=== PATIENT | female | born 1955 | race Caucasian/White ===

== ENCOUNTER 2020-04-01 08:47 | Outpatient (REF) | payer OTHER, SELFPAY ==
[2020-04-01 10:18] LABS: MANUAL DIFF FLAG NO
[2020-04-01 10:31] LABS: Basophils Percent Auto 0.5 % (0-2); Eosinophils Absolute Auto 0.2 X10*3/uL (0.0-0.4); Eosinophils Percent Auto 3.3 % (0-4); Hematocrit 36.4 % (37-47); Hemoglobin 11.8 g/dl (12.0-16.0); Imm Gran Abs Auto 0.01 X10*3/uL (0.00-0.03); Imm Gran Pct Auto 0.2 % (0.0-0.4); Lymphocytes Absolute Auto 1.7 X10*3/uL (1.2-4.9); Lymphocytes Percent Auto 26.3 % (20-40); Mean Corpuscular HGB Conc 32.4 g/dl (31.0-35.0); Mean Corpuscular Hemoglobin 27.4 pg (27.0-33.0); Mean Corpuscular Volume 84.5 fL (80-98); Monocytes Absolute Auto 0.3 X10*3/uL (0.1-1.2); Monocytes Percent Auto 3.9 % (2-11); Neutrophils Absolute Auto 4.2 X10*3/uL (2.0-8.3); Neutrophils Percent Auto 65.8 % (45-73); Platelet Count 323 X10*3/uL (160-400); Red Blood Count 4.31 X10*6/uL (4.20-5.50); Red Cell Distribution Width 14.9 % (11.0-16.0); White Blood Count 6.4 X10*3/uL (4.8-10.8)
[2020-04-01 11:10] LABS: Alanine Aminotransferase 17 U/L (0-31); Albumin Level 3.8 g/dL (3.5-5.0); Alkaline Phosphatase 116 U/L (39-117); Anion Gap 14 (12-20); Aspartate Amino Transferase 17 U/L (5-31); Bilirubin Total 0.5 mg/dL (0.0-1.0); Blood Urea Nitrogen 14 mg/dL (9-16); Calcium 8.5 mg/dL (8.4-10.2); Carbon Dioxide 26 mmol/L (22-29); Chloride 105 mmol/L (96-108); Cholesterol 134 mg/dL; Estimated Glomerular Filt Rate 47; Glucose Fasting 106 mg/dL (60-99); HDL Cholesterol 39 mg/dL; LDL Cholesterol Calculated 80 mg/dl; Potassium 3.7 mmol/l (3.3-5.1); Sodium 141 mmol/L (135-145); Total Protein 6.4 g/dL (6.5-8.0); Triglycerides 76 mg/dL
[2020-04-01 11:11] LABS: T4 Thyroxine 7.2 ug/dL (4.5-12.0); Thyroid Stimulating Hormone 1.43 uIU/mL (0.32-4.0); Vitamin D 25-OH Total 24.9 ng/mL (>30)
[2020-04-01 11:21] LABS: Folate 12.7 ng/mL (> or = 4.0); Vitamin B12 385 pg/mL (200-900)
== END 2020-04-01 08:48 | disposition home or self-care (01) ==
LOC: HO.10HDL 08:47
PROVIDERS: Visit Provider Internal Medicine
DX: K21.9 Gastro-esophageal reflux disease without esophagitis (principal); E66.9 Obesity, unspecified; E78.00 Pure hypercholesterolemia, unspecified; I25.10 Atherosclerotic heart disease of native coronary artery without angina pectoris; F41.8 Other specified anxiety disorders; I10 Essential (primary) hypertension; R73.02 Impaired glucose tolerance (oral); G43.909 Migraine, unspecified, not intractable, without status migrainosus; K59.00 Constipation, unspecified; M54.5 Low back pain
CPT/HCPCS: 36415; 80053; 80061; 82306; 82607; 82746; 84436; 84443; 85025

== ENCOUNTER 2020-04-11 10:40 | Outpatient (REF) | payer OTHER, SELFPAY | END 2020-04-11 10:41 | disposition home or self-care (01) | LOC: HO.LAB 10:40 | PROVIDERS: PCP Internal Medicine; Visit Provider Internal Medicine | DX: Z20.828 Contact with and (suspected) exposure to other viral communicable diseases (principal) | CPT/HCPCS: C9803; U0003 ==

== ENCOUNTER 2020-07-11 09:56 | Outpatient (REF) | payer OTHER, SELFPAY ==
[2020-07-11 10:57] LABS: Alanine Aminotransferase 17 U/L (0-31); Albumin Level 3.9 g/dL (3.5-5.0); Alkaline Phosphatase 109 U/L (39-117); Anion Gap 12 (12-20); Aspartate Amino Transferase 18 U/L (5-31); Bilirubin Total 0.4 mg/dL (0.0-1.0); Blood Urea Nitrogen 13 mg/dL (9-16); Calcium 9.2 mg/dL (8.4-10.2); Carbon Dioxide 26 mmol/L (22-29); Chloride 108 mmol/L (96-108); Cholesterol 143 mg/dL; Estimated Glomerular Filt Rate 44; Glucose Random 109 mg/dL (60-115); HDL Cholesterol 44 mg/dL; LDL Cholesterol Calculated 85 mg/dl; Potassium 4.2 mmol/L (3.3-5.1); Sodium 142 mmol/L (135-145); Total Protein 6.5 g/dL (6.5-8.0); Triglycerides 70 mg/dL
[2020-07-11 10:59] LABS: Appearance Urine CLEAR; Color Urine YELLOW; Estimated Average Glucose 120 mg/dL; Glucose Urine UA NEG (NEG); Hemoglobin A1c % 5.8 %; Leukocyte Esterase Urine TRACE (NEG); Nitrite Urine NEG (NEG); Specific Gravity - Urine >= 1.030 (1.005-1.025); Urine Blood NEG (NEG); Urine Ketones NEG (NEG); Urine Protein NEG (NEG-TRACE)
[2020-07-11 11:12] LABS: Bacteria Urine TRACE /LPF; Mucus Urine 1+ /LPF; RBC Urine 0-2 /HPF (0); Squamous Epithelial Cell Urine 1+ /LPF
== END 2020-07-11 09:57 | disposition home or self-care (01) ==
LOC: HO.10HDL 09:56
PROVIDERS: Visit Provider Internal Medicine
DX: R73.02 Impaired glucose tolerance (oral) (principal); E78.00 Pure hypercholesterolemia, unspecified; R30.0 Dysuria
CPT/HCPCS: 36415; 80053; 80061; 81001; 83036

== ENCOUNTER 2020-08-29 16:50 | Emergency (ER) | payer OTHER, SELFPAY ==
--- NOTE | ~2020-08-29 | XR_ITS ---
EXAMINATION: XR HIP, RIGHT CLINICAL INFORMATION: Right leg and right groin pain COMPARISON: None TECHNIQUE: Single view pelvis with 2 additional views of the right hip. FINDINGS: Some minimal degenerative change present with some supra-acetabular sclerosis and some minimal osteophyte formation. No significant joint space narrowing. No fracture. Alignment is anatomic. Hip joint space is maintained. XR/XR hip RT min 2V IMPRESSION: No acute abnormality is seen.
--- NOTE | ~2020-08-29 | US_ITS ---
EXAMINATION: US VENOUS ULTRASOUND WITH DOPPLER LOWER EXTREMITY, RIGHT CLINICAL INFORMATION: Right lower extremity pain and swelling COMPARISON: right lower extremity DVT study 11/08/2013 TECHNIQUE: Ultrasound of the deep veins is performed from the hip to the calf with compression sonography and color and pulse Doppler assessment. Spectral analysis with color-flow imaging is performed. FINDINGS: There is normal venous compression and respiratory variation and augmented flow. The visualized common femoral vein, superficial femoral vein, profunda femoral vein, popliteal vein, and the trifurcation region shows no evidence of deep venous thrombosis. There is no significant popliteal fossa cyst. The contralateral left femoral vein appeared normal. If the patient's symptoms persist, followup ultrasound in 5 days 7 days might be of value to exclude proximal propagation from a non-visualized calf vein. US/US venous duplex LE RT IMPRESSION: No DVT demonstrated in the right lower extremity.
[2020-08-29 17:50] VITALS: BP 140/75; PULSE 68; RESP 16; TEMP 36.6; O2SAT 98; BMI 34.4
--- NOTE | 2020-08-29 18:45 | ED.LOWEXIN ---
HPI - Extremity Injury (Lower) General Chief Complaint: Extremity Injury, Lower Stated Complaint: LEG PAIN Time Seen by Provider: 08/29/20 18:31 Source: patient Mode of arrival: ambulatory Limitations: no limitations History of Present Illness HPI Narrative: 64-year-old female with past medical history of anxiety, depression, coronary artery disease, diverticulitis, GERD, hypertension, hyperlipidemia, leukopenia, and migraines presents with several days of right hip pain and intermittent right knee swelling. Patient states that she was walking and felt the deep groin pain that has not been alleviated with rest or xjpo-oho-ghgpbqk medications. She does not describe any falls or injury, denies chest pain and pressure, palpitations, shortness breath, diaphoresis, shortness breath on exertion, abdominal pain, abdominal distention, dysuria, hematuria, nausea, vomiting, diarrhea, constipation, melena, or hematochezia. MD complaint: hip injury Onset (ago): day(s) Type of Injury: unknown Place: home Severity: moderate Severity scale (1-10): 7 Relieving factors: nothing Exacerbating factors: weight bearing, movement and palpation Associated symptoms: swelling and able to partially bear weight Other symptoms: none Treatments prior to arrival: NSAIDS Related Data Home Medications Medication Instructions Recorded Confirmed aspirin 81 mg tablet,delayed 81 mg PO DAILY 04/09/20 07/10/20 release txkbvcjlgu-fekzpctptstcl-hngzrhlm 1 cap PO Q4-6H PRN 04/09/20 07/10/20 50 mg-325 mg-40 mg capsule isosorbide mononitrate 30 mg 30 mg PO DAILY 04/09/20 07/10/20 tablet,extended release 24 hr lisinopril 5 mg tablet 5 mg PO DAILY 04/09/20 07/10/20 Previous Rx's Medication Instructions Recorded dicyclomine 10 mg capsule 10 mg PO TID 30 Days #90 cap 03/06/20 sumatriptan succinate 50 mg tablet 50 mg PO .QD PRN #14 tab 04/09/20 amlodipine 10 mg tablet 10 mg PO DAILY #90 tab 05/13/20 atorvastatin 80 mg tablet 80 mg PO DAILY #90 tab 05/27/20 sertraline 25 mg tablet 25 mg PO DAILY #90 tab 05/27/20 rosuvastatin 20 mg tablet 20 mg PO DAILY #90 tab 07/03/20 clonazepam 0.5 mg tablet 0.5 mg PO BID 30 Days #60 tab 07/09/20 omeprazole 20 mg capsule,delayed 20 mg PO DAILY #90 cap 07/10/20 release phenazopyridine 200 mg tablet 200 mg PO TID #30 tab 07/10/20 psyllium husk 0.52 gram capsule 0.52 g PO BEDTIME PRN #90 cap 07/10/20 sulfamethoxazole 800 1 tab PO BID #14 tab 07/11/20 mg-trimethoprim 160 mg tablet folic acid 1 mg tablet 1 mg PO DAILY #90 tab 07/23/20 Allergies Allergy/AdvReac Type Severity Reaction Status Date / Time Iodinated Contrast Media Allergy Unknown SHAKING Verified 06/26/20 12:15 [IV DYE, IODINE CONTAINING CONTRAST ] Review of Systems Review of Systems: Constitutional: No Fever, No Chills ENT/Mouth: No Ear Pain, No Hoarseness, No sore throat Eyes: No Eye Pain, No Swelling, No Redness, No Foreign Body Cardiovascular: No Chest Pain, No SOB Respiratory: No Cough, No Dyspnea Gastrointestinal: No Nausea, No Vomiting, No Diarrhea, No abdominal Pain Genitourinary: No Dysuria, No Hematuria Musculoskeletal: positive right hip pain, positive right knee swelling, No Myalgias Skin: No Skin lacerations, No rash Neuro: No Weakness, No Numbness, No Paresthesias, No Loss of Consciousness, No Dizziness, No Headache Psych: No Anxiety/Panic, No Depression Heme/Lymph: no easy bruising, no Lymphadenopathy Endocrine: No Polyuria, No Polydipsia Yes all other systems are reviewed and are negative PMFSH Past Medical History Attestation statement: The following information was validated with the patient. Source: old records reviewed Medical History Anxiety and depression Coronary artery disease Diverticulitis GERD (gastroesophageal reflux disease) Hypercholesterolemia Hypertension Impaired glucose tolerance Leukopenia Migraine Obesity (BMI 30-39.9) Psoriasis Surgical History History of bladder surgery History of section History of urologic surgery S/P ROSALIA-BSO (total abdominal hysterectomy and bilateral salpingo-oophorectomy) Family History Family History Father Medical history unknown Mother Myocardial infarction Hypertension CVD (cardiovascular disease) Social History Social History Alcohol intake: current Alcohol intake frequency: holidays/special occasions only Smoking Status: Never smoker Advance Directives: No Advance Directives Information Provided: No Physical Exam Vital Signs: Vital Signs: Last Vital Signs Temp 98 F 08/29/20 17:50 Pulse 65 08/29/20 20:02 Resp 17 08/29/20 20:02 BP 128/70 08/29/20 20:02 Pulse Ox 96 08/29/20 20:02 Body Mass Index 34.4 Appearance: Alert. Oriented X3. No acute distress. Eyes: Pupils equal, round and reactive to light. ENT: Pharynx normal. Neck: Normal inspection. Neck supple. CVS: Normal heart rate and rhythm. Pulses normal. Respiratory: No respiratory distress. Breath sounds normal. Abdomen: Soft and nontender. Skin: Skin warm and dry. Normal skin color. Normal skin turgor. Extremities: Right hip pain on flexion, extension, abduction and adduction, right knee swelling without tenderness and with normal range of motion, full range of motion to bilateral ankles and feet, equal pedal pulses and brisk capillary refill. Neuro: No motor deficit. No sensory deficit. Course Course Course Narrative: 64-year-old female with past medical history of anxiety, depression, coronary artery disease, diverticulitis, GERD, hypertension, hyperlipidemia, leukopenia, and migraines presents with several days of right hip pain and intermittent right knee swelling. Will order hip x-ray and rule out DVT. Venous duplex negative, hip x-ray shows osteophytes and degeneration. Patient is requesting something further for pain, will give 1 tablet of oxycodone and a referral to primary care for possible physical therapy. Detailed discussion regarding appropriate use of narcotics patient, while patient is disappointed that I cannot send her home with prescription, she does understand. Patient verbalized understanding of and agrees plan of care discharge home. MDM - Extremity Injury (Lower) Medical Records Attestation: I reviewed the patient's medical records. Lab Data Attestation: I reviewed the patient's lab results. Imaging Data Right hip x-ray: Attestation: I personally reviewed and interpreted this imaging study as follows: Radiologist's impression: EXAMINATION: XR HIP, RIGHT CLINICAL INFORMATION: Right leg and right groin pain COMPARISON: None TECHNIQUE: Single view pelvis with 2 additional views of the right hip. FINDINGS: Some minimal degenerative change present with some supra-acetabular sclerosis and some minimal osteophyte formation. No significant joint space narrowing. No fracture. Alignment is anatomic. Hip joint space is maintained. XR/XR hip RT min 2V IMPRESSION: No acute abnormality is seen. Right lower extremity venous duplex: Attestation: I personally reviewed and interpreted this imaging study as follows: Radiologist's impression: EXAMINATION: US VENOUS ULTRASOUND WITH DOPPLER LOWER EXTREMITY, RIGHT CLINICAL INFORMATION: Right lower extremity pain and swelling COMPARISON: right lower extremity DVT study 11/08/2013 TECHNIQUE: Ultrasound of the deep veins is performed from the hip to the calf with compression sonography and color and pulse Doppler assessment. Spectral analysis with color-flow imaging is performed. FINDINGS: There is normal venous compression and respiratory variation and augmented flow. The visualized common femoral vein, superficial femoral vein, profunda femoral vein, popliteal vein, and the trifurcation region shows no evidence of deep venous thrombosis. There is no significant popliteal fossa cyst. The contralateral left femoral vein appeared normal. If the patient's symptoms persist, followup ultrasound in 5 days 7 days might be of value to exclude proximal propagation from a non-visualized calf vein. US/US venous duplex LE RT IMPRESSION: No DVT demonstrated in the right lower extremity. Discharge Plan Discharge Clinical Impression: Osteophyte of hip Patient Disposition: Home, Self-Care Instructions: Arthritis (ED) Additional Instructions: You were evaluated for right hip pain. X-rays show bone sclerosing and osteophytes, consistent with arthritis. Please follow-up with primary care physician as you may need physical therapy. Venous duplex of the right lower extremity is negative for blood clots. Thank you for choosing this emergency department for evaluation. Please follow-up with primary care physician as needed. Return to the emergency department for any new, concerning, or worsening symptoms. Prescriptions: No Action dicyclomine 10 mg capsule 10 mg PO TID 30 Days Qty: 90 RF: 6 amlodipine 10 mg tablet 10 mg PO DAILY Qty: 90 RF: 1 sertraline 25 mg tablet 25 mg PO DAILY Qty: 90 RF: 1 atorvastatin 80 mg tablet 80 mg PO DAILY Qty: 90 RF: 3 rosuvastatin 20 mg tablet 20 mg PO DAILY Qty: 90 RF: 2 clonazepam 0.5 mg tablet 0.5 mg PO BID 30 Days Qty: 60 RF: 1 sulfamethoxazole-trimethoprim [Bactrim DS] 800-160 mg tablet 1 tab PO BID Qty: 14 RF: 0 folic acid 1 mg tablet 1 mg PO DAILY Qty: 90 RF: 1 isosorbide mononitrate 30 mg tablet extended release 24 hr 30 mg PO DAILY RF: 0 doglzshmyy-zhwzsdegclyvp-qijp 50-325-40 mg capsule 1 cap PO Q4-6H PRNRF: 0 lisinopril 5 mg tablet 5 mg PO DAILY RF: 0 aspirin [Adult Aspirin Regimen] 81 mg tablet,delayed release (DR/EC) 81 mg PO DAILY RF: 0 sumatriptan succinate [Imitrex] 50 mg tablet 50 mg PO .QD PRN (Reason: migraine headache) Qty: 14 RF: 6 psyllium husk [Natural Fiber Laxative] 0.52 gram capsule 0.52 g PO BEDTIME PRN (Reason: constipation) Qty: 90 RF: 3 omeprazole 20 mg capsule,delayed release(DR/EC) 20 mg PO DAILY Qty: 90 RF: 1 phenazopyridine [Pyridium] 200 mg tablet 200 mg PO TID Qty: 30 RF: 0 Interventions: ED Discharge Assessment Last Done: 08/29/20 20:32 Discharge Date/Time: 08/29/20 20:33
[2020-08-29 20:02] VITALS: BP 128/70; PULSE 65; RESP 17; O2SAT 96
[2020-08-29] MEDS: oxyCODONE HCl Immed Release 5 MG TABLET PO (20:02)
== END 2020-08-29 20:33 | disposition home or self-care (01) ==
PROVIDERS: Emergency Provider Internal Medicine; PCP Internal Medicine
DX: M25.751 Osteophyte, right hip (principal); M79.604 Pain in right leg; R60.0 Localized edema; Z79.899 Other long term (current) drug therapy
CPT/HCPCS: 73502; 93971; 99284

== ENCOUNTER 2020-09-16 | Outpatient (REF) | payer OTHER, SELFPAY ==
[2020-09-18 15:07] LABS: H Pylori Breath Test NOT DETECTED (NOT DETECTED)
== END 2020-09-16 00:01 | disposition home or self-care (01) ==
LOC: HO.LNP
PROVIDERS: Visit Provider Physician Assistant
DX: K21.9 Gastro-esophageal reflux disease without esophagitis (principal); Z11.0 Encounter for screening for intestinal infectious diseases
CPT/HCPCS: 83013

== ENCOUNTER → 2020-09-16 10:13 | Outpatient (BNVA) | payer OTHER, SELFPAY | PROVIDERS: Visit Provider Physician Assistant | DX: K21.9 Gastro-esophageal reflux disease without esophagitis (principal) | CPT/HCPCS: 99212 ==

== ENCOUNTER 2020-09-17 15:04 | Outpatient (REF) | payer OTHER, SELFPAY | END 2020-09-17 15:05 | disposition home or self-care (01) | LOC: HO.LNP 15:04 | PROVIDERS: Visit Provider Physician Assistant | DX: Z13.89 Encounter for screening for other disorder (principal) ==

== ENCOUNTER → 2020-12-18 10:57 | Outpatient (BNVA) | payer OTHER, SELFPAY | PROVIDERS: PCP Internal Medicine | DX: N39.0 Urinary tract infection, site not specified (principal) | CPT/HCPCS: 99202 ==

== ENCOUNTER 2021-01-09 08:26 | Outpatient (REF) | payer OTHER, SELFPAY ==
[2021-01-09 09:02] LABS: MANUAL DIFF FLAG NO
[2021-01-09 09:12] LABS: Basophils Percent Auto 0.5 % (0-2); Eosinophils Absolute Auto 0.2 X10*3/uL (0.0-0.4); Eosinophils Percent Auto 2.8 % (0-4); Hematocrit 36.9 % (37-47); Hemoglobin 11.7 g/dl (12.0-16.0); Imm Gran Abs Auto 0.01 X10*3/uL (0.00-0.03); Imm Gran Pct Auto 0.2 % (0.0-0.4); Immature Retic Fraction 10.4 % (3.0-15.9); Lymphocytes Absolute Auto 1.9 X10*3/uL (1.2-4.9); Lymphocytes Percent Auto 30.3 % (20-40); Mean Corpuscular HGB Conc 31.7 g/dl (31.0-35.0); Mean Platelet Volume 10.2 fL (9.4-12.3); Monocytes Absolute Auto 0.3 X10*3/uL (0.1-1.2); Monocytes Percent Auto 4.9 % (2-11); Neutrophils Absolute Auto 3.9 X10*3/uL (2.0-8.3); Neutrophils Percent Auto 61.3 % (45-73); Platelet Count 275 X10*3/uL (160-400); Red Blood Count 4.34 X10*6/uL (4.20-5.50); Red Cell Distribution Width 15.6 % (11.0-16.0); Retic HGB Equivalent 30.2 pg (30.0-35.0); Reticulocyte Percent 1.3 % (0.5-1.8); Reticulocytes Absolute 0.058 X10*6/uL (0.026-0.095); White Blood Count 6.4 X10*3/uL (4.8-10.8)
[2021-01-09 09:32] LABS: Estimated Average Glucose 111 mg/dL; Hemoglobin A1c % 5.5 %
[2021-01-09 09:44] LABS: Unsaturated Iron Binding 307 ug/dL
[2021-01-09 09:49] LABS: Iron 47 mcg/dL (30-160); Percent Iron Saturation 13 % (15-50); Total Iron Binding Capacity 354 mcg/dL (228-428)
[2021-01-09 10:01] LABS: Folate 13.5 ng/mL (> or = 4.0); Vitamin B12 302 pg/mL (200-900)
[2021-01-09 10:05] LABS: Ferritin 8 ng/mL (10-250)
== END 2021-01-09 08:27 | disposition home or self-care (01) ==
LOC: HO.LAB 08:26
PROVIDERS: PCP Internal Medicine; Visit Provider Internal Medicine
DX: D64.9 Anemia, unspecified (principal); R73.02 Impaired glucose tolerance (oral)
CPT/HCPCS: 36415; 82607; 82728; 82746; 83036; 83540; 85025; 85045

== ENCOUNTER 2021-01-31 10:15 | Outpatient (REF) | payer OTHER, SELFPAY ==
--- NOTE | ~2021-01-31 | MM_ITS ---
EXAMINATION: MM SCREENING DIGITAL BREAST TOMOSYNTHESIS, BILATERAL CLINICAL INFORMATION: Screening. Asymptomatic. Family history postmenopausal breast cancer: mother, sister. The lifetime risk of breast cancer based on the Tyrer-Cuzick Model is 10%. COMPARISON: Mammography: 01/26/2020, 09/30/2018, 09/24/2017 TECHNIQUE: Digital breast tomosynthesis is performed in both the craniocaudal and mediolateral oblique views along with computer-aided detection (CAD). Synthesized 2D images are generated from the tomosynthesis. FINDINGS: There are scattered areas of fibroglandular density (ACR BI-RADS breast composition Category b). There are no significant masses, abnormal calcifications, or other abnormalities. The axilla and skin contours are similar to prior study. There are no significant changes. MM/MM tomosynthesis screening BI IMPRESSION: No mammographic evidence of malignancy. ASSESSMENT: BI-RADS 1: Negative RECOMMENDATION: Routine annual mammography screening. This patient's information was entered into a reminder system with a target due date for their next mammogram.
== END 2021-01-31 10:16 | disposition home or self-care (01) ==
LOC: HO.MAMMO 10:15
PROVIDERS: Visit Provider Internal Medicine
DX: Z12.31 Encounter for screening mammogram for malignant neoplasm of breast (principal)
CPT/HCPCS: 77063; 77067

== ENCOUNTER 2021-05-08 08:36 | Outpatient (REF) | payer OTHER, SELFPAY ==
[2021-05-08 08:56] LABS: MANUAL DIFF FLAG NO
[2021-05-08 09:14] LABS: Basophils Percent Auto 0.4 % (0-2); Eosinophils Absolute Auto 0.1 X10*3/uL (0.0-0.4); Eosinophils Percent Auto 2.6 % (0-4); Hematocrit 37.2 % (37.0-47.0); Hemoglobin 11.8 g/dl (12.0-16.0); Imm Gran Abs Auto 0.01 X10*3/uL (0.00-0.03); Imm Gran Pct Auto 0.2 % (0.0-0.4); Immature Retic Fraction 11.7 % (3.0-15.9); Lymphocytes Absolute Auto 1.5 X10*3/uL (1.2-4.9); Lymphocytes Percent Auto 27.5 % (20-40); Mean Corpuscular HGB Conc 31.7 g/dl (31.0-35.0); Mean Corpuscular Hemoglobin 27.6 pg (27.0-33.0); Mean Corpuscular Volume 86.9 fL (80.0-98.0); Monocytes Absolute Auto 0.3 X10*3/uL (0.1-1.2); Monocytes Percent Auto 5.3 % (2-11); Neutrophils Absolute Auto 3.5 x10*3/uL (2.0-8.3); Platelet Count 277 X10*3/uL (160-400); Red Blood Count 4.28 X10*6/uL (4.20-5.50); Red Cell Distribution Width 14.6 % (11.0-16.0); Reticulocyte Percent 1.5 % (0.5-1.8); Reticulocytes Absolute 0.063 X10*6/uL (0.026-0.095); White Blood Count 5.5 X10*3/uL (4.8-10.8)
[2021-05-08 09:52] LABS: Appearance Urine CLEAR; Color Urine YELLOW; Glucose Urine UA NEG (NEG); Leukocyte Esterase Urine 1+ (NEG); Nitrite Urine NEG (NEG); Specific Gravity - Urine 1.015 (1.005-1.025); UACC Culture Trigger YES; Urine Blood TRACE (NEG); Urine Ketones NEG (NEG); Urine Protein NEG (NEG-TRACE)
[2021-05-08 09:53] LABS: Estimated Average Glucose 114 mg/dL; Hemoglobin A1c % 5.6 %
[2021-05-08 09:55] LABS: Alanine Aminotransferase 13 U/L (0-31); Albumin Level 3.8 g/dL (3.5-5.0); Alkaline Phosphatase 122 U/L (39-117); Anion Gap 14 (12-20); Aspartate Amino Transferase 16 U/L (5-31); Bilirubin Total 0.4 mg/dL (0.0-1.0); Blood Urea Nitrogen 17 mg/dL (9-16); Calcium 9.1 mg/dL (8.4-10.2); Carbon Dioxide 24 mmol/L (22-29); Chloride 108 mmol/L (96-108); Cholesterol 119 mg/dL; Estimated Glomerular Filt Rate 45; Glucose Random 114 mg/dL (60-115); HDL Cholesterol 33 mg/dL; Iron 42 mcg/dL (30-160); LDL Cholesterol Calculated 74 mg/dl; Percent Iron Saturation 13 % (15-50); Potassium 3.8 mmol/L (3.3-5.1); Sodium 142 mmol/L (135-145); Total Iron Binding Capacity 332 mcg/dL (228-428); Total Protein 6.4 g/dL (6.5-8.0); Triglycerides 63 mg/dL; Unsaturated Iron Binding 290 ug/dL
[2021-05-08 10:10] LABS: Bacteria Urine 1+ /LPF; Mucus Urine 1+ /LPF; RBC Urine 0 /HPF (0); Squamous Epithelial Cell Urine 2+ /LPF; WBC Clumps Urine NOTED
[2021-05-08 10:18] LABS: Ferritin 20 ng/mL (10-250); Free T4 (Free Thyroxine) 0.85 ng/dL (0.71-1.85); Thyroid Stimulating Hormone 1.03 uIU/mL (0.32-4.0)
[2021-05-08 10:26] LABS: Folate 10.7 ng/mL (> or = 4.0); Vitamin B12 292 pg/mL (200-900)
== END 2021-05-08 08:37 | disposition home or self-care (01) ==
LOC: HO.LAB 08:36
PROVIDERS: PCP Internal Medicine; Visit Provider Internal Medicine
DX: R13.10 Dysphagia, unspecified (principal); R10.13 Epigastric pain; K21.9 Gastro-esophageal reflux disease without esophagitis; R11.2 Nausea with vomiting, unspecified; R30.0 Dysuria; E78.00 Pure hypercholesterolemia, unspecified
CPT/HCPCS: 36415; 80053; 80061; 81001; 82607; 82728; 82746; 83036; 83540; 84439; 84443; 85025; 85045; 87086; 87088; 87186; 99212

== ENCOUNTER 2021-06-29 08:25 | Outpatient (REF) | payer OTHER, SELFPAY ==
--- NOTE | ~2021-06-29 | US_ITS ---
EXAMINATION: US ABDOMEN COMPLETE CLINICAL INFORMATION: Nausea and vomiting. COMPARISON: CT abdomen and pelvis without contrast dated 06/21/2019. Renals only ultrasound dated 01/03/2018 and 07/15/2014. Abdomen x-ray dated 03/12/2014 and 08/24/2013. TECHNIQUE: Real-time imaging of the abdominal viscera. FINDINGS: PANCREAS: Visualized portions of pancreas are normal in appearance. ABDOMINAL AORTA: The proximal, mid, and distal segments are normal in caliber. INFERIOR VENA CAVA: Visualized portions are normal. LIVER: Normal. The liver is normal in size. The liver contour is normal. Parenchymal echogenicity is normal. No focal hepatic lesion. There is no intrahepatic biliary duct dilatation seen. GALLBLADDER: Normal. The gallbladder is physiologically distended without evidence of stones, sludge, polyps, wall thickening or pericholecystic fluid. Negative sonographic Leal's sign. COMMON BILE DUCT: Normal in caliber measuring 0.4 cm in diameter. RIGHT KIDNEY: The kidney measures 9.5 cm in maximum dimension. There is minimal fullness of the renal pelvis without overt hydronephrosis. No renal calculi identified. LEFT KIDNEY: Normal. No hydronephrosis. No renal calculi or focal parenchymal lesions. The kidney measures 10.7 cm in maximum dimension. SPLEEN: Normal. The spleen measures 8.2 cm in maximum dimension. FREE FLUID: None. US/US abdomen complete IMPRESSION: Minimal fullness of the right renal pelvis without overt hydronephrosis. No renal calculi are identified. This is a nonspecific finding and may be within normal limits. If there is concern for acute pathology of the right kidney, further evaluation can be obtained with CT urogram.
== END 2021-06-29 08:26 | disposition home or self-care (01) ==
LOC: HO.US 08:25
PROVIDERS: PCP Internal Medicine; Visit Provider Nurse Practitioner
DX: R10.13 Epigastric pain (principal); R13.10 Dysphagia, unspecified; R11.2 Nausea with vomiting, unspecified
CPT/HCPCS: 76700

== ENCOUNTER → 2021-08-07 11:49 | Outpatient (BNVA) | payer OTHER, SELFPAY | PROVIDERS: PCP Internal Medicine; Referring Provider Internal Medicine; Visit Provider Nurse Practitioner | DX: K21.9 Gastro-esophageal reflux disease without esophagitis (principal); R10.13 Epigastric pain; R13.10 Dysphagia, unspecified; R11.2 Nausea with vomiting, unspecified | CPT/HCPCS: 99212 ==

== ENCOUNTER 2021-08-31 12:36 | Day surgery (SDC) | payer OTHER, SELFPAY ==
[2021-08-26 08:47] VITALS: BMI 31.1
--- NOTE | 2021-08-27 14:57 | HO.ANESPROP2 ---
Documented by User: Lavonne Rushing NP 08/27/21 14:59 HPI - Anesthesia Eval Consult details Narrative: 65yo F for Upper Endoscopy PMFSH Active Problems Active Problems: All Active Problems (Updated 08/26/21 @ 08:47 by Jennyfer Bauman RN) Constipation (Acute) Dysuria (Acute) UTI (urinary tract infection) (Acute) Hip osteoarthritis (Acute) Anemia (Acute) Peripheral vascular disease (Acute) Lower abdominal pain (Acute) Epigastric pain (Acute) Diarrhea (Acute) Nausea and vomiting (Acute) Dysphagia (Acute) Generalized anxiety disorder (Acute) Right shoulder tendinitis (Acute) Sciatic leg pain (Acute) Obesity (BMI 30-39.9) (Acute) Hypercholesterolemia (Acute) Coronary artery disease (Acute) GERD (gastroesophageal reflux disease) (Acute) Hypertension (Acute) Impaired glucose tolerance (Acute) Past Medical History Medical History (Updated 08/26/21 @ 08:47 by Jennyfer Bauman RN) Coronary artery disease COVID-19 vaccine series completed Diverticulitis Generalized anxiety disorder GERD (gastroesophageal reflux disease) Hypercholesterolemia Hypertension Impaired glucose tolerance Leukopenia Migraine Obesity (BMI 30-39.9) Psoriasis Family History Family History Father Medical history unknown Mother Myocardial infarction Hypertension CVD (cardiovascular disease) Surgical History Surgical History (Updated 08/25/21 @ 15:34 by Jennyfer Bauman RN) H/O colonoscopy History of section History of esophagogastroduodenoscopy (EGD) History of pubovaginal sling Hx of bladder repair surgery Hx of umbilical hernia repair S/P ROSALIA-BSO (total abdominal hysterectomy and bilateral salpingo-oophorectomy) Social History Social History Household Members: Spouse Housing: Apartment Alcohol intake: current Alcohol intake frequency: holidays/special occasions only Patient Tobacco Use Status: Never used Tobacco e-Cigarette/Vaping Use: Never Used Second Hand Smoke Exposure: No Use of substances other than those prescribed or required for medical reasons: No Have you been hit, kicked, punched, or otherwise hurt by someone within the past year? If so, by whom?: No Are you DNR?: No Advance Directives: No Advance Directives Information Provided: Yes Advance Directives on File: No Recently lost weight without trying: No Eating poorly because of decreased appetite: No Nutrition Risks: No Nutritional Risk service: No Current occupational status: unemployed Meds Allergies Allergy/AdvReac Type Severity Reaction Status Date / Time Iodinated Contrast Media Allergy Unknown SHAKING Verified 08/07/21 12:11 [IV DYE, IODINE CONTAINING CONTRAST ] Home Medications Medication Instructions Recorded Confirmed Last Taken Type mxgrfpuvtt-nikeecnvscgmh-tvzgyqee 1 cap PO Q4-6H PRN 04/09/20 08/31/21 08/30/21 History 50 mg-325 mg-40 mg capsule Exam Exam Date and Time: August 27, 2021 1457 Height,Weight and Vital Signs: Height 5 ft 2 in Weight 77.111 kg Pertinent Lab Results Pertinent Lab Results: Laboratory Tests 05/08/21 05/08/21 08:55 08:55 WBC 5.5 RBC 4.28 Hgb 11.8 L Hct 37.2 Plt Count 277 Sodium 142 Potassium 3.8 Chloride 108 Carbon Dioxide 24 BUN 17 H Creatinine 1.20 Assessment and Plan Assessment Anesthesia Assessment: Chart Reviewed Documented by User: Brooklynn Lawrence MD 08/31/21 13:35 [facility] Past Medical History Medical History (Updated 08/26/21 @ 08:47 by Jennyfer Bauman RN) Coronary artery disease COVID-19 vaccine series completed Diverticulitis Generalized anxiety disorder GERD (gastroesophageal reflux disease) Hypercholesterolemia Hypertension Impaired glucose tolerance Leukopenia Migraine Obesity (BMI 30-39.9) Psoriasis Family History Family History Father Medical history unknown Mother Myocardial infarction Hypertension CVD (cardiovascular disease) Family history of problems with anesthesia: No Surgical History Surgical History (Updated 08/25/21 @ 15:34 by Jennyfer Bauman RN) H/O colonoscopy History of section History of esophagogastroduodenoscopy (EGD) History of pubovaginal sling Hx of bladder repair surgery Hx of umbilical hernia repair S/P ROSALIA-BSO (total abdominal hysterectomy and bilateral salpingo-oophorectomy) History of Problems with Anesthesia: No Social History Social History Household Members: Spouse Housing: Apartment Alcohol intake: current Alcohol intake frequency: holidays/special occasions only Patient Tobacco Use Status: Never used Tobacco e-Cigarette/Vaping Use: Never Used Second Hand Smoke Exposure: No Use of substances other than those prescribed or required for medical reasons: No Have you been hit, kicked, punched, or otherwise hurt by someone within the past year? If so, by whom?: No Are you DNR?: No Advance Directives: No Advance Directives Information Provided: Yes Advance Directives on File: No Recently lost weight without trying: No Eating poorly because of decreased appetite: No Nutrition Risks: No Nutritional Risk service: No Current occupational status: unemployed Meds Allergies Allergy/AdvReac Type Severity Reaction Status Date / Time Iodinated Contrast Media Allergy Unknown SHAKING Verified 08/07/21 12:11 [IV DYE, IODINE CONTAINING CONTRAST ] Home Medications Medication Instructions Recorded Confirmed Last Taken Type fhffxqoqbs-ycdeanfzcnqjw-ztpphmdt 1 cap PO Q4-6H PRN 04/09/20 08/31/21 08/30/21 History 50 mg-325 mg-40 mg capsule Exam Airway Mallampati Class: II TM Dist: >3cm Neck ROM: Full Heart: rrr Lungs: cta Assessment and Plan Assessment Anesthesia Assessment: Anesthesia Plan Discussed and Chart Reviewed Final Anesthetic Review Family History of Problems with Anesthesia: No History of Problems with Anesthesia: No NPO: Yes ASA Class: II Final Preanesthetic Review: No Changes in Pt Med Stat, Meds/Allgs Chart Reviewed and Consent Obtained/Reviewed Patient Risk: Intermediate Procedure Risk: Intermediate Anesthetic Plan Anesthetic Plan: MAC: Disposition: Standard PACU
[2021-08-31 13:02] VITALS: BP 141/83; PULSE 76; RESP 18; TEMP 36.2; O2SAT 97; BMI 31.4
--- NOTE | 2021-08-31 13:37 | P.BOP_ITS ---
Brief Operative Note Date of Service: 08/31/21 Pre-op diagnosis: GERD, dysphagia, nausea and vomiting, Post-op diagnosis: other (Esophagitis, hiatal hernia, Schatzki's ring, gastritis, gastric antral nodule) Procedure: FLEXIBLE TRANSORAL UPPER GASTROINTESTINAL ENDOSCOPY WITH BIOPSIES AND ESOPHAGEAL BALLOON DILATION Consent: Indications for the procedure and potential complications of bleeding, perforation, reaction to medications and missed diagnosis were discussed with the patient and informed consent was obtained. Instrument: Olympus GIF H 190 mid size upper endoscope Monitoring: Vital signs and clinical assessment, continuous EKG monitoring, Pulse oximetry, Carbon Dioxide monitoring and blood pressure monitoring were done throughout the procedure. Procedure: The patient was placed in the left lateral decubitis position and pre-procedure medications were administered and a bite block was placed. The endoscope was inserted into the mouth and advanced under direct vision to the third part of duodenum. A careful inspection was made as the upper endoscope was withdrawn including a retroflexed examination of the proximal stomach; Findings and interventions are described below. Findings: Larynx: Normal Esophagus: Tortuous esophagus with increased tertiary contractions. GE junction at 30 cms, hiatal hernia 30 to 34 cms. Two small chronic appearing erosions at the GE junction. A partially obstructing Schatzki's ring. Balloon dilation was performed with a 20 mm (60 F) CRE balloon for 60 seconds Stomach: A 1.5 cms benign appearing nodule in the pre-pyloric area with central erosions - biopsies were obtained. Mild gastric erythema. Biopsies were obtained. Grade 2 flap valve on retroflexed examination of the cardia. Duodenum: Normal bulb and descending duodenum. Biopsies were obtained from 3rd part of the duodenum to check for celiac sprue. Intervention: Biopsies and balloon dilation as noted above Impression and Post Procedure Diagnosis: Endoscopy Findings: ESOPHAGUS: Tortuous esophagus with increased tertiary contractions. GE junction at 30 cms, hiatal hernia 30 to 34 cms. Two small chronic appearing erosions at the GE junction. A partially obstructing Schatzki's ring - dilated to 20 mm (60 F) with a CRE balloon. STOMACH: A 1.5 cms benign appearing nodule in the pre-pyloric area with central erosions - biopsies were obtained. Mild gastric erythema. Biopsies were obtained DUODENUM: Normal - biopsied to check for celiac sprue Plan: Await pathology results Patient has an appointment on 09/18/21 in the GI Clinic with Jayne Pritchard NP . If pt continues to have dysphagia, can consider repeat barium swallow. Of note Barium swallow in 2015 showed a small hiatal hernia and gastroesophageal reflux. No stricture or ulceration was noted. GERD and hiatal hernia handouts were given in the discharge area Surgeon: Paresh Pearson MD Anesthesia: MAC (Dr Patel) Was an Computer Help Desk Specialist used for this Procedure?: Yes Computer Help Desk Specialist: Radha Rodriguez Estimated blood loss (mL): 0 Pathology: other (A. small bowel bxs, R/O celiac B. gastric antrum bxs, R/O H. pylori C. gastric antrum nodule bxs) Condition: stable Disposition: PACU
--- NOTE | 2021-08-31 13:37 | MHC.SHP ---
Pre-Procedural Eval Section A Date of Service: 08/31/21 The patient is an INPATIENT: No Changes since office visit: Yes Patient answered all questions; No Cold of Flu in the past 2 weeks, No New Medical Problems and No Changes in Medication The History & Physical has been completed within 30 days and I have reviewed it.: Yes Section B Chief Complaint: dysphagia,reflux disease,epigastric pain Allergies: Allergies Allergy/AdvReac Type Severity Reaction Status Date / Time Iodinated Contrast Media Allergy Unknown SHAKING Verified 08/07/21 12:11 [IV DYE, IODINE CONTAINING CONTRAST ] Plan I have reviewed the history and physical and performed a pertinent physical examination on my patient. No changes have occurred unless specified.
[2021-08-31] MEDS: Lactated Ringers 1,000 ML 100 ML IVCONT (13:44)
--- NOTE | 2021-08-31 13:45 | W.PM.OPN ---
Operative Note Operative Note Date of Service: 08/31/21 Narrative: Pre-op diagnosis: GERD, dysphagia, nausea and vomiting, Post-op diagnosis:?other (Esophagitis, hiatal hernia, Schatzki's ring, gastritis, gastric antral nodule) Procedure: FLEXIBLE TRANSORAL UPPER GASTROINTESTINAL ENDOSCOPY WITH BIOPSIES AND ESOPHAGEAL BALLOON DILATION Consent:?Indications for the procedure and potential complications of bleeding, perforation, reaction to medications and missed diagnosis were discussed with the patient and informed consent was obtained. Instrument:?Olympus GIF H 190 mid size upper endoscope Monitoring: Vital signs and clinical assessment, continuous EKG monitoring, Pulse oximetry, Carbon Dioxide monitoring and blood pressure monitoring were done throughout the procedure. Procedure:?The patient was placed in the left lateral decubitis position and pre-procedure medications were administered and a bite block was placed. The endoscope was inserted into the mouth and advanced under direct vision to the third part of duodenum. A careful inspection was made as the upper endoscope was withdrawn including a retroflexed examination of the proximal stomach; Findings and interventions are described below. Findings: Larynx:? Normal Esophagus:? Tortuous esophagus with increased tertiary contractions. GE junction at 30 cms, hiatal hernia 30 to 34 cms. Two small chronic appearing erosions at the GE junction. A partially obstructing Schatzki's ring. Balloon dilation was performed with a 20 mm (60 F) CRE balloon for 60 seconds Stomach: A 1.5 cms benign appearing nodule in the pre-pyloric area with central erosions - biopsies were obtained. Mild gastric erythema. Biopsies were obtained. Grade 2 flap valve on retroflexed examination of the cardia. Duodenum: Normal bulb and descending duodenum.? Biopsies were obtained from 3rd part of the duodenum to check for celiac sprue. Intervention: Biopsies and balloon dilation as noted above Impression and Post Procedure Diagnosis: Endoscopy Findings: ESOPHAGUS: Tortuous esophagus with increased tertiary contractions. GE junction at 30 cms, hiatal hernia 30 to 34 cms. Two small focal chronic appearing erosions at the GE junction. A partially obstructing Schatzki's ring - dilated to 20 mm (60 F) with a CRE balloon. STOMACH: A 1.5 cms benign appearing nodule in the pre-pyloric area with central erosions - biopsies were obtained. Mild gastric erythema. Biopsies were obtained DUODENUM: Normal - biopsied to check for celiac sprue Plan: Await pathology results Patient has an appointment on 09/18/21 in the GI Clinic with? Jayne Pritchard NP . If pt continues to have dysphagia, can consider repeat barium swallow. Of note Barium swallow in 2014 showed a small hiatal hernia and gastroesophageal reflux. No stricture or ulceration was noted. GERD and hiatal hernia handouts were given in the discharge area Surgeon: Paresh Pearson MD Anesthesia:?MAC (Dr Patel) Was an Blood Bank Laboratory Technologist used for this Procedure?:?Yes Blood Bank Laboratory Technologist:?aRdha Rodriguez Estimated blood loss (mL):?0 Pathology:?other (A. small bowel bxs, R/O celiac? B. gastric antrum bxs, R/O H. pylori? C. gastric antrum nodule bxs) Condition:?stable Disposition:?PACU
[2021-08-31 14:50] VITALS: BP 106/66; PULSE 78; RESP 16; TEMP 36.8; O2SAT 99
[2021-08-31 15:05] VITALS: BP 119/83; PULSE 61; RESP 16; TEMP 36.8; O2SAT 97
== END 2021-08-31 15:47 | disposition home or self-care (01) ==
PROVIDERS: PCP Internal Medicine; Visit Provider Internal Medicine Gastroenterology
PROC: 0DJ08ZZ Inspection of Upper Intestinal Tract, Via Natural or Artificial Opening Endoscopic (ICD-10-PCS; CPT 43235; principal; 2021-08-31 14:10)
DX: K22.2 Esophageal obstruction (principal); K29.70 Gastritis, unspecified, without bleeding; K21.00 Gastro-esophageal reflux disease with esophagitis, without bleeding; K44.9 Diaphragmatic hernia without obstruction or gangrene; I10 Essential (primary) hypertension; I25.10 Atherosclerotic heart disease of native coronary artery without angina pectoris; Z79.899 Other long term (current) drug therapy
CPT/HCPCS: 43249; 43239; 88305; 88342; C1726

== ENCOUNTER → 2021-09-18 11:25 | Outpatient (BNVA) | payer OTHER, SELFPAY | PROVIDERS: PCP Internal Medicine; Referring Provider Internal Medicine; Visit Provider Nurse Practitioner | DX: K21.9 Gastro-esophageal reflux disease without esophagitis (principal); K59.00 Constipation, unspecified; K27.9 Peptic ulcer, site unspecified, unspecified as acute or chronic, without hemorrhage or perforation; R11.2 Nausea with vomiting, unspecified | CPT/HCPCS: 99212 ==

== ENCOUNTER 2022-02-03 08:08 | Outpatient (REF) | payer OTHER, SELFPAY ==
[2022-02-03 08:31] LABS: MANUAL DIFF FLAG NO
[2022-02-03 09:08] LABS: Basophils Percent Auto 0.4 % (0-2); Eosinophils Absolute Auto 0.2 X10*3/uL (0.0-0.4); Eosinophils Percent Auto 3.2 % (0-4); Hematocrit 40.4 % (37.0-47.0); Imm Gran Abs Auto 0.01 X10*3/uL (0.00-0.03); Imm Gran Pct Auto 0.2 % (0.0-0.4); Lymphocytes Absolute Auto 1.5 X10*3/uL (1.2-4.9); Lymphocytes Percent Auto 27.1 % (20-40); Mean Corpuscular HGB Conc 32.2 g/dl (31.0-35.0); Mean Corpuscular Hemoglobin 28.4 pg (27.0-33.0); Mean Corpuscular Volume 88.2 fL (80.0-98.0); Mean Platelet Volume 10.5 fL (9.4-12.3); Monocytes Absolute Auto 0.3 X10*3/uL (0.1-1.2); Monocytes Percent Auto 4.9 % (2-11); Neutrophils Absolute Auto 3.6 x10*3/uL (2.0-8.3); Neutrophils Percent Auto 64.2 % (45-73); Platelet Count 289 X10*3/uL (160-400); Red Blood Count 4.58 X10*6/uL (4.20-5.50); Red Cell Distribution Width 14.4 % (11.0-16.0); Reticulocyte Percent 1.5 % (0.5-1.8); Reticulocytes Absolute 0.067 X10*6/uL (0.026-0.095); White Blood Count 5.5 X10*3/uL (4.8-10.8)
[2022-02-03 09:14] LABS: Estimated Average Glucose 108 mg/dL; Hemoglobin A1c % 5.4 %
[2022-02-03 09:45] LABS: Alanine Aminotransferase 17 U/L (0-31); Alkaline Phosphatase 102 U/L (39-117); Anion Gap 13 (12-20); Aspartate Amino Transferase 17 U/L (5-31); Bilirubin Total 0.5 mg/dL (0.0-1.0); Blood Urea Nitrogen 13 mg/dL (9-16); Calcium 8.9 mg/dL (8.4-10.2); Carbon Dioxide 26 mmol/L (22-29); Chloride 110 mmol/L (96-108); Cholesterol 132 mg/dL; Estimated Glomerular Filt Rate 52; Glucose Random 112 mg/dL (60-115); HDL Cholesterol 39 mg/dL; Iron 59 mcg/dL (30-160); LDL Cholesterol Calculated 78 mg/dl; Percent Iron Saturation 17 % (15-50); Potassium 3.9 mmol/L (3.3-5.1); Sodium 145 mmol/L (135-145); Total Iron Binding Capacity 339 mcg/dL (228-428); Total Protein 6.5 g/dL (6.5-8.0); Triglycerides 75 mg/dL; Unsaturated Iron Binding 280 ug/dL
[2022-02-03 09:53] LABS: Ferritin 24 ng/mL (10-250); Free T4 (Free Thyroxine) 0.97 ng/dL (0.71-1.85); Thyroid Stimulating Hormone 1.14 uIU/mL (0.32-4.0)
[2022-02-03 10:04] LABS: Folate 14.5 ng/mL (> or = 4.0); Vitamin B12 281 pg/mL (200-900)
== END 2022-02-03 08:09 | disposition home or self-care (01) ==
LOC: HO.LAB 08:08
PROVIDERS: PCP Internal Medicine; Visit Provider Internal Medicine
DX: D64.9 Anemia, unspecified (principal); I25.10 Atherosclerotic heart disease of native coronary artery without angina pectoris; E78.00 Pure hypercholesterolemia, unspecified; R73.02 Impaired glucose tolerance (oral)
CPT/HCPCS: 36415; 80053; 80061; 82306; 82607; 82728; 82746; 83036; 83540; 84439; 84443; 85025; 85045

== ENCOUNTER 2022-02-17 11:15 | Emergency (ER) | payer OTHER, SELFPAY ==
[2022-02-17 12:58] VITALS: BP 146/77; PULSE 58; RESP 16; TEMP 36.1; O2SAT 100; BMI 30.4
[2022-02-17 13:15] LABS: MANUAL DIFF FLAG NO
[2022-02-17 13:17] LABS: Appearance Urine Cloudy; Color Urine Yellow; Glucose Urine UA Negative (Negative); Leukocyte Esterase Urine Large (3+) (Negative); Nitrite Urine Negative (Negative); PH 6.5 (5.0-9.0); UMIC TRIGGER UACC YES; Urine Blood Trace (Negative); Urine Ketones Negative (Negative); Urine Protein Trace mg/dL (Neg-Trace)
[2022-02-17 13:17] LABS: Basophils Percent Auto 0.4 % (0-2); Eosinophils Absolute Auto 0.1 X10*3/uL (0.0-0.4); Eosinophils Percent Auto 1.5 % (0-4); Hematocrit 39.5 % (37.0-47.0); Hemoglobin 12.7 g/dl (12.0-16.0); Imm Gran Abs Auto 0.01 X10*3/uL (0.00-0.03); Imm Gran Pct Auto 0.1 % (0.0-0.4); Lymphocytes Absolute Auto 1.9 X10*3/uL (1.2-4.9); Lymphocytes Percent Auto 27.9 % (20-40); Mean Corpuscular HGB Conc 32.2 g/dl (31.0-35.0); Mean Corpuscular Hemoglobin 28.1 pg (27.0-33.0); Mean Corpuscular Volume 87.4 fL (80.0-98.0); Mean Platelet Volume 10.1 fL (9.4-12.3); Monocytes Absolute Auto 0.3 X10*3/uL (0.1-1.2); Monocytes Percent Auto 4.8 % (2-11); Neutrophils Absolute Auto 4.5 x10*3/uL (2.0-8.3); Neutrophils Percent Auto 65.3 % (45-73); Platelet Count 282 X10*3/uL (160-400); Red Blood Count 4.52 X10*6/uL (4.20-5.50); Red Cell Distribution Width 14.1 % (11.0-16.0); White Blood Count 6.9 X10*3/uL (4.8-10.8)
[2022-02-17 13:21] LABS: Bacteria Urine None Seen (None Seen); Hyaline Casts Urine 0-2 /LPF (0-2); Squamous Epithelial Cell Urine 0-2 /HPF (0-2); UACC Culture Trigger YES; WBC Urine >50 /HPF (0-5)
[2022-02-17 13:32] LABS: Alanine Aminotransferase 16 U/L (0-31); Albumin Level 4.3 g/dL (3.5-5.0); Alkaline Phosphatase 112 U/L (39-117); Anion Gap 13 (12-20); Aspartate Amino Transferase 16 U/L (5-31); Bilirubin Total 0.4 mg/dL (0.0-1.0); Blood Urea Nitrogen 15 mg/dL (9-16); Calcium 9.3 mg/dL (8.4-10.2); Carbon Dioxide 26 mmol/L (22-29); Chloride 108 mmol/L (96-108); Creatinine Clr Calc Pharmacy 47.6; Estimated Glomerular Filt Rate 49; Glucose Random 92 mg/dL (60-115); Potassium 4.3 mmol/L (3.3-5.1); Sodium 143 mmol/L (135-145); Total Protein 6.8 g/dL (6.5-8.0)
--- NOTE | 2022-02-17 14:51 | ED.FEMALEGU ---
HPI - Female Genitourinary General Chief complaint: Urogenital-Female Stated complaint: sent from doctor. bladder infection Time Seen by Provider: 02/17/22 14:11 Source: patient Mode of arrival: ambulatory History of Present Illness HPI Narrative: 66 year old female with a PMHx CAD, diverticulitis, anxiety, HLD, HTN, migraines, obesity, psoriasis, presenting to the ED complaining of dysuria and hematuria x months. Reports history of UTIs. Denies fever, chills, nausea, vomiting, abdominal pain, flank pain MD elicited complaint: dysuria and UTI Related Data Home Medications Medication Instructions Recorded Confirmed [id number] 1 cap PO Q4-6H PRN Migraine 04/09/20 11/04/21 50 mg-325 mg-40 mg capsule Headache Previous Rx's Medication Instructions Recorded sumatriptan succinate 50 mg tablet 50 mg PO .QD PRN migraine headache 04/09/20 (Imitrex) #14 tabs folic acid 1 mg tablet 1 mg PO DAILY #90 tabs 12/16/20 estradiol 0.01% (0.1 mg/gram) See Rx Instructions vaginal DAILY 12/24/20 vaginal cream (Estrace) 30 days #42.5 grams isosorbide mononitrate 30 mg 30 mg PO DAILY #90 tabs 04/08/21 tablet,extended release 24 hr psyllium husk 0.52 gram capsule 0.52 g PO BEDTIME PRN constipation 04/08/21 (Natural Fiber Laxative) #90 caps cyclobenzaprine 10 mg tablet 10 mg PO TID #90 tabs 04/21/21 rosuvastatin 20 mg tablet 20 mg PO DAILY #90 tabs 04/21/21 ascorbate calcium (vitamin C) 500 500 mg PO DAILY #90 tabs 07/14/21 mg tablet pantoprazole 40 mg tablet,delayed 40 mg PO DAILY 90 days #90 tabs 09/18/21 release amlodipine 10 mg tablet 10 mg PO DAILY #90 tabs 09/22/21 ferrous sulfate 324 mg (65 mg 324 mg PO DAILY #90 tabs 10/21/21 iron) tablet,delayed release cholecalciferol (vitamin D3) 50 50 mcg PO DAILY 90 days #90 caps 11/04/21 mcg (2,000 unit) capsule famotidine 40 mg tablet 40 mg PO BEDTIME #90 tabs 11/04/21 clonazepam 0.5 mg tablet 0.5 mg PO BID 30 days #60 tabs 01/19/22 lisinopril 5 mg tablet 5 mg PO DAILY 90 days #90 tabs 02/15/22 sertraline 25 mg tablet 25 mg PO DAILY #90 tabs 02/15/22 cefuroxime axetil 250 mg tablet 250 mg PO BID 7 days #14 tabs 02/17/22 phenazopyridine 200 mg tablet 200 mg PO TID PRN pain 6 doses #6 02/17/22 (Pyridium) tabs Allergies Allergy/AdvReac Type Severity Reaction Status Date / Time Iodinated Contrast Media Allergy Unknown SHAKING Verified 11/04/21 10:53 [IV DYE, IODINE CONTAINING CONTRAST ] Review of Systems Review of Systems: Constitutional: No Weight loss, No Fever, No Chills ENT/Mouth: No Ear Pain, No sore throat, No Rhinorrhea, No Swallowing Difficulty Cardiovascular: No Chest Pain, No SOB Respiratory: No Cough, No Sputum, No Wheezing Gastrointestinal: No Nausea, No Vomiting, No Diarrhea, No Constipation, No Abdominal pain Genitourinary: + Dysuria, No Urinary Frequency, + Hematuria, No Urinary Incontinence/retention, No Urgency, No Flank Pain Musculoskeletal: No joint pain, No Myalgias, No Joint Swelling Skin: No Skin Lesions, No rash Neuro: No Weakness, No Numbness, No Paresthesias Yes all other systems are reviewed and are negative Constitutional: Constitutional: Reports as per [facility] Past Medical History Attestation statement: The following information was validated with the patient. Medical History Coronary artery disease COVID-19 vaccine series completed Diverticulitis Generalized anxiety disorder GERD (gastroesophageal reflux disease) Hypercholesterolemia Hypertension Impaired glucose tolerance Leukopenia Migraine Obesity (BMI 30-39.9) Psoriasis Surgical History H/O colonoscopy History of section History of esophagogastroduodenoscopy (EGD) History of pubovaginal sling Hx of bladder repair surgery Hx of umbilical hernia repair S/P ROSALIA-BSO (total abdominal hysterectomy and bilateral salpingo-oophorectomy) Family History Family History Father Medical history unknown Mother Myocardial infarction Hypertension CVD (cardiovascular disease) Social History Social History Household Members: Spouse Housing: Apartment Alcohol intake: current Alcohol intake frequency: holidays/special occasions only Patient Tobacco Use Status: Never used Tobacco e-Cigarette/Vaping Use: Never Used Second Hand Smoke Exposure: No Advance Directives: No Advance Directives Information Provided: No service: No Current occupational status: unemployed Cognitive needs: No Hearing needs: No Vision needs: Yes Physical Exam Vital Signs: Vital Signs: Last Vital Signs Temp 96.9 F 02/17/22 12:58 Pulse 58 02/17/22 12:58 Resp 16 02/17/22 12:58 BP 146/77 H 02/17/22 12:58 Pulse Ox 100 02/17/22 12:58 O2 Del Method 02/17/22 12:58 BMI result Body Mass Index 30.4 Const: General: cooperative, healthy appearing and no acute distress Orientation/consciousness: patient oriented x3 Limitations: no limitations HEENT: Head: Yes normal to inspection and Yes atraumatic Ears: hearing grossly normal bilaterally General nose exam: Normal external nose present Face and sinus: Yes normal facial exam Eyes: General: appearance normal, both eyes and all related structures EOM: EOMs intact bilaterally Neck: Neck: Yes normal visual inspection and Yes no meningeal signs Resp: Effort & Inspection: normal respiratory effort and no respiratory distress Cardio: Rate: regular rate Heart sounds: S1 normal heart sound present and S2 normal heart sound present GI: Inspection: Yes normal to inspection Palpation (GI): Soft to palpation, nontender, no guarding and not rigid : General: Yes no CVA tenderness Back/Spine/Pelvis: Back: no CVA tenderness Skin: Rashes: no rashes Wounds: no wounds Neuro: General: patient oriented x3, tone normal and no meningeal signs Gait exam (Neuro): Normal gait present Extrem: General: Yes normal to inspection Course Course Course Narrative: -labs unremarkable appearance -UA infected Results discussed with patient including worrisome signs and symptoms and strict return precautions, and when to return to the emergency department. They verbalized understanding and feel safe for discharge at this time. MDM - Female Genitourinary MDM Narrative Medical decision making narrative: 66 year old female with a PMHx CAD, diverticulitis, anxiety, HLD, HTN, migraines, obesity, psoriasis, presenting to the ED complaining of dysuria and hematuria x months. On exam vital signs stable, NAD, nontoxic pain, abdomen soft/nontender, no CVA tenderness. Concern for UTI. Lower suspicion for pyelo, renal stone, appendicitis or diverticulitis Plan: UA, labs Differential Diagnosis Differential diagnosis: Likely urinary tract infection, vaginitis and cystitis Medical Records Attestation: I reviewed the patient's medical records. Lab Data Attestation: I reviewed the patient's lab results. Result diagrams: 02/17/22 13:11 02/17/22 13:11 Labs: Lab Results 02/17/22 02/17/22 02/17/22 Range/Units 13:08 13:11 13:11 WBC 6.9 (4.8-10.8) X10*3/uL RBC 4.52 (4.20-5.50) X10*6/uL Hgb 12.7 (12.0-16.0) g/dl Hct 39.5 (37.0-47.0) % MCV 87.4 (80.0-98.0) fL MCH 28.1 (27.0-33.0) pg MCHC 32.2 (31.0-35.0) g/dl RDW 14.1 (11.0-16.0) % Plt Count 282 (160-400) X10*3/uL MPV 10.1 (9.4-12.3) fL Immature Gran % (Auto) 0.1 (0.0-0.4) % Neut % (Auto) 65.3 (45-73) % Lymph % (Auto) 27.9 (20-40) % [place] % (Auto) 4.8 (2-11) % Eos % (Auto) 1.5 (0-4) % Baso % (Auto) 0.4 (0-2) % Lymph # (Auto) 1.9 (1.2-4.9) X10*3/uL [place] # (Auto) 0.3 (0.1-1.2) X10*3/uL Eos # (Auto) 0.1 (0.0-0.4) X10*3/uL Baso # (Auto) 0.0 (0.0-0.2) X10*3/uL Abs Immat Gran (auto) 0.01 (0.00-0.03) X10*3/uL Absolute Neuts (auto) 4.5 (2.0-8.3) x10*3/uL Absolute Nucleated RBC 0.000 (0.0-0.012) X10*3/uL Nucleated RBC % (auto) 0.0 (0.0-0.2) /100WBC Sodium 143 (135-145) mmol/L Potassium 4.3 (3.3-5.1) mmol/L Chloride 108 (96-108) mmol/L Carbon Dioxide 26 (22-29) mmol/L Anion Gap 13 (12-20) BUN 15 (9-16) mg/dL Creatinine 1.12 (0.5-1.4) mg/dL Estim Creat Clear Calc 47.6 Estimated GFR 49 Random Glucose 92 (60-115) mg/dL Calcium 9.3 (8.4-10.2) mg/dL Total Bilirubin 0.4 (0.0-1.0) mg/dL AST 16 (5-31) U/L ALT 16 (0-31) U/L Alkaline Phosphatase 112 (39-117) U/L Total Protein 6.8 (6.5-8.0) g/dL Albumin 4.3 (3.5-5.0) g/dL Urine Color Yellow Urine Appearance Cloudy Urine pH 6.5 (5.0-9.0) Ur Specific [place] 1.020 (1.005-1.025) Urine Protein Trace (Neg-Trace) mg/dL Urine Glucose (UA) Negative (Negative) mg/dL Urine Ketones Negative (Negative) mg/dL Urine Blood Trace H (Negative) Urine Nitrite Negative (Negative) Ur Leukocyte Esterase Large (3+) H (Negative) Urine RBC 3-5 H (0-2) /HPF Urine WBC >50 H (0-5) /HPF Ur Squamous Epith Cells 0-2 (0-2) /HPF Urine Bacteria None Seen (None Seen) Hyaline Casts 0-2 (0-2) /LPF Discharge Plan Discharge Clinical Impression: Acute UTI Patient Disposition: Home, Self-Care Instructions: Urinary Tract Infection in Women (ED) Additional Instructions: You have a urine infection. Ceftin is an antibiotic please take as prescribed. For radium will help with her symptoms, this will turn your urine orange, do not be alarmed If her symptoms persist or worsen, develop abdominal pain, back pain, fever, chills please return to the emergency department Please have close follow-up with her doctor Prescriptions: New cefuroxime axetil 250 mg tablet 250 mg PO BID 7 Days Qty: 14 0RF phenazopyridine [Pyridium] 200 mg tablet 200 mg PO TID PRN (Reason: pain) Qty: 6 0RF No Action folic acid 1 mg tablet 1 mg PO DAILY Qty: 90 1RF estradiol [Estrace] 0.01 % (0.1 mg/gram) cream See Rx Instructions vaginal DAILY 30 Days Qty: 42.5 3RF Rx Instructions: pea sized amount to urethra vaginal daily; isosorbide mononitrate 30 mg tablet extended release 24 hr 30 mg PO DAILY Qty: 90 0RF Rx Instructions: Must call and schedule an appt for refills psyllium husk [Natural Fiber Laxative] 0.52 gram capsule 0.52 g PO BEDTIME PRN (Reason: constipation) Qty: 90 3RF ascorbate calcium (vitamin C) 500 mg tablet 500 mg PO DAILY Qty: 90 3RF amlodipine 10 mg tablet 10 mg PO DAILY Qty: 90 1RF ferrous sulfate 324 mg (65 mg iron) tablet,delayed release (DR/EC) 324 mg PO DAILY Qty: 90 2RF clonazepam 0.5 mg tablet 0.5 mg PO BID 30 Days Qty: 60 1RF lisinopril 5 mg tablet 5 mg PO DAILY 90 Days Qty: 90 3RF sertraline 25 mg tablet 25 mg PO DAILY Qty: 90 2RF whxlfmpkki-sautqflyurgmd-ecim 50-325-40 mg capsule 1 cap PO Q4-6H PRN (Reason: Migraine Headache) sumatriptan succinate [Imitrex] 50 mg tablet 50 mg PO .QD PRN (Reason: migraine headache) Qty: 14 6RF Rx Instructions: do not exceed 4 doses per 24 hrs cyclobenzaprine 10 mg tablet 10 mg PO TID Qty: 90 1RF rosuvastatin 20 mg tablet 20 mg PO DAILY Qty: 90 2RF famotidine 40 mg tablet 40 mg PO BEDTIME Qty: 90 1RF cholecalciferol (vitamin D3) 50 mcg (2,000 unit) capsule 50 mcg PO DAILY 90 Days Qty: 90 3RF pantoprazole 40 mg tablet,delayed release (DR/EC) 40 mg PO DAILY 90 Days Qty: 90 2RF Referrals: Po,Leila Jha MD [Primary Care Provider] - 5 days
== END 2022-02-17 16:28 | disposition home or self-care (01) ==
PROVIDERS: Emergency Provider Emergency Medicine; PCP Internal Medicine
DX: N39.0 Urinary tract infection, site not specified (principal); B96.20 Unspecified Escherichia coli [E. coli] as the cause of diseases classified elsewhere; B95.1 Streptococcus, group B, as the cause of diseases classified elsewhere; I10 Essential (primary) hypertension; E78.00 Pure hypercholesterolemia, unspecified; Z87.440 Personal history of urinary (tract) infections; Z79.899 Other long term (current) drug therapy; Z79.02 Long term (current) use of antithrombotics/antiplatelets
CPT/HCPCS: 36415; 80053; 81001; 85025; 87086; 87088; 87147; 87186; 99283

== ENCOUNTER → 2022-03-19 12:00 | Outpatient (BNVA) | payer OTHER, SELFPAY | PROVIDERS: PCP Internal Medicine; Visit Provider Nurse Practitioner | DX: K27.9 Peptic ulcer, site unspecified, unspecified as acute or chronic, without hemorrhage or perforation (principal); K21.9 Gastro-esophageal reflux disease without esophagitis; R13.10 Dysphagia, unspecified; R11.2 Nausea with vomiting, unspecified | CPT/HCPCS: 99212 ==

== ENCOUNTER 2022-03-22 09:46 | Emergency (ER) | payer OTHER, SELFPAY ==
[2022-03-22 09:48] VITALS: BP 144/81; PULSE 70; RESP 18; TEMP 36.6; O2SAT 98; BMI 29.6
== END 2022-03-22 14:48 | disposition left against medical advice (07) ==
PROVIDERS: Emergency Provider Emergency Medicine; PCP Internal Medicine
DX: M54.50 Low back pain, unspecified (principal)
CPT/HCPCS: 99281

== ENCOUNTER 2022-03-30 07:21 | Emergency (ER) | payer OTHER, SELFPAY ==
--- NOTE | ~2022-03-30 | XR_ITS ---
EXAMINATION: XR CHEST CLINICAL INFORMATION: Cough, chest pain. COMPARISON: 05/27/2017 chest radiographs. TECHNIQUE: 2 views of the chest were obtained. FINDINGS: No significant abnormality is noted involving the heart, lungs, mediastinum, bony thorax or soft tissues. XR/XR chest 2V IMPRESSION: No acute cardiopulmonary process.
[2022-03-30 07:30] VITALS: BP 141/77; PULSE 81; RESP 20; TEMP 37.7; O2SAT 95; BMI 30.3
[2022-03-30] MEDS: Acetaminophen 325 MG TABLET 650 MG PO (07:38)
[2022-03-30 07:44] LABS: MANUAL DIFF FLAG NO
[2022-03-30 07:48] LABS: Basophils Percent Auto 0.4 % (0-2); Eosinophils Absolute Auto 0.2 X10*3/uL (0.0-0.4); Eosinophils Percent Auto 3.6 % (0-4); Hemoglobin 13.6 g/dl (12.0-16.0); Imm Gran Abs Auto 0.01 X10*3/uL (0.00-0.03); Imm Gran Pct Auto 0.2 % (0.0-0.4); Lymphocytes Absolute Auto 0.9 X10*3/uL (1.2-4.9); Lymphocytes Percent Auto 17.2 % (20-40); Mean Corpuscular HGB Conc 32.4 g/dl (31.0-35.0); Mean Corpuscular Hemoglobin 28.5 pg (27.0-33.0); Mean Corpuscular Volume 88.1 fL (80.0-98.0); Monocytes Absolute Auto 0.5 X10*3/uL (0.1-1.2); Monocytes Percent Auto 8.4 % (2-11); Neutrophils Absolute Auto 3.8 x10*3/uL (2.0-8.3); Neutrophils Percent Auto 70.2 % (45-73); Platelet Count 241 X10*3/uL (160-400); Red Blood Count 4.77 X10*6/uL (4.20-5.50); Red Cell Distribution Width 13.9 % (11.0-16.0); White Blood Count 5.4 X10*3/uL (4.8-10.8)
--- NOTE | 2022-03-30 08:01 | ECG_ITS ---
Test Reason : chest pain Blood Pressure : / mmHG Vent. Rate : 067 BPM Atrial Rate : 067 BPM P-R Int : 130 ms QRS Dur : 080 ms QT Int : 410 ms P-R-T Axes : 027 054 012 degrees QTc Int : 433 ms Sinus rhythm with occasional Premature ventricular complexes Otherwise normal ECG When compared with ECG of 09-JAN-2012 11:47, Premature ventricular complexes are now Present Referred By: Hansa Lombardo Electronically Signed By:MARKOS ROA MD
[2022-03-30 08:10] LABS: COVID-19 Test Negative (Negative); IDNOW Serial# 16C4AD1C
[2022-03-30 08:18] LABS: Influenza A Negative (Negative); Influenza B2 Negative (Negative)
[2022-03-30 08:28] LABS: Creatinine Clr Calc Pharmacy 48.9; Estimated Glomerular Filt Rate 50
[2022-03-30 08:29] LABS: Anion Gap 17 (12-20); Blood Urea Nitrogen 9 mg/dL (9-16); Calcium 9.2 mg/dL (8.4-10.2); Carbon Dioxide 21 mmol/L (22-29); Chloride 108 mmol/L (96-108); Glucose Random 125 mg/dL (60-115); Potassium 3.8 mmol/L (3.3-5.1); Sodium 142 mmol/L (135-145)
--- NOTE | 2022-03-30 08:31 | ED_ITS ---
HPI - Chest Pain General Chief Complaint: Upper Respiratory Symptoms Stated Complaint: Chest pain/Back pain/Vomiting [id number] Time Seen by Provider: 03/30/22 08:00 Source: patient Mode of arrival: ambulatory Limitations: no limitations History of Present Illness HPI narrative: Patient is a 66-year-old female who presents to emergency department for evaluation of diffuse chest pain, back pain, and cough. She states that she has been sick with this cough for 1 month, it is productive with white/clear phlegm. She states that the cough resolve throughout the day but she does get coughing fits, that caused her to vomit if she has just recently eaten or taken her medications. She denies any known sick contacts. She denies any fevers, chills, nasal congestion, sore throat, dizziness, lightheadedness, neck pain, abdominal pain, diarrhea, constipation, dysuria, urinary frequency, numbness or tingling of the extremities, generalized weakness. Related Data Home Medications Medication Instructions Recorded Confirmed [id number] 1 cap PO Q4-6H PRN Migraine 04/09/20 11/04/21 50 mg-325 mg-40 mg capsule Headache Previous Rx's Medication Instructions Recorded sumatriptan succinate 50 mg tablet 50 mg PO .QD PRN migraine headache 04/09/20 (Imitrex) #14 tabs folic acid 1 mg tablet 1 mg PO DAILY #90 tabs 12/16/20 estradiol 0.01% (0.1 mg/gram) See Rx Instructions vaginal DAILY 12/24/20 vaginal cream (Estrace) 30 days #42.5 grams isosorbide mononitrate 30 mg 30 mg PO DAILY #90 tabs 04/08/21 tablet,extended release 24 hr psyllium husk 0.52 gram capsule 0.52 g PO BEDTIME PRN constipation 04/08/21 (Natural Fiber Laxative) #90 caps cyclobenzaprine 10 mg tablet 10 mg PO TID #90 tabs 04/21/21 rosuvastatin 20 mg tablet 20 mg PO DAILY #90 tabs 04/21/21 ascorbate calcium (vitamin C) 500 500 mg PO DAILY #90 tabs 07/14/21 mg tablet amlodipine 10 mg tablet 10 mg PO DAILY #90 tabs 09/22/21 ferrous sulfate 324 mg (65 mg 324 mg PO DAILY #90 tabs 10/21/21 iron) tablet,delayed release cholecalciferol (vitamin D3) 50 50 mcg PO DAILY 90 days #90 caps 11/04/21 mcg (2,000 unit) capsule clonazepam 0.5 mg tablet 0.5 mg PO BID 30 days #60 tabs 01/19/22 lisinopril 5 mg tablet 5 mg PO DAILY 90 days #90 tabs 02/15/22 sertraline 25 mg tablet 25 mg PO DAILY #90 tabs 02/15/22 cefuroxime axetil 250 mg tablet 250 mg PO BID 7 days #14 tabs 02/17/22 phenazopyridine 200 mg tablet 200 mg PO TID PRN pain 6 doses #6 02/17/22 (Pyridium) tabs famotidine 40 mg tablet 40 mg PO BEDTIME #90 tabs 03/19/22 pantoprazole 40 mg tablet,delayed 40 mg PO DAILY 90 days #90 tabs 03/19/22 release albuterol sulfate 90 mcg/actuation 2 puff inhalation Q4-6H PRN 03/30/22 aerosol inhaler shortness of breath or wheezing #6.7 grams azithromycin 250 mg tablet See Rx Instructions PO .COMPLEX #6 03/30/22 tabs prednisone 20 mg tablet 40 mg PO DAILY 5 days #10 tabs 03/30/22 Allergies Allergy/AdvReac Type Severity Reaction Status Date / Time Iodinated Contrast Media Allergy Unknown SHAKING Verified 03/19/22 12:02 [IV DYE, IODINE CONTAINING CONTRAST ] Review of Systems Review of Systems: Constitutional : No Weight loss, No Fever, No Chills ENT/Mouth :? No sore throat, No Rhinorrhea Eyes: No Eye Pain, No Swelling Cardiovascular : pos Chest Pain, pos SOB, no Dyspnea on Exertion, No Orthopnea, No Edema, No Palpitations Respiratory : Positive Cough, positive Sputum Gastrointestinal : No Nausea, positive Vomiting, No Diarrhea, No abdominal Pain, NoHematochezia, No Melena Genitourinary : No Dysuria, No Urinary Frequency Musculoskeletal : No joint pain, No Myalgias, No Joint Swelling Skin : No Skin Lesions, No rash Neuro : No Weakness, No Numbness, No Dizziness, No Headache Psych : No Anxiety/Panic, No Depression Heme/Lymph: No Bruising, No Lymphadenopathy Endocrine : No Polyuria, No Polydipsia Yes all other systems are reviewed and are negative FOR[facility]LY [facility] Past Medical History Attestation statement: The following information was validated with the patient. Source: old records reviewed Medical History Coronary artery disease COVID-19 vaccine series completed Diverticulitis Generalized anxiety disorder GERD (gastroesophageal reflux disease) Hypercholesterolemia Hypertension Impaired glucose tolerance Leukopenia Migraine Obesity (BMI 30-39.9) Psoriasis Surgical History H/O colonoscopy History of section History of esophagogastroduodenoscopy (EGD) History of pubovaginal sling Hx of bladder repair surgery Hx of umbilical hernia repair S/P ROSALIA-BSO (total abdominal hysterectomy and bilateral salpingo-oophorectomy) Family History Family History Father Medical history unknown Mother Myocardial infarction Hypertension CVD (cardiovascular disease) Social History Social History Household Members: Spouse Housing: Apartment Alcohol intake: current Alcohol intake frequency: holidays/special occasions only Patient Tobacco Use Status: Never used Tobacco e-Cigarette/Vaping Use: Never Used Second Hand Smoke Exposure: No Advance Directives: No Advance Directives Information Provided: Yes service: No Current occupational status: unemployed Cognitive needs: No Hearing needs: No Vision needs: Yes Physical Exam Vital Signs: Vital Signs: Last Vital Signs Temp 98.7 F 03/30/22 10:00 Pulse 64 03/30/22 10:00 Resp 14 03/30/22 10:00 BP 140/71 H 03/30/22 10:00 Pulse Ox 95 03/30/22 10:00 O2 Del Method 03/30/22 10:00 BMI result Body Mass Index 30.3 Appearance: Alert.?Oriented to person, place and time. No acute distress.?Normal affect. Eyes: Pupils equal, round and reactive to light.? ENT: Pharynx normal.?? Neck: Normal inspection.? Neck supple.?? CVS: Heart sounds normal. Normal heart rate and rhythm.? Pulses normal.?? Respiratory: No respiratory distress.? Lung sounds clear to auscultation bilaterally. Palpable chest wall tenderness bilaterally? Abdomen: Soft and non-tender. Normoactive bowel sounds. Skin: Skin warm and dry.? Normal skin color.? Extremities: No lower extremity edema.? No calf ttp? Neuro: Moves all extremities spontaneously. Sensation intact bilaterally. No focal neuro deficits. Ambulates with normal steady gait. Course Course Course Narrative: Patient is a 66-year-old female with a past medical history of asthma, CAD, GERD, hypertension, hyperlipidemia, anxiety who presents emergency department for evaluation of chest pain and cough. At the time of examination she is overall well-appearing. Vital signs are stable. She is afebrile without tachycardia, hypoxia, or tachypnea. She is noted to have a dry cough. Lung sounds are clear bilaterally. Abdominal examination is benign. Will obtain CBC to evaluate for leukocytosis/ anemia, CM to evaluate for abnormal electrolytes /abnormal renal function/ abnormal hepatic function, EKG and troponin to evaluate for ischemia/ACS. Chest x-ray to evaluate for consolidation/ infiltrate/ mass/ pulmonary congestion, COVID-19 and influenza testing. Reevaluation(s) Reevaluation #1: EKG reveals a sinus rhythm with PVCs, no acute ischemic findings, troponin 4.1, unlikely ACS. Chest x-ray reveals no acute cardiopulmonary process. COVID-19 and influenza testing are negative. CBC and CMP are overall unremarkable. At this time suspect that symptoms are secondary to bronchitis and costochondritis. I discussed these findings with patient. Discussed plan of care for discharge home, outpatient follow-up with primary care provider within the next 2-3 days, will send for albuterol inhaler, prednisone, and azithromycin. All questions were answered. Patient was discharged home in stable condition, ambulatory with a steady gait, no hypoxia. Time: 10:59 Medications Administered Discontinued Medications Generic Name Dose Route Start Last Admin Trade Name Will PRN Reason Stop Dose Admin Acetaminophen 650 mg 03/30/22 07:34 03/30/22 07:38 Acetaminophen 325 Mg Tablet PO 03/30/22 07:35 650 mg ONCE ONE Administration MDM - Chest Pain Medical Records Data Attestation: I reviewed the patient's medical records. Lab Data Attestation: I reviewed the patient's lab results. Result diagrams: 03/30/22 07:38 03/30/22 07:38 Labs: Lab Results 11/08/22 11/08/22 11/08/22 Range/Units 07:38 07:38 07:38 WBC 5.4 (4.8-10.8) X10*3/uL RBC 4.77 (4.20-5.50) X10*6/uL Hgb 13.6 (12.0-16.0) g/dl Hct 42.0 (37.0-47.0) % MCV 88.1 (80.0-98.0) fL MCH 28.5 (27.0-33.0) pg MCHC 32.4 (31.0-35.0) g/dl RDW 13.9 (11.0-16.0) % Plt Count 241 (160-400) X10*3/uL MPV 10.0 (9.4-12.3) fL Immature Gran % (Auto) 0.2 (0.0-0.4) % Neut % (Auto) 70.2 (45-73) % Lymph % (Auto) 17.2 L (20-40) % Mcpherson % (Auto) 8.4 (2-11) % Eos % (Auto) 3.6 (0-4) % Baso % (Auto) 0.4 (0-2) % Lymph # (Auto) 0.9 L (1.2-4.9) X10*3/uL [place]son # (Auto) 0.5 (0.1-1.2) X10*3/uL Eos # (Auto) 0.2 (0.0-0.4) X10*3/uL Baso # (Auto) 0.0 (0.0-0.2) X10*3/uL Abs Immat Gran (auto) 0.01 (0.00-0.03) X10*3/uL Absolute Neuts (auto) 3.8 (2.0-8.3) x10*3/uL Absolute Nucleated RBC 0.000 (0.0-0.012) X10*3/uL Nucleated RBC % (auto) 0.0 (0.0-0.2) /100WBC Sodium 142 (135-145) mmol/L Potassium 3.8 (3.3-5.1) mmol/L Chloride 108 (96-108) mmol/L Carbon Dioxide 21 L (22-29) mmol/L Anion Gap 17 (12-20) BUN 9 (9-16) mg/dL Creatinine 1.09 (0.5-1.4) mg/dL Estim Creat Clear Calc 48.9 Estimated GFR 50 Random Glucose 125 H (60-115) mg/dL Calcium 9.2 (8.4-10.2) mg/dL Total Bilirubin 0.6 (0.0-1.0) mg/dL Direct Bilirubin 0.3 (0.0-0.5) mg/dL AST 21 (5-31) U/L ALT 17 (0-31) U/L Alkaline Phosphatase 119 H (39-117) U/L Troponin I High Sens (<3.5-17.0) ng/L Total Protein 6.9 (6.5-8.0) g/dL Albumin 4.2 (3.5-5.0) g/dL COVID-19 (FITO) (Negative) COVID-19 Clin Com Influenza Type A (JEANETTE) Negative (Negative) Influenza Type B (JEANETTE) Negative (Negative) Influenza A & B Note See Note 03/30/22 03/30/22 Range/Units 07:38 07:38 WBC (4.8-10.8) X10*3/uL RBC (4.20-5.50) X10*6/uL Hgb (12.0-16.0) g/dl Hct (37.0-47.0) % MCV (80.0-98.0) fL MCH (27.0-33.0) pg MCHC (31.0-35.0) g/dl RDW (11.0-16.0) % Plt Count (160-400) X10*3/uL MPV (9.4-12.3) fL Immature Gran % (Auto) (0.0-0.4) % Neut % (Auto) (45-73) % Lymph % (Auto) (20-40) % Mcpherson % (Auto) (2-11) % Eos % (Auto) (0-4) % Baso % (Auto) (0-2) % Lymph # (Auto) (1.2-4.9) X10*3/uL [place] # (Auto) (0.1-1.2) X10*3/uL Eos # (Auto) (0.0-0.4) X10*3/uL Baso # (Auto) (0.0-0.2) X10*3/uL Abs Immat Gran (auto) (0.00-0.03) X10*3/uL Absolute Neuts (auto) (2.0-8.3) x10*3/uL Absolute Nucleated RBC (0.0-0.012) X10*3/uL Nucleated RBC % (auto) (0.0-0.2) /100WBC Sodium (135-145) mmol/L Potassium (3.3-5.1) mmol/L Chloride (96-108) mmol/L Carbon Dioxide (22-29) mmol/L Anion Gap (12-20) BUN (9-16) mg/dL Creatinine (0.5-1.4) mg/dL Estim Creat Clear Calc Estimated GFR Random Glucose (60-115) mg/dL Calcium (8.4-10.2) mg/dL Total Bilirubin (0.0-1.0) mg/dL Direct Bilirubin (0.0-0.5) mg/dL AST (5-31) U/L ALT (0-31) U/L Alkaline Phosphatase (39-117) U/L Troponin I High Sens 4.1 (<3.5-17.0) ng/L Total Protein (6.5-8.0) g/dL Albumin (3.5-5.0) g/dL COVID-19 (FITO) Negative (Negative) COVID-19 Clin Com See Note Influenza Type A (JEANETTE) (Negative) Influenza Type B (JEANETTE) (Negative) Influenza A & B Note Imaging Data Chest x-ray: Radiologist's impression: XR/XR chest 2V IMPRESSION: No acute cardiopulmonary process. ECG Data ECG #1: Attestation: I personally reviewed and interpreted this ECG as follows: ECG interpretation date: 03/30/22 Prior ECG tracings: available for review Interpretation: Rate: 67 Rhythm:? Sinus rhythm with PVCs [place]:? Normal Normal P waves.? Normal MUNIRA.?? Normal QRS complex.?? ST T wave :??No ST elevation, no ST depression qTC: 433 prior studies:? December 2011 The study has been interpreted contemporaneously by me. Discharge Plan Discharge Clinical Impression: Bronchitis, Acute costochondritis Patient Disposition: Home, Self-Care Instructions: Costochondritis (ED), Acute Bronchitis (ED) Additional Instructions: As discussed, your COVID-19 and influenza tests were negative. Your chest x-ray does not show evidence of pneumonia at this time. You have been given new prescription for albuterol inhaler, prednisone, and antibiotic, please complete the entire course of steroids and antibiotic as prescribed. Y ou should contact your primary care provider and arrange for a follow-up visit within 2-3 days. Please return back to emergency department with any new or worsening symptoms or concerns. Prescriptions: New albuterol sulfate 90 mcg/actuation HFA aerosol inhaler 2 puff inhalation Q4-6H PRN (Reason: shortness of breath or wheezing) Qty: 6. 7 0RF prednisone 20 mg tablet 40 mg PO DAILY 5 Days Qty: 10 0RF azithromycin 250 mg tablet See Rx Instructions .ROUTE .COMPLEX Qty: 6 0RF Rx Instructions: For 250 mg dose pack: take 500 mg today (day 1), then 250 mg for 4 days (days 2-5) No Action folic acid 1 mg tablet 1 mg PO DAILY Qty: 90 1RF estradiol [Estrace] 0.01 % (0.1 mg/gram) cream See Rx Instructions vaginal DAILY 30 Days Qty: 42.5 3RF Rx Instructions: pea sized amount to urethra vaginal daily; isosorbide mononitrate 30 mg tablet extended release 24 hr 30 mg PO DAILY Qty: 90 0RF Rx Instructions: Must call and schedule an appt for refills psyllium husk [Natural Fiber Laxative] 0.52 gram capsule 0.52 g PO BEDTIME PRN (Reason: constipation) Qty: 90 3RF ascorbate calcium (vitamin C) 500 mg tablet 500 mg PO DAILY Qty: 90 3RF amlodipine 10 mg tablet 10 mg PO DAILY Qty: 90 1RF ferrous sulfate 324 mg (65 mg iron) tablet,delayed release (DR/EC) 324 mg PO DAILY Qty: 90 2RF clonazepam 0.5 mg tablet 0.5 mg PO BID 30 Days Qty: 60 1RF lisinopril 5 mg tablet 5 mg PO DAILY 90 Days Qty: 90 3RF sertraline 25 mg tablet 25 mg PO DAILY Qty: 90 2RF cefuroxime axetil 250 mg tablet 250 mg PO BID 7 Days Qty: 14 0RF phenazopyridine [Pyridium] 200 mg tablet 200 mg PO TID PRN (Reason: pain) Qty: 6 0RF avgoejwryc-leaknevjurxwz-xitd 50-325-40 mg capsule 1 cap PO Q4-6H PRN (Reason: Migraine Headache) sumatriptan succinate [Imitrex] 50 mg tablet 50 mg PO .QD PRN (Reason: migraine headache) Qty: 14 6RF Rx Instructions: do not exceed 4 doses per 24 hrs cyclobenzaprine 10 mg tablet 10 mg PO TID Qty: 90 1RF rosuvastatin 20 mg tablet 20 mg PO DAILY Qty: 90 2RF cholecalciferol (vitamin D3) 50 mcg (2,000 unit) capsule 50 mcg PO DAILY 90 Days Qty: 90 3RF pantoprazole 40 mg tablet,delayed release (DR/EC) 40 mg PO DAILY 90 Days Qty: 90 2RF famotidine 40 mg tablet 40 mg PO BEDTIME Qty: 90 2RF Referrals: Po,Leila Jha MD [Primary Care Provider] - Interventions: ED Discharge Assessment Last Done: 03/30/22 11:11 Discharge Date/Time: 03/30/22 11:11
[2022-03-30 09:17] LABS: Troponin-I High Sensitivity 4.1 ng/L (<3.5-17.0)
[2022-03-30 09:37] LABS: Alanine Aminotransferase 17 U/L (0-31); Albumin Level 4.2 g/dL (3.5-5.0); Alkaline Phosphatase 119 U/L (39-117); Aspartate Amino Transferase 21 U/L (5-31); Bilirubin Direct 0.3 mg/dL (0.0-0.5); Bilirubin Total 0.6 mg/dL (0.0-1.0); Total Protein 6.9 g/dL (6.5-8.0)
[2022-03-30 10:00] VITALS: BP 140/71; PULSE 64; RESP 14; TEMP 37.1; O2SAT 95
== END 2022-03-30 11:11 | disposition home or self-care (01) ==
PROVIDERS: Nurse Practitioner Family; Emergency Provider Emergency Medicine Emergency Medical Services; PCP Internal Medicine
DX: J40 Bronchitis, not specified as acute or chronic (principal); M94.0 Chondrocostal junction syndrome [Tietze]; Z20.822 Contact with and (suspected) exposure to COVID-19; I10 Essential (primary) hypertension; E78.00 Pure hypercholesterolemia, unspecified; Z79.899 Other long term (current) drug therapy; Z79.02 Long term (current) use of antithrombotics/antiplatelets
CPT/HCPCS: 71046; 80048; 80076; 84484; 85025; 87502; 87635; 93005; 99283; 99284

== ENCOUNTER 2022-04-03 08:14 | Outpatient (REF) | payer OTHER, SELFPAY ==
--- NOTE | ~2022-04-03 | MM_ITS ---
EXAMINATION: MM SCREENING DIGITAL BREAST TOMOSYNTHESIS, BILATERAL CLINICAL INFORMATION: Screening. Asymptomatic. Family history breast cancer, mother and sister. COMPARISON: Mammography: 01/31/2021, 01/26/2020, 09/30/2018 TECHNIQUE: Digital breast tomosynthesis is performed in both the craniocaudal and mediolateral oblique views along with computer-aided detection (CAD). Synthesized 2D images are generated from the tomosynthesis. FINDINGS: There are scattered areas of fibroglandular density (ACR BI-RADS breast composition Category b). There are no significant masses, abnormal calcifications, or other abnormalities. Minimal pattern is similar to prior exam. There is a tiny circumscribed nodule under 5 mm central right breast again noted. There is no architectural abnormality. The axilla and skin contours are unremarkable. No significant changes. MM/MM tomosynthesis screening BI IMPRESSION: No mammographic evidence of malignancy. ASSESSMENT: BI-RADS 2: Benign RECOMMENDATION: Routine annual mammography screening. This patient's information was entered into a reminder system with a target due date for their next mammogram.
== END 2022-04-03 08:15 | disposition home or self-care (01) ==
LOC: HO.MAMMO 08:14
PROVIDERS: PCP Internal Medicine; Visit Provider Internal Medicine
DX: Z12.31 Encounter for screening mammogram for malignant neoplasm of breast (principal)
CPT/HCPCS: 77063; 77067

== ENCOUNTER 2022-10-05 08:40 | Outpatient (REF) | payer OTHER, SELFPAY | END 2022-10-05 08:41 | disposition home or self-care (01) | LOC: HO.LNP 08:40 | PROVIDERS: PCP Internal Medicine; Visit Provider Obstetrics & Gynecology | DX: R10.2 Pelvic and perineal pain (principal); R31.29 Other microscopic hematuria | CPT/HCPCS: 81003; 87086; 99202 ==

== ENCOUNTER 2022-10-15 11:19 | Outpatient (REF) | payer OTHER, SELFPAY ==
--- NOTE | ~2022-10-15 | US_ITS ---
EXAMINATION: US PELVIS CLINICAL INFORMATION: Pelvic pain; history of hysterectomy in 1999. COMPARISON: Pelvic ultrasound dated 11/30/2007. TECHNIQUE: Ultrasound of the pelvis is performed using both transabdominal and transvaginal transducers along with Doppler. Transvaginal imaging is performed due to inadequate visualization transabdominally. FINDINGS: Uterus: The uterus is surgically absent. Adnexa: Both ovaries are nonvisualized. No adnexal masses seen. There is no pelvic free fluid. US/US pelvic and transvaginal IMPRESSION: 1. The uterus is surgically absent. 2. The ovaries are nonvisualized. 3. Otherwise, unremarkable examination.
== END 2022-10-15 11:20 | disposition home or self-care (01) ==
LOC: HO.US 11:19
PROVIDERS: PCP Internal Medicine; Visit Provider Obstetrics & Gynecology
DX: R10.2 Pelvic and perineal pain (principal)
CPT/HCPCS: 76830; 76856

== ENCOUNTER → 2022-10-27 09:13 | Outpatient (BNVA) | payer OTHER, SELFPAY | PROVIDERS: PCP Internal Medicine; Visit Provider Obstetrics & Gynecology | DX: R31.29 Other microscopic hematuria (principal); R10.2 Pelvic and perineal pain | CPT/HCPCS: 99212 ==

== ENCOUNTER → 2022-10-29 09:01 | Outpatient (BNVA) | payer OTHER, SELFPAY | PROVIDERS: PCP Internal Medicine; Visit Provider Nurse Practitioner | DX: K27.9 Peptic ulcer, site unspecified, unspecified as acute or chronic, without hemorrhage or perforation (principal); K21.9 Gastro-esophageal reflux disease without esophagitis; R73.01 Impaired fasting glucose; R63.4 Abnormal weight loss | CPT/HCPCS: 99212 ==

== ENCOUNTER 2022-11-10 11:54 | Emergency (ER) | payer OTHER, SELFPAY ==
[2022-11-10 12:07] VITALS: BP 146/72; PULSE 60; RESP 18; TEMP 36.8; O2SAT 96; BMI 29.6
--- NOTE | 2022-11-10 13:04 | ED.GENADULT ---
HPI - General Adult General Chief complaint: Wound/Laceration Stated complaint: Abscess Buttock Area Time Seen by Provider: 11/10/22 12:16 Source: patient and RN notes reviewed Mode of arrival: ambulatory Limitations: no limitations History of Present Illness HPI narrative: This is a 66-year-old female, with a past medical history of hyperlipidemia and hypertension, presenting to the emergency department with complaints of redness right buttock x3 days. Patient reports that she was outdoors on Tuesday night and noticed a red [place] on her right buttocks. She states that since Tuesday she has had this area grow in size and has become itchy and painful. Patient denies any drainage from the area. Patient denies any fevers, she endorses chills. She otherwise feels well denies any cough, chest pain, shortness of breath, abdominal pain, nausea, vomiting, or diarrhea. She has applied topical anti-itch spray without any relief. No other complaints or concerns at this time. MD complaint: Cellulitis Onset (ago): day(s) Location: buttocks Pain Consistency: constant Exacerbating factors: none Associated symptoms: denies other symptoms Treatments prior to arrival: none Related Data Previous Rx's Medication Instructions Recorded sumatriptan succinate 50 mg tablet 50 mg PO .QD PRN migraine headache 04/09/20 (Imitrex) #14 tabs isosorbide mononitrate 30 mg 30 mg PO DAILY #90 tabs 04/08/21 tablet,extended release 24 hr ferrous sulfate 324 mg (65 mg 324 mg PO DAILY #90 tabs 10/21/21 iron) tablet,delayed release cholecalciferol (vitamin D3) 50 50 mcg PO DAILY 90 days #90 caps 11/04/21 mcg (2,000 unit) capsule clonazepam 0.5 mg tablet 0.5 mg PO BID 30 days #60 tabs 01/19/22 lisinopril 5 mg tablet 5 mg PO DAILY 90 days #90 tabs 02/15/22 sertraline 25 mg tablet 25 mg PO DAILY #90 tabs 02/15/22 albuterol sulfate 90 mcg/actuation 2 puff inhalation Q4-6H PRN 03/30/22 aerosol inhaler shortness of breath or wheezing #6.7 grams amlodipine 10 mg tablet 10 mg PO DAILY #90 tabs 04/11/22 psyllium husk 0.52 gram capsule 0.52 g PO BEDTIME PRN constipation 04/12/22 (Natural Fiber Laxative) #90 caps rosuvastatin 20 mg tablet 20 mg PO DAILY #90 tabs 05/05/22 ascorbate calcium (vitamin C) 500 500 mg PO DAILY #90 tabs 07/16/22 mg tablet cyclobenzaprine 10 mg tablet 10 mg PO TID #90 tabs 09/13/22 famotidine 40 mg tablet 40 mg PO BEDTIME #90 tabs 09/13/22 Prilosec OTC 20 mg tablet,delayed 20 mg PO DAILY #90 tabs 11/02/22 release (omeprazole magnesium) loratadine 10 mg tablet 10 mg PO DAILY #90 tabs 11/02/22 cephalexin 500 mg capsule 500 mg PO QID 5 days #20 caps 11/10/22 Allergies Allergy/AdvReac Type Severity Reaction Status Date / Time Iodinated Contrast Media Allergy Unknown SHAKING Verified 11/02/22 09:58 [IV DYE, IODINE CONTAINING CONTRAST ] Review of Systems Review of Systems: Constitutional: No Weight loss, No Fever, No Chills ENT/Mouth: No Ear Pain, No Nasal Congestion, No Sinus Pain, No Hoarseness, No sore throat, No Rhinorrhea, No Swallowing Difficulty Cardiovascular: No Chest Pain, No SOB Respiratory: No Cough, No Sputum, No Wheezing Gastrointestinal: No Nausea, No Vomiting, No Diarrhea, No Constipation, No Abdominal pain Genitourinary: No Dysuria, No Urinary Frequency, No Hematuria, No Urinary Incontinence/retention, No Urgency, No Flank Pain Musculoskeletal: No joint pain, No Myalgias, No Joint Swelling Skin: No Skin Lesions, No rash Neuro: No Weakness, No Numbness, No Paresthesias PMFSH Past Medical History Medical History Coronary artery disease COVID-19 vaccine series completed Diverticulitis Generalized anxiety disorder GERD (gastroesophageal reflux disease) Hypercholesterolemia Hypertension Impaired glucose tolerance Leukopenia Migraine Obesity (BMI 30-39.9) Psoriasis Surgical History H/O colonoscopy History of section History of esophagogastroduodenoscopy (EGD) History of hysterectomy History of pubovaginal sling Hx of bladder repair surgery Hx of umbilical hernia repair Family History Family History (Updated 11/02/22 @ 09:59 by Leighann Walters CMA) Father Medical history unknown Mother Myocardial infarction Hypertension CVD (cardiovascular disease) Breast cancer Social History Social History Household Members: Spouse Housing: Apartment Alcohol intake: current Alcohol intake frequency: holidays/special occasions only Patient Tobacco Use Status: Never used Tobacco Smoked in Last 30 Days: No e-Cigarette/Vaping Use: Never Used Second Hand Smoke Exposure: No Use of substances other than those prescribed or required for medical reasons: No Advance Directives: No Advance Directives Information Provided: No service: No Current occupational status: unemployed Cognitive needs: No Hearing needs: No Vision needs: Yes Physical Exam ED Vital Signs: Vital Signs - 24 hr 11/10/22 12:07 Temperature 98.2 F Pulse Rate 60 Respiratory Rate 18 Blood Pressure 146/72 H Pulse Oximetry 96 Oxygen Delivery Method Room Air BMI result Body Mass Index 29.6 General: Awake, alert, and oriented X3. No acute distress. HEENT: Normal inspection CVS: Normal heart rate and rhythm. Pulses normal. Respiratory: No respiratory distress Skin: Right buttock there is a warm, circular, [id number] erythematous macule noted to the right buttock, no drainage. No fluctuance, or induration Extremities: Normal to inspection Neuro: Oriented X 3. No motor deficit. No sensory deficit. Medications Administered Discontinued Medications Generic Name Dose Route Start Last Admin Trade Name Freq PRN Reason Stop Dose Admin Diphtheria/Tetanus/Acell Pertussis 0.5 ml 11/10/22 13:19 11/10/22 13:28 Diphth,Pertus(Acell),Tet Adult 0.5 Ml Syringe IM 11/10/22 13:20 0.5 ml .ONCE ONE Administration Medical Decision Making Medical Decision Making MDM Narrative: 66-year-old female presenting to the emergency department with complaints of area of redness on her right buttocks for the last 3 days. Patient is afebrile, patient mildly hypertensive at 146/72, all other vital signs within normal limits. On examination findings consistent with cellulitis. No abscess fluctuance or drainage, does not need incision and drainage at this time. Area outlined with skin marker. Educated the importance of taking antibiotic as directed and to return if the area of redness extends beyond this outlined region. Patient understands and agrees with plan. Tetanus updated in department today. Patient stable for discharge Differential Diagnosis Differential Diagnoses: The differential diagnosis associated with the presentation includes Cellulitis, abscess, hematoma, contact dermatitis, folliculitis Discharge Plan Discharge Clinical Impression: Cellulitis Patient Disposition: Home, Self-Care Instructions: Cellulitis (ED) Additional Instructions: You have a skin infection that needs to be covered by an oral antibiotic. Please take full course of antibiotic as prescribed. Finish the whole course even if your symptoms improved. We have updated your tetanus vaccine today. We have outlined this area of redness with a skin marker. If the redness extends extensively beyond this outlined area please return for re-evaluation. If you develop any worsening swelling or fevers, or any other worsening symptoms please return for re-evaluation. Prescriptions: New cephalexin 500 mg capsule 500 mg PO QID 5 Days Qty: 20 0RF No Action isosorbide mononitrate 30 mg tablet extended release 24 hr 30 mg PO DAILY Qty: 90 0RF Rx Instructions: Must call and schedule an appt for refills ferrous sulfate 324 mg (65 mg iron) tablet,delayed release (DR/EC) 324 mg PO DAILY Qty: 90 2RF clonazepam 0.5 mg tablet 0.5 mg PO BID 30 Days Qty: 60 1RF lisinopril 5 mg tablet 5 mg PO DAILY 90 Days Qty: 90 3RF sertraline 25 mg tablet 25 mg PO DAILY Qty: 90 2RF amlodipine 10 mg tablet 10 mg PO DAILY Qty: 90 1RF psyllium husk [Natural Fiber Laxative] 0.52 gram capsule 0.52 g PO BEDTIME PRN (Reason: constipation) Qty: 90 3RF rosuvastatin 20 mg tablet 20 mg PO DAILY Qty: 90 2RF ascorbate calcium (vitamin C) 500 mg tablet 500 mg PO DAILY Qty: 90 3RF famotidine 40 mg tablet 40 mg PO BEDTIME Qty: 90 3RF cyclobenzaprine 10 mg tablet 10 mg PO TID Qty: 90 2RF albuterol sulfate 90 mcg/actuation HFA aerosol inhaler 2 puff inhalation Q4-6H PRN (Reason: shortness of breath or wheezing) Qty: 6.7 0RF sumatriptan succinate [Imitrex] 50 mg tablet 50 mg PO .QD PRN (Reason: migraine headache) Qty: 14 6RF Rx Instructions: do not exceed 4 doses per 24 hrs cholecalciferol (vitamin D3) 50 mcg (2,000 unit) capsule 50 mcg PO DAILY 90 Days Qty: 90 3RF omeprazole magnesium [Prilosec OTC] 20 mg tablet,delayed release (DR/EC) 20 mg PO DAILY Qty: 90 3RF loratadine 10 mg tablet 10 mg PO DAILY Qty: 90 1RF Interventions: ED Discharge Assessment Last Done: 11/10/22 13:31 Discharge Date/Time: 11/10/22 13:32
[2022-11-10] MEDS: Diphth,Pertus(ACell),Tet Adult 0.5 ML SYRINGE IM (13:28)
== END 2022-11-10 13:32 | disposition home or self-care (01) ==
PROVIDERS: Emergency Provider Emergency Medicine; PCP Internal Medicine
DX: L03.317 Cellulitis of buttock (principal); I10 Essential (primary) hypertension; E78.00 Pure hypercholesterolemia, unspecified; Z79.899 Other long term (current) drug therapy; Z79.02 Long term (current) use of antithrombotics/antiplatelets
CPT/HCPCS: 90471; 90715; 99283; 99284

== ENCOUNTER 2022-12-07 08:09 | Outpatient (REF) | payer OTHER, SELFPAY ==
[2022-12-07 08:31] LABS: MANUAL DIFF FLAG NO
[2022-12-07 08:43] LABS: Basophils Percent Auto 0.5 % (0-2); Eosinophils Absolute Auto 0.2 X10*3/uL (0.0-0.4); Hematocrit 40.7 % (37.0-47.0); Hemoglobin 13.2 g/dl (12.0-16.0); Imm Gran Abs Auto 0.01 X10*3/uL (0.00-0.03); Imm Gran Pct Auto 0.2 % (0.0-0.4); Lymphocytes Absolute Auto 1.7 X10*3/uL (1.2-4.9); Lymphocytes Percent Auto 39.9 % (20-40); Mean Corpuscular HGB Conc 32.4 g/dl (31.0-35.0); Mean Corpuscular Hemoglobin 29.2 pg (27.0-33.0); Mean Platelet Volume 10.1 fL (9.4-12.3); Monocytes Absolute Auto 0.3 X10*3/uL (0.1-1.2); Monocytes Percent Auto 6.7 % (2-11); Neutrophils Percent Auto 47.7 % (45-73); Platelet Count 214 X10*3/uL (160-400); Red Blood Count 4.52 X10*6/uL (4.20-5.50); Red Cell Distribution Width 13.3 % (11.0-16.0); White Blood Count 4.2 X10*3/uL (4.8-10.8)
[2022-12-07 08:56] LABS: Estimated Average Glucose 105 mg/dL; Hemoglobin A1c % 5.3 %
[2022-12-07 09:21] LABS: Alanine Aminotransferase 15 U/L (0-31); Albumin Level 3.8 g/dL (3.5-5.0); Alkaline Phosphatase 85 U/L (39-117); Anion Gap 10 (12-20); Aspartate Amino Transferase 14 U/L (5-31); Bilirubin Total 0.2 mg/dL (0.0-1.0); Blood Urea Nitrogen 14 mg/dL (9-16); Calcium 8.8 mg/dL (8.4-10.2); Carbon Dioxide 26 mmol/L (22-29); Chloride 110 mmol/L (96-108); Estimated Glomerular Filt Rate 53; Glucose Random 97 mg/dL (60-115); Potassium 4.1 mmol/L (3.3-5.1); Sodium 142 mmol/L (135-145); Total Protein 6.4 g/dL (6.5-8.0)
[2022-12-07 09:32] LABS: Vitamin D 25-OH Total 29.6 ng/mL (>30)
[2022-12-07 09:40] LABS: TSH reflex Free T4 1.76 uIU/mL (0.32-4.0)
[2022-12-07 09:51] LABS: Folate 9.1 ng/mL (> or = 4.0); Vitamin B12 348 pg/mL (200-900)
== END 2022-12-07 08:10 | disposition home or self-care (01) ==
LOC: HO.LAB 08:09
PROVIDERS: PCP Internal Medicine; Visit Provider Nurse Practitioner
DX: R63.4 Abnormal weight loss (principal); R73.01 Impaired fasting glucose; M85.80 Other specified disorders of bone density and structure, unspecified site; E55.9 Vitamin D deficiency, unspecified
CPT/HCPCS: 36415; 80053; 82306; 82607; 82746; 83036; 84443; 85025

== ENCOUNTER 2022-12-10 08:03 | Outpatient (AMB) | payer OTHER, SELFPAY ==
--- NOTE | 2022-12-10 08:13 | MHC.OFFVIS ---
Intake Vital Signs 12/10/22 08:39 Height 5 ft 2 in Weight 161 lb 9.581 oz BMI 29.6 Intake Visit Reasons: 6 week fu Allergies Iodinated Contrast Media [IV DYE, IODINE CONTAINING CONTRAST ] Allergy (Unknown, Verified 11/02/22 09:58) SHAKING HPI 6 week fu HPI Details Assessment & Plan (1) Peptic ulcer disease: ?Code(s): K27.9 - Peptic ulcer, site unspecified, unspecified as acute or chronic, without hemorrhage or perforation ?Plan: She has lost 40 lbs w/o trying! She is eating well and no extra exercise, but she thinks anxiety may be part of it because she is caring for her mother who has cancer and is considering stopping her chemo.? Because abnormal weight loss is concerning I will get some additional labs including thyroid and diabetes tests to be thorough. GERD is good with OTC prilosec and famotidine. Will change from I her on pantoprazole but I will change her back to omeprazole since she is doing well with this.? ROV 6 weeks. (2) GERD (gastroesophageal reflux disease): ?Code(s): K21.9 - Gastro-esophageal reflux disease without esophagitis ?Qualifiers: ?Esophagitis presence:?without esophagitis? Qualified Code(s):?K21.9 - Gastro-esophageal reflux disease without esophagitis (3) Elevated fasting glucose: ?Code(s): R73.01 - Impaired fasting glucose (4) Weight loss, non-intentional: ?Code(s): R63.4 - Abnormal weight loss ? ? ? Orders: Orders Comprehensive Met. Panel 10/29/22 R63.4 - Abnormal w eight loss, R73.01 - Impaired fastin g glucose ? Complete Blood Cou nt Auto Diff 10/29/22 R63.4 - Abnormal w eight loss, R73.01 - Impaired fastin g glucose ? TSH reflex Free T4 10/29/22 R63.4 - Abnormal w eight loss, R73.01 - Impaired fastin g glucose ? Hemoglobin A1c 10/29/22 R63.4 - Abnormal w eight loss, R73.01 - Impaired fastin g glucose ? Medications: New omeprazole 20 mg PO DAILY 90 caps 1RF 90 days K27.9 - Peptic ulc er, site unspecifi ed, unspecified as acute or chronic, without hemorrhag e or perforation LABS: Laboratory Tests 12/07/22 12/07/22 12/07/22 08:29 08:29 08:29 WBC 4.2 L Hgb 13.2 Hct 40.7 Estimated GFR 53 Hemoglobin A1c % 5.3 Total Bilirubin 0.2 AST 14 ALT 15 Alkaline Phosphata se 85 TSH 1.76 TODAYS VISIT Her mother after her long illness. She is doing okay with this. Hopefully, she will now be able to focus on her own health. Her weight seems to be stable just over 160 lbs. She continues on her omeprazole and famotidine. We review the lbs which do not show any concerning reason for her wt loss. She is having dysuria and her GFR is reduced, so I encourage her to drink fluids and we will get a UA. ROV 3 mos. PFSH Medical History Coronary artery disease COVID-19 vaccine series completed Diverticulitis Generalized anxiety disorder GERD (gastroesophageal reflux disease) Hypercholesterolemia Hypertension Impaired glucose tolerance Leukopenia Migraine Obesity (BMI 30-39.9) Psoriasis Surgical History H/O colonoscopy History of section History of esophagogastroduodenoscopy (EGD) History of hysterectomy History of pubovaginal sling Hx of bladder repair surgery Hx of umbilical hernia repair Family History (Updated 11/02/22 @ 09:59 by Leighann Walters, [facility]) Father Medical history unknown Mother Myocardial infarction Hypertension CVD (cardiovascular disease) Breast cancer Social History Household Members: Spouse Housing: Apartment Alcohol intake: current Alcohol intake frequency: holidays/special occasions only Patient Tobacco Use Status: Never used Tobacco e-Cigarette/Vaping Use: Never Used Second Hand Smoke Exposure: No service: No Current occupational status: unemployed Cognitive needs: No Hearing needs: No Vision needs: Yes Female Reproductive History Menstrual Age of Menarche: 14 Review of Systems Const Denies fatigue, Denies fever(s), Denies night sweats, Denies poor appetite and Denies weight loss Eyes Details: glasses Reports requires corrective lenses ENT Reports Normal hearing present, Denies dental pain, Denies dysphagia, Denies hearing loss, Denies mouth pain, Denies odynophagia, Denies throat swelling, Denies tongue swelling and Reports other (Dentition adequate) Card Reports no additional complaints Resp Reports no additional complaints GI Denies abdominal pain, Denies melena, Denies bloating, Denies hematochezia, Denies constipation, Denies GI cramping, Denies dysphagia, Denies excessive flatus, Denies early satiety, Reports heartburn, Denies diarrhea, Denies nausea, Denies odynophagia, Denies vomiting and Denies hematemesis Skin/Breast Denies pruritus, Denies lesions, Denies rash and Denies jaundice Neuro Reports Normal hearing present and Denies Abnormal speech present Endo Denies fatigue Aller/Immun Denies throat swelling and Denies tongue swelling Physical Exam Const General: cooperative, no acute distress, well developed and well groomed Nutritional Appearance: well nourished and overweight Orientation/consciousness: oriented to person, oriented to place and oriented to time Limitations: No language barrier HEENT Head: Yes normocephalic and Yes atraumatic Eyes General: appearance normal, both eyes and all related structures Pupils: Equal, round and reactive pupils present Neck Neck: Yes normal visual inspection and Yes no lymphadenopathy Thyroid: Thyroid normal Resp Effort & Inspection: normal respiratory effort and able to speak in complete sentences Auscultation: clear to auscultation bilaterally Cardio Rate: regular rate Rhythm: regular rhythm Heart sounds: Normal, physiologic split S2 sound present Peripheral pulses: radial pulses present and posterior tibial pulses present GI Inspection: No distended, No Abdominal panniculus present and Yes obesity Palpation (GI): Soft to palpation, nontender, no guarding, not rigid and No hepatosplenomegaly present Percussion: Yes normal to percussion Auscultation: normal bowel sounds Rectal Exam - Female: deferred Skin General skin exam: no rashes or lesions noted, turgor normal, skin not dry, no jaundice, No spider nevi and no striae Rashes: no rashes Nails: normal Neuro General: oriented to person, oriented to place and oriented to time Cranial nerves: Yes Equal, round and reactive pupils present and Yes Normal hearing present Speech: No Abnormal speech present Extrem General: Yes normal to inspection, No clubbing, No cyanosis and No edema Psych Appearance: grossly normal and well kempt Mental Status: mental status grossly normal Speech and movement: Normal speech and movement present Affect: normal affect Attitude: cooperative Thought process: Normal thought process present and not confabulating Thought content: Normal thought content present Insight: Fair insight present (Psych) Judgement: Fair judgement present (Psych) Assessment & Plan Assessment & Plan (1) Dysuria: Code(s): R30.0 - Dysuria Plan: Her mother after her long illness. She is doing okay with this. Hopefully, she will now be able to focus on her own health. Her weight seems to be stable just over 160 lbs. She continues on her omeprazole and famotidine. We review the lbs which do not show any concerning reason for her wt loss. She is having dysuria and her GFR is reduced, so I encourage her to drink fluids and we will get a UA. ROV 3 mos. (2) Peptic ulcer disease: Code(s): K27.9 - Peptic ulcer, site unspecified, unspecified as acute or chronic, without hemorrhage or perforation (3) Weight loss, non-intentional: Code(s): R63.4 - Abnormal weight loss (4) GERD (gastroesophageal reflux disease): Code(s): K21.9 - Gastro-esophageal reflux disease without esophagitis Qualifiers: Esophagitis presence: without esophagitis Qualified Code(s): K21.9 - Gastro-esophageal reflux disease without esophagitis Orders: Orders UA CC w/rflx Micro + Cult Today R30.0 - Dysuria Medications: Refilled famotidine 40 mg PO BEDTIME 90 tabs 3RF R13.10 - Dysphagia, unspecified psyllium husk (Natural Fiber Laxative) 0.52 grams PO BEDTIME PRN 90 caps 3RF constipation K59.00 - Constipation, unspecified Prilosec OTC (omeprazole magnesium) 20 mg PO DAILY 90 tabs 3RF NS K21.9 - Gastro-esophageal reflux disease without esophagitis Coding Level of Care Code Est Pt Level 3 (50070) Diagnoses Dysuria R30.0 Peptic ulcer disease K27.9 Weight loss, non-intentional R63.4 GERD (gastroesophageal reflux disease) K21.9 Esophagitis presence: without esophagitis
[2022-12-10 08:39] VITALS: BMI 29.6
== END 2022-12-10 08:36 | disposition home or self-care (01) ==
PROVIDERS: PCP Internal Medicine; Visit Provider Nurse Practitioner
DX: R30.0 Dysuria (principal); K27.9 Peptic ulcer, site unspecified, unspecified as acute or chronic, without hemorrhage or perforation; R63.4 Abnormal weight loss; K21.9 Gastro-esophageal reflux disease without esophagitis
CPT/HCPCS: 99213

== ENCOUNTER → 2022-12-10 08:03 | Outpatient (BNVA) | payer OTHER, SELFPAY | PROVIDERS: PCP Internal Medicine; Visit Provider Nurse Practitioner | DX: K27.9 Peptic ulcer, site unspecified, unspecified as acute or chronic, without hemorrhage or perforation (principal); K21.9 Gastro-esophageal reflux disease without esophagitis; R30.0 Dysuria; R63.4 Abnormal weight loss; Z79.899 Other long term (current) drug therapy | CPT/HCPCS: 99212 ==

== ENCOUNTER 2022-12-23 19:56 | Emergency (ER) | payer OTHER, SELFPAY ==
--- NOTE | ~2022-12-23 | CT_ITS ---
EXAMINATION: CT ABDOMEN AND PELVIS WITHOUT CONTRAST CLINICAL INFORMATION: Right lower quadrant pain. Rule out appendicitis. COMPARISON: 06/21/2019 TECHNIQUE: Multidetector volumetric imaging was performed from the superior aspect of the liver through the pubic symphysis. Sagittal and coronal reformatted images were obtained on the technologist's workstation. This CT examination was performed using dose optimization techniques as appropriate, variously including the following: *Automated exposure control *Adjustment of mA and/or kV according to patient size (this includes techniques or standardized protocols for targeted exams where dose is matched to indication/reason for exam; i.e. extremities or head) *Use of iterative reconstruction technique DLP: 516 mGy-cm FINDINGS: LUNG BASES: The visualized lung bases are unremarkable. LIVER, GALLBLADDER, AND BILIARY TREE: The liver is normal in size, shape, and attenuation. No focal hepatic lesion or biliary ductal dilatation is present. The gallbladder is unremarkable with no evidence of radiopaque gallstones, gallbladder wall thickening, or obvious pericholecystic inflammatory changes. PANCREAS: Unremarkable. SPLEEN: Unremarkable. ADRENAL GLANDS: Unremarkable. KIDNEYS AND URETERS: The kidneys are normal in size, shape, and attenuation. No hydronephrosis, hydroureter, or calculi seen. No perinephric stranding. BLADDER: Unremarkable. GASTROINTESTINAL TRACT: Appendix is normal. Pancolonic diverticulosis. No evidence of diverticulitis. Small sliding-type hiatal hernia. Stomach otherwise unremarkable. Normal small bowel. Minimal haziness of the small bowel mesentery is stable from prior and entirely nonspecific but of doubtful clinical significance. ABDOMINAL WALL: Right lower quadrant direct inguinal hernia containing fat, without associated inflammation. LYMPH NODES: Normal. VASCULAR: Aorta is atherosclerotic but normal caliber. PELVIC VISCERA: Hysterectomy. No adnexal abnormalities. OSSEOUS STRUCTURES: No acute or suspicious osseous abnormalities. CT/CT abdomen pelvis wo IV con IMPRESSION: * Appendix is normal. * Pancolonic diverticulosis without evidence of diverticulitis. * New fat-containing direct inguinal hernia on the right without associated inflammation.
[2022-12-23 20:12] VITALS: BP 151/81; PULSE 62; RESP 18; TEMP 36.8; O2SAT 100; BMI 29.1
--- NOTE | 2022-12-23 20:12 | ED.GENADULT ---
HPI - General Adult General Chief complaint: Abdominal Pain Stated complaint: Vomiting/burning sensation/dehydrated Time Seen by Provider: 12/23/22 22:57 Source: patient and family Mode of arrival: ambulatory Limitations: no limitations History of Present Illness HPI narrative: 67-year-old female history of CAD, GERD presented for evaluation of upper abdominal pain started since early this morning, pain was described as epigastric pain with no radiation started at severe 10/10 now it is about 5/10,Patient also is complaining of some right lower quadrant abdominal pain, patient is reporting frequent urination with no dysuria or hematuria, no diarrhea, no blood in the urine or stool, no loss of weight or loss of appetite, no fever or chills, no vaginal bleed or discharge. Intra-abdominal surgery is significant for tubal ligation. Patient stated that she ate steak last night that the whole family ate from the same food no other family member is sick. Related Data Previous Rx's Medication Instructions Recorded sumatriptan succinate 50 mg tablet 50 mg PO .QD PRN migraine headache 04/09/20 (Imitrex) #14 tabs isosorbide mononitrate 30 mg 30 mg PO DAILY #90 tabs 04/08/21 tablet,extended release 24 hr ferrous sulfate 324 mg (65 mg 324 mg PO DAILY #90 tabs 10/21/21 iron) tablet,delayed release cholecalciferol (vitamin D3) 50 50 mcg PO DAILY 90 days #90 caps 11/04/21 mcg (2,000 unit) capsule clonazepam 0.5 mg tablet 0.5 mg PO BID 30 days #60 tabs 01/19/22 lisinopril 5 mg tablet 5 mg PO DAILY 90 days #90 tabs 02/15/22 albuterol sulfate 90 mcg/actuation 2 puff inhalation Q4-6H PRN 03/30/22 aerosol inhaler shortness of breath or wheezing #6.7 grams amlodipine 10 mg tablet 10 mg PO DAILY #90 tabs 04/11/22 rosuvastatin 20 mg tablet 20 mg PO DAILY #90 tabs 05/05/22 ascorbate calcium (vitamin C) 500 500 mg PO DAILY #90 tabs 07/16/22 mg tablet cyclobenzaprine 10 mg tablet 10 mg PO TID #90 tabs 09/13/22 loratadine 10 mg tablet 10 mg PO DAILY #90 tabs 11/02/22 cephalexin 500 mg capsule 500 mg PO QID 5 days #20 caps 11/10/22 Prilosec OTC 20 mg tablet,delayed 20 mg PO DAILY #90 tabs 12/10/22 release (omeprazole magnesium) famotidine 40 mg tablet 40 mg PO BEDTIME #90 tabs 12/10/22 psyllium husk 0.52 gram capsule 0.52 g PO BEDTIME PRN constipation 12/10/22 (Natural Fiber Laxative) #90 caps sertraline 25 mg tablet 25 mg PO DAILY #90 tabs 12/13/22 omeprazole magnesium 20 mg 20 mg PO BID #20 tabs 12/23/22 tablet,delayed release (Prilosec OTC) nitrofurantoin 100 mg PO BID #14 caps 12/24/22 monohydrate/macrocrystals 100 mg capsule (Macrobid) Allergies Allergy/AdvReac Type Severity Reaction Status Date / Time Iodinated Contrast Media Allergy Unknown SHAKING Verified 12/23/22 20:12 [IV DYE, IODINE CONTAINING CONTRAST ] Review of Systems Review of Systems: All other systems are reviewed and are negative Constitutional: Reports as per HPI and Reports no additional constitutional complaints Eyes: Reports as per HPI and Reports no additional eye complaints Reports system reviewed and no additional complaints, except as documented Cardiovascular: Reports as per HPI and Reports no additional cardiovascular complaints Respiratory: Reports as per HPI and Reports no additional respiratory complaints Gastrointestinal: Reports as per HPI and Reports no additional gastrointestinal complaints Genitourinary: Reports no additional female genitourinary complaints Musculoskeletal: Reports no additional musculoskeletal complaints Skin/Breast: Reports system reviewed and no additional complaints, except as docu Psychiatric: Reports no additional psychiatric complaints Endocrine: Reports no additional endocrine complaints Hematologic/Lymphatic: Reports no additional hematologic/lymphatic complaints Allergic/Immunologic: Reports no additional allergic/immunologic complaints Reports system reviewed and no additional complaints, except as documented and Reports Abnormal speech present [facility] Past Medical History Medical History Coronary artery disease COVID-19 vaccine series completed Diverticulitis Generalized anxiety disorder GERD (gastroesophageal reflux disease) Hypercholesterolemia Hypertension Impaired glucose tolerance Leukopenia Migraine Obesity (BMI 30-39.9) Psoriasis Surgical History H/O colonoscopy History of section History of esophagogastroduodenoscopy (EGD) History of hysterectomy History of pubovaginal sling Hx of bladder repair surgery Hx of umbilical hernia repair Family History Family History Father Medical history unknown Mother Myocardial infarction Hypertension CVD (cardiovascular disease) Breast cancer Social History Social History Household Members: Spouse Housing: Apartment Alcohol intake: current Alcohol intake frequency: holidays/special occasions only Patient Tobacco Use Status: Never used Tobacco e-Cigarette/Vaping Use: Never Used Second Hand Smoke Exposure: No Substance Use Type: Marijuana Advance Directives: No Advance Directives Information Provided: No service: No Current occupational status: unemployed Cognitive needs: No Hearing needs: No Vision needs: Yes Physical Exam ED Vital Signs: Vital Signs - 24 hr 12/23/22 20:12 12/23/22 22:50 Temperature 98.3 F 98.4 F Pulse Rate 62 55 Respiratory Rate 18 18 Blood Pressure 151/81 H 148/81 H Pulse Oximetry 100 96 Oxygen Delivery Method Room Air Room Air BMI result Body Mass Index 29.1 vital signs have been reviewed as appeared to be correct. Blood pressure normal. Heart rate normal. Respiration rate normal. Temperature normal. Oxygen saturation normal. Appearance: Alert. Oriented X3. No acute distress. Head: Normal external exam. Normocephalic. Atraumatic. No Haynes signs noted. No raccoon eyes noted Eyes: PERRLA. EOMI. Conjunctiva and sclera normal. Eyelids normal. ENT: TM's Normal. Pharynx normal. Uvula midline. Moist mucous membranes. No trismus noted. No drooling noted. No muffled voice noted. Neck: Normal inspection. Neck supple. FROM. No adenopathy. Thyroid Normal. No meningeal signs. No neck mass noted. CVS: Normal heart rate and rhythm. Heart sound normal. No murmurs noted. Pulses normal throughout. Respiratory: No respiratory distress. Painless inspiration. Breath sounds normal. No wheezes/rales/rhonchi noted. Chest nontender. No accessory muscle usage noted or decreased air movement noted. Abdomen: Soft , epigastric tenderness, no rebound tenderness, no guarding.. Bowel sounds normal in all 4 quadrants. No distention noted. No organomegaly noted. No visible injury noted. Back: No CVA tenderness. Full range of motion noted. Skin: Skin warm and dry. Normal skin color. Normal skin turgor. No rashes/lesions/lacerations noted. Extremities: No lower extremity edema. Extremities exhibit normal range of motion. Extremities nontender. Neuro: Oriented X 3. Cranial nerve exam: II-XII are grossly intact No motor deficit. No sensory deficit. Reflexes normal. Course Course Course Narrative: This is a rapid medical exam: Additional HPI, ROS, PE not included below will be deferred to primary provider. Patient is a 67-year-old female with CAD, GERD, dysphagia, HTN presenting to the emergency department with complaint of epigastric burning, nausea and vomiting since this morning. States symptoms improved somewhat during the day, was able to eat dinner, but then vomited again after dinner. Also complains of headache. Plan: EKG, labs, UA Reevaluation(s) Reevaluation #1: 67-year-old female came in with epigastric pain physical exam and CT/ labs are consistent with gastritis. New fat containing right inguinal hernia. UTI will start on macrobid Time: 23:39 Medications Administered Discontinued Medications Generic Name Dose Route Start Last Admin Trade Name Freq PRN Reason Stop Dose Admin Al Hydroxide/Mg Hydroxide 30 ml 12/23/22 23:10 12/23/22 23:51 Magnesium Hydrox/Alum Hydrox 30 Ml Oral.Susp PO 12/23/22 23:11 30 ml ONCE ONE Administration Famotidine 20 mg 12/23/22 23:13 12/23/22 23:51 Famotidine/Pf 20 Mg/2 Ml Vial IVPUSH 12/23/22 23:14 20 mg ONCE ONE Administration Sodium Chloride 1,000 mls @ 999 mls/hr 12/23/22 23:10 12/24/22 00:58 Ns IV 12/24/22 00:10 Infused .Q1H1M ONE Infusion Nitrofurantoin Macrocrystals 100 mg 12/24/22 00:52 12/24/22 00:58 Nitrofurantoin Monohyd/M-Cryst 100 Mg Capsule PO 12/24/22 00:53 100 mg ONCE ONE Administration Ondansetron HCl 4 mg 12/23/22 23:10 12/23/22 23:51 Ondansetron Hcl 4 Mg/2 Ml Vial IVPUSH 12/23/22 23:11 4 mg ONCE ONE Administration Medical Decision Making Differential Diagnosis Differential Diagnoses: The differential diagnosis associated with the presentation includes ( Gastritis, appendicitis, UTI, pancreatitis, electrolyte abnormality, severe anemia, ACS.) Admission/Observation Consideration of admission/observation: Escalation of care including admission/observation considered Lab Data MDM Lab Attestation statement: I reviewed the patient's lab results. 12/23/22 20:26 12/23/22 20:26 Labs: Lab Results 12/23/22 12/23/22 12/23/22 Range/Units 20:26 20:26 20:26 WBC 4.6 L (4.8-10.8) X10*3/uL RBC 4.41 (4.20-5.50) X10*6/uL Hgb 12.9 (12.0-16.0) g/dl Hct 39.1 (37.0-47.0) % MCV 88.7 (80.0-98.0) fL MCH 29.3 (27.0-33.0) pg MCHC 33.0 (31.0-35.0) g/dl RDW 13.2 (11.0-16.0) % Plt Count 219 (160-400) X10*3/uL MPV 10.4 (9.4-12.3) fL Immature Gran % (Auto) 0.2 (0.0-0.4) % Neut % (Auto) 74.8 H (45-73) % Lymph % (Auto) 18.0 L (20-40) % [place] % (Auto) 5.9 (2-11) % Eos % (Auto) 0.9 (0-4) % Baso % (Auto) 0.2 (0-2) % Lymph # (Auto) 0.8 L (1.2-4.9) X10*3/uL [place] # (Auto) 0.3 (0.1-1.2) X10*3/uL Eos # (Auto) 0.0 (0.0-0.4) X10*3/uL Baso # (Auto) 0.0 (0.0-0.2) X10*3/uL Abs Immat Gran (auto) 0.01 (0.00-0.03) X10*3/uL Absolute Neuts (auto) 3.4 (2.0-8.3) x10*3/uL Absolute Nucleated RBC 0.000 (0.0-0.012) X10*3/uL Nucleated RBC % (auto) 0.0 (0.0-0.2) /100WBC Sodium 144 (135-145) mmol/L Potassium 3.5 (3.3-5.1) mmol/L Chloride 109 H (96-108) mmol/L Carbon Dioxide 24 (22-29) mmol/L Anion Gap 15 (12-20) BUN 13 (9-16) mg/dL Creatinine 0.93 (0.5-1.4) mg/dL Estim Creat Clear Calc 55.3 Estimated GFR > 60 Random Glucose 98 (60-115) mg/dL Calcium 9.2 (8.4-10.2) mg/dL Total Bilirubin 0.4 (0.0-1.0) mg/dL AST 26 (5-31) U/L ALT 20 (0-31) U/L Alkaline Phosphatase 95 (39-117) U/L Troponin I High Sens < 2.7 (<3.5-17.0) ng/L Total Protein 6.8 (6.5-8.0) g/dL Albumin 4.1 (3.5-5.0) g/dL Lipase 12 (8-78) U/L Urine Color Urine Appearance Urine pH (5.0-9.0) Ur Specific [place] (1.005-1.025) Urine Protein (Neg-Trace) mg/dL Urine Glucose (UA) (Negative) mg/dL Urine Ketones (Negative) mg/dL Urine Blood (Negative) Urine Nitrite (Negative) Ur Leukocyte Esterase (Negative) Urine RBC (0-2) /HPF Urine WBC (0-5) /HPF Ur Squamous Epith Cells (0-2) /HPF Urine Bacteria (None Seen) Hyaline Casts (0-2) /LPF 12/23/22 Range/Units 20:29 WBC (4.8-10.8) X10*3/uL RBC (4.20-5.50) X10*6/uL Hgb (12.0-16.0) g/dl Hct (37.0-47.0) % MCV (80.0-98.0) fL MCH (27.0-33.0) pg MCHC (31.0-35.0) g/dl RDW (11.0-16.0) % Plt Count (160-400) X10*3/uL MPV (9.4-12.3) fL Immature Gran % (Auto) (0.0-0.4) % Neut % (Auto) (45-73) % Lymph % (Auto) (20-40) % [place] % (Auto) (2-11) % Eos % (Auto) (0-4) % Baso % (Auto) (0-2) % Lymph # (Auto) (1.2-4.9) X10*3/uL [place] # (Auto) (0.1-1.2) X10*3/uL Eos # (Auto) (0.0-0.4) X10*3/uL Baso # (Auto) (0.0-0.2) X10*3/uL Abs Immat Gran (auto) (0.00-0.03) X10*3/uL Absolute Neuts (auto) (2.0-8.3) x10*3/uL Absolute Nucleated RBC (0.0-0.012) X10*3/uL Nucleated RBC % (auto) (0.0-0.2) /100WBC Sodium (135-145) mmol/L Potassium (3.3-5.1) mmol/L Chloride (96-108) mmol/L Carbon Dioxide (22-29) mmol/L Anion Gap (12-20) BUN (9-16) mg/dL Creatinine (0.5-1.4) mg/dL Estim Creat Clear Calc Estimated GFR Random Glucose (60-115) mg/dL Calcium (8.4-10.2) mg/dL Total Bilirubin (0.0-1.0) mg/dL AST (5-31) U/L ALT (0-31) U/L Alkaline Phosphatase (39-117) U/L Troponin I High Sens (<3.5-17.0) ng/L Total Protein (6.5-8.0) g/dL Albumin (3.5-5.0) g/dL Lipase (8-78) U/L Urine Color Yellow Urine Appearance Cloudy Urine pH 7.0 (5.0-9.0) Ur Specific [place] 1.020 (1.005-1.025) Urine Protein 30 (1+) H (Neg-Trace) mg/dL Urine Glucose (UA) Negative (Negative) mg/dL Urine Ketones Trace (Negative) mg/dL Urine Blood Trace H (Negative) Urine Nitrite Negative (Negative) Ur Leukocyte Esterase Trace H (Negative) Urine RBC 11-20 H (0-2) /HPF Urine WBC 6-10 H (0-5) /HPF Ur Squamous Epith Cells 0-2 (0-2) /HPF Urine Bacteria None Seen (None Seen) Hyaline Casts 0-2 (0-2) /LPF Independent Interpretation I performed an independent interpretation of an: EKG ( sinus bradycardia at 56 beats per minutes, normal intervals, normal axis deviation, no change from previous EKG.) and CT Scan ( abdomen and pelvis: No acute intra-abdominal pathology.) Radiology Impression Discussion of test interpretation with radiology: I have reviewed the radiologist's reading. (* Appendix is normal. * Pancolonic diverticulosis without evidence of diverticulitis. * New fat-containing direct inguinal hernia on the right without associated inflammation. ) Discharge Plan Discharge Clinical Impression: Epigastric pain, Gastritis, UTI (urinary tract infection) Patient Disposition: Home, Self-Care Instructions: Gastritis (ED), Urinary Tract Infection in Women (DC) Prescriptions: New omeprazole magnesium [Prilosec OTC] 20 mg tablet,delayed release (DR/EC) 20 mg PO BID Qty: 20 0RF nitrofurantoin monohyd/m-cryst [Macrobid] 100 mg capsule 100 mg PO BID Qty: 14 0RF Rx Instructions: must administer with a meal/food No Action isosorbide mononitrate 30 mg tablet extended release 24 hr 30 mg PO DAILY Qty: 90 0RF Rx Instructions: Must call and schedule an appt for refills ferrous sulfate 324 mg (65 mg iron) tablet,delayed release (DR/EC) 324 mg PO DAILY Qty: 90 2RF clonazepam 0.5 mg tablet 0.5 mg PO BID 30 Days Qty: 60 1RF lisinopril 5 mg tablet 5 mg PO DAILY 90 Days Qty: 90 3RF amlodipine 10 mg tablet 10 mg PO DAILY Qty: 90 1RF rosuvastatin 20 mg tablet 20 mg PO DAILY Qty: 90 2RF ascorbate calcium (vitamin C) 500 mg tablet 500 mg PO DAILY Qty: 90 3RF cyclobenzaprine 10 mg tablet 10 mg PO TID Qty: 90 2RF sertraline 25 mg tablet 25 mg PO DAILY Qty: 90 2RF albuterol sulfate 90 mcg/actuation HFA aerosol inhaler 2 puff inhalation Q4-6H PRN (Reason: shortness of breath or wheezing) Qty: 6.7 0RF cephalexin 500 mg capsule 500 mg PO QID 5 Days Qty: 20 0RF sumatriptan succinate [Imitrex] 50 mg tablet 50 mg PO .QD PRN (Reason: migraine headache) Qty: 14 6RF Rx Instructions: do not exceed 4 doses per 24 hrs cholecalciferol (vitamin D3) 50 mcg (2,000 unit) capsule 50 mcg PO DAILY 90 Days Qty: 90 3RF loratadine 10 mg tablet 10 mg PO DAILY Qty: 90 1RF famotidine 40 mg tablet 40 mg PO BEDTIME Qty: 90 3RF psyllium husk [Natural Fiber Laxative] 0.52 gram capsule 0.52 g PO BEDTIME PRN (Reason: constipation) Qty: 90 3RF omeprazole magnesium [Prilosec OTC] 20 mg tablet,delayed release (DR/EC) 20 mg PO DAILY Qty: 90 3RF Referrals: Sanju,Leila Jha MD [Primary Care Provider] - Interventions: ED Discharge Assessment Last Done: 12/24/22 01:03 Discharge Date/Time: 12/24/22 01:05
--- NOTE | 2022-12-23 20:14 | ECG_ITS ---
Test Reason : epigastric pain Blood Pressure : / mmHG Vent. Rate : 056 BPM Atrial Rate : 056 BPM P-R Int : 134 ms QRS Dur : 082 ms QT Int : 426 ms P-R-T Axes : 017 050 014 degrees QTc Int : 411 ms Sinus bradycardia Otherwise normal ECG When compared with ECG of 30-MAR-2022 08:15, Premature ventricular complexes are no longer Present Referred By: Kristyn Sommer Electronically Signed By:JESSICA PRICE
[2022-12-23 20:33] LABS: MANUAL DIFF FLAG NO
[2022-12-23 20:37] LABS: Appearance Urine Cloudy; Color Urine Yellow; Glucose Urine UA Negative (Negative); Leukocyte Esterase Urine Trace (Negative); Nitrite Urine Negative (Negative); UMIC TRIGGER UACC YES; Urine Blood Trace (Negative); Urine Ketones Trace mg/dL (Negative); Urine Protein 30 (1+) mg/dL (Neg-Trace)
[2022-12-23 20:45] LABS: Basophils Percent Auto 0.2 % (0-2); Eosinophils Percent Auto 0.9 % (0-4); Hematocrit 39.1 % (37.0-47.0); Hemoglobin 12.9 g/dl (12.0-16.0); Imm Gran Abs Auto 0.01 X10*3/uL (0.00-0.03); Imm Gran Pct Auto 0.2 % (0.0-0.4); Lymphocytes Absolute Auto 0.8 X10*3/uL (1.2-4.9); Mean Corpuscular Hemoglobin 29.3 pg (27.0-33.0); Mean Corpuscular Volume 88.7 fL (80.0-98.0); Mean Platelet Volume 10.4 fL (9.4-12.3); Monocytes Absolute Auto 0.3 X10*3/uL (0.1-1.2); Monocytes Percent Auto 5.9 % (2-11); Neutrophils Absolute Auto 3.4 x10*3/uL (2.0-8.3); Neutrophils Percent Auto 74.8 % (45-73); Platelet Count 219 X10*3/uL (160-400); Red Blood Count 4.41 X10*6/uL (4.20-5.50); Red Cell Distribution Width 13.2 % (11.0-16.0); White Blood Count 4.6 X10*3/uL (4.8-10.8)
[2022-12-23 21:06] LABS: Alanine Aminotransferase 20 U/L (0-31); Albumin Level 4.1 g/dL (3.5-5.0); Alkaline Phosphatase 95 U/L (39-117); Anion Gap 15 (12-20); Aspartate Amino Transferase 26 U/L (5-31); Bilirubin Total 0.4 mg/dL (0.0-1.0); Blood Urea Nitrogen 13 mg/dL (9-16); Calcium 9.2 mg/dL (8.4-10.2); Carbon Dioxide 24 mmol/L (22-29); Chloride 109 mmol/L (96-108); Creatinine Clr Calc Pharmacy 55.3; Estimated Glomerular Filt Rate > 60; Glucose Random 98 mg/dL (60-115); Lipase 12 U/L (8-78); Potassium 3.5 mmol/L (3.3-5.1); Sodium 144 mmol/L (135-145); Total Protein 6.8 g/dL (6.5-8.0)
[2022-12-23 21:16] LABS: Troponin-I High Sensitivity < 2.7 ng/L (<3.5-17.0)
[2022-12-23 21:22] LABS: Bacteria Urine None Seen (None Seen); Hyaline Casts Urine 0-2 /LPF (0-2); Squamous Epithelial Cell Urine 0-2 /HPF (0-2); UACC Culture Trigger YES
[2022-12-23 22:50] VITALS: BP 148/81; PULSE 55; RESP 18; TEMP 36.9; O2SAT 96
[2022-12-23] MEDS: ondansetron HCL 4 MG/2 ML VIAL IVPUSH (23:51)
[2022-12-23] MEDS: 0.9 % Sodium Chloride 1,000 ML 999 ML IV (23:51)
[2022-12-23] MEDS: Famotidine/PF 20 MG/2 ML VIAL IVPUSH (23:51)
[2022-12-23] MEDS: Magnesium Hydrox/Alum Hydrox 30 ML ORAL.SUSP PO (23:51)
--- NOTE | 2022-12-24 00:49 | PC.NURSE ---
Patient given apple juice and crackers for PO challenge, patient tolerated well, no nausea/vomiting. Patient reports abdominal pain is 4/[address] Brewer notified.
[2022-12-24] MEDS: Nitrofurantoin Monohyd/M-Cryst 100 MG CAPSULE PO (00:58)
== END 2022-12-24 01:05 | disposition home or self-care (01) ==
PROVIDERS: Registered Nurse Emergency; Emergency Provider Emergency Medicine; PCP Internal Medicine
DX: N39.0 Urinary tract infection, site not specified (principal); R10.13 Epigastric pain; R00.1 Bradycardia, unspecified; I25.10 Atherosclerotic heart disease of native coronary artery without angina pectoris; Z79.899 Other long term (current) drug therapy
CPT/HCPCS: 36415; 74176; 80053; 81001; 83690; 84484; 85025; 87086; 93005; 96361; 96374; 96375; 99284; 99285; J2405

== ENCOUNTER → 2022-12-23 20:14 | Outpatient (BNV) | payer OTHER, SELFPAY | PROVIDERS: Emergency Provider Emergency Medicine; PCP Internal Medicine; Visit Provider Internal Medicine | DX: R00.1 Bradycardia, unspecified (principal); R10.13 Epigastric pain | CPT/HCPCS: 93010 ==

== ENCOUNTER 2023-01-19 08:33 | Outpatient (REF) | payer OTHER, SELFPAY ==
[2023-01-19 08:50] LABS: MANUAL DIFF FLAG NO
[2023-01-19 09:00] LABS: Basophils Percent Auto 0.4 % (0-2); Eosinophils Absolute Auto 0.2 X10*3/uL (0.0-0.4); Hematocrit 37.8 % (37.0-47.0); Hemoglobin 12.6 g/dl (12.0-16.0); Imm Gran Abs Auto 0.01 X10*3/uL (0.00-0.03); Imm Gran Pct Auto 0.2 % (0.0-0.4); Lymphocytes Absolute Auto 1.4 X10*3/uL (1.2-4.9); Lymphocytes Percent Auto 28.3 % (20-40); Mean Corpuscular HGB Conc 33.3 g/dl (31.0-35.0); Mean Corpuscular Hemoglobin 29.9 pg (27.0-33.0); Mean Corpuscular Volume 89.6 fL (80.0-98.0); Mean Platelet Volume 10.2 fL (9.4-12.3); Monocytes Absolute Auto 0.3 X10*3/uL (0.1-1.2); Monocytes Percent Auto 5.2 % (2-11); Neutrophils Percent Auto 61.9 % (45-73); Platelet Count 227 X10*3/uL (160-400); Red Blood Count 4.22 X10*6/uL (4.20-5.50); Red Cell Distribution Width 13.5 % (11.0-16.0); White Blood Count 4.8 X10*3/uL (4.8-10.8)
[2023-01-19 09:12] LABS: Estimated Average Glucose 103 mg/dL; Hemoglobin A1c % 5.2 % (<6.0)
[2023-01-19 09:35] LABS: Alanine Aminotransferase 10 U/L (0-31); Albumin Level 3.7 g/dL (3.5-5.0); Alkaline Phosphatase 81 U/L (39-117); Anion Gap 11 (12-20); Aspartate Amino Transferase 13 U/L (5-31); Bilirubin Total 0.3 mg/dL (0.0-1.0); Blood Urea Nitrogen 19 mg/dL (9-16); Carbon Dioxide 24 mmol/L (22-29); Chloride 111 mmol/L (96-108); Cholesterol 134 mg/dL (<200); Estimated Glomerular Filt Rate 48; Glucose Random 138 mg/dL (60-115); HDL Cholesterol 41 mg/dL (>40); LDL Cholesterol Calculated 80 mg/dL (<100); Potassium 3.7 mmol/L (3.3-5.1); Sodium 142 mmol/L (135-145); Total Protein 6.2 g/dL (6.5-8.0); Triglycerides 69 mg/dL (<150)
[2023-01-19 09:53] LABS: Free T4 (Free Thyroxine) 0.77 ng/dL (0.71-1.85); Thyroid Stimulating Hormone 1.61 uIU/mL (0.32-4.0)
[2023-01-19 09:59] LABS: Folate 5.7 ng/mL (> or = 4.0); Vitamin B12 273 pg/mL (200-900)
== END 2023-01-19 08:34 | disposition home or self-care (01) ==
LOC: HO.LAB 08:33
PROVIDERS: PCP Internal Medicine; Visit Provider Internal Medicine
DX: I25.10 Atherosclerotic heart disease of native coronary artery without angina pectoris (principal); R73.02 Impaired glucose tolerance (oral); E78.00 Pure hypercholesterolemia, unspecified
CPT/HCPCS: 36415; 80053; 80061; 82607; 82746; 83036; 84439; 84443; 85025

== ENCOUNTER 2023-03-11 08:12 | Outpatient (AMB) | payer OTHER, SELFPAY ==
--- NOTE | 2023-03-11 08:15 | MHC.OFFVIS ---
Intake Vital Signs 03/11/23 08:18 Height 5 ft 2 in Weight 154 lb 5.177 oz BMI 28.2 BP 130/75 Blood Pressure Location Lt brachial Position Sitting Pulse 60 Intake Visit Reasons: Gastroesophageal reflux disease (GERD) Intake Note: Christine presents in the office for GERD. CC: She states that she is having acidd reflux but not all the time since she started the prilosec. 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 She is doing okay with this. Hopefully, she will now be able to focus on her own health. Her weight seems to be stable just over 160 lbs. She continues on her omeprazole and famotidine. We review the lbs which do not show any concerning reason for her wt loss. She is having dysuria and her GFR is reduced, so I encourage her to drink fluids and we will get a UA. ROV 3 mos. (2) Peptic ulcer disease: Code(s): K27.9 - Peptic ulcer, site unspecified, unspecified as acute or chronic, without hemorrhage or perforation (3) Weight loss, non-intentional: Code(s): R63.4 - Abnormal weight loss (4) GERD (gastroesophageal reflux disease): Code(s): K21.9 - Gastro-esophageal reflux disease without esophagitis Qualifiers: Esophagitis presence: without esophagitis Qualified Code(s): K21.9 - Gastro-esophageal reflux disease without esophagitis Orders: Orders UA CC w/rflx Micro + Cult Today R30.0 - Dysuria Medications: Refilled famotidine 40 mg PO BEDTIME 90 tabs 3RF R13.10 - Dysphagia , unspecified psyllium husk (Fabiola ural Fiber Laxativ e) 0.52 grams PO BED TIME PRN 90 caps 3 RF constipation K59.00 - Constipat ion, unspecified Prilosec OTC (omep razole magnesium) 20 mg PO DAILY 90 tabs 3RF NS K21.9 - Gastro-eso phageal reflux dis ease without esoph agitis LABS: Collection Date: 12/23/22 Collection Time : 2025 Source: Urine , Clean Catch Test Result Flag Refere nce Si te Ur Color Yellow Ur Appear C loudy P H 7. 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 R/t this her PCP has wanted her to do a repeat colonoscopy but she is really not ready for that yet. With this in mind I show her the Cologuard video and she is agreeable to this test. I am going to order some basic lab work because she will be seeing her primary care doctor next month and this will help get them started in checking why she is having weight loss. From a GI standpoint she has had an unremarkable CT scan in December of 2022, an upper endoscopy showing some esophageal erosions which have now successfully been treated, so the only stone left unturned is colonoscopy. We will discuss this again in 6 months. With regards the weight loss possibilities include metabolic orbital ligament pathologies but psychogenic cannot be ruled out since she lost her mother fairly recently.. She is doing very well in turns of her GI issues and feels quite stable on her omeprazole and famotidine she also has fiber to help with constipation. Return office visit [facility] Medical History COVID-19 vaccine series completed Generalized anxiety disorder Psoriasis Obesity (BMI 30-39.9) Hypercholesterolemia Coronary artery disease Diverticulitis GERD (gastroesophageal reflux disease) Migraine Leukopenia Hypertension Impaired glucose tolerance Surgical History History of hysterectomy Hx of bladder repair surgery Hx of umbilical hernia repair History of esophagogastroduodenoscopy (EGD) H/O colonoscopy History of pubovaginal sling History of section Family History Father Medical history unknown Mother Myocardial infarction Hypertension CVD (cardiovascular disease) Breast cancer Social History Household Members: Spouse Housing: Apartment Alcohol intake: current Alcohol intake frequency: holidays/special occasions only Patient Tobacco Use Status: Never used Tobacco e-Cigarette/Vaping Use: Never Used Second Hand Smoke Exposure: No Substance Use Type: Marijuana service: No Current occupational status: unemployed Cognitive needs: No Hearing needs: No Vision needs: Yes Female Reproductive History Menstrual Age of Menarche: 14 Review of Systems Const Denies fatigue, Denies fever(s), Denies night sweats, Denies poor appetite and Reports weight loss Eyes Details: glasses Reports requires corrective lenses ENT Reports Normal hearing present, Denies dental pain, Denies dysphagia, Denies hearing loss, Denies mouth pain, Denies odynophagia, Denies throat swelling, Denies tongue swelling and Reports other (Dentition adequate) Card Reports no additional complaints Resp Reports no additional complaints GI Denies abdominal pain, Denies melena, Denies bloating, Denies hematochezia, Denies constipation, Denies GI cramping, Denies dysphagia, Denies excessive flatus, Denies early satiety, Reports heartburn, Denies diarrhea, Denies nausea, Denies odynophagia, Denies vomiting and Denies hematemesis Skin/Breast Denies pruritus, Denies lesions, Denies rash and Denies jaundice Neuro Reports Normal hearing present and Denies Abnormal speech present Endo Denies fatigue Aller/Immun Denies throat swelling and Denies tongue swelling Physical Exam Vital Signs: Last Vital Signs Pulse 60 03/11/23 08:18 BP 130/75 03/11/23 08:18 BMI result Body Mass Index 28.2 Const General: cooperative, no acute distress, well developed and well groomed Nutritional Appearance: average body habitus and well nourished Orientation/consciousness: oriented to person, oriented to place and oriented to time Limitations: No language barrier HEENT Head: Yes normocephalic and Yes atraumatic Eyes General: appearance normal, both eyes and all related structures Pupils: Equal, round and reactive pupils present Neck Neck: Yes normal visual inspection and Yes no lymphadenopathy Thyroid: Thyroid normal Resp Effort & Inspection: normal respiratory effort and able to speak in complete sentences Auscultation: clear to auscultation bilaterally Cardio Rate: regular rate Rhythm: regular rhythm Heart sounds: Normal, physiologic split S2 sound present Peripheral pulses: radial pulses present and posterior tibial pulses present GI Inspection: No distended and No Abdominal panniculus present Palpation (GI): Soft to palpation, nontender, no guarding, not rigid and No hepatosplenomegaly present Percussion: Yes normal to percussion Auscultation: normal bowel sounds Rectal Exam - Female: deferred Skin General skin exam: no rashes or lesions noted, turgor normal, skin not dry, no jaundice, No spider nevi and no striae Rashes: no rashes Nails: normal Neuro General: oriented to person, oriented to place and oriented to time Cranial nerves: Yes Equal, round and reactive pupils present and Yes Normal hearing present Speech: No Abnormal speech present Extrem General: Yes normal to inspection, No clubbing, No cyanosis and No edema Psych Appearance: grossly normal and well kempt Mental Status: mental status grossly normal Speech and movement: Normal speech and movement present Affect: normal affect Attitude: cooperative Thought process: Normal thought process present and not confabulating Thought content: Normal thought content present Insight: Limited insight present (Psych) Judgement: Limited judgement present (Psych) Assessment & Plan Assessment & Plan (1) Abnormal weight loss: Code(s): R63.4 - Abnormal weight loss Plan: She says she is losing weight w/o trying, she has gone from 190 to 155 and she eats well. R/t this her PCP has wanted her to do a repeat colonoscopy but she is really not ready for that yet. With this in mind I show her the Cologuard video and she is agreeable to this test. I am going to order some basic lab work because she will be seeing her primary care doctor next month and this will help get them started in checking why she is having weight loss. From a GI standpoint she has had an unremarkable CT scan in December of 2022, an upper endoscopy showing some esophageal erosions which have now successfully been treated, so the only stone left unturned is colonoscopy. We will discuss this again in 6 months. With regards the weight loss possibilities include metabolic orbital ligament pathologies but psychogenic cannot be ruled out since she lost her mother fairly recently.. She is doing very well in turns of her GI issues and feels quite stable on her omeprazole and famotidine she also has fiber to help with constipation. Return office visit (2) Polyuria: Code(s): R35.89 - Other polyuria (3) GERD (gastroesophageal reflux disease): Code(s): K21.9 - Gastro-esophageal reflux disease without esophagitis Qualifiers: Esophagitis presence: without esophagitis Qualified Code(s): K21.9 - Gastro-esophageal reflux disease without esophagitis Orders: Orders Comprehensive Met. Panel 03/11/23 R63.4 - Abnormal weight loss, R35.89 - Other polyuria TSH reflex Free T4 03/11/23 R63.4 - Abnormal weight loss, R35.89 - Other polyuria UA CC w/rflx Micro + Cult 03/11/23 R63.4 - Abnormal weight loss, R35.89 - Other polyuria HIV Ab/Ag 03/11/23 R63.4 - Abnormal weight loss, R35.89 - Other polyuria Complete Blood Count Auto Diff 03/11/23 R63.4 - Abnormal weight loss, R35.89 - Other polyuria Hepatitis A,B,C Profile 03/11/23 R63.4 - Abnormal weight loss, R35.89 - Other polyuria Medications: Changed From omeprazole magnesium 20 mg PO BID 20 tabs 0RF K21.9 - Gastro-esophageal reflux disease without esophagitis To omeprazole magnesium (Prilosec OTC) 20 mg PO BID 60 tabs 6RF 30 days K21.9 - Gastro-esophageal reflux disease without esophagitis From psyllium husk 0.52 grams PO BEDTIME PRN 90 caps 3RF constipation K59.00 - Constipation, unspecified To psyllium husk (Natural Fiber Laxative) 0.52 grams PO BEDTIME PRN 90 caps 3RF constipation K59.00 - Constipation, unspecified Coding Level of Care Code Est Pt Level 4 (36630) Diagnoses Abnormal weight loss R63.4 Polyuria R35.89 Gastroesophageal reflux disease without esophagitis K21.9 Esophagitis presence: without esophagitis
[2023-03-11 08:18] VITALS: BP 130/75; PULSE 60; BMI 28.2
== END 2023-03-11 08:51 | disposition home or self-care (01) ==
PROVIDERS: PCP Internal Medicine; Visit Provider Nurse Practitioner
DX: R63.4 Abnormal weight loss (principal); R35.89 Other polyuria; K21.9 Gastro-esophageal reflux disease without esophagitis
CPT/HCPCS: 99214

== ENCOUNTER 2023-03-11 08:12 | Outpatient (REF) | payer OTHER, SELFPAY ==
[2023-03-11 09:16] LABS: MANUAL DIFF FLAG NO
[2023-03-11 09:42] LABS: Basophils Percent Auto 0.5 % (0-2); Eosinophils Absolute Auto 0.1 X10*3/uL (0.0-0.4); Eosinophils Percent Auto 1.7 % (0-4); Hematocrit 42.2 % (37.0-47.0); Hemoglobin 13.5 g/dl (12.0-16.0); Imm Gran Abs Auto 0.02 X10*3/uL (0.00-0.03); Imm Gran Pct Auto 0.3 % (0.0-0.4); Lymphocytes Absolute Auto 1.5 X10*3/uL (1.2-4.9); Lymphocytes Percent Auto 23.6 % (20-40); Mean Corpuscular Hemoglobin 29.5 pg (27.0-33.0); Mean Corpuscular Volume 92.1 fL (80.0-98.0); Mean Platelet Volume 10.4 fL (9.4-12.3); Monocytes Absolute Auto 0.4 X10*3/uL (0.1-1.2); Monocytes Percent Auto 6.4 % (2-11); Neutrophils Absolute Auto 4.3 x10*3/uL (2.0-8.3); Neutrophils Percent Auto 67.5 % (45-73); Platelet Count 280 X10*3/uL (160-400); Red Blood Count 4.58 X10*6/uL (4.20-5.50); Red Cell Distribution Width 13.6 % (11.0-16.0); White Blood Count 6.4 X10*3/uL (4.8-10.8)
[2023-03-11 09:56] LABS: Estimated Average Glucose 100 mg/dL; Hemoglobin A1c % 5.1 % (<6.0)
[2023-03-11 10:12] LABS: Alanine Aminotransferase 19 U/L (0-31); Albumin Level 4.3 g/dL (3.5-5.0); Alkaline Phosphatase 96 U/L (39-117); Anion Gap 12 (12-20); Aspartate Amino Transferase 17 U/L (5-31); Bilirubin Total 0.4 mg/dL (0.0-1.0); Blood Urea Nitrogen 13 mg/dL (9-16); Calcium 9.8 mg/dL (8.4-10.2); Carbon Dioxide 28 mmol/L (22-29); Chloride 107 mmol/L (96-108); Estimated Glomerular Filt Rate > 60; Glucose Random 87 mg/dL (60-115); Potassium 4.1 mmol/L (3.3-5.1); Sodium 143 mmol/L (135-145); Total Protein 7.1 g/dL (6.5-8.0)
[2023-03-11 10:30] LABS: HBS Num1 0.48 mIU/mL (0-7.99); HBc Num1 0.05 S/CO (0.00-0.79); HIV AB/AG Nonreactive (Nonreactive); HIV Num 1 0.06 S/CO (0.00-0.99); Hepatitis A Antibody IgM 0.21 Index (0-0.79); Hepatitis B Core Antibody Nonreactive (Nonreactive); Hepatitis B Surface Antigen Negative (Negative); ~HepC Num1 0.04 S/CO (0.00-0.79); ~Hepatitis A Antibody IgM Nonreactive (Nonreactive); ~Hepatitis B Surface Antibody NONREACTIVE (Nonreactive); ~Hepatitis C Antibody Nonreactive (Nonreactive)
[2023-03-11 10:33] LABS: TSH reflex Free T4 1.21 uIU/mL (0.32-4.0)
[2023-03-11 10:37] LABS: Appearance Urine Clear; Color Urine Yellow; Glucose Urine UA Negative (Negative); Leukocyte Esterase Urine Small (1+) (Negative); Nitrite Urine Negative (Negative); UMIC TRIGGER UACC YES; Urine Blood Negative (Negative); Urine Ketones Negative (Negative); Urine Protein Negative (Neg-Trace)
[2023-03-11 10:43] LABS: Bacteria Urine None Seen (None Seen); Hyaline Casts Urine 0-2 /LPF (0-2); Squamous Epithelial Cell Urine 0-2 /HPF (0-2); UACC Culture Trigger YES
== END 2023-03-11 08:13 | disposition home or self-care (01) ==
LOC: HO.LAB 08:12
PROVIDERS: PCP Internal Medicine; Visit Provider Nurse Practitioner
DX: K21.9 Gastro-esophageal reflux disease without esophagitis (principal); R63.4 Abnormal weight loss; R35.89 Other polyuria; K59.00 Constipation, unspecified; Z79.899 Other long term (current) drug therapy
CPT/HCPCS: 36415; 80053; 81001; 83036; 84443; 85025; 86704; 86706; 86709; 86803; 87086; 87340; 87389; 99212

== ENCOUNTER 2023-04-09 07:57 | Outpatient (REF) | payer OTHER, SELFPAY | END 2023-04-09 07:58 | disposition home or self-care (01) | LOC: HO.MAMMO 07:57 | PROVIDERS: PCP Internal Medicine; Visit Provider Internal Medicine | DX: Z12.31 Encounter for screening mammogram for malignant neoplasm of breast (principal) | CPT/HCPCS: 77063; 77067 ==

== ENCOUNTER → 2023-04-09 08:15 | Outpatient (BNV) | payer OTHER, SELFPAY | PROVIDERS: PCP Internal Medicine; Visit Provider Radiology Diagnostic Radiology | DX: Z12.31 Encounter for screening mammogram for malignant neoplasm of breast (principal) | CPT/HCPCS: 77063; 77067 ==

== ENCOUNTER 2023-05-09 11:18 | Outpatient (AMB) | payer OTHER, SELFPAY ==
[2023-05-09 11:19] VITALS: BP 108/74; PULSE 60; O2SAT 97; BMI 28.0
--- NOTE | 2023-05-09 11:19 | A.OFFPC_ITS ---
Vital Signs 3 05/09/23 11:19 Height 5 ft 2 in Weight 153 lb 0.6 oz BMI 28.0 BP 108/74 Blood Pressure Location Lt brachial Position Sitting Pulse 60 Pulse Source Pulse Oximeter Pulse Oximetry (%) 97 Oxygen Delivery Method Room Air Intake Visit Reasons: Annual PE Intake Note: Patient is here today for a physical. 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 Allergies Iodinated Contrast Media [IV DYE, IODINE CONTAINING CONTRAST ] Allergy (Unknown, Verified 05/09/23 11:23) SHAKING Medication List - Last Reconciled 05/09/23 by Leila Bills MD albuterol sulfate 90 mcg/actuation 2 puffs inhalation Q4-6H PRN amlodipine 10 mg PO DAILY ascorbate calcium (vitamin C) 500 mg PO DAILY cholecalciferol (vitamin D3) 50 mcg PO DAILY 90 days clonazepam 0.5 mg PO BID 30 days cyclobenzaprine 10 mg PO TID famotidine 40 mg PO BEDTIME ferrous sulfate 324 mg PO DAILY isosorbide mononitrate ER 30 mg PO DAILY lisinopril 5 mg PO DAILY 90 days loratadine 10 mg PO DAILY omeprazole 20 mg PO BID 30 days psyllium husk (Natural Fiber Laxative) 0.52 grams PO BEDTIME PRN rosuvastatin 20 mg PO DAILY sertraline 25 mg PO DAILY sumatriptan succinate (Imitrex) 50 mg PO .QD PRN Tobacco use date assessed: 05/09/23 Fall risk assessment: No Falls in past year Last assessed Fall Risk: 05/09/23 Dental Screening Dental Screen Date: 05/09/23 Did you have a dental visit in the last 12 months?: Yes Did you have a dental problem in the last 6 months where you did not have access to dental care?: No Was dental information given to patient?: Patient has dentist HPI Annual PE 2 HPI0 Details 67-year-old overweight female coming in for physical exam. Last seen in October 2022 has a history of hypertension GERD coronary artery disease hypercholesterolemia generalized anxiety disorder and impaired glucose tolerance. Patient's mammogram is up-to-date colonoscopy is up-to-date. Received results from Cologuard test positive March 2023. Review of the notes patient was seen in the emergency room in December 2022 of or abdominal pain diagnosis of gastritis UTI. Omeprazole given as well as Macrodantin. Patient was also in the ER in October 2022 due to right buttocks infection and was prescribed an antibiotic. problem with hearing decline testing [facility] Medical History (Updated 05/09/23 @ 12:03 by Leila Bills MD) Osteopenia Epigastric pain Annual physical exam COVID-19 vaccine series completed Generalized anxiety disorder Psoriasis Obesity (BMI 30-39.9) Hypercholesterolemia Coronary artery disease Diverticulitis GERD (gastroesophageal reflux disease) Migraine Leukopenia Hypertension Impaired glucose tolerance Surgical History History of hysterectomy Hx of bladder repair surgery Hx of umbilical hernia repair History of esophagogastroduodenoscopy (EGD) H/O colonoscopy History of pubovaginal sling History of section Family History Father Medical history unknown Mother Myocardial infarction Hypertension CVD (cardiovascular disease) Breast cancer Social History (Updated 05/09/23 @ 11:50 by Leila Bills MD) Household Members: Spouse Housing: Apartment Alcohol intake: current Alcohol intake frequency: holidays/special occasions only Comment: holiday 1 drink Patient Tobacco Use Status: Never used Tobacco e-Cigarette/Vaping Use: Never Used Second Hand Smoke Exposure: No Substance Use Type: Marijuana service: No Current occupational status: unemployed Cognitive needs: No Hearing needs: No Vision needs: Yes Female Reproductive History Menstrual Age of Menarche: 14 Questionnaire PHQ-9 Over the last 2 weeks, how often have you been bothered by any of the following problems? 1. Little interest or pleasure in doing things: several days 2. Feeling down, depressed, or hopeless: several days 3. Trouble falling or staying asleep, or sleeping too much: not at all 4. Feeling tired or having little energy: not at all 5. Poor appetite or overeating: not at all 6. Feeling bad about yourself - or that you are a failure or have let yourself or your family down: not at all 7. Trouble concentrating on things, such as reading the newspaper or watching television: not at all 8. Moving or speaking so slowly that other people could have noticed. Or the opposite - being so fidgety or restless that you have been moving around a lot more than usual: not at all 9. Thoughts that you would be better off or of hurting yourself in some way: not at all Total score: 2 Depression Screening Interpretation: Positive Depression Screening Done: Yes Source: Developed by Drs. Michael Owens, Ijeoma Blake, Asif Stack and colleagues, with an educational robby from [employer]. Thrive Questionnaire Date Thrive assessed: 11/02/22 I am a: Patient What is your living situation today?: I have a steady place to live Within the past 12 months, did the food you bought not last and you didn't have the money to get more?: Never true Within the past 12 months, did you worry whether your food would run out before you got money to buy more?: Never true Do you have trouble paying for medicines?: No Do you have trouble getting transportation to medical appointments?: No Do you have trouble paying your heating and electricity bill?: No Do you have trouble taking care of your child, family member or friend?: No Do you have trouble with day-to-day activities such as bathing, preparing meals, shopping, managing finances, etc.?: No Are you currently unemployed and looking for a job?: No Are you interested in more education?: No AUDIT C Alcohol Use Questionnaire (AUDIT-C) 1. How often do you have a drink containing alcohol?: Monthly or less 2. How many drinks containing alcohol do you have on a typical day when you are drinking?: 1 or 2 3. How often do you have six or more drinks on one occasion?: Never Total Score: 1 LAUREN-7 AMB Questionnaire LAUREN-7 Date LAUREN - 7 assessed: 05/09/23 Feeling nervous, anxious, or on edge: 0 = Not at all Not being able to stop or control worryin = Several days Worrying too much about different things: 1 = Several days Trouble relaxin = Not at all Being so restless that it is hard to sit still: 0 = Not at all Becoming easily annoyed or irritable: 0 = Not at all Feeling afraid as if something awful might happen: 0 = Not at all Total LAUREN-7 score (0-4 normal; 5-9 mild; 10-14 moderate; 15-21 severe): 2 Source: Developed by Ijeoma Ware Kurt Kroenke and colleagues, with an educational robby from [employer]. Review of Systems Const Denies poor appetite and Denies weakness Eyes Denies no additional complaints ENT Reports Normal hearing present, Denies dizziness, Denies nasal congestion, Denies tinnitus and Denies sore throat Card Denies chest pain, Denies syncope, Denies rapid heart rate and Denies dyspnea Resp Denies cough and Denies dyspnea GI Denies change in stool character, Reports constipation, Denies diarrhea, Denies nausea and Denies vomiting Denies urinary frequency, Denies difficulty voiding and Denies dysuria Neuro Reports Normal hearing present, Denies confusion, Denies dizziness, Denies syncope and Denies weakness Psych Denies confusion Physical exam (Primary Care) Vital Signs: Last Vital Signs Pulse 60 05/09/23 11:19 BP 108/74 05/09/23 11:19 Pulse Ox 97 05/09/23 11:19 Oxygen Delivery Method Room Air 05/09/23 11:19 BMI result Body Mass Index 28.0 Tobacco/Smoking Status: Tobacco use Status Tobacco use date assessed 05/09/23 05/09/23 11:27 Patient Tobacco Use Status Never used Tobacco 05/09/23 11:20 e-Cigarette/Vaping Use Never Used 05/09/23 11:20 PHQ-9: PHQ-9 Score PHQ-9: Total score 2 05/09/23 11:28 Depression Screening Interpretation: Positive Thrive Assessment: Date of Thrive Assessment Date Thrive assessed 11/02/22 05/09/23 11:20 Const General: No confusion Orientation/consciousness: No confusion HENMT Head: Yes normocephalic Ears: external ears normal and TM's normal bilaterally Face and sinus: Yes normal facial exam Mouth: moist mucous membranes Throat: Yes tonsils normal Eyes Conjunctivae: conjunctivae normal Pupils: Equal, round and reactive pupils present and Pupil accommodation reflex normal Direct Ophthalmoscopy: normal light reflex Neck Neck: No lymphadenopathy Thyroid: Thyroid normal Chest Chest palpation & inspection: normal inspection of the chest Resp Effort & Inspection: normal respiratory effort and no audible wheezes Auscultation: clear to auscultation bilaterally, no crackles, no wheezes and lung sounds not diminished Cardio Rate: regular rate Rhythm: regular rhythm Peripheral pulses: radial pulses present and dorsalis pedis present GI Other: will be having GI workup -pending Palpation (GI): no masses Auscultation: normal bowel sounds and normoactive bowel sounds Rectal Exam - Female: deferred Abdomen image: 2 1. epigastric tenderness, soft, no guarding nor rebound Skin General skin exam: no rashes or lesions noted Rashes: no rashes Neuro General: No confusion Cranial nerves: Yes Equal, round and reactive pupils present and Yes Normal hearing present Cognition (Neuro): normal cognition Gait exam (Neuro): Normal gait present Motor exam (neuro): 5/5 motor strength present throughout Deep tendon reflexes (DTR's): Right brachioradialis reflex intensity grade: 2+, Left brachioradialis reflex intensity grade: 2+, Right patellar reflex intensity grade: 2+ and Left patellar reflex intensity grade: 2+ Extrem General: No edema Assessment and Plan Assessment & Plan (1) Annual physical exam: Code(s): Z00.00 - Encounter for general adult medical examination without abnormal findings (2) Positive colorectal cancer screening using Cologuard test: Code(s): R19.5 - Other fecal abnormalities Plan: Patient is being followed up by Gastroenterology (3) Coronary artery disease: Comment: had w/u w/Dr. Alonzo 2018-last appt 2020 ([facility] needs to make new appt)-denies cardiac symptoms Code(s): I25.10 - Atherosclerotic heart disease of [place] coronary artery without angina pectoris Qualifiers: Coronary Disease-Associated Artery/Lesion type: [place] artery [place] vs. transplanted heart: [place] heart Associated angina: without angina Qualified Code(s): I25.10 - Atherosclerotic heart disease of [place] coronary artery without angina pectoris Plan: Control the cholesterol, weight, blood pressure, diabetes discussed about aspirin (4) Hypercholesterolemia: Code(s): E78.00 - Pure hypercholesterolemia, unspecified Plan: Avoid fried foods, chicken skin, eggs, butter margarine, pastries and meat. Be it pork or beef they have a lot of cholesterol LDL goal of less than 70 and triglyceride of less than 150. Patient is taking rosuvastatin 20 mg once a day (5) GERD (gastroesophageal reflux disease): Code(s): K21.9 - Gastro-esophageal reflux disease without esophagitis Qualifiers: Esophagitis presence: without esophagitis Qualified Code(s): K21.9 - Gastro-esophageal reflux disease without esophagitis Plan: Avoid the foods that causes that usually spicy foods, tomato products, juices, coffee, soda and foods that your sensitive to. After eating do not lie down, allow 3-4 hours before in lie down. And keep the head of bed above 30 degrees to avoid the acid from going up. (6) Hypertension: Code(s): I10 - Essential (primary) hypertension Qualifiers: Hypertension type: essential hypertension Qualified Code(s): I10 - Essential (primary) hypertension Plan: Continue with blood pressure medication. Decrease salt intake and exercise patient takes lisinopril 5 mg once a day amlodipine 10 mg once a day (7) Impaired glucose tolerance: Code(s): R73.02 - Impaired glucose tolerance (oral) Plan: Decrease the amount of carbohydrate intake, pasta, bread, rice and potatoes are all sugar and that is aside from all the sweet stuff, remember that fruits are good but they are Sweet also. (8) Generalized anxiety disorder: Comment: Decline any counseling referral Code(s): F41.1 - Generalized anxiety disorder Plan: Continue with therapy right now presently on clonazepam as needed sertraline 25 mg once a day (9) Epigastric pain: Code(s): R10.13 - Epigastric pain (10) Osteopenia: Comment: 2019 Code(s): M85.80 - Other specified disorders of bone density and structure, unspecified site Orders: Orders 2 Lipid Panel 3 Months E78.00 - Pure hypercholesterolemia, unspecified Comprehensive Met. Panel 3 Months I25.10 - Atherosclerotic heart disease of [place] coronary artery without angina pectoris XR DEXA axial skeleton Today M81.0 - Age-related osteoporosis without current pathological fracture, M85.80 - Other specified disorders of bone density and structure, unspecified site US abdomen complete Today R10.13 - Epigastric pain, R79.89 - Other specified abnormal findings of blood chemistry Medications: Changed 2 From rosuvastatin 20 mg PO DAILY 90 tabs 2RF E78.00 - Pure hypercholesterolemia, unspecified To rosuvastatin 40 mg PO DAILY 90 days 90 tabs 2RF E78.00 - Pure hypercholesterolemia, unspecified Refilled 2 albuterol sulfate 90 mcg/actuation 2 puffs inhalation Q4-6H PRN 6.7 grams 0RF shortness of breath or wheezing Coding Level of Care Code Est Pt Prev Care >65y(28688) Diagnoses Annual physical exam Z00.00 Positive colorectal cancer screening using Cologuard test R19.5 Coronary artery disease involving [place] coronary artery of [place] heart without angina pectoris I25.10 Coronary Disease-Associated Artery/Lesion type: [place] artery [place] vs. transplanted heart: [place] heart Associated angina: without angina Hypercholesterolemia E78.00 Gastroesophageal reflux disease without esophagitis K21.9 Esophagitis presence: without esophagitis Essential hypertension I10 Hypertension type: essential hypertension Impaired glucose tolerance R73.02 Generalized anxiety disorder F41.1 Epigastric pain R10.13 Osteopenia M85.80
== END 2023-05-09 12:07 | disposition home or self-care (01) ==
PROVIDERS: Visit Provider Internal Medicine
DX: Z00.00 Encounter for general adult medical examination without abnormal findings (principal); R19.5 Other fecal abnormalities; I25.10 Atherosclerotic heart disease of native coronary artery without angina pectoris; E78.00 Pure hypercholesterolemia, unspecified; K21.9 Gastro-esophageal reflux disease without esophagitis; I10 Essential (primary) hypertension; R73.02 Impaired glucose tolerance (oral); F41.1 Generalized anxiety disorder; R10.13 Epigastric pain; M85.80 Other specified disorders of bone density and structure, unspecified site
CPT/HCPCS: 99397

== ENCOUNTER 2023-05-31 14:05 | Outpatient (AMB) | payer OTHER, SELFPAY ==
[2023-05-31 14:22] VITALS: BP 179/91; PULSE 53; BMI 29.2
--- NOTE | 2023-05-31 14:22 | A.OFFVIS_ITS ---
Intake Vital Signs 3 05/31/23 14:22 Height 5 ft 2 in Weight 159 lb 9.835 oz BMI 29.2 BP 179/91 H Blood Pressure Location Lt brachial Position Sitting Pulse 53 Intake Visit Reasons: positive cologuard Intake Note: Patient presents to in office visit today in follow up of labs and positive cologuard. CC: Patient reports doing well today denies having any GI symptoms. Hospice Superintendent Required: No Hospice Superintendent Name: self Accompanied by: Self / Same As Patient Allergies Iodinated Contrast Media [IV DYE, IODINE CONTAINING CONTRAST ] Allergy (Unknown, Verified 05/31/23 14:25) SHAKING HPI positive cologuard 2 HPI0 Details Assessment & Plan (1) Abnormal weight loss: Code(s): R63.4 - Abnormal weight loss Plan: She says she is losing weight w/o trying, she has gone from 190 to 155 and she eats well. R/t this her PCP has wanted her to do a repeat colonoscopy but she is really not ready for that yet. With this in mind I show her the Cologuard video and she is agreeable to this test. I am going to order some basic lab work because she will be seeing her primary care doctor next month and this will help get them started in checking why she is having weight loss. From a GI standpoint she has had an unremarkable CT scan in December of 2022, an upper endoscopy showing some esophageal erosions which have now successfully been treated, so the only stone left unturned is colonoscopy. We will discuss this again in 6 months. With regards the weight loss possibilities include metabolic or malignant pathologies but psychogenic cannot be ruled out since she lost her mother fairly recently.. She is doing very well in turns of her GI issues and feels quite stable on her omeprazole and famotidine she also has fiber to help with constipation. Return office visit (2) Polyuria: Code(s): R35.89 - Other polyuria (3) GERD (gastroesophageal reflux diseas e): Code(s): K21.9 - Gastro-esophageal reflux disease without esophagitis Qualifiers: Esophagitis presence: without esophagitis Qualified Code(s): K21.9 - Gastro-esophageal reflux disease without esophagitis Orders: Orders Comprehensive Met. Panel 03/11/23 R63.4 - Abnormal w eight loss, R35.89 - Other polyuria TSH reflex Free T4 03/11/23 R63.4 - Abnormal w eight loss, R35.89 - Other polyuria UA CC w/rflx Micro + Cult 03/11/23 R63.4 - Abnormal w eight loss, R35.89 - Other polyuria HIV Ab/Ag 03/11/23 R63.4 - Abnormal w eight loss, R35.89 - Other polyuria Complete Blood Cou nt Auto Diff 03/11/23 R63.4 - Abnormal w eight loss, R35.89 - Other polyuria Hepatitis A,B,C Pr ofile 03/11/23 R63.4 - Abnormal w eight loss, R35.89 - Other polyuria Medications: Changed From omeprazole magnesi um 20 mg PO BID 20 t abs 0RF K21.9 - Gastro-eso phageal reflux dis ease without esoph agitis To omeprazole magnesi um (Prilosec OTC) 20 mg PO BID 60 ta bs 6RF 30 days K21.9 - Gastro-eso phageal reflux dis ease without esoph agitis From psyllium husk 0.52 grams PO BED TIME PRN 90 caps 3 RF constipation K59.00 - Constipat ion, unspecified To psyllium husk (Fabiola ural Fiber Laxativ e) 0.52 grams PO BEDT ROLA PRN 90 caps 3R F constipation K59.00 - Constip LABS: Laboratory Tests 03/11/23 09:14 WBC 6.4 Hgb 13.5 Hct 42.2 Estimated GFR > 60 Total Bilirubin 0.4 AST 17 ALT 19 Alkaline Phosphata se 96 TSH 1.21 Hepatitis A IgM Ab Nonreactive Hep Bs Antigen Negative Hep Bs Antibody NONREACTIVE Hep B Core Total A b Nonreactive Hepatitis C Ab (EI A) Nonreactive HIV 1&2 Ab/P24 Ag 4thGn Nonreactive 03/11/23-[address]: Leila Bills MD ORDERED: [facility] w Micros QUERIES: Sourc e: Urine, Clean Ca tch Test Result Flag Refere nce Si te Ur Color Yellow Ur Appear C lear P H 6. 0 5.0-9.0 Ur Glu Negati ve Negative mg/d L Urine Blood Negative Negative Spec Gr avity Ur 1.020 1.005-1.025 Urine Pro tein Negative N eg-Trace mg/dL Urine K[place] es Negative Neg ative mg/dL Ur Nitrite Negative Negat sanjay Ur Trace Esterase S mall (1+) H Negativ e Ur RBC 3-5 H 0-2 /HPF U r WBC 6- 10 H 0-5 /HPF Ur Squam Epi 0-2 0-2 /HPF Ur Ba ct None Seen None Seen Ur Hyal ine Floorperson 0-2 0-2 /LPF END OF REPORT * * 2016 colonoscopy-[facility] PROCEDURE DONE: Colonoscopy with biopsy and endo marking tattoo of a polypoid area in the 35 cm range. PROCEDURE IN DETAIL: Digital rectal exam revealed no specific lesion. Video colonoscope was introduced without difficulty. It was navigated into the rectosigmoid. Prep was excellent. There was a great deal of spasm and multiple associated diverticula in the sigmoid colon. The scope was slowly advanced through this area and ultimately advanced through transverse, ascending colon, and down into the cecal cap. The appendiceal orifice was seen. The ileocecal valve was well seen. The scope was slowly removed. Again on reaching the sigmoid colon, there was a lot of spasm. The patient was given 1 mg of glucagon intravenous. The spasm decreased to some degree, but not completely. There was an area of a questionable polyp seen; however, it had a central dimple in the current setting with multiple diverticula. It was not clear as to whether or not this might not be an inverted diverticulum. A decision was made to do a perimeter biopsy and tattoo endo marking of the region (2 mL were injected). The scope was withdrawn. No additional lesions were seen. GENERAL IMPRESSION: Diverticulosis, question was raised of sigmoid polyp. PLAN: Current recommendations for repeat asymptomatic screening in a patient like this would generally be 10 years. The biopsy has returned at the time of this dictation and shows hyperplastic mucosa. Due to the questionable visualization of this area, I would recommend a repeat screening exam in this patient between 5 and 7 years. Laurie Rosas MD cc: Erin Desir MD 11/16/2016 11:36:07 DIAGNOSIS 0 HYPERPLASTIC C OLONIC MUCOSA. TODAYS VISIT Apparently she had a positive Cologuard at her last primary care providers visit. She tells me today that her weight loss seems to be turning around and she is gaining weight again. Despite Dr. Rosas saying 10 years for her repeat, she has a FHX of colon polyps. She requests education on Cologuard and what a positive result means. She is agreeable to having a colonoscopy. She continues on omeprazole 20 mg twice a day and increasing it from once a day has really helped control her GERD much better. She also utilizes fiber for her constipation with good success. There are no prior problems with anesthesia or sedation.. No card problems but she does have wheezing with cold weather and has an inhaler. She has a presumptive diagnosis of mild asthma. She is a smoker. No ID problems. She has a FHX of colon polyps. Return office visit in 6 months and after her colonoscopy. [facility] Medical History Osteopenia Epigastric pain Annual physical exam COVID-19 vaccine series completed Generalized anxiety disorder Psoriasis Obesity (BMI 30-39.9) Hypercholesterolemia Coronary artery disease Diverticulitis GERD (gastroesophageal reflux disease) Migraine Leukopenia Hypertension Impaired glucose tolerance Surgical History History of hysterectomy Hx of bladder repair surgery Hx of umbilical hernia repair History of esophagogastroduodenoscopy (EGD) H/O colonoscopy History of pubovaginal sling History of section Family History Father Medical history unknown Mother Myocardial infarction Hypertension CVD (cardiovascular disease) Breast cancer Social History Household Members: Spouse Housing: Apartment Alcohol intake: current Alcohol intake frequency: holidays/special occasions only Comment: holiday 1 drink Patient Tobacco Use Status: Never used Tobacco e-Cigarette/Vaping Use: Never Used Second Hand Smoke Exposure: No Substance Use Type: Marijuana service: No Current occupational status: unemployed Cognitive needs: No Hearing needs: No Vision needs: Yes Female Reproductive History Menstrual Age of Menarche: 14 Review of Systems Const Denies fatigue, Denies fever(s), Denies night sweats, Denies poor appetite, Reports weight gain and Denies weight loss Eyes Details: glasses Reports requires corrective lenses ENT Reports Normal hearing present, Denies dental pain, Denies dysphagia, Denies hearing loss, Denies mouth pain, Denies odynophagia, Denies throat swelling, Denies tongue swelling and Reports other (Dentition adequate) Card Reports no additional complaints and Reports dyspnea on exertion Resp Reports dyspnea on exertion GI Denies abdominal pain, Denies melena, Denies bloating, Denies hematochezia, Reports constipation, Denies GI cramping, Denies dysphagia, Denies excessive flatus, Denies early satiety, Reports heartburn, Denies diarrhea, Denies nausea, Denies odynophagia, Denies vomiting and Denies hematemesis Skin/Breast Denies pruritus, Denies lesions, Denies rash and Denies jaundice Neuro Reports Normal hearing present and Denies Abnormal speech present Endo Denies fatigue Aller/Immun Denies throat swelling and Denies tongue swelling Physical Exam Vital Signs: Last Vital Signs Pulse 53 05/31/23 14:22 BP 179/91 H 05/31/23 14:22 BMI result Body Mass Index 29.2 Const General: cooperative, no acute distress, well developed and well groomed Nutritional Appearance: well nourished and obese Orientation/consciousness: oriented to person, oriented to place and oriented to time Limitations: No language barrier HEENT Head: Yes normocephalic and Yes atraumatic Eyes General: appearance normal, both eyes and all related structures Pupils: Equal, round and reactive pupils present Neck Neck: Yes normal visual inspection and Yes no lymphadenopathy Thyroid: Thyroid normal Resp Effort & Inspection: normal respiratory effort and able to speak in complete sentences Auscultation: diminished lung sounds bilateral in the lower lung haro Cardio Rate: regular rate Rhythm: regular rhythm Heart sounds: Normal, physiologic split S2 sound present Peripheral pulses: radial pulses present and posterior tibial pulses present GI Inspection: No distended, Yes Abdominal panniculus present, Yes obesity and Yes striae Palpation (GI): Soft to palpation, nontender, no guarding, not rigid, No hepatosplenomegaly present and Hepatosplenomegaly present Percussion: Yes normal to percussion Auscultation: normal bowel sounds Rectal Exam - Female: deferred Abdomen image: 2 1. surgical scars Skin General skin exam: no rashes or lesions noted, turgor normal, skin not dry, no jaundice, No spider nevi and no striae Rashes: no rashes Nails: normal Neuro General: oriented to person, oriented to place and oriented to time Cranial nerves: Yes Equal, round and reactive pupils present and Yes Normal hearing present Speech: No Abnormal speech present Extrem General: Yes normal to inspection, No clubbing, No cyanosis and No edema Psych Appearance: grossly normal and well kempt Mental Status: mental status grossly normal Speech and movement: Normal speech and movement present Affect: normal affect Attitude: cooperative Thought process: Normal thought process present and not confabulating Thought content: Normal thought content present Insight: Fair insight present (Psych) Judgement: Fair judgement present (Psych) Assessment & Plan Assessment & Plan (1) Positive colorectal cancer screening using Cologuard test: Code(s): R19.5 - Other fecal abnormalities (2) Constipation: Code(s): K59.00 - Constipation, unspecified (3) Peptic ulcer disease: Code(s): K27.9 - Peptic ulcer, site unspecified, unspecified as acute or chronic, without hemorrhage or perforation (4) GERD (gastroesophageal reflux disease): Code(s): K21.9 - Gastro-esophageal reflux disease without esophagitis Qualifiers: Esophagitis presence: without esophagitis Qualified Code(s): K21.9 - Gastro-esophageal reflux disease without esophagitis (5) Family history of polyps in the colon: Code(s): Z83.719 - Family history of colon polyps, unspecified (6) Pre-op examination: Code(s): Z01.818 - Encounter for other preprocedural examination (7) Asthma: Code(s): J45.909 - Unspecified asthma, uncomplicated (8) Smoker: Code(s): F17.200 - Nicotine dependence, unspecified, uncomplicated Plan Apparently she had a positive Cologuard at her last primary care providers visit. She tells me today that her weight loss seems to be turning around and she is gaining weight again. Despite Dr. Rosas saying 10 years for her repeat, she has a FHX of colon polyps. She requests education on Cologuard and what a positive result means. She is agreeable to having a colonoscopy. She continues on omeprazole 20 mg twice a day and increasing it from once a day has really helped control her GERD much better. She also utilizes fiber for her constipation with good success. There are no prior problems with anesthesia or sedation.. No card problems but she does have wheezing with cold weather and has an inhaler. She has a presumptive diagnosis of mild asthma. She is a smoker. No ID problems. She has a FHX of colon polyps. Return office visit in 6 months and after her colonoscopy. Orders: Orders 2 Colonoscopy - GI Use Only Today R19.5 - Other fecal abnormalities Medications: New 2 bisacodyl (Dulcolax (bisacodyl)) 10 mg (2 x 5 mg) PO BEDTIME 2 days 4 tabs 0RF sodium,potassium,mag sulfates 17.5-3.13-1.6 gram (Suprep Bowel Prep Kit) 480 mL orally; 354 mL 0RF R19.5 - Other fecal abnormalities, Z83.719 - Family history of colon polyps, unspecified Refilled 2 famotidine 40 mg PO BEDTIME 90 tabs 3RF R13.10 - Dysphagia, unspecified psyllium husk (Natural Fiber Laxative) 0.52 grams PO BEDTIME PRN 90 caps 3RF constipation K59.00 - Constipation, unspecified omeprazole 20 mg PO BID 30 days 60 caps 6RF Coding Level of Care Code Est Pt Level 4 (35835) Diagnoses Positive colorectal cancer screening using Cologuard test R19.5 Constipation K59.00 Peptic ulcer disease K27.9 Gastroesophageal reflux disease without esophagitis K21.9 Esophagitis presence: without esophagitis Family history of polyps in the colon Z83.719 Pre-op examination Z01.818 Asthma J45.909 Smoker F17.200
== END 2023-05-31 15:08 | disposition home or self-care (01) ==
PROVIDERS: PCP Internal Medicine; Visit Provider Nurse Practitioner
DX: R19.5 Other fecal abnormalities (principal); K59.00 Constipation, unspecified; K27.9 Peptic ulcer, site unspecified, unspecified as acute or chronic, without hemorrhage or perforation; K21.9 Gastro-esophageal reflux disease without esophagitis; Z83.719 Family history of colon polyps, unspecified; Z01.818 Encounter for other preprocedural examination; J45.909 Unspecified asthma, uncomplicated; F17.200 Nicotine dependence, unspecified, uncomplicated
CPT/HCPCS: 99214

== ENCOUNTER → 2023-05-31 14:05 | Outpatient (BNVA) | payer OTHER, SELFPAY | PROVIDERS: PCP Internal Medicine; Visit Provider Nurse Practitioner | DX: Z12.11 Encounter for screening for malignant neoplasm of colon (principal); R19.5 Other fecal abnormalities; Z01.818 Encounter for other preprocedural examination; K59.00 Constipation, unspecified; K27.9 Peptic ulcer, site unspecified, unspecified as acute or chronic, without hemorrhage or perforation; K21.9 Gastro-esophageal reflux disease without esophagitis; J45.909 Unspecified asthma, uncomplicated; Z83.719 Family history of colon polyps, unspecified | CPT/HCPCS: 99212 ==

== ENCOUNTER 2023-06-01 13:12 | Outpatient (REF) | payer OTHER, SELFPAY ==
--- NOTE | ~2023-06-01 | MM_ITS ---
EXAMINATION: BONE DENSITOMETRY CLINICAL INDICATION: Age-related osteoporosis without current pathological fracture. COMPARISON: Previous BD dated 09/08/2018 and baseline BD dated 09/07/2007. TECHNIQUE: Using a 24[employer] DXA System (software version: 13.1) manufactured by [employer], dual-energy x-ray absorptiometry was performed of the lumbar spine and left hip. The images are of good technical quality. Summary results are attached. FINDINGS: LEFT FEMUR, NECK: Current: BMD 0.849 g/cm2, Z-score -0.2, T-score -1.4, osteopenia. Prior: BMD 0.865 g/cm2. Baseline: BMD 1.019 g/cm2. LEFT FEMUR, TOTAL: Current: BMD 0.903 g/cm2, Z-score 0.1, T-score -0.8, normal, 6.6% decrease from previous, 13.9% decrease from baseline (<5% change is not significant). Prior: BMD 0.967 g/cm2. Baseline: BMD 1.049 g/cm2. AP SPINE L1-L4: Current: BMD 1.139 g/cm2, Z-score 0.7, T-score -0.3, normal, 3.9% decrease from previous, 1.6% decrease from baseline (<5% change is not significant). Prior: BMD 1.185 g/cm2. Baseline: BMD 1.158 g/cm2. IDENTIFIED RISK FACTORS: Alcohol (3 or more units per day), bilateral oophorectomy, early menopause, height loss, hysterectomy, low calcium intake, secondary osteoporosis, tobacco user (current smoker). HISTORY OF FRACTURE: None listed. MEDICATIONS: None listed. MM/XR DEXA axial skeleton IMPRESSION: 1. DIAGNOSIS: Osteopenia based on the lowest T-score value of -1.4 in the femoral neck applying World Health Organization criteria. 2. 10-YEAR FRACTURE RISK PREDICTION, FRAX: Major osteoporotic fracture (clinical spine, forearm, hip or shoulder) 5.8%. Hip fracture 1.2%. 3. Treatment Recommendations: NOF guidelines recommend consideration for treatment in postmenopausal women and men age 50 and older presenting with the following: -A hip or vertebral (clinical or morphometric) fracture. -T-score less than or equal to -2.5 at the femoral neck or spine after appropriate evaluation to exclude secondary causes. -Low bone mass at the hip or spine and a 10-year fracture probability by FRAX of greater than or equal to 3% for hip fracture or greater than or equal to 20% for major osteoporotic fracture based on the [place] adapted WHO algorithm. 4. Other Recommendations: All treatment decisions require clinical judgment and consideration of individual patient factors, including patient preferences, comorbidities, previous drug use, risk factors not captured in the FRAX model (e.g. frailty, falls, vitamin D deficiency, increased bone turnover, interval significant decline in bone density) and possible under or overestimation of fracture risk by FRAX. Additional medical evaluation for secondary cause of low bone mineral density may be appropriate. FUTURE SCAN RECOMMENDATION: People with diagnosed cases of osteoporosis or at high risk for fracture should have regular bone mineral density tests. For patients eligible for Medicare, routine testing is allowed once every 2 years. The testing frequency can be increased to one year for patients who have rapidly progressing disease, those who are receiving or discontinuing medical therapy to restore bone mass, or have additional risk factors.
== END 2023-06-01 13:13 | disposition home or self-care (01) ==
LOC: HO.MAMMO 13:12
PROVIDERS: PCP Internal Medicine; Visit Provider Internal Medicine
DX: M81.0 Age-related osteoporosis without current pathological fracture (principal); E83.51 Hypocalcemia; Z78.0 Asymptomatic menopausal state; Z90.722 Acquired absence of ovaries, bilateral; Z90.710 Acquired absence of both cervix and uterus; Z72.0 Tobacco use
CPT/HCPCS: 77080

== ENCOUNTER 2023-06-07 07:42 | Outpatient (REF) | payer OTHER, SELFPAY ==
--- NOTE | ~2023-06-07 | US_ITS ---
EXAMINATION: US ABDOMEN COMPLETE CLINICAL INFORMATION: Other specified abnormal findings of blood chemistry. COMPARISON: CT abdomen and pelvis 12/23/2022. Ultrasound abdomen complete 06/29/2021. Renal ultrasound 01/03/2018. TECHNIQUE: Real-time imaging of the abdominal viscera. FINDINGS: PANCREAS: Normal. ABDOMINAL AORTA: The proximal, mid, and distal segments are normal in caliber. INFERIOR VENA CAVA: Visualized portions are normal. LIVER: Normal. The liver is normal in size. The liver contour is normal. Parenchymal echogenicity is normal. No focal hepatic lesion. There is no intrahepatic biliary duct dilatation seen. GALLBLADDER: Normal. The gallbladder is physiologically distended without evidence of stones, sludge, polyps, wall thickening or pericholecystic fluid. COMMON BILE DUCT: Normal in caliber measuring 0.4 cm in diameter. RIGHT KIDNEY: No hydronephrosis or renal calculi. The kidney measures 9.7 cm in maximum dimension. Benign appearing cyst measuring up to 9 mm. LEFT KIDNEY: No hydronephrosis. No renal calculi or focal parenchymal lesions. The kidney measures 9.8 cm in maximum dimension. SPLEEN: Normal. The spleen measures 9.5 cm in maximum dimension. FREE FLUID: None. ADDITIONAL FINDINGS: Sonographic evaluation of patient indicated site of pain at the midline/epigastric region demonstrates no soft tissue abnormality or fluid collection. US/US abdomen complete IMPRESSION: * Sonographic evaluation of patient indicated site of pain demonstrates no soft tissue abnormality or fluid collection. * Benign appearing right renal cyst. Followup imaging is not routinely recommended for benign appearing cysts.
== END 2023-06-07 07:43 | disposition home or self-care (01) ==
LOC: HO.US 07:42
PROVIDERS: PCP Internal Medicine; Visit Provider Internal Medicine
DX: R10.13 Epigastric pain (principal); R79.89 Other specified abnormal findings of blood chemistry
CPT/HCPCS: 76700

== ENCOUNTER 2023-06-27 08:46 | Emergency (ER) | payer OTHER, SELFPAY ==
--- NOTE | ~2023-06-27 | XR_ITS ---
EXAMINATION: XR CHEST CLINICAL INFORMATION: Cough COMPARISON: 03/30/2022 TECHNIQUE: 2 views of the chest were obtained. FINDINGS: No significant abnormality is noted involving the heart, lungs, mediastinum, bony thorax or soft tissues. XR/XR chest 2V IMPRESSION: Unremarkable examination, without interval change.
[2023-06-27 08:54] VITALS: BP 188/73; PULSE 77; RESP 20; TEMP 37.1; O2SAT 97; BMI 28.4
[2023-06-27 09:26] LABS: COVID-19 Test Negative (Negative); IDNOW Serial# 08D9AD1C
[2023-06-27 09:27] LABS: IDNOW Serial# 152EDE1D; Influenza A Positive (Negative); Influenza B2 Negative (Negative)
--- NOTE | 2023-06-27 09:34 | ED.URI ---
HPI - URI/Sore Throat General Chief Complaint: Upper Respiratory Symptoms Stated Complaint: Cold symptoms/Vomiting Time Seen by Provider: 06/27/23 09:30 Source: patient, RN notes reviewed and old records reviewed Mode of arrival: ambulatory History of Present Illness HPI Narrative: 67-year-old female with a past medical history CAD, GERD, migraines, HTN, presenting to the ED complaining of dry cough x3 weeks, chills, rhinorrhea, body aches/myalgias, & headache worsening since last night. Admits granddaughter also sick. Reports fever T-max 101 degrees last night. Denies taking antipyretics today. Denies SOB, CP, travel MD elicited complaint: cough, rhinorrhea and nasal congestion Related Data Previous Rx's Medication Instructions Recorded sumatriptan succinate 50 mg tablet 50 mg PO .QD PRN migraine headache 04/09/20 (Imitrex) #14 tabs isosorbide mononitrate 30 mg 30 mg PO DAILY #90 tabs 04/08/21 tablet,extended release 24 hr ferrous sulfate 324 mg (65 mg 324 mg PO DAILY #90 tabs 10/21/21 iron) tablet,delayed release clonazepam 0.5 mg tablet 0.5 mg PO BID 30 days #60 tabs 01/19/22 amlodipine 10 mg tablet 10 mg PO DAILY #90 tabs 04/11/22 ascorbate calcium (vitamin C) 500 500 mg PO DAILY #90 tabs 07/16/22 mg tablet loratadine 10 mg tablet 10 mg PO DAILY #90 tabs 11/02/22 sertraline 25 mg tablet 25 mg PO DAILY #90 tabs 12/13/22 cyclobenzaprine 10 mg tablet 10 mg PO TID #90 tabs 01/10/23 cholecalciferol (vitamin D3) 50 50 mcg PO DAILY 90 days #90 caps 01/19/23 mcg (2,000 unit) capsule lisinopril 5 mg tablet 5 mg PO DAILY 90 days #90 tabs 04/13/23 albuterol sulfate 90 mcg/actuation 2 puff inhalation Q4-6H PRN 05/09/23 aerosol inhaler shortness of breath or wheezing #6.7 grams rosuvastatin 40 mg tablet 40 mg PO DAILY 90 days #90 tabs 05/09/23 bisacodyl 5 mg tablet,delayed 10 mg (2 x 5 mg) PO BEDTIME 2 days 05/31/23 release (Dulcolax (bisacodyl)) #4 tabs famotidine 40 mg tablet 40 mg PO BEDTIME #90 tabs 05/31/23 omeprazole 20 mg capsule,delayed 20 mg PO BID 30 days #60 caps 05/31/23 release psyllium husk 0.52 gram capsule 0.52 g PO BEDTIME PRN constipation 05/31/23 (Natural Fiber Laxative) #90 caps sodium,potassium,mag sulfates 17.5 480 ml PO .COMPLEX #354 mL 05/31/23 gram-3.13 gram-1.6 gram oral soln (Suprep Bowel Prep Kit) sodium,potassium,mag sulfates 17.5 See Rx Instructions PO .COMPLEX 06/02/23 gram-3.13 gram-1.6 gram oral soln #354 mL (Suprep Bowel Prep Kit) Allergies Allergy/AdvReac Type Severity Reaction Status Date / Time Iodinated Contrast Media Allergy Unknown SHAKING Verified 06/27/23 08:56 [IV DYE, IODINE CONTAINING CONTRAST ] Review of Systems Review of Systems: Constitutional: + Fever, + Chills ENT/Mouth: No Ear Pain, +Nasal Congestion, No Sinus Pain, No Hoarseness, + sore throat, + Rhinorrhea, No Swallowing Difficulty Cardiovascular: No Chest Pain, No SOB Respiratory: + Cough, No Sputum, No Wheezing Gastrointestinal: No Nausea, No Vomiting, No Diarrhea, No Constipation, No Abdominal pain Genitourinary: No Dysuria, No Urinary Frequency, No Hematuria, No Flank Pain Musculoskeletal: No joint pain, + Myalgias, No Joint Swelling Skin: No Skin Lesions, No rash Neuro: No Weakness Yes all other systems are reviewed and are negative Constitutional: Constitutional: Reports as per [facility] Past Medical History Attestation statement: The following information was validated with the patient. Source: old records reviewed Medical History Osteopenia Annual physical exam COVID-19 vaccine series completed Generalized anxiety disorder Epigastric pain Psoriasis Obesity (BMI 30-39.9) Hypercholesterolemia Coronary artery disease Diverticulitis GERD (gastroesophageal reflux disease) Migraine Leukopenia Hypertension Impaired glucose tolerance Surgical History History of hysterectomy Hx of bladder repair surgery Hx of umbilical hernia repair History of esophagogastroduodenoscopy (EGD) H/O colonoscopy History of pubovaginal sling History of section Family History Family History Father Medical history unknown Mother Myocardial infarction Hypertension CVD (cardiovascular disease) Breast cancer Social History Social History Household Members: Spouse Housing: Apartment Alcohol intake: current Alcohol intake frequency: holidays/special occasions only Comment: holiday 1 drink Patient Tobacco Use Status: Never used Tobacco Smoked in Last 30 Days: No e-Cigarette/Vaping Use: Never Used Second Hand Smoke Exposure: No Use of substances other than those prescribed or required for medical reasons: No Substance Use Type: Marijuana Advance Directives: No Advance Directives Information Provided: Yes service: No Current occupational status: unemployed Cognitive needs: No Hearing needs: No Vision needs: Yes Physical Exam Vital Signs: Vital Signs: Last Vital Signs Temp 98.7 F 06/27/23 08:54 Pulse 77 06/27/23 08:54 Resp 16 06/27/23 09:36 BP 188/73 H 06/27/23 08:54 Pulse Ox 97 06/27/23 08:54 O2 Del Method Room Air 06/27/23 09:36 BMI result Body Mass Index 28.4 Const: General: cooperative, healthy appearing and no acute distress Orientation/consciousness: patient oriented x3 Limitations: no limitations HEENT: Head: Yes normal to inspection and Yes atraumatic Ears: hearing grossly normal bilaterally, external ears normal and mastoids normal General nose exam: Normal external nose present Face and sinus: Yes normal facial exam Mouth: Normal oral and palatal mucosa present and no drooling Throat: Yes posterior oropharynx normal, Yes tonsils normal, Yes uvula midline, No uvula laterally displaced and No uvular edema Eyes: General: appearance normal, both eyes and all related structures EOM: EOMs intact bilaterally Neck: Neck: Yes normal visual inspection and Yes no meningeal signs Resp: Effort & Inspection: normal respiratory effort, no respiratory distress and no stridor Auscultation: clear to auscultation bilaterally and no rhonchi Cardio: Rate: regular rate Heart sounds: S1 normal heart sound present and S2 normal heart sound present Skin: Rashes: no rashes Wounds: no wounds Neuro: General: patient oriented x3, tone normal and no meningeal signs Cranial nerves: Yes CN's II-XII intact bilaterally Gait exam (Neuro): Normal gait present Extrem: General: Yes normal to inspection Course Course Course Narrative: -938--CXR unremarkable. Influenza A positive > will treat with p.o. prednisone for bronchitis Results discussed with patient including worrisome signs and symptoms and strict return precautions, and when to return to the emergency department. They verbalized understanding and feel safe for discharge at this time. Medical Decision Making Medical Decision Making MDM Narrative: 67-year-old female with a past medical history CAD, GERD, migraines, HTN, presenting to the ED complaining of dry cough x3 weeks, chills, rhinorrhea, body aches/myalgias, & headache worsening since last night. On exam vital signs stable, NAD, nontoxic appearing, lungs CTA, oropharynx WNL. Concern for viral illness and bronchitis. Rule out pneumonia. Lower suspicion for strep pharyngitis. No evidence of FLAT LOCKER/retropharyngeal abscess or acute otitis Plan: Viral testing, CXR Please refer to course for remaining clinical decision making, interpretation of labs/imaging results, and discussions with consultants and/or family members. Differential Diagnosis Differential Diagnoses: The differential diagnosis associated with the presentation includes As above Lab Data [facility] Lab Attestation statement: I reviewed the patient's lab results. Labs: Lab Results 06/27/23 Range/Units 09:06 COVID-19 (FITO) Negative (Negative) COVID-19 Clin Com See Note Influenza Type A (JEANETTE) Positive A (Negative) Influenza Type B (JEANETTE) Negative (Negative) Influenza A & B Note See Note Independent Interpretation I performed an independent interpretation of an: Plain X-Ray Radiology Impression Discussion of test interpretation with radiology: I have reviewed the radiologist's reading. External Record Review External record reviewed: Inpatient record, Office record, Outpatient record, Prior outpatient labs, Prior outpatient radiology, Primary care record and Outside ED record Tests considered The following testing was considered but not selected: As above Prescription Management I considered prescription management with: Pain Medication, Antiviral and Antibiotic Chronic Conditions Patient?s care impacted by: Hypertension Discharge Plan Discharge Clinical Impression: Influenza A, Bronchitis Patient Disposition: Home, Self-Care Instructions: Influenza (DC), Acute Bronchitis (ED) Additional Instructions: You have the flu and bronchitis Prednisone is a steroid please take as prescribed No antibiotics are indicated at this time Make sure you are staying hydrated. Drink plenty of fluids. Rest Alternate Tylenol and Motrin at home as needed for body aches and fever Follow-up with your doctor. If symptoms persist or worsen return to the emergency department *If you are a child & not tolerating liquid or urinating for more than 6 hours, or fevers are uncontrolled with medications at home, return to the emergency department* Prescriptions: No Action isosorbide mononitrate 30 mg tablet extended release 24 hr 30 mg PO DAILY Qty: 90 0RF Rx Instructions: Must call and schedule an appt for refills ferrous sulfate 324 mg (65 mg iron) tablet,delayed release (DR/EC) 324 mg PO DAILY Qty: 90 2RF clonazepam 0.5 mg tablet 0.5 mg PO BID 30 Days Qty: 60 1RF amlodipine 10 mg tablet 10 mg PO DAILY Qty: 90 1RF ascorbate calcium (vitamin C) 500 mg tablet 500 mg PO DAILY Qty: 90 3RF sertraline 25 mg tablet 25 mg PO DAILY Qty: 90 2RF cyclobenzaprine 10 mg tablet 10 mg PO TID Qty: 90 1RF cholecalciferol (vitamin D3) 50 mcg (2,000 unit) capsule 50 mcg PO DAILY 90 Days Qty: 90 3RF lisinopril 5 mg tablet 5 mg PO DAILY 90 Days Qty: 90 3RF sodium,potassium,mag sulfates [Suprep Bowel Prep Kit] 17.5-3.13-1.6 gram recon soln See Rx Instructions PO .COMPLEX Qty: 354 0RF Rx Instructions: orally DILUTE each bottle with 16oz of water; drink first bottle 5pm evening before procedure AND second bottle at 11pm; follow each bottle with at least 32 oz.of water within 1 hour after each bottle; sumatriptan succinate [Imitrex] 50 mg tablet 50 mg PO .QD PRN (Reason: migraine headache) Qty: 14 6RF Rx Instructions: do not exceed 4 doses per 24 hrs loratadine 10 mg tablet 10 mg PO DAILY Qty: 90 1RF albuterol sulfate 90 mcg/actuation HFA aerosol inhaler 2 puff inhalation Q4-6H PRN (Reason: shortness of breath or wheezing) Qty: 6.7 0RF rosuvastatin 40 mg tablet 40 mg PO DAILY 90 Days Qty: 90 2RF omeprazole 20 mg capsule,delayed release(DR/EC) 20 mg PO BID 30 Days Qty: 60 6RF famotidine 40 mg tablet 40 mg PO BEDTIME Qty: 90 3RF psyllium husk [Natural Fiber Laxative] 0.52 gram capsule 0.52 g PO BEDTIME PRN (Reason: constipation) Qty: 90 3RF bisacodyl [Dulcolax (bisacodyl)] 5 mg tablet,delayed release (DR/EC) 10 mg PO BEDTIME 2 Days Qty: 4 0RF sodium,potassium,mag sulfates [Suprep Bowel Prep Kit] 17.5-3.13-1.6 gram recon soln 480 ml PO .COMPLEX Qty: 354 0RF Rx Instructions: 480 mL orally; Referrals: Po,Leila Jha MD [Primary Care Provider] - 5 days Interventions: ED Discharge Assessment Last Done: 06/27/23 10:05 Discharge Date/Time: 06/27/23 10:06
[2023-06-27 09:36] VITALS: RESP 16
--- NOTE | 2023-06-27 09:37 | PC.NURSE ---
Pt is a&ox4 reporting chills, cough, headache, fevers, and body aches for 3 weeks. PT ambulates with steady gait
== END 2023-06-27 10:06 | disposition home or self-care (01) ==
PROVIDERS: Emergency Provider Emergency Medicine; PCP Internal Medicine
DX: J10.1 Influenza due to other identified influenza virus with other respiratory manifestations (principal); J20.8 Acute bronchitis due to other specified organisms; I25.10 Atherosclerotic heart disease of native coronary artery without angina pectoris; I10 Essential (primary) hypertension; R05.9 Cough, unspecified; M79.10 Myalgia, unspecified site; R51.9 Headache, unspecified; Z11.52 Encounter for screening for COVID-19; Z79.899 Other long term (current) drug therapy
CPT/HCPCS: 71046; 87502; 87635; 99283; 99284

== ENCOUNTER 2023-07-11 09:41 | Emergency (ER) | payer OTHER, SELFPAY ==
--- NOTE | ~2023-07-11 | CT_ITS ---
EXAMINATION: CT ABDOMEN AND PELVIS WITHOUT CONTRAST CLINICAL INFORMATION: Left flank pain COMPARISON: CT abdomen from 12/23/2022 TECHNIQUE: Multidetector volumetric imaging was performed from the superior aspect of the liver through the pubic symphysis. Sagittal and coronal reformatted images were obtained on the technologist's workstation. This CT examination was performed using dose optimization techniques as appropriate, variously including the following: *Automated exposure control *Adjustment of mA and/or kV according to patient size (this includes techniques or standardized protocols for targeted exams where dose is matched to indication/reason for exam; i.e. extremities or head) *Use of iterative reconstruction technique DLP: 495 mGy-cm FINDINGS: LUNG BASES: Bibasilar atelectasis. No pneumothorax. No large pleural effusion. LIVER, GALLBLADDER, AND BILIARY TREE: The liver is normal in size, shape, and attenuation. No focal hepatic lesion or biliary ductal dilatation is present. The gallbladder is unremarkable with no evidence of radiopaque gallstones, gallbladder wall thickening, or obvious pericholecystic inflammatory changes. PANCREAS: Unremarkable. SPLEEN: Unremarkable. ADRENAL GLANDS: Unremarkable. KIDNEYS AND URETERS: The kidneys are normal in size, shape, and attenuation. No hydronephrosis, hydroureter, or calculi seen. No perinephric stranding. BLADDER: Unremarkable. GASTROINTESTINAL TRACT/MESENTERY: Colonic diverticulosis with slight wall thickening and pericolonic inflammatory changes greatest along the proximal segment of the descending colon extending into the left mid mesentery. Small hiatal hernia. The small and large bowel are unremarkable. The appendix is unremarkable. ABDOMINAL WALL: Right fat filled inguinal hernia. LYMPH NODES: No enlarged lymph nodes per size criteria. Multiple subcentimeter nonenlarged lymph nodes are noted in the mesentery potentially reactive. VASCULAR: Abdominal aorta is nonaneurysmal. PELVIC VISCERA: Uterus appears surgically absent. OSSEOUS STRUCTURES: Very slight grade 1 retrolisthesis of L2 on L3. Multilevel degenerative changes of the thoracolumbar and lumbosacral spine. Sclerotic focus left pubic symphysis statistically representing a bone island. CT/CT abdomen pelvis wo IV con IMPRESSION: 1. Colonic diverticulosis with slight wall thickening and pericolonic inflammatory changes greatest along the proximal segment of the descending colon extending into the left mid mesentery. 2. Multiple subcentimeter nonenlarged lymph nodes are noted in the mesentery potentially reactive. 3. Small hiatal hernia. 4. Very slight grade 1 retrolisthesis of L2 on L3.
[2023-07-11 09:48] VITALS: BP 173/76; RESP 16; TEMP 36.9; O2SAT 98; BMI 29.3
--- NOTE | 2023-07-11 10:33 | ED.ABDPAIN ---
HPI - Abdominal Pain General Chief Complaint: Abdominal Pain Stated Complaint: L flank pain/UTI? Time Seen by Provider: 07/11/23 10:27 Source: patient Mode of arrival: ambulatory Limitations: no limitations History of Present Illness HPI narrative: 67 year old female with pmhx significant for PUD, right inguinal hernia, GERD, asthma, anemia, PVD, CAD, HTN, LAUREN presents to the ED today for evaluation of left flank pain x3 days. Admits to feeling something come out while urinating last week. When she looked in the toilet bowl, she noticed a small stone with blood. Admits that right after this occurred she began having the left flank pain. Pain has been constant since onset. She endorses history of renal stones and states this feels similar. Admits to recent viral illness this past week for which she still has a dry cough. Denies fever, chills, nausea, vomiting, abd pain, dysuria, hematuria, diarrhea, constipation. Hx of hysterectomy. Related Data Previous Rx's Medication Instructions Recorded sumatriptan succinate 50 mg tablet 50 mg PO .QD PRN migraine headache 04/09/20 (Imitrex) #14 tabs isosorbide mononitrate 30 mg 30 mg PO DAILY #90 tabs 04/08/21 tablet,extended release 24 hr ferrous sulfate 324 mg (65 mg 324 mg PO DAILY #90 tabs 10/21/21 iron) tablet,delayed release clonazepam 0.5 mg tablet 0.5 mg PO BID 30 days #60 tabs 01/19/22 amlodipine 10 mg tablet 10 mg PO DAILY #90 tabs 04/11/22 ascorbate calcium (vitamin C) 500 500 mg PO DAILY #90 tabs 07/16/22 mg tablet loratadine 10 mg tablet 10 mg PO DAILY #90 tabs 11/02/22 sertraline 25 mg tablet 25 mg PO DAILY #90 tabs 12/13/22 cyclobenzaprine 10 mg tablet 10 mg PO TID #90 tabs 01/10/23 cholecalciferol (vitamin D3) 50 50 mcg PO DAILY 90 days #90 caps 01/19/23 mcg (2,000 unit) capsule lisinopril 5 mg tablet 5 mg PO DAILY 90 days #90 tabs 04/13/23 albuterol sulfate 90 mcg/actuation 2 puff inhalation Q4-6H PRN 05/09/23 aerosol inhaler shortness of breath or wheezing #6.7 grams rosuvastatin 40 mg tablet 40 mg PO DAILY 90 days #90 tabs 05/09/23 bisacodyl 5 mg tablet,delayed 10 mg (2 x 5 mg) PO BEDTIME 2 days 05/31/23 release (Dulcolax (bisacodyl)) #4 tabs famotidine 40 mg tablet 40 mg PO BEDTIME #90 tabs 05/31/23 omeprazole 20 mg capsule,delayed 20 mg PO BID 30 days #60 caps 05/31/23 release psyllium husk 0.52 gram capsule 0.52 g PO BEDTIME PRN constipation 05/31/23 (Natural Fiber Laxative) #90 caps sodium,potassium,mag sulfates 17.5 480 ml PO .COMPLEX #354 mL 05/31/23 gram-3.13 gram-1.6 gram oral soln (Suprep Bowel Prep Kit) sodium,potassium,mag sulfates 17.5 See Rx Instructions PO .COMPLEX 06/02/23 gram-3.13 gram-1.6 gram oral soln #354 mL (Suprep Bowel Prep Kit) prednisone 20 mg tablet 20 mg PO DAILY 5 days #5 tabs 06/28/23 naproxen 500 mg tablet 500 mg PO Q8-12H PRN pain (scale 07/11/23 score 4-6) #14 tabs naproxen 500 mg tablet 500 mg PO Q8-12H PRN pain (scale 07/11/23 score 4-6) #20 tabs prednisone 20 mg tablet 20 mg PO DAILY 5 days #5 tabs 07/11/23 Allergies Allergy/AdvReac Type Severity Reaction Status Date / Time Iodinated Contrast Media Allergy Unknown SHAKING Verified 06/27/23 08:56 [IV DYE, IODINE CONTAINING CONTRAST ] Review of Systems Review of Systems Constitutional: No fever, chills, fatigue, night sweats, weight changes ENT/Mouth: No ear pain, hearing loss, nasal congestion, sinus pain, rhinorrhea, sore throat Eyes: No eye pain, swelling, redness, vision changes, discharge Cardio: No chest pain, palpitations, GIRALDO, orthopnea, peripheral edema Pulm: No SOB, cough, sputum, wheezing, dyspnea, hemoptysis GI: No nausea, vomiting, hematemesis, abdominal pain, diarrhea, constipation, hematochezia, melena, +left flank pain : No irregular bleeding, dysuria, No frequency, No urgency, hesitancy, hematuria, flank pain, urinary flow changes, urinary incontinence or retention MSK: No back pain, neck pain, joint pain, myalgias Skin: No lesions, rashes Neuro: No weakness, numbness, paresthesias, LOC, dizziness, headache All other systems reviewed and are negative. [facility] Past Medical History Attestation statement: The following information was validated with the patient. Source: old records reviewed and nursing notes reviewed Medical History Osteopenia Annual physical exam COVID-19 vaccine series completed Generalized anxiety disorder Epigastric pain Psoriasis Obesity (BMI 30-39.9) Hypercholesterolemia Coronary artery disease Diverticulitis GERD (gastroesophageal reflux disease) Migraine Leukopenia Hypertension Impaired glucose tolerance Surgical History History of hysterectomy Hx of bladder repair surgery Hx of umbilical hernia repair History of esophagogastroduodenoscopy (EGD) H/O colonoscopy History of pubovaginal sling History of section Family History Family History Father Medical history unknown Mother Myocardial infarction Hypertension CVD (cardiovascular disease) Breast cancer Social History Social History Household Members: Spouse Housing: Apartment Alcohol intake: current Alcohol intake frequency: holidays/special occasions only Comment: holiday 1 drink Patient Tobacco Use Status: Never used Tobacco e-Cigarette/Vaping Use: Never Used Second Hand Smoke Exposure: No Substance Use Type: Marijuana Advance Directives: No Advance Directives Information Provided: Yes service: No Current occupational status: unemployed Cognitive needs: No Hearing needs: No Vision needs: Yes Physical Exam ED Vital Signs: Vital Signs - 24 hr 07/11/23 09:48 Temperature 98.4 F Respiratory Rate 16 Blood Pressure 173/76 H Pulse Oximetry 98 Oxygen Delivery Method Room Air BMI result Body Mass Index 29.3 Hypertensive, otherwise wnl. Const General: cooperative, healthy appearing, comfortable and no acute distress Orientation/consciousness: patient oriented x3 Limitations: no limitations HENMT Head: Yes normal to inspection, Yes No palpable skull fracture present, Yes normocephalic and Yes atraumatic Eyes General: appearance normal, both eyes and all related structures Conjunctivae: conjunctivae normal Sclerae: sclerae normal Pupils: Equal, round and reactive pupils present Neck Neck: Yes normal visual inspection and Yes no lymphadenopathy Resp Effort & Inspection: normal respiratory effort and Actively coughing Auscultation: clear to auscultation bilaterally Cardio Rate: regular rate Rhythm: regular rhythm Peripheral pulses: Peripheral pulses 2+ throughout GI Other: + abd soft, ND/NT, no rebound or guarding. normoactive bs General: Yes no CVA tenderness Back/Spine/Pelvis Back: no CVA tenderness Skin General skin exam: no rashes or lesions noted Neuro General: patient oriented x3 and gait normal Cranial nerves: Yes Equal, round and reactive pupils present Extrem General: Yes normal to inspection Course Course Course Narrative: CBC without leukocytosis or anemia. H&H stable. Chemistry without acute electrolyte abnormality requiring intervention. Normal renal function > lower suspicion for obstructive uropathy or hydronephrosis. Normal liver function. Urine without infection. CT pending. She is receiving IVF. Continues to endorse pain. Vitals stables > IV morphine 1514-- CT abd/pelvis showing evidence of diverticulosis without acute diverticulitis, along with sub-centimeter non-enlarged mesenteric lymph nodes. Based on history of present illness, this is likely reactive. I discussed these findings with Dr. Jorge who, after evaluating patient at bedside and looking over CT scan results, does not find surgical intervention warranted at this time. > I discussed all work up results with patient. Patient has remained stable throughout ED visit today. Discussed worrisome signs and symptoms and when to return to the ED. All questions answered at this time. Patient is agreeable with disposition and stable for discharge. Medical Decision Making Medical Decision Making MDM Narrative: 67 year old female with pmhx significant for PUD, right inguinal hernia, GERD, asthma, anemia, PVD, CAD, HTN, LAUREN presents to the ED today for evaluation of left flank pain x3 days. DDX: renal colic, renal stone, UTI, viral syndrome, msk sprain/strain Plan: labs, imaging, ua, pain control, re-evaluation Differential Diagnosis Differential Diagnoses: The differential diagnosis associated with the presentation includes as above. Admission/Observation Consideration of admission/observation: Escalation of care including admission/observation considered Consult Healthcare Provider Management of the patient was discussed with: Occupational Therapist'S Assistant (General surgeon, Dr. Jorge) Lab Data MDM Lab Attestation statement: I reviewed the patient's lab results. As above. 07/11/23 11:01 07/11/23 11:01 Labs: Lab Results 07/11/23 Range/Units 11:01 WBC 8.6 (4.8-10.8) X10*3/uL RBC 4.23 (4.20-5.50) X10*6/uL Hgb 12.4 (12.0-16.0) g/dl Hct 37.7 (37.0-47.0) % MCV 89.1 (80.0-98.0) fL MCH 29.3 (27.0-33.0) pg MCHC 32.9 (31.0-35.0) g/dl RDW 13.4 (11.0-16.0) % Plt Count 263 (160-400) X10*3/uL MPV 10.4 (9.4-12.3) fL Immature Gran % (Auto) 0.4 (0.0-0.4) % Neut % (Auto) 76.9 H (45-73) % Lymph % (Auto) 14.9 L (20-40) % [place] % (Auto) 6.7 (2-11) % Eos % (Auto) 0.9 (0-4) % Baso % (Auto) 0.2 (0-2) % Lymph # (Auto) 1.3 (1.2-4.9) X10*3/uL [place] # (Auto) 0.6 (0.1-1.2) X10*3/uL Eos # (Auto) 0.1 (0.0-0.4) X10*3/uL Baso # (Auto) 0.0 (0.0-0.2) X10*3/uL Abs Immat Gran (auto) 0.03 (0.00-0.03) X10*3/uL Absolute Neuts (auto) 6.6 (2.0-8.3) x10*3/uL Absolute Nucleated RBC 0.000 (0.0-0.012) X10*3/uL Nucleated RBC % (auto) 0.0 (0.0-0.2) /100WBC PT 12.5 (11.1-13.3) SEC INR 1.0 (0.9-1.1) Sodium 142 (135-145) mmol/L Potassium 3.9 (3.3-5.1) mmol/L Chloride 108 (96-108) mmol/L Carbon Dioxide 27 (22-29) mmol/L Anion Gap 11 L (12-20) BUN 15 (9-16) mg/dL Creatinine 1.03 (0.5-1.4) mg/dL Estim Creat Clear Calc 50.1 Estimated GFR 54 Random Glucose 97 (60-115) mg/dL Calcium 9.3 (8.4-10.2) mg/dL Total Bilirubin 0.5 (0.0-1.0) mg/dL Direct Bilirubin 0.2 (0.0-0.5) mg/dL AST 16 (5-31) U/L ALT 14 (0-31) U/L Alkaline Phosphatase 78 (39-117) U/L Total Protein 6.6 (6.5-8.0) g/dL Albumin 3.8 (3.5-5.0) g/dL Urine Color Yellow Urine Appearance Clear Urine pH 7.5 (5.0-9.0) Ur Specific [place] 1.010 (1.005-1.025) Urine Protein Negative (Neg-Trace) mg/dL Urine Glucose (UA) Negative (Negative) mg/dL Urine Ketones Negative (Negative) mg/dL Urine Blood Negative (Negative) Urine Nitrite Negative (Negative) Ur Leukocyte Esterase Negative (Negative) Urine RBC 0-2 (0-2) /HPF Urine WBC 0-5 (0-5) /HPF Ur Squamous Epith Cells 0-2 (0-2) /HPF Urine Bacteria None Seen (None Seen) Hyaline Casts 0-2 (0-2) /LPF Independent Interpretation I performed an independent interpretation of an: CT Scan Interpretation: I have personally reviewed ct scan and sgree with radiologist's interpretation. Radiology Impression Discussion of test interpretation with radiology: I have reviewed the radiologist's reading. Radiologist Impression: CT abdomen pelvis wo IV con IMPRESSION: 1. Colonic diverticulosis with slight wall thickening and pericolonic inflammatory changes greatest along the proximal segment of the descending colon extending into the left mid mesentery. 2. Multiple subcentimeter nonenlarged lymph nodes are noted in the mesentery potentially reactive. 3. Small hiatal hernia. 4. Very slight grade 1 retrolisthesis of L2 on L3. Independent Historian Clinical information obtained from an independent historian. History obtained from or confirmed by: Spouse () External Record Review External record reviewed: Inpatient record, Office record, Outpatient record, Prior outpatient labs, Prior outpatient radiology, Primary care record and Outside ED record Medications Administered Discontinued Medications Generic Name Dose Route Start Last Admin Trade Name Freq PRN Reason Stop Dose Admin Sodium Chloride 1,000 mls @ 999 mls/hr 07/11/23 13:30 07/11/23 16:26 Ns IV 07/11/23 14:30 Infused .Q1H1M BYRON Infusion Morphine Sulfate 2 mg 07/11/23 10:43 07/11/23 12:04 Morphine Sulfate 2 Mg/Ml Cartridge IVPUSH 07/11/23 10:44 2 mg ONCE ONE Administration Protocol Morphine Sulfate 4 mg 07/11/23 13:26 07/11/23 13:44 Morphine Sulfate 4 Mg/Ml Cartridge IVPUSH 07/11/23 13:27 4 mg ONCE ONE Administration Protocol Critical Care Time Critical Care Time Critical Care Time: Yes Total Critical Care Time: 31 Attestation: Critical care time in the amount of 31 minutes has been provided to the patient in terms of direct patient care, frequent reevaluation on IV morphine, review and interpretation of medical data and results, and management of potentially life-threatening conditions. This is all outside of any medical procedures. Discharge Plan Discharge Clinical Impression: Diverticulosis, Hiatal hernia Patient Disposition: Home, Self-Care Instructions: Hiatal Hernia (ED), Diverticulosis (ED) Additional Instructions: You were seen in the ED for evaluation of abdominal pain. Your labs were all reassuring. Your urine did not demonstrate infection or blood. It is likely that you may still be passing kidney stones even though we were unable to identify stones on imaging. The CT scan of your abdomen/pelvis shows diverticulosis without diverticulitis. It also show some inflammatory changes within your colon along with prominent lymph nodes. This is likely reactive secondary to your recent upper respiratory infection. There is also an incidental finding of a hiatal hernia on imaging. You will need to follow-up with general surgery for this. You have been provided a referral to General surgery. CALL THEM TO MAKE AN APPOINTMENT. THEY WILL NOT CALL YOU. Additionally, follow-up with your primary care provider. A referral has been provided to you. If symptoms persist or worsen, please return to the ED. In the case of an emergency call 911. GENERAL SURGERY: [phone] Prescriptions: New naproxen 500 mg tablet 500 mg PO Q8-12H PRN (Reason: pain (scale score 4-6)) Qty: 20 0RF naproxen 500 mg tablet 500 mg PO Q8-12H PRN (Reason: pain (scale score 4-6)) Qty: 14 0RF prednisone 20 mg tablet 20 mg PO DAILY 5 Days Qty: 5 0RF No Action isosorbide mononitrate 30 mg tablet extended release 24 hr 30 mg PO DAILY Qty: 90 0RF Rx Instructions: Must call and schedule an appt for refills ferrous sulfate 324 mg (65 mg iron) tablet,delayed release (DR/EC) 324 mg PO DAILY Qty: 90 2RF clonazepam 0.5 mg tablet 0.5 mg PO BID 30 Days Qty: 60 1RF amlodipine 10 mg tablet 10 mg PO DAILY Qty: 90 1RF ascorbate calcium (vitamin C) 500 mg tablet 500 mg PO DAILY Qty: 90 3RF sertraline 25 mg tablet 25 mg PO DAILY Qty: 90 2RF cyclobenzaprine 10 mg tablet 10 mg PO TID Qty: 90 1RF cholecalciferol (vitamin D3) 50 mcg (2,000 unit) capsule 50 mcg PO DAILY 90 Days Qty: 90 3RF lisinopril 5 mg tablet 5 mg PO DAILY 90 Days Qty: 90 3RF sodium,potassium,mag sulfates [Suprep Bowel Prep Kit] 17.5-3.13-1.6 gram recon soln See Rx Instructions PO .COMPLEX Qty: 354 0RF Rx Instructions: orally DILUTE each bottle with 16oz of water; drink first bottle 5pm evening before procedure AND second bottle at 11pm; follow each bottle with at least 32 oz.of water within 1 hour after each bottle; prednisone 20 mg tablet 20 mg PO DAILY 5 Days Qty: 5 0RF sumatriptan succinate [Imitrex] 50 mg tablet 50 mg PO .QD PRN (Reason: migraine headache) Qty: 14 6RF Rx Instructions: do not exceed 4 doses per 24 hrs loratadine 10 mg tablet 10 mg PO DAILY Qty: 90 1RF albuterol sulfate 90 mcg/actuation HFA aerosol inhaler 2 puff inhalation Q4-6H PRN (Reason: shortness of breath or wheezing) Qty: 6.7 0RF rosuvastatin 40 mg tablet 40 mg PO DAILY 90 Days Qty: 90 2RF omeprazole 20 mg capsule,delayed release(DR/EC) 20 mg PO BID 30 Days Qty: 60 6RF famotidine 40 mg tablet 40 mg PO BEDTIME Qty: 90 3RF psyllium husk [Natural Fiber Laxative] 0.52 gram capsule 0.52 g PO BEDTIME PRN (Reason: constipation) Qty: 90 3RF bisacodyl [Dulcolax (bisacodyl)] 5 mg tablet,delayed release (DR/EC) 10 mg PO BEDTIME 2 Days Qty: 4 0RF sodium,potassium,mag sulfates [Suprep Bowel Prep Kit] 17.5-3.13-1.6 gram recon soln 480 ml PO .COMPLEX Qty: 354 0RF Rx Instructions: 480 mL orally; Referrals: [facility] [place] General Surgeons [Provider Group] Interventions: ED Discharge Assessment Last Done: 07/11/23 16:38 Discharge Date/Time: 07/11/23 16:40
[2023-07-11 11:07] LABS: MANUAL DIFF FLAG NO
[2023-07-11 11:12] LABS: Appearance Urine Clear; Color Urine Yellow; Glucose Urine UA Negative (Negative); Leukocyte Esterase Urine Negative (Negative); Nitrite Urine Negative (Negative); PH 7.5 (5.0-9.0); Urine Blood Negative (Negative); Urine Ketones Negative (Negative); Urine Protein Negative (Neg-Trace)
[2023-07-11 11:14] LABS: Bacteria Urine None Seen (None Seen); Hyaline Casts Urine 0-2 /LPF (0-2); RBC Urine 0-2 /HPF (0-2); Squamous Epithelial Cell Urine 0-2 /HPF (0-2); WBC Urine 0-5 /HPF (0-5)
[2023-07-11 11:16] LABS: Prothrombin Time 12.5 SEC (11.1-13.3)
[2023-07-11 11:17] LABS: Basophils Percent Auto 0.2 % (0-2); Eosinophils Absolute Auto 0.1 X10*3/uL (0.0-0.4); Eosinophils Percent Auto 0.9 % (0-4); Hematocrit 37.7 % (37.0-47.0); Hemoglobin 12.4 g/dl (12.0-16.0); Imm Gran Abs Auto 0.03 X10*3/uL (0.00-0.03); Imm Gran Pct Auto 0.4 % (0.0-0.4); Lymphocytes Absolute Auto 1.3 X10*3/uL (1.2-4.9); Lymphocytes Percent Auto 14.9 % (20-40); Mean Corpuscular HGB Conc 32.9 g/dl (31.0-35.0); Mean Corpuscular Hemoglobin 29.3 pg (27.0-33.0); Mean Corpuscular Volume 89.1 fL (80.0-98.0); Mean Platelet Volume 10.4 fL (9.4-12.3); Monocytes Absolute Auto 0.6 X10*3/uL (0.1-1.2); Monocytes Percent Auto 6.7 % (2-11); Neutrophils Absolute Auto 6.6 x10*3/uL (2.0-8.3); Neutrophils Percent Auto 76.9 % (45-73); Platelet Count 263 X10*3/uL (160-400); Red Blood Count 4.23 X10*6/uL (4.20-5.50); Red Cell Distribution Width 13.4 % (11.0-16.0); White Blood Count 8.6 X10*3/uL (4.8-10.8)
[2023-07-11 11:28] LABS: Alanine Aminotransferase 14 U/L (0-31); Albumin Level 3.8 g/dL (3.5-5.0); Alkaline Phosphatase 78 U/L (39-117); Anion Gap 11 (12-20); Aspartate Amino Transferase 16 U/L (5-31); Bilirubin Direct 0.2 mg/dL (0.0-0.5); Bilirubin Total 0.5 mg/dL (0.0-1.0); Blood Urea Nitrogen 15 mg/dL (9-16); Calcium 9.3 mg/dL (8.4-10.2); Carbon Dioxide 27 mmol/L (22-29); Chloride 108 mmol/L (96-108); Creatinine Clr Calc Pharmacy 50.1; Estimated Glomerular Filt Rate 54; Glucose Random 97 mg/dL (60-115); Potassium 3.9 mmol/L (3.3-5.1); Sodium 142 mmol/L (135-145); Total Protein 6.6 g/dL (6.5-8.0)
[2023-07-11 12:04] VITALS: RESP 16
[2023-07-11] MEDS: Morphine Sulfate 2 MG/ML CARTRIDGE IVPUSH (12:04)
[2023-07-11 13:16] VITALS: BP 135/74; PULSE 53; O2SAT 98
[2023-07-11 13:44] VITALS: RESP 16
[2023-07-11] MEDS: Morphine Sulfate 4 MG/ML CARTRIDGE IVPUSH (13:44)
[2023-07-11] MEDS: 0.9 % Sodium Chloride 1,000 ML 999 ML IV (13:49)
[2023-07-11 15:10] VITALS: PULSE 52; RESP 18; TEMP 36.9; O2SAT 97
[2023-07-11 16:16] VITALS: BP 134/73; PULSE 75; RESP 18; TEMP 36.9; O2SAT 97
== END 2023-07-11 16:40 | disposition home or self-care (01) ==
PROVIDERS: Emergency Provider Emergency Medicine; PCP Internal Medicine
DX: R10.9 Unspecified abdominal pain (principal); K57.30 Diverticulosis of large intestine without perforation or abscess without bleeding; K44.9 Diaphragmatic hernia without obstruction or gangrene; I25.10 Atherosclerotic heart disease of native coronary artery without angina pectoris; Z79.899 Other long term (current) drug therapy
CPT/HCPCS: 36415; 74176; 80048; 80076; 81001; 85025; 85610; 96361; 96374; 96376; 99284; J2270

== ENCOUNTER 2023-07-27 09:15 | Outpatient (REF) | payer OTHER, SELFPAY ==
[2023-07-27 10:13] LABS: Appearance Urine Clear; Color Urine Yellow; Glucose Urine UA Negative (Negative); Leukocyte Esterase Urine Negative (Negative); Nitrite Urine Negative (Negative); PH 5.5 (5.0-9.0); UMIC TRIGGER UACC YES; Urine Blood Negative (Negative); Urine Ketones Negative (Negative); Urine Protein 30 (1+) mg/dL (Neg-Trace)
[2023-07-27 10:36] LABS: Bacteria Urine None Seen (None Seen); Hyaline Casts Urine 0-2 /LPF (0-2); RBC Urine 0-2 /HPF (0-2); Squamous Epithelial Cell Urine 0-2 /HPF (0-2); UACC Culture Trigger YES
[2023-07-27 11:02] LABS: Alanine Aminotransferase 10 U/L (0-31); Alkaline Phosphatase 86 U/L (39-117); Anion Gap 10 (12-20); Aspartate Amino Transferase 15 U/L (5-31); Bilirubin Total 0.4 mg/dL (0.0-1.0); Blood Urea Nitrogen 18 mg/dL (9-16); Calcium 9.3 mg/dL (8.4-10.2); Carbon Dioxide 25 mmol/L (22-29); Chloride 112 mmol/L (96-108); Cholesterol 141 mg/dL (<200); Estimated Glomerular Filt Rate 56; Glucose Random 106 mg/dL (60-115); HDL Cholesterol 48 mg/dL (>40); LDL Cholesterol Calculated 81 mg/dL (<100); Potassium 3.8 mmol/L (3.3-5.1); Sodium 143 mmol/L (135-145); Total Protein 6.9 g/dL (6.5-8.0); Triglycerides 63 mg/dL (<150)
== END 2023-07-27 09:16 | disposition home or self-care (01) ==
LOC: HO.LAB 09:15
PROVIDERS: PCP Internal Medicine; Visit Provider Nurse Practitioner
DX: I25.10 Atherosclerotic heart disease of native coronary artery without angina pectoris (principal); E78.00 Pure hypercholesterolemia, unspecified; R63.4 Abnormal weight loss; R35.89 Other polyuria
CPT/HCPCS: 36415; 80053; 80061; 81001; 87086

== ENCOUNTER 2023-08-11 10:17 | Outpatient (AMB) | payer OTHER, SELFPAY ==
[2023-08-11 10:19] VITALS: BP 138/70; PULSE 53; O2SAT 99; BMI 28.7
--- NOTE | 2023-08-11 10:19 | MHC.PC.OV ---
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 Bone density up-to-date showing osteopenia May 2023 mammogram is up-to-date. Noted ER visit for left flank pain in June CT abdomen pelvis showing diverticulosis with wall thickening and colonic inflammatory changes small hiatal hernia with lumbar grade 1 retrolisthesis. Diagnosis of diverticulosis and hiatal hernia. weight loss but states mom 9 months ago, get hungry [facility] Medical History Osteopenia Annual physical exam COVID-19 vaccine series completed Generalized anxiety disorder Epigastric pain Psoriasis Obesity (BMI 30-39.9) Hypercholesterolemia Coronary artery disease Diverticulitis GERD (gastroesophageal reflux disease) Migraine Leukopenia Hypertension Impaired glucose tolerance Surgical History History of hysterectomy Hx of bladder repair surgery Hx of umbilical hernia repair History of esophagogastroduodenoscopy (EGD) H/O colonoscopy History of pubovaginal sling History of section Family History Father Medical history unknown Mother Myocardial infarction Hypertension CVD (cardiovascular disease) Breast cancer Social History Household Members: Spouse Housing: Apartment Alcohol intake: current Alcohol intake frequency: holidays/special occasions only Comment: holiday 1 drink Patient Tobacco Use Status: Never used Tobacco e-Cigarette/Vaping Use: Never Used Second Hand Smoke Exposure: No Substance Use Type: Marijuana service: No Current occupational status: unemployed Cognitive needs: No Hearing needs: No Vision needs: Yes Female Reproductive History Menstrual Age of Menarche: 14 Questionnaire Thrive Questionnaire Date Thrive assessed: 11/02/22 LAUREN-7 AMB Questionnaire LAUREN-7 Date LAUREN - 7 assessed: 08/11/23 Source: Developed by Drs. Michael Owens, Ijeoma Blake, Asif Stack and colleagues, with an educational robby from [employer]. Physical exam (Primary Care) Vital Signs: Last Vital Signs Pulse 53 08/11/23 10:19 BP 138/70 08/11/23 10:19 Pulse Ox 99 08/11/23 10:19 Oxygen Delivery Method Room Air 08/11/23 10:19 BMI result Body Mass Index 28.7 Tobacco/Smoking Status: Tobacco use Status Tobacco use date assessed 08/11/23 08/11/23 10:20 Patient Tobacco Use Status Never used Tobacco 08/11/23 10:20 e-Cigarette/Vaping Use Never Used 08/11/23 10:20 Thrive Assessment: Date of Thrive Assessment Date Thrive assessed 11/02/22 08/11/23 10:20 Const General: alert; No acute distress Eyes Conjunctivae: conjunctivae normal Resp Auscultation: clear to auscultation bilaterally Cardio Rate: regular rate Rhythm: regular rhythm GI Inspection: Yes normal to inspection Extrem General: Yes normal to inspection and No edema Assessment and Plan Assessment & Plan (1) Coronary artery disease: Comment: had w/u w/Dr. Alonzo 2017-last appt 2019-denies cardiac symptoms-follows w/PCP Code(s): I25.10 - Atherosclerotic heart disease of [place] coronary artery without angina pectoris Qualifiers: Coronary Disease-Associated Artery/Lesion type: [place] artery [place] vs. transplanted heart: [place] heart Associated angina: without angina Qualified Code(s): I25.10 - Atherosclerotic heart disease of [place] coronary artery without angina pectoris Plan: Control the cholesterol, weight, blood pressure, diabetes (2) Hypertension: Code(s): I10 - Essential (primary) hypertension Qualifiers: Hypertension type: essential hypertension Qualified Code(s): I10 - Essential (primary) hypertension Plan: Continue with blood pressure medication. Decrease salt intake and exercise presently on lisinopril 5 mg once a day (3) Impaired glucose tolerance: Code(s): R73.02 - Impaired glucose tolerance (oral) Plan: Decrease the amount of carbohydrate intake, pasta, bread, rice and potatoes are all sugar and that is aside from all the sweet stuff, remember that fruits are good but they are Sweet also. (4) GERD (gastroesophageal reflux disease): Code(s): K21.9 - Gastro-esophageal reflux disease without esophagitis Qualifiers: Esophagitis presence: without esophagitis Qualified Code(s): K21.9 - Gastro-esophageal reflux disease without esophagitis Plan: Avoid the foods that causes that usually spicy foods, tomato products, juices, coffee, soda and foods that your sensitive to. After eating do not lie down, allow 3-4 hours before in lie down. And keep the head of bed above 30 degrees to avoid the acid from going up. (5) Hypercholesterolemia: Code(s): E78.00 - Pure hypercholesterolemia, unspecified Plan: Avoid fried foods, chicken skin, eggs, butter margarine, pastries and meat. Be it pork or beef they have a lot of cholesterol LDL goal of less than 70 and triglyceride of less than 150. On rosuvastatin 40 mg once a day (6) Positive colorectal cancer screening using Cologuard test: Code(s): R19.5 - Other fecal abnormalities Plan: Patient is being followed up by Gastroenterology and was seen late last year. (7) Generalized anxiety disorder: Comment: Decline any counseling referral Code(s): F41.1 - Generalized anxiety disorder Plan: Continue with present medication (8) Tobacco abuse: Code(s): Z72.0 - Tobacco use Plan: Patient is strongly advised to stop smoking! Medications: Changed From sertraline 25 mg PO DAILY 90 tabs 2RF F41.1 - Generalized anxiety disorder To sertraline 50 mg PO DAILY 30 tabs 2RF F41.1 - Generalized anxiety disorder Coding Level of Care Code Est Pt Level 4 (12654) Diagnoses Coronary artery disease involving [place] coronary artery of [place] heart without angina pectoris I25.10 Coronary Disease-Associated Artery/Lesion type: [place] artery [place] vs. transplanted heart: [place] heart Associated angina: without angina Essential hypertension I10 Hypertension type: essential hypertension Impaired glucose tolerance R73.02 Gastroesophageal reflux disease without esophagitis K21.9 Esophagitis presence: without esophagitis Hypercholesterolemia E78.00 Positive colorectal cancer screening using Cologuard test R19.5 Generalized anxiety disorder F41.1 Tobacco abuse Z72.0
== END 2023-08-11 11:06 | disposition home or self-care (01) ==
PROVIDERS: PCP Internal Medicine; Visit Provider Internal Medicine
DX: I25.10 Atherosclerotic heart disease of native coronary artery without angina pectoris (principal); I10 Essential (primary) hypertension; R73.02 Impaired glucose tolerance (oral); K21.9 Gastro-esophageal reflux disease without esophagitis; E78.00 Pure hypercholesterolemia, unspecified; R19.5 Other fecal abnormalities; F41.1 Generalized anxiety disorder; Z72.0 Tobacco use
CPT/HCPCS: 99214

== ENCOUNTER 2023-10-19 09:10 | Emergency (ER) | payer OTHER, SELFPAY ==
[2023-10-19] VITALS (8 sets, daily range): BP systolic 157–193; BP diastolic 69–91; PULSE 48–60; RESP 17–19; TEMP 36.3–36.6; O2SAT 98; BMI 28.3
--- NOTE | ~2023-10-19 | CT_ITS ---
EXAMINATION: CT HEAD WITHOUT CONTRAST CLINICAL INFORMATION: Dizziness COMPARISON: Previous head CT from 2016 TECHNIQUE: Contiguous axial imaging was performed from the skull base to vertex without intravenous administration of contrast. This CT examination was performed using dose optimization techniques as appropriate, variously including the following: *Automated exposure control *Adjustment of mA and/or kV according to patient size (this includes techniques or standardized protocols for targeted exams where dose is matched to indication/reason for exam; i.e. extremities or head) *Use of iterative reconstruction technique DLP: 564 mGy-cm FINDINGS: Findings: There is no evidence for an extra-axial collection. There is no evidence for intra-or extra-axial hemorrhage. The ventricles and extra-axial CSF spaces are appropriate. [place]-white matter differentiation is normal. No mass, mass effect or infarct is seen. Review of bone windows is normal. Visualized paranasal sinuses, mastoid air cells and middle ears are clear. CT/CT head/brain wo IV con IMPRESSION: Unremarkable exam.
[2023-10-19 09:38] LABS: MANUAL DIFF FLAG NO
[2023-10-19 09:43] LABS: Basophils Percent Auto 0.8 % (0-2); Eosinophils Absolute Auto 0.1 X10*3/uL (0.0-0.4); Eosinophils Percent Auto 3.3 % (0-4); Hematocrit 40.1 % (37.0-47.0); Hemoglobin 13.2 g/dl (12.0-16.0); Imm Gran Abs Auto 0.02 X10*3/uL (0.00-0.03); Imm Gran Pct Auto 0.5 % (0.0-0.4); Lymphocytes Absolute Auto 1.4 X10*3/uL (1.2-4.9); Lymphocytes Percent Auto 34.1 % (20-40); Mean Corpuscular HGB Conc 32.9 g/dl (31.0-35.0); Mean Corpuscular Hemoglobin 29.5 pg (27.0-33.0); Mean Corpuscular Volume 89.5 fL (80.0-98.0); Mean Platelet Volume 10.6 fL (9.4-12.3); Monocytes Absolute Auto 0.2 X10*3/uL (0.1-1.2); Monocytes Percent Auto 5.5 % (2-11); Neutrophils Absolute Auto 2.2 x10*3/uL (2.0-8.3); Neutrophils Percent Auto 55.8 % (45-73); Platelet Count 190 X10*3/uL (160-400); Red Blood Count 4.48 X10*6/uL (4.20-5.50); Red Cell Distribution Width 13.9 % (11.0-16.0)
[2023-10-19 09:53] LABS: Anion Gap 10 (12-20); Blood Urea Nitrogen 16 mg/dL (9-16); Calcium 9.4 mg/dL (8.4-10.2); Carbon Dioxide 26 mmol/L (22-29); Chloride 112 mmol/L (96-108); Estimated Glomerular Filt Rate 51; Glucose Random 76 mg/dL (60-115); Potassium 4.1 mmol/L (3.3-5.1); Sodium 144 mmol/L (135-145)
[2023-10-19 11:11] LABS: Alanine Aminotransferase 10 U/L (0-31); Albumin Level 3.8 g/dL (3.5-5.0); Alkaline Phosphatase 75 U/L (39-117); Aspartate Amino Transferase 15 U/L (5-31); Bilirubin Direct 0.1 mg/dL (0.0-0.5); Bilirubin Total 0.3 mg/dL (0.0-1.0); Lipase 21 U/L (8-78); Total Protein 6.4 g/dL (6.5-8.0)
--- NOTE | 2023-10-19 12:02 | ECG_ITS ---
Test Reason : DIZZINESS Blood Pressure : / mmHG Vent. Rate : 049 BPM Atrial Rate : 049 BPM P-R Int : 140 ms QRS Dur : 078 ms QT Int : 466 ms P-R-T Axes : 007 055 -06 degrees QTc Int : 420 ms Sinus bradycardia Otherwise normal EKG Abnormal ECG When compared with ECG of 23-DEC-2022 20:21, No significant change was found Referred By: Roula Nielsen Electronically Signed By:JESSICA PRICE
--- NOTE | 2023-10-19 12:19 | ED.DIZZY ---
HPI - Dizziness General Chief Complaint: Dizziness Stated Complaint: Dizziness 5 days Time Seen by Provider: 10/19/23 11:57 Source: patient and old records reviewed Mode of arrival: ambulatory Limitations: no limitations History of Present Illness ED Provider: MARIELA SANTILLAN Narrative: 67 yo female with PMH of asthma, PUD, anemia, UTI, HLD, CAD, HTN, GERD notes she went to [place] for a week back in August returned / had pressure in both ears while flying but no feers or drainage. 4 days ago developed intermittent acute onset room spinning worse with turning head and moving. No GIB symptoms reported, no CP/SOB. She denies URI symptoms now. no neck trauma or manipulation recently MD elicited complaint: dizziness Onset (ago): day(s) (4) Timing: sudden onset and intermittent Severity: moderate Description: room spinning Context: change in body position History of similar symptoms: No Exacerbating factors: movement/ambulation and change in body position Relieving factors: remaining still Associated symptoms: nausea and diaphoresis Related Data Previous Rx's ?Medication ?Instructions ?Recorded sumatriptan succinate 50 mg tablet 50 mg PO .QD PRN migraine headache 04/09/20 (Imitrex) #14 tabs isosorbide mononitrate 30 mg 30 mg PO DAILY #90 tabs 04/08/21 tablet,extended release 24 hr ferrous sulfate 324 mg (65 mg 324 mg PO DAILY #90 tabs 10/21/21 iron) tablet,delayed release clonazepam 0.5 mg tablet 0.5 mg PO BID 30 days #60 tabs 01/19/22 amlodipine 10 mg tablet 10 mg PO DAILY #90 tabs 04/11/22 ascorbate calcium (vitamin C) 500 500 mg PO DAILY #90 tabs 07/16/22 mg tablet loratadine 10 mg tablet 10 mg PO DAILY #90 tabs 11/02/22 cholecalciferol (vitamin D3) 50 50 mcg PO DAILY 90 days #90 caps 01/19/23 mcg (2,000 unit) capsule lisinopril 5 mg tablet 5 mg PO DAILY 90 days #90 tabs 04/13/23 rosuvastatin 40 mg tablet 40 mg PO DAILY 90 days #90 tabs 05/09/23 bisacodyl 5 mg tablet,delayed 10 mg (2 x 5 mg) PO BEDTIME 2 days 05/31/23 release (Dulcolax (bisacodyl)) #4 tabs famotidine 40 mg tablet 40 mg PO BEDTIME #90 tabs 05/31/23 psyllium husk 0.52 gram capsule 0.52 g PO BEDTIME PRN constipation 05/31/23 (Natural Fiber Laxative) #90 caps naproxen 500 mg tablet 500 mg PO Q8-12H PRN pain (scale 07/11/23 score 4-6) #14 tabs naproxen 500 mg tablet 500 mg PO Q8-12H PRN pain (scale 07/11/23 score 4-6) #20 tabs cyclobenzaprine 10 mg tablet 10 mg PO TID #90 tabs 09/16/23 sertraline 50 mg tablet 50 mg PO DAILY #90 tabs 09/16/23 omeprazole 20 mg capsule,delayed 20 mg PO BID #180 caps 09/27/23 release albuterol sulfate 90 mcg/actuation 2 puff inhalation Q4-6H PRN 10/19/23 aerosol inhaler shortness of breath or wheezing #6.7 grams lisinopril 10 mg tablet 10 mg PO DAILY #30 tabs 10/19/23 meclizine 25 mg tablet 25 mg PO TID PRN dizziness #30 tabs 10/19/23 Allergies Allergy/AdvReac Type Severity Reaction Status Date / Time Iodinated Contrast Media Allergy Unknown SHAKING Verified 10/19/23 09:13 [IV DYE, IODINE CONTAINING CONTRAST ] Review of Systems Review of Systems: Constitutional : No Fever, No Chills, No Fatigue ENT/Mouth : No sore throat, No Rhinorrhea Eyes: No Eye Pain, No Swelling, No Redness Cardiovascular : No Chest Pain, No SOB, No Dyspnea on Exertion Respiratory : No Cough, No Sputum Gastrointestinal : No Nausea, No Vomiting, No Diarrhea, No abdominal Pain Genitourinary : No Dysuria, No Urinary Frequency, No Hematuria, Musculoskeletal : No joint pain, No Myalgias, No Joint Swelling Skin : No Skin Lesions, No rash Neuro : No Weakness, No Numbness, pos Dizziness, no Headache Psych : No Anxiety/Panic, No Depression Heme/Lymph: No Bruising, No Bleeding,No Lymphadenopathy Endocrine : No Polyuria, No Polydipsia All other systems reviewed and are negative PMFSH Past Medical History Attestation statement: The following information was validated with the patient. Source: old records reviewed Medical History Osteopenia Annual physical exam COVID-19 vaccine series completed Generalized anxiety disorder Epigastric pain Psoriasis Obesity (BMI 30-39.9) Hypercholesterolemia Coronary artery disease Diverticulitis GERD (gastroesophageal reflux disease) Migraine Leukopenia Hypertension Impaired glucose tolerance Surgical History History of hysterectomy Hx of bladder repair surgery Hx of umbilical hernia repair History of esophagogastroduodenoscopy (EGD) H/O colonoscopy History of pubovaginal sling History of section Family History Family History Father Medical history unknown Mother Myocardial infarction Hypertension CVD (cardiovascular disease) Breast cancer Social History Social History Household Members: Spouse Housing: Apartment Alcohol intake: current Alcohol intake frequency: holidays/special occasions only Comment: holiday 1 drink Patient Tobacco Use Status: Never used Tobacco Smoked in Last 30 Days: No e-Cigarette/Vaping Use: Never Used Second Hand Smoke Exposure: No Substance Use Type: Marijuana Substance Use Frequency: Weekly Advance Directives: No Advance Directives Information Provided: Yes Do you have a plan to hurt others: No Plan service: No Current occupational status: unemployed Cognitive needs: No Hearing needs: No Vision needs: Yes Physical Exam Vital Signs: Vital Signs: Last Vital Signs Temp 97.4 F 10/19/23 14:26 Pulse 50 10/19/23 14:26 Resp 17 10/19/23 14:26 BP 157/74 H 10/19/23 15:27 Pulse Ox 98 10/19/23 14:26 O2 Del Method Room Air 10/19/23 14:26 BMI result Body Mass Index 28.3 Appearance: Alert. Oriented X3. No acute distress. Eyes: Pupils equal, round and reactive to light. slight nystagmus towards left ENT: Pharynx normal. TMs normal bilaterally no signs of infection. Neck: Normal inspection. Neck supple. no meningeal signs or pain CVS: Normal heart rate and rhythm. Pulses normal. Respiratory: No respiratory distress. Breath sounds normal. Abdomen: Soft and nontender. Skin: Skin warm and dry. Normal skin color. Normal skin turgor. Extremities: No lower extremity edema. No calf ttp Neuro: Oriented X 3. No motor deficit. No sensory deficit. no drift NIH Stroke Scale Internal: Initial- Upon Arrival Level of Consciousness: Alert Level of Consciousness Questions: Answers both questions correctly Level of Consciousness Commands: Performs both tasks correctly Best Gaze: Normal Visual: No visual loss Facial Palsy: Normal Motor Arm (Right): No drift Motor Arm (Left): No drift Motor Leg (Right): No drift Motor Leg (Left): No drift Limb Ataxia: Absent Sensory: Normal Best Language: No aphasia Dysarthia: Normal Extinction and Inattention: No abnormality Score: 0 Medications Administered Discontinued Medications Generic Name Dose Route Start Last Admin Trade Name Freq PRN Reason Stop Dose Admin Lisinopril 5 mg 10/19/23 14:31 10/19/23 14:38 Lisinopril 5 Mg Tablet PO 10/19/23 14:32 5 mg ONCE ONE Administration Protocol Lorazepam 1 mg 10/19/23 14:31 10/19/23 14:38 Lorazepam 1 Mg Tablet PO 10/19/23 14:32 1 mg ONCE ONE Administration Meclizine HCl 25 mg 10/19/23 12:10 10/19/23 12:29 Meclizine Hcl 25 Mg Tablet PO 10/19/23 12:11 25 mg ONCE ONE Administration Medical Decision Making Medical Decision Making [facility] Narrative: 67 yo female with PMH of asthma, PUD, anemia, UTI, HLD, CAD, HTN, GERD here with dizziness on and off x 4 days without any other neurological complaints did note she had recent ear pressure and still feels it on and off since traveling. She has no fevers, no neck trauma or manipulation. She has no CP/SOB or GIB symptoms to suggest anemia/VTE or ACS. At this time labs, orthos VS, EKG, CT head for mass. PO meclizine. Differential Diagnosis Differential Diagnoses: The differential diagnosis associated with the presentation includes vertigo, dizziness, orthostatic hypotension, anemia Admission/Observation Consideration of admission/observation: Escalation of care including admission/observation considered repeat dizziness after meclizine still slightly HTNiv added on lisinopril 5mg and PO ativan BP better feels better 163/86 stable for DC Lab Data [facility] Lab Attestation statement: I reviewed the patient's lab results. 10/19/23 09:33 10/19/23 09:33 Labs: Lab Results 10/19/23 10/19/23 Range/Units 09:33 12:31 WBC 4.0 L (4.8-10.8) X10*3/uL RBC 4.48 (4.20-5.50) X10*6/uL Hgb 13.2 (12.0-16.0) g/dl Hct 40.1 (37.0-47.0) % MCV 89.5 (80.0-98.0) fL MCH 29.5 (27.0-33.0) pg MCHC 32.9 (31.0-35.0) g/dl RDW 13.9 (11.0-16.0) % Plt Count 190 D (160-400) X10*3/uL MPV 10.6 (9.4-12.3) fL Immature Gran % (Auto) 0.5 H (0.0-0.4) % Neut % (Auto) 55.8 (45-73) % Lymph % (Auto) 34.1 (20-40) % Dixon % (Auto) 5.5 (2-11) % Eos % (Auto) 3.3 (0-4) % Baso % (Auto) 0.8 (0-2) % Lymph # (Auto) 1.4 (1.2-4.9) X10*3/uL [place] # (Auto) 0.2 (0.1-1.2) X10*3/uL Eos # (Auto) 0.1 (0.0-0.4) X10*3/uL Baso # (Auto) 0.0 (0.0-0.2) X10*3/uL Abs Immat Gran (auto) 0.02 (0.00-0.03) X10*3/uL Absolute Neuts (auto) 2.2 (2.0-8.3) x10*3/uL Absolute Nucleated RBC 0.000 (0.0-0.012) X10*3/uL Nucleated RBC % (auto) 0.0 (0.0-0.2) /100WBC Sodium 144 (135-145) mmol/L Potassium 4.1 (3.3-5.1) mmol/L Chloride 112 H (96-108) mmol/L Carbon Dioxide 26 (22-29) mmol/L Anion Gap 10 L (12-20) BUN 16 (9-16) mg/dL Creatinine 1.08 (0.5-1.4) mg/dL Estim Creat Clear Calc 47.0 Estimated GFR 51 Random Glucose 76 (60-115) mg/dL Calcium 9.4 (8.4-10.2) mg/dL Total Bilirubin 0.3 (0.0-1.0) mg/dL Direct Bilirubin 0.1 (0.0-0.5) mg/dL AST 15 (5-31) U/L ALT 10 (0-31) U/L Alkaline Phosphatase 75 (39-117) U/L Troponin I High Sens 3.0 (<3.5-17.0) ng/L Total Protein 6.4 L (6.5-8.0) g/dL Albumin 3.8 (3.5-5.0) g/dL Lipase 21 (8-78) U/L Urine Color Yellow Urine Appearance Clear Urine pH 6.5 (5.0-9.0) Ur Specific [place] <= 1.005 (1.005-1.025) Urine Protein Negative (Neg-Trace) mg/dL Urine Glucose (UA) Negative (Negative) mg/dL Urine Ketones Negative (Negative) mg/dL Urine Blood Negative (Negative) Urine Nitrite Negative (Negative) Ur Leukocyte Esterase Negative (Negative) Independent Interpretation I performed an independent interpretation of an: EKG and CT Scan (no ICH) Interpretation: Rate: 49 Rhythm: sinus bradycardia [place]: normal Normal P waves. Normal MUNIRA. Normal QRS complex. ST T wave : no JODY, nonspecific ST T wave changes laterally qTC: 420 prior studies: The study has been interpreted contemporaneously by me. . Radiology Impression Discussion of test interpretation with radiology: I have reviewed the radiologist's reading. Independent Historian Clinical information obtained from an independent historian. History obtained from or confirmed by: Spouse External Record Review External record reviewed: Office record Prescription Management I considered prescription management with: Other Discharge Plan Discharge Clinical Impression: Dizziness, Chronic hypertension Patient Disposition: Home, Self-Care Instructions: Chronic Hypertension (ED), Hypertension (ED) Additional Instructions: labs, urine and CT head reassuring. your blood pressure was fine stop lisinopril 5mg and start 10mg lisinopril. return for worsening symptoms, numbness, weakness, severe headache, confusion or any other concerns follow up with doctor Prescriptions: New meclizine 25 mg tablet 25 mg PO TID PRN (Reason: dizziness) Qty: 30 0RF lisinopril 10 mg tablet 10 mg PO DAILY Qty: 30 1RF No Action isosorbide mononitrate 30 mg tablet extended release 24 hr 30 mg PO DAILY Qty: 90 0RF Rx Instructions: Must call and schedule an appt for refills ferrous sulfate 324 mg (65 mg iron) tablet,delayed release (DR/EC) 324 mg PO DAILY Qty: 90 2RF clonazepam 0.5 mg tablet 0.5 mg PO BID 30 Days Qty: 60 1RF amlodipine 10 mg tablet 10 mg PO DAILY Qty: 90 1RF ascorbate calcium (vitamin C) 500 mg tablet 500 mg PO DAILY Qty: 90 3RF cholecalciferol (vitamin D3) 50 mcg (2,000 unit) capsule 50 mcg PO DAILY 90 Days Qty: 90 3RF lisinopril 5 mg tablet 5 mg PO DAILY 90 Days Qty: 90 3RF sertraline 50 mg tablet 50 mg PO DAILY Qty: 90 1RF cyclobenzaprine 10 mg tablet 10 mg PO TID Qty: 90 1RF omeprazole 20 mg capsule,delayed release(DR/EC) 20 mg PO BID Qty: 180 2RF albuterol sulfate 90 mcg/actuation HFA aerosol inhaler 2 puff inhalation Q4-6H PRN (Reason: shortness of breath or wheezing) Qty: 6.7 0RF naproxen 500 mg tablet 500 mg PO Q8-12H PRN (Reason: pain (scale score 4-6)) Qty: 20 0RF naproxen 500 mg tablet 500 mg PO Q8-12H PRN (Reason: pain (scale score 4-6)) Qty: 14 0RF sumatriptan succinate [Imitrex] 50 mg tablet 50 mg PO .QD PRN (Reason: migraine headache) Qty: 14 6RF Rx Instructions: do not exceed 4 doses per 24 hrs loratadine 10 mg tablet 10 mg PO DAILY Qty: 90 1RF rosuvastatin 40 mg tablet 40 mg PO DAILY 90 Days Qty: 90 2RF famotidine 40 mg tablet 40 mg PO BEDTIME Qty: 90 3RF psyllium husk [Natural Fiber Laxative] 0.52 gram capsule 0.52 g PO BEDTIME PRN (Reason: constipation) Qty: 90 3RF bisacodyl [Dulcolax (bisacodyl)] 5 mg tablet,delayed release (DR/EC) 10 mg PO BEDTIME 2 Days Qty: 4 0RF Print Language: [place]
[2023-10-19] MEDS: Meclizine HCl 25 MG TABLET PO (12:29)
[2023-10-19 12:40] LABS: Appearance Urine Clear; Color Urine Yellow; Glucose Urine UA Negative (Negative); Leukocyte Esterase Urine Negative (Negative); Nitrite Urine Negative (Negative); PH 6.5 (5.0-9.0); Specific Gravity - Urine <= 1.005 (1.005-1.025); Urine Blood Negative (Negative); Urine Ketones Negative (Negative); Urine Protein Negative (Neg-Trace)
[2023-10-19] MEDS: lisinopriL 5 MG TABLET PO (14:38)
[2023-10-19] MEDS: LORazepam 1 MG TABLET PO (14:38)
== END 2023-10-19 16:06 | disposition home or self-care (01) ==
PROVIDERS: Physician Assistant; Physician Assistant Medical; Emergency Provider Emergency Medicine; PCP Internal Medicine
DX: R42 Dizziness and giddiness (principal); I10 Essential (primary) hypertension; R29.700 NIHSS score 0; E78.00 Pure hypercholesterolemia, unspecified; F12.90 Cannabis use, unspecified, uncomplicated; Z79.899 Other long term (current) drug therapy; Z79.02 Long term (current) use of antithrombotics/antiplatelets
CPT/HCPCS: 36415; 70450; 80048; 80076; 81003; 83690; 84484; 85025; 93005; 99284; 99285

== ENCOUNTER → 2023-10-19 12:02 | Outpatient (BNV) | payer OTHER, SELFPAY | PROVIDERS: Emergency Provider Emergency Medicine; PCP Internal Medicine; Visit Provider Internal Medicine | DX: R00.1 Bradycardia, unspecified (principal); R94.31 Abnormal electrocardiogram [ECG] [EKG] | CPT/HCPCS: 93010 ==

== ENCOUNTER 2023-11-17 10:21 | Outpatient (REF) | payer OTHER, SELFPAY ==
[2023-11-17 13:03] LABS: Appearance Urine Cloudy; Color Urine Dark Yellow; Glucose Urine UA Negative (Negative); Leukocyte Esterase Urine Moderate (2+) (Negative); Nitrite Urine Negative (Negative); PH 5.5 (5.0-9.0); Specific Gravity - Urine >= 1.030 (1.005-1.025); UMIC TRIGGER UACC YES; Urine Blood Small (1+) (Negative); Urine Ketones Trace mg/dL (Negative); Urine Protein 100 (2+) mg/dL (Neg-Trace)
[2023-11-17 13:17] LABS: Bacteria Urine None Seen (None Seen); Calcium Oxalate Crystals Urine Present; Hyaline Casts Urine 0-2 /LPF (0-2); RBC Urine 0-2 /HPF (0-2); Squamous Epithelial Cell Urine 0-2 /HPF (0-2); UACC Culture Trigger YES; WBC Urine >50 /HPF (0-5)
== END 2023-11-17 10:22 | disposition home or self-care (01) ==
LOC: HO.LAB 10:21
PROVIDERS: PCP Internal Medicine; Visit Provider Internal Medicine
DX: R39.9 Unspecified symptoms and signs involving the genitourinary system (principal)
CPT/HCPCS: 81001; 81003; 87086; 87088; 87186

== ENCOUNTER 2023-11-29 09:56 | Emergency (ER) | payer OTHER, SELFPAY ==
[2023-11-29 10:43] VITALS: BP 145/67; PULSE 53; RESP 16; TEMP 36.8; O2SAT 98; BMI 29.3
--- NOTE | 2023-11-29 12:06 | ED.SKABFB ---
HPI - Skin/Abscess/Foreign Bdy General Chief complaint: Skin/Abscess/Foreign Body Stated complaint: poison oak reaction ? Time Seen by Provider: 11/29/23 12:05 Source: patient Mode of arrival: ambulatory Limitations: no limitations History of Present Illness ED Provider: Mark VILLAREAL HPI narrative: This is a 67-year-old female history of anxiety, depression, asthma, current daily smoker, obesity, peptic ulcer disease, sciatica, coronary artery disease, hypertension, GERD presents with itchy rash to legs, trunk, arms ongoing for the past week worsening. Patient reports that this started after mowing the lawn and being outside. She reports she is tried Benadryl with little to no relief. She reports was bothering her most is the itchiness. Denies fevers, chills, nausea, vomiting, chest pain, shortness breath, headache, vision changes, dizziness, weakness, neck pain. Related Data Previous Rx's ?Medication ?Instructions ?Recorded sumatriptan succinate 50 mg tablet 50 mg PO .QD PRN migraine headache 04/09/20 (Imitrex) #14 tabs isosorbide mononitrate 30 mg 30 mg PO DAILY #90 tabs 04/08/21 tablet,extended release 24 hr ferrous sulfate 324 mg (65 mg 324 mg PO DAILY #90 tabs 10/21/21 iron) tablet,delayed release clonazepam 0.5 mg tablet 0.5 mg PO BID 30 days #60 tabs 01/19/22 amlodipine 10 mg tablet 10 mg PO DAILY #90 tabs 04/11/22 ascorbate calcium (vitamin C) 500 500 mg PO DAILY #90 tabs 07/16/22 mg tablet loratadine 10 mg tablet 10 mg PO DAILY #90 tabs 11/02/22 cholecalciferol (vitamin D3) 50 50 mcg PO DAILY 90 days #90 caps 01/19/23 mcg (2,000 unit) capsule lisinopril 5 mg tablet 5 mg PO DAILY 90 days #90 tabs 04/13/23 rosuvastatin 40 mg tablet 40 mg PO DAILY 90 days #90 tabs 05/09/23 bisacodyl 5 mg tablet,delayed 10 mg (2 x 5 mg) PO BEDTIME 2 days 05/31/23 release (Dulcolax (bisacodyl)) #4 tabs famotidine 40 mg tablet 40 mg PO BEDTIME #90 tabs 05/31/23 psyllium husk 0.52 gram capsule 0.52 g PO BEDTIME PRN constipation 05/31/23 (Natural Fiber Laxative) #90 caps naproxen 500 mg tablet 500 mg PO Q8-12H PRN pain (scale 07/11/23 score 4-6) #14 tabs naproxen 500 mg tablet 500 mg PO Q8-12H PRN pain (scale 07/11/23 score 4-6) #20 tabs cyclobenzaprine 10 mg tablet 10 mg PO TID #90 tabs 09/16/23 sertraline 50 mg tablet 50 mg PO DAILY #90 tabs 09/16/23 omeprazole 20 mg capsule,delayed 20 mg PO BID #180 caps 09/27/23 release albuterol sulfate 90 mcg/actuation 2 puff inhalation Q4-6H PRN 10/19/23 aerosol inhaler shortness of breath or wheezing #6.7 grams lisinopril 10 mg tablet 10 mg PO DAILY #30 tabs 10/19/23 meclizine 25 mg tablet 25 mg PO TID PRN dizziness #30 tabs 10/19/23 nitrofurantoin 100 mg PO Q12H 7 days #14 caps 11/17/23 monohydrate/macrocrystals 100 mg capsule (Macrobid) hydrocortisone 1 % topical cream 1 appl topical TID PRN itching 11/29/23 (Anti-Itch (hydrocortisone)) #28.4 grams hydroxyzine HCl 25 mg tablet 25 mg PO BEDTIME PRN anxiety #10 11/29/23 tabs prednisone 20 mg tablet 40 mg (2 x 20 mg) PO DAILY 5 days 11/29/23 #10 tabs Allergies Allergy/AdvReac Type Severity Reaction Status Date / Time Iodinated Contrast Media Allergy Unknown SHAKING Verified 11/29/23 10:45 [IV DYE, IODINE CONTAINING CONTRAST ] Review of Systems Review of Systems: Yes all other systems are reviewed and are negative PMFSH Past Medical History Attestation statement: The following information was validated with the patient. Source: old records reviewed and nursing notes reviewed Medical History Osteopenia Annual physical exam COVID-19 vaccine series completed Generalized anxiety disorder Epigastric pain Psoriasis Obesity (BMI 30-39.9) Hypercholesterolemia Coronary artery disease Diverticulitis GERD (gastroesophageal reflux disease) Migraine Leukopenia Hypertension Impaired glucose tolerance Surgical History History of hysterectomy Hx of bladder repair surgery Hx of umbilical hernia repair History of esophagogastroduodenoscopy (EGD) H/O colonoscopy History of pubovaginal sling History of section Family History Family History Father Medical history unknown Mother Myocardial infarction Hypertension CVD (cardiovascular disease) Breast cancer Social History Social History Household Members: Spouse Housing: Apartment Alcohol intake: current Alcohol intake frequency: holidays/special occasions only Comment: holiday 1 drink Patient Tobacco Use Status: Never used Tobacco e-Cigarette/Vaping Use: Never Used Second Hand Smoke Exposure: No Substance Use Type: Marijuana service: No Current occupational status: unemployed Cognitive needs: No Hearing needs: No Vision needs: Yes Physical Exam Vital Signs: Vital Signs: Last Vital Signs Temp 98.3 F 11/29/23 10:43 Pulse 53 11/29/23 10:43 Resp 16 11/29/23 10:43 BP 145/67 H 11/29/23 10:43 Pulse Ox 98 11/29/23 10:43 O2 Del Method Room Air 11/29/23 10:43 BMI result Body Mass Index 29.3 vss Appearance: Alert.? Oriented X3.? No acute distress.? Head: Normocephalic, atraumatic, no step-offs or deformities Eyes: Pupils equal, round and reactive to light.? Neck: Normal inspection.? Neck supple.? CVS: Normal heart rate and rhythm.? Pulses normal.? Respiratory: No respiratory distress.? Breath sounds normal.? Abdomen: Soft and nontender.? Skin: Skin warm and dry.? Normal skin color.? Normal skin turgor.?+ erythematous, patches that are dry and itchy to upper extremities, lower extremities, trunk, abd w/ excoriations Extremities: No lower extremity edema.? No calf ttp. 5/5 strength to bilateral upper and lower extremities Neuro: Oriented X 3.? No motor deficit.? No sensory deficit. CN 2-12 intact Course Reevaluation(s) Reevaluation #1: Educated patient on diagnosis and treatment plan, answered all question, patient verbalizes understanding. At this time patient will be discharged home, advised to return with new or worsening symptoms. Educated on worrisome signs and symptoms and when to return. At this time I feel comfortable discharge home. Time: 12:20 Medical Decision Making Medical Decision Making MDM Narrative: 67-year-old female presents with rash to legs, trunk, arms for the past week, not improving with Benadryl started after cutting the lawn. Physical exam with erythematous, patches that are dry and itchy to upper extremities, lower extremities, trunk. History and physical exam concerning for dermatitis versus plant contact dermatitis. Unlikely necrotizing infection, SJS, TEN, syphillis, HFM . No signs of anaphylaxis Plan- dc w/ prednisione, atarax, hydrocortisone Differential Diagnosis Differential Diagnoses: The differential diagnosis associated with the presentation includes History and physical exam concerning for dermatitis versus plant contact dermatitis. Unlikely necrotizing infection, SJS, TEN, syphillis, HFM . No signs of anaphylaxis Admission/Observation Consideration of admission/observation: Escalation of care including admission/observation considered unlikey Prescription Management I considered prescription management with: Other (hydrocortisone, atarax, prednisone ) Chronic Conditions Patient?s care impacted by: Other (asthma, smoker, obesity, UTI, GERD ) Critical Care Time Critical Care Time Critical Care Time: No Discharge Plan Discharge Clinical Impression: Allergic contact dermatitis due to plant Patient Disposition: Home, Self-Care Instructions: Contact Dermatitis (ED), Poison Anuradha (ED), Acute Rash (ED), Dermatitis (ED), Cold Compress or Soak (ED) Additional Instructions: Take your medications as prescribed. If you were prescribed antibiotics today, it is important that you take your medication to their entirety, do not skip any doses, do not finish them early. Follow-up with your primary care provider this week. Return to the emergency department with new or worsening symptoms. Such as fevers, chills, chest pain, shortness of breath, nausea, vomiting, dizziness, headache, vision changes, lethargy In case of emergency call 911 Prescriptions: New prednisone 20 mg tablet 40 mg PO DAILY 5 Days Qty: 10 0RF hydrocortisone [Anti-Itch (HC)] 1 % cream 1 appl topical TID PRN (Reason: itching) Qty: 28.4 0RF hydroxyzine HCl 25 mg tablet 25 mg PO BEDTIME PRN (Reason: anxiety) Qty: 10 0RF No Action isosorbide mononitrate 30 mg tablet extended release 24 hr 30 mg PO DAILY Qty: 90 0RF Rx Instructions: Must call and schedule an appt for refills ferrous sulfate 324 mg (65 mg iron) tablet,delayed release (DR/EC) 324 mg PO DAILY Qty: 90 2RF clonazepam 0.5 mg tablet 0.5 mg PO BID 30 Days Qty: 60 1RF amlodipine 10 mg tablet 10 mg PO DAILY Qty: 90 1RF ascorbate calcium (vitamin C) 500 mg tablet 500 mg PO DAILY Qty: 90 3RF cholecalciferol (vitamin D3) 50 mcg (2,000 unit) capsule 50 mcg PO DAILY 90 Days Qty: 90 3RF lisinopril 5 mg tablet 5 mg PO DAILY 90 Days Qty: 90 3RF sertraline 50 mg tablet 50 mg PO DAILY Qty: 90 1RF cyclobenzaprine 10 mg tablet 10 mg PO TID Qty: 90 1RF omeprazole 20 mg capsule,delayed release(DR/EC) 20 mg PO BID Qty: 180 2RF albuterol sulfate 90 mcg/actuation HFA aerosol inhaler 2 puff inhalation Q4-6H PRN (Reason: shortness of breath or wheezing) Qty: 6.7 0RF nitrofurantoin monohyd/m-cryst [Macrobid] 100 mg capsule 100 mg PO Q12H 7 Days Qty: 14 0RF Rx Instructions: must administer with a meal/food naproxen 500 mg tablet 500 mg PO Q8-12H PRN (Reason: pain (scale score 4-6)) Qty: 20 0RF naproxen 500 mg tablet 500 mg PO Q8-12H PRN (Reason: pain (scale score 4-6)) Qty: 14 0RF meclizine 25 mg tablet 25 mg PO TID PRN (Reason: dizziness) Qty: 30 0RF lisinopril 10 mg tablet 10 mg PO DAILY Qty: 30 1RF sumatriptan succinate [Imitrex] 50 mg tablet 50 mg PO .QD PRN (Reason: migraine headache) Qty: 14 6RF Rx Instructions: do not exceed 4 doses per 24 hrs loratadine 10 mg tablet 10 mg PO DAILY Qty: 90 1RF rosuvastatin 40 mg tablet 40 mg PO DAILY 90 Days Qty: 90 2RF famotidine 40 mg tablet 40 mg PO BEDTIME Qty: 90 3RF psyllium husk [Natural Fiber Laxative] 0.52 gram capsule 0.52 g PO BEDTIME PRN (Reason: constipation) Qty: 90 3RF bisacodyl [Dulcolax (bisacodyl)] 5 mg tablet,delayed release (DR/EC) 10 mg PO BEDTIME 2 Days Qty: 4 0RF Referrals: Po,Leila Jha MD [Primary Care Provider] - 2 days Stand Alone Forms: Work/School Release Print Language: Swedish
[2023-11-29 12:29] VITALS: BP 145/67; PULSE 53; RESP 16; TEMP 36.8; O2SAT 98
== END 2023-11-29 12:29 | disposition home or self-care (01) ==
PROVIDERS: Emergency Provider Emergency Medicine; PCP Internal Medicine
DX: L23.7 Allergic contact dermatitis due to plants, except food (principal); R21 Rash and other nonspecific skin eruption
CPT/HCPCS: 99282; 99283

== ENCOUNTER 2024-01-11 14:08 | Outpatient (AMB) | payer OTHER, SELFPAY ==
[2024-01-11 14:14] VITALS: BMI 29.0
--- NOTE | 2024-01-11 14:14 | MHC.OFFVIS ---
Vital Signs 01/11/24 14:14 Height 5 ft 2 in Weight 158 lb 11.725 oz BMI 29.0 Intake Visit Reasons: Abdominal swelling and pain Intake Note: This patient presents for Abdominal swelling and pain. Pt c/o: reports she has a bulge when she coughs, reports she had a bladder surgery several years ago and does not know if this can be a hernia. Wind Technician Required: No Accompanied by: Self / Same As Patient Allergies Iodinated Contrast Media [IV DYE, IODINE CONTAINING CONTRAST ] Allergy (Unknown, Verified 01/11/24 14:20) SHAKING Medication List - Last Reconciled 01/11/24 by Jay Vasquez MD albuterol sulfate 90 mcg/actuation 2 puffs inhalation Q4-6H PRN amlodipine 10 mg PO DAILY ascorbate calcium (vitamin C) 500 mg PO DAILY bisacodyl (Dulcolax (bisacodyl)) 10 mg (2 x 5 mg) PO BEDTIME 2 days cholecalciferol (vitamin D3) 50 mcg PO DAILY 90 days clonazepam 0.5 mg PO BID 30 days cyclobenzaprine 10 mg PO TID famotidine 40 mg PO BEDTIME ferrous sulfate 324 mg PO DAILY hydrocortisone 1% (Anti-Itch (hydrocortisone)) 1 appl topical TID PRN hydroxyzine HCl 25 mg PO BEDTIME PRN isosorbide mononitrate ER 30 mg PO DAILY lisinopril 10 mg PO DAILY lisinopril 5 mg PO DAILY 90 days loratadine 10 mg PO DAILY meclizine 25 mg PO TID PRN naproxen 500 mg PO Q8-12H PRN naproxen 500 mg PO Q8-12H PRN nitrofurantoin monohyd/m-cryst 100 mg (Macrobid) 100 mg PO Q12H 7 days omeprazole 20 mg PO BID prednisone 40 mg (2 x 20 mg) PO DAILY 5 days psyllium husk (Natural Fiber Laxative) 0.52 grams PO BEDTIME PRN rosuvastatin 40 mg PO DAILY 90 days sertraline 50 mg PO DAILY sumatriptan succinate (Imitrex) 50 mg PO .QD PRN HPI HPI Abdominal swelling and pain: Details: [age] year old female here because of what she describes as a reducible mass on her right lower quadrant on her old hysterectomy site. She says she has to this for about 5 years now. She feels that this getting worse. She describes discomfort with this. She says the mass seemed to be bigger when she has been standing for long periods of time. She denies GI complaints otherwise. [facility] Medical History (Updated 01/11/24 @ 14:36 by Jay Vasquez MD) Incisional hernia Osteopenia Annual physical exam COVID-19 vaccine series completed Generalized anxiety disorder Epigastric pain Psoriasis Obesity (BMI 30-39.9) Hypercholesterolemia Coronary artery disease Diverticulitis GERD (gastroesophageal reflux disease) Migraine Leukopenia Hypertension Impaired glucose tolerance Surgical History History of hysterectomy Hx of bladder repair surgery Hx of umbilical hernia repair History of esophagogastroduodenoscopy (EGD) H/O colonoscopy History of pubovaginal sling History of section Family History Father Medical history unknown Mother Myocardial infarction Hypertension CVD (cardiovascular disease) Breast cancer Social History Household Members: Spouse Housing: Apartment Alcohol intake: current Alcohol intake frequency: holidays/special occasions only Comment: holiday 1 drink Patient Tobacco Use Status: Never used Tobacco e-Cigarette/Vaping Use: Never Used Second Hand Smoke Exposure: No Substance Use Type: Marijuana service: No Current occupational status: unemployed Cognitive needs: No Hearing needs: No Vision needs: Yes Female Reproductive History Menstrual Age of Menarche: 14 Review of Systems Const Denies chills and Denies fever(s) Card Denies chest pain, Denies dyspnea and Denies dyspnea on exertion Resp Denies cough, Denies dyspnea and Denies dyspnea on exertion GI Denies hematochezia and Denies change in bowel habits Denies hematuria Musc Denies back pain and Denies limited range of motion Neuro Denies focal weakness and Denies convulsions Psych Denies depression and Denies mood swings Physical Exam Vital Signs: BMI result Body Mass Index 29.0 Const General: comfortable and no acute distress Orientation/consciousness: patient oriented x3 Neck Neck: Yes no lymphadenopathy Resp Auscultation: clear to auscultation bilaterally Cardio Rhythm: regular rhythm GI Other: Vague mass on the right lower quadrant on the lateral aspect of her Pfannenstiel scar, nontender Palpation (GI): Soft to palpation, nontender and no guarding Neuro General: patient oriented x3 Assessment & Plan Assessment & Plan (1) Incisional hernia: Code(s): K43.2 - Incisional hernia without obstruction or gangrene Category: Medical Plan: This mass may represent an incisional hernia on an old Pfannenstiel scar. I am going to send her for a CT scan of the abdomen and pelvis to define this. I am going to see her in the office thereafter to review the images and discussed with a Nexplanon in her care She says she understands the plan well and is comfortable with this. Coding Level of Care Code New Pt Level 3 (78278) Diagnoses Incisional hernia K43.2
== END 2024-01-11 14:34 | disposition home or self-care (01) ==
PROVIDERS: PCP Internal Medicine; Visit Provider Surgery
DX: K43.2 Incisional hernia without obstruction or gangrene (principal)
CPT/HCPCS: 99203

== ENCOUNTER → 2024-01-11 14:08 | Outpatient (BNVA) | payer OTHER, SELFPAY | PROVIDERS: PCP Internal Medicine; Visit Provider Surgery | DX: K43.2 Incisional hernia without obstruction or gangrene (principal) | CPT/HCPCS: 99202 ==

== ENCOUNTER 2024-01-20 09:07 | Outpatient (AMB) | payer OTHER, SELFPAY ==
[2024-01-20 09:14] VITALS: BP 175/78; PULSE 53; BMI 28.3
--- NOTE | 2024-01-20 09:14 | MHC.OFFVIS ---
Vital Signs 01/20/24 09:14 Height 5 ft 2 in Weight 154 lb 12.232 oz BMI 28.3 BP 175/78 H Blood Pressure Location Lt brachial Position Sitting Pulse 53 Intake Visit Reasons: Follow up abdominal pain Intake Note: Christine presents to in office visit today in follow up of epigastric pain. CC: Patient reports that about a month ago she ate some hot wings and began to have epigastric pain, diarrhea for 2 weeks, nausea, vomiting a withish phlegm, heartburn, and acid reflux. She states that she is now having constipation. 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 Allergies Iodinated Contrast Media [IV DYE, IODINE CONTAINING CONTRAST ] Allergy (Unknown, Verified 01/20/24 09:19) SHAKING HPI HPI Follow up abdominal pain: Details: Assessment & Plan (1) Positive colorectal cancer screening using Cologuard test: Code(s): R19.5 - Other fecal abnormalities (2) Constipation: Code(s): K59.00 - Constipation, unspecified (3) Peptic ulcer disease: Code(s): K27.9 - Peptic ulcer, site unspecified, unspecified as acute or chronic, without hemorrhage or perforation (4) GERD (gastroesophageal reflux disease): Code(s): K21.9 - Gastro-esophageal reflux disease without esophagitis Qualifiers: Esophagitis presence: without esophagitis Qualified Code(s): K21.9 - Gastro-esophageal reflux disease without esophagitis (5) Family history of polyps in the colon: Code(s): Z83.719 - Family history of colon polyps, unspecified (6) Pre-op examination: Code(s): Z01.818 - Encounter for other preprocedural examination (7) Asthma: Code(s): J45.909 - Unspecified asthma, uncomplicated (8) Smoker: Code(s): F17.200 - Nicotine dependence, unspecified, uncomplicated Plan Apparently she had a positive Cologuard at her last primary care providers visit. She tells me today that her weight loss seems to be turning around and she is gaining weight again. Despite Dr. Rosas saying 10 years for her repeat, she has a FHX of colon polyps. She requests education on Cologuard and what a positive result means. She is agreeable to having a colonoscopy. She continues on omeprazole 20 mg twice a day and increasing it from once a day has really helped control her GERD much better. She also utilizes fiber for her constipation with good success. There are no prior problems with anesthesia or sedation.. No card problems but she does have wheezing with cold weather and has an inhaler. She has a presumptive diagnosis of mild asthma. She is a smoker. No ID problems. She has a FHX of colon polyps. Return office visit in 6 months and after her colonoscopy. Orders: Orders Colonoscopy - GI Use Only Today R19.5 - Other fecal abnormalities Medications: New bisacodyl (Dulcolax (bisacodyl)) 10 mg (2 x 5 mg) PO BEDTIME 2 days 4 tabs 0RF sodium,potassium,mag sulfates 17.5-3.13-1.6 gram (Suprep Bowel Prep Kit) 480 mL orally; 354 mL 0RF R19.5 - Other fecal abnormalities, Z83.719 - Family history of colon polyps, unspecified Refilled famotidine 40 mg PO BEDTIME 90 tabs 3RF R13.10 - Dysphagia, unspecified psyllium husk (Natural Fiber Laxative) 0.52 grams PO BEDTIME PRN 90 caps 3RF constipation K59.00 - Constipation, unspecified omeprazole 20 mg PO BID 30 days 60 caps 6RF COLONOSCOPY BIOPSY TODAYS VISIT Apparently she had a positive Cologuard at her last primary care providers visit She says her stomach has been hurting her recently. She ate some spicy wings at a alliance party and since then she has had HB right h ere (she indicates her epigastrum) Ever since then she has been vomiting in the AM's but only white saliva. She continues on omeprazole twice a day and in the past had use fiber to control her constipation. I think will start her on a trial of Carafate to get things calmed down until I have better information. Her last EGD was in 2021 and her last colonoscopy was in 2017 and she has a family history of colon polyps. I had ordered a repeat colonoscopy on her in May of 2023 but it does not appear this was ever scheduled. I am uncertain why but I think we need to calm her stomach down before we subject her to prep. She is also seeing Dr. Vasquez for a possible incisional hernia and has a CT scan coming up. Return office visit in 6 weeks to evaluate her response to the Carafate. [facility] Medical History (Updated 01/11/24 @ 14:36 by Jay Vasquez MD) Incisional hernia Osteopenia Annual physical exam COVID-19 vaccine series completed Generalized anxiety disorder Epigastric pain Psoriasis Obesity (BMI 30-39.9) Hypercholesterolemia Coronary artery disease Diverticulitis GERD (gastroesophageal reflux disease) Migraine Leukopenia Hypertension Impaired glucose tolerance Surgical History History of hysterectomy Hx of bladder repair surgery Hx of umbilical hernia repair History of esophagogastroduodenoscopy (EGD) H/O colonoscopy History of pubovaginal sling History of section Family History Father Medical history unknown Mother Myocardial infarction Hypertension CVD (cardiovascular disease) Breast cancer Social History Household Members: Spouse Housing: Apartment Alcohol intake: current Alcohol intake frequency: holidays/special occasions only Comment: holiday 1 drink Patient Tobacco Use Status: Never used Tobacco e-Cigarette/Vaping Use: Never Used Second Hand Smoke Exposure: No Substance Use Type: Marijuana service: No Current occupational status: unemployed Cognitive needs: No Hearing needs: No Vision needs: Yes Female Reproductive History Menstrual Age of Menarche: 14 Review of Systems Const Denies fatigue, Denies fever(s), Denies night sweats, Denies poor appetite and Denies weight loss Eyes Details: glasses Reports requires corrective lenses ENT Reports Normal hearing present, Denies dental pain, Denies dysphagia, Denies hearing loss, Denies mouth pain, Denies odynophagia, Reports sore throat, Denies throat swelling, Denies tongue swelling and Reports other (Dentition adequate) Card Reports no additional complaints Resp Reports no additional complaints GI Details: Reports abdominal pain, Denies melena, Denies bloating, Denies hematochezia, Reports constipation, Denies GI cramping, Denies dysphagia, Denies excessive flatus, Denies early satiety, Reports heartburn, Denies diarrhea, Reports nausea, Denies odynophagia, Reports vomiting and Denies hematemesis Skin/Breast Denies pruritus, Denies lesions, Denies rash and Denies jaundice Neuro Reports Normal hearing present and Denies Abnormal speech present Endo Denies fatigue Aller/Immun Denies throat swelling and Denies tongue swelling Physical Exam Vital Signs: Last Vital Signs Pulse 53 01/20/24 09:14 BP 175/78 H 01/20/24 09:14 BMI result Body Mass Index 28.3 Const General: cooperative, no acute distress, well developed and well groomed Nutritional Appearance: well nourished and obese Orientation/consciousness: oriented to person, oriented to place and oriented to time Limitations: No language barrier HEENT Head: Yes normocephalic and Yes atraumatic Eyes General: appearance normal, both eyes and all related structures Pupils: Equal, round and reactive pupils present Neck Neck: Yes normal visual inspection and Yes no lymphadenopathy Thyroid: Thyroid normal Resp Effort & Inspection: normal respiratory effort and able to speak in complete sentences Auscultation: clear to auscultation bilaterally Cardio Rate: regular rate Rhythm: regular rhythm Heart sounds: Normal, physiologic split S2 sound present Peripheral pulses: radial pulses present and posterior tibial pulses present GI Inspection: No distended, No Abdominal panniculus present and Yes obesity Palpation (GI): Soft to palpation, nontender, no guarding, not rigid and No hepatosplenomegaly present Percussion: Yes normal to percussion Auscultation: normal bowel sounds Rectal Exam - Female: deferred Skin General skin exam: no rashes or lesions noted, turgor normal, skin not dry, no jaundice, No spider nevi and no striae Rashes: no rashes Nails: normal Neuro General: oriented to person, oriented to place and oriented to time Cranial nerves: Yes Equal, round and reactive pupils present and Yes Normal hearing present Speech: No Abnormal speech present Extrem General: Yes normal to inspection, No clubbing, No cyanosis and No edema Psych Appearance: grossly normal and well kempt Mental Status: mental status grossly normal Speech and movement: Normal speech and movement present Affect: normal affect Attitude: cooperative Thought process: Normal thought process present and not confabulating Thought content: Normal thought content present Insight: Limited insight present (Psych) Judgement: Limited judgement present (Psych) Assessment & Plan Assessment & Plan (1) Epigastric pain: Code(s): R10.13 - Epigastric pain Category: Medical (2) Dysphagia: Code(s): R13.10 - Dysphagia, unspecified Category: Medical Plan Apparently she had a positive Cologuard at her last primary care providers visit She says her stomach has been hurting her recently. She ate some spicy wings at a [employer] party and since then she has had HB right h ere (she indicates her epigastrum) Ever since then she has been vomiting in the AM's but only white saliva. She continues on omeprazole twice a day and in the past had use fiber to control her constipation. I think will start her on a trial of Carafate to get things calmed down until I have better information. Her last EGD was in 2021 and her last colonoscopy was in 2017 and she has a family history of colon polyps. I had ordered a repeat colonoscopy on her in May of 2023 but it does not appear this was ever scheduled. I am uncertain why but I think we need to calm her stomach down before we subject her to prep. She is also seeing Dr. Vasquez for a possible incisional hernia and has a CT scan coming up. Return office visit in 6 weeks to evaluate her response to the Carafate. Medications: New sucralfate (Carafate) 2 grams (2 x 1 gram) PO QNOON 60 tabs 1RF R13.10 - Dysphagia, unspecified, R10.13 - Epigastric pain Coding Level of Care Code Est Pt Level 3 (96294) Diagnoses Epigastric pain R10.13 Dysphagia R13.10
== END 2024-01-20 09:45 | disposition home or self-care (01) ==
PROVIDERS: PCP Internal Medicine; Visit Provider Nurse Practitioner
DX: R10.13 Epigastric pain (principal); R13.10 Dysphagia, unspecified
CPT/HCPCS: 99213

== ENCOUNTER → 2024-01-20 09:07 | Outpatient (BNVA) | payer OTHER, SELFPAY | PROVIDERS: PCP Internal Medicine; Visit Provider Nurse Practitioner | DX: R10.13 Epigastric pain (principal); R13.10 Dysphagia, unspecified; K21.9 Gastro-esophageal reflux disease without esophagitis; K59.00 Constipation, unspecified; R19.5 Other fecal abnormalities; Z83.719 Family history of colon polyps, unspecified | CPT/HCPCS: 99212 ==

== ENCOUNTER 2024-02-07 16:41 | Outpatient (REF) | payer OTHER, SELFPAY ==
--- NOTE | ~2024-02-07 | CT_ITS ---
EXAMINATION: CT ABDOMEN AND PELVIS WITHOUT CONTRAST CLINICAL INFORMATION: Incisional hernia COMPARISON: July 11, 2023 TECHNIQUE: Multidetector volumetric imaging was performed from the superior aspect of the liver through the pubic symphysis. Sagittal and coronal reformatted images were obtained on the technologist's workstation. This CT examination was performed using dose optimization techniques as appropriate, variously including the following: *Automated exposure control *Adjustment of mA and/or kV according to patient size (this includes techniques or standardized protocols for targeted exams where dose is matched to indication/reason for exam; i.e. extremities or head) *Use of iterative reconstruction technique DLP: 735 mGy-cm FINDINGS: LUNG BASES: The visualized lung bases are unremarkable. LIVER, GALLBLADDER, AND BILIARY TREE: Liver is of low attenuation due to hepatic steatosis, without intrahepatic masses or ductal dilatation. The gallbladder is unremarkable with no evidence of radiopaque gallstones, gallbladder wall thickening, or obvious pericholecystic inflammatory changes. PANCREAS: Unremarkable. SPLEEN: Unremarkable. ADRENAL GLANDS: Unremarkable. KIDNEYS AND URETERS: The kidneys are normal in size, shape, and attenuation. No hydronephrosis, hydroureter, or calculi seen. No perinephric stranding. BLADDER: Unremarkable. GASTROINTESTINAL TRACT: There are changes of colonic diverticulosis without evidence of diverticulitis or colitis. Appendix is unremarkable. Loops of small bowel are normal. The stomach is well distended by residual food. ABDOMINAL WALL: There is fat-containing right inguinal hernia LYMPH NODES: Normal. VASCULAR: Unremarkable. PELVIC VISCERA: Uterus is surgically absent OSSEOUS STRUCTURES: There are mild degenerative changes at the level of L5-S1 with disc space narrowing and L1-L2 and L2-L3 with narrowing, disc spaces. No evidence of spinal canal stenosis. CT/CT abdomen pelvis wo IV con IMPRESSION: 1. Fat-containing right inguinal hernia. 2. Hepatic steatosis. 3. Diverticulosis without diverticulitis. Fleischner guidelines were followed. Electronically signed by: Rea Koenig MD 03/07/2024 03:40 PM EDT
== END 2024-02-07 16:42 | disposition home or self-care (01) ==
LOC: HO.CT 16:41
PROVIDERS: PCP Internal Medicine; Visit Provider Surgery
DX: K43.2 Incisional hernia without obstruction or gangrene (principal)
CPT/HCPCS: 74176

== ENCOUNTER 2024-03-02 09:37 | Outpatient (AMB) | payer OTHER, SELFPAY ==
[2024-03-02 09:42] VITALS: BP 161/74; PULSE 51; BMI 29.0
--- NOTE | 2024-03-02 09:42 | MHC.OFFVIS ---
Vital Signs 03/02/24 09:42 Height 5 ft 2 in Weight 158 lb 11.725 oz BMI 29.0 BP 161/74 H Blood Pressure Location Rt brachial Position Sitting Pulse 51 Intake Visit Reasons: 6 week follow up Intake Note: Christine returns to in office follow up of GERD and dysphagia. CC: Patient reports occasional epigastric burning, diarrhea for 2 weeks. Denies other GI symptoms. 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 Accompanied by: Self / Same As Patient Allergies Iodinated Contrast Media [IV DYE, IODINE CONTAINING CONTRAST ] Allergy (Unknown, Verified 03/02/24 09:50) SHAKING HPI HPI 6 week follow up: Details: Assessment & Plan (1) Positive colorectal cancer screening using Cologuard test: Code(s): R19.5 - Other fecal abnormalities (2) Constipation: Code(s): K59.00 - Constipation, unspecified (3) Peptic ulcer disease: Code(s): K27.9 - Peptic ulcer, site unspecified, unspecified as acute or chronic, without hemorrhage or perforation (4) GERD (gastroesophageal reflux disease): Code(s): K21.9 - Gastro-esophageal reflux disease without esophagitis Qualifiers: Esophagitis presence: without esophagitis Qualified Code(s): K21.9 - Gastro-esophageal reflux disease without esophagitis (5) Family history of polyps in the colon: Code(s): Z83.719 - Family history of colon polyps, unspecified (6) Pre-op examination: Code(s): Z01.818 - Encounter for other preprocedural examination (7) Asthma: Code(s): J45.909 - Unspecified asthma, uncomplicated (8) Smoker: Code(s): F17.200 - Nicotine dependence, unspecified, uncomplicated Plan Apparently she had a positive Cologuard at her last primary care providers visit. She tells me today that her weight loss seems to be turning around and she is gaining weight again. Despite Dr. Rosas saying 10 years for her repeat, she has a FHX of colon polyps. She requests education on Cologuard and what a positive result means. She is agreeable to having a colonoscopy. She continues on omeprazole 20 mg twice a day and increasing it from once a day has really helped control her GERD much better. She also utilizes fiber for her constipation with good success. There are no prior problems with anesthesia or sedation.. No card problems but she does have wheezing with cold weather and has an inhaler. She has a presumptive diagnosis of mild asthma. She is a smoker. No ID problems. She has a FHX of colon polyps. Return office visit in 6 months and after her colonoscopy. Orders: Orders Colonoscopy - GI Use Only Today R19.5 - Other fecal abnormalities Medications: New bisacodyl (Dulcolax (bisacodyl)) 10 mg (2 x 5 mg) PO BEDTIME 2 days 4 tabs 0RF sodium,potassium,mag sulfates 17.5-3.13-1.6 gram (Suprep Bowel Prep Kit) 480 mL orally; 354 mL 0RF R19.5 - Other fecal abnormalities, Z83.719 - Family history of colon polyps, unspecified Refilled famotidine 40 mg PO BEDTIME 90 tabs 3RF R13.10 - Dysphagia, unspecified psyllium husk (Natural Fiber Laxative) 0.52 grams PO BEDTIME PRN 90 caps 3RF constipation K59.00 - Constipation, unspecified omeprazole 20 mg PO BID 30 days 60 caps 6RF COLONOSCOPY BIOPSY TODAYS VISIT Apparently she had a positive Cologuard at her last primary care providers visit. She continues to do well on her famotidine, omeprazole, and fiber. She never heard to schedule the colonoscopy so I will send another request to our schedulers. This is important because she had a positive Cologuard and this likely means that there is a polyp that needs to come out. She also has a family history of colon polyps. This increases her too high risk for colon cancer. There are no prior problems with anesthesia or sedation.. No card problems but she does have wheezing with cold weather and has an inhaler. She has a presumptive diagnosis of mild asthma. She is a smoker. No ID problems. She has a FHX of colon polyps. Return office visit in 6 months for her regular care and of course I will see her after the colonoscopy as well. [facility] Medical History (Updated 03/02/24 @ 15:27 by GABRIELLA Teague) Tobacco abuse Pre-op examination Abnormal weight loss Colon cancer screening Cough Obesity (BMI 30-39.9) Elevated fasting glucose Peptic ulcer disease Dysphagia Nausea and vomiting Diarrhea Lower abdominal pain UTI (urinary tract infection) Dysuria Epigastric pain Annual physical exam Incisional hernia Osteopenia COVID-19 vaccine series completed Generalized anxiety disorder Psoriasis Hypercholesterolemia Coronary artery disease Diverticulitis GERD (gastroesophageal reflux disease) Migraine Leukopenia Hypertension Impaired glucose tolerance Surgical History History of hysterectomy Hx of bladder repair surgery Hx of umbilical hernia repair History of esophagogastroduodenoscopy (EGD) H/O colonoscopy History of pubovaginal sling History of section Family History Father Medical history unknown Mother Myocardial infarction Hypertension CVD (cardiovascular disease) Breast cancer Social History Household Members: Spouse Housing: Apartment Alcohol intake: current Alcohol intake frequency: holidays/special occasions only Comment: holiday 1 drink Patient Tobacco Use Status: Never used Tobacco e-Cigarette/Vaping Use: Never Used Second Hand Smoke Exposure: No Substance Use Type: Marijuana service: No Current occupational status: unemployed Cognitive needs: No Hearing needs: No Vision needs: Yes Female Reproductive History Menstrual Age of Menarche: 14 Review of Systems Const Denies fatigue, Denies fever(s), Denies night sweats, Denies poor appetite and Denies weight loss Eyes Details: glasses Reports requires corrective lenses ENT Reports Normal hearing present, Denies dental pain, Denies dysphagia, Denies hearing loss, Denies mouth pain, Denies odynophagia, Denies throat swelling, Denies tongue swelling and Reports other (Dentition adequate) Card Reports no additional complaints Resp Reports no additional complaints GI Details: Denies abdominal pain, Denies melena, Denies bloating, Denies hematochezia, Reports constipation, Denies GI cramping, Denies dysphagia, Denies excessive flatus, Denies early satiety, Reports heartburn, Denies diarrhea, Denies nausea, Denies odynophagia, Denies vomiting and Denies hematemesis Skin/Breast Denies pruritus, Denies lesions, Denies rash and Denies jaundice Neuro Reports Normal hearing present and Denies Abnormal speech present Endo Denies fatigue Aller/Immun Denies throat swelling and Denies tongue swelling Physical Exam Vital Signs: Last Vital Signs Pulse 51 03/02/24 09:42 BP 161/74 H 03/02/24 09:42 BMI result Body Mass Index 29.0 Const General: cooperative, no acute distress, well developed and well groomed Nutritional Appearance: well nourished and overweight Orientation/consciousness: oriented to person, oriented to place and oriented to time Limitations: altered mental status and No language barrier HEENT Head: Yes normocephalic and Yes atraumatic Eyes General: appearance normal, both eyes and all related structures Pupils: Equal, round and reactive pupils present Neck Neck: Yes normal visual inspection and Yes no lymphadenopathy Thyroid: Thyroid normal Resp Effort & Inspection: normal respiratory effort and able to speak in complete sentences Auscultation: clear to auscultation bilaterally Cardio Rate: regular rate Rhythm: regular rhythm Heart sounds: Normal, physiologic split S2 sound present Peripheral pulses: radial pulses present and posterior tibial pulses present GI Inspection: No distended, No Abdominal panniculus present and Yes obesity Palpation (GI): Soft to palpation, nontender, no guarding, not rigid and No hepatosplenomegaly present Percussion: Yes normal to percussion Auscultation: normal bowel sounds Rectal Exam - Female: deferred Skin General skin exam: no rashes or lesions noted, turgor normal, skin not dry, no jaundice, No spider nevi and no striae Rashes: no rashes Nails: normal Neuro General: oriented to person, oriented to place and oriented to time Cranial nerves: Yes Equal, round and reactive pupils present and Yes Normal hearing present Speech: No Abnormal speech present Extrem General: Yes normal to inspection, No clubbing, No cyanosis and No edema Psych Appearance: grossly normal and well kempt Mental Status: mental status grossly normal Speech and movement: Normal speech and movement present Affect: normal affect Attitude: cooperative Thought process: Normal thought process present and not confabulating Thought content: Normal thought content present Insight: Fair insight present (Psych) Judgement: Fair judgement present (Psych) Assessment & Plan Assessment & Plan (1) Positive colorectal cancer screening using Cologuard test: Code(s): R19.5 - Other fecal abnormalities Category: Medical (2) GERD (gastroesophageal reflux disease): Code(s): K21.9 - Gastro-esophageal reflux disease without esophagitis Category: Medical Qualifiers: Esophagitis presence: without esophagitis Qualified Code(s): K21.9 - Gastro-esophageal reflux disease without esophagitis (3) Constipation: Code(s): K59.00 - Constipation, unspecified Category: Medical (4) Family history of polyps in the colon: Code(s): Z83.719 - Family history of colon polyps, unspecified Category: Medical Plan Apparently she had a positive Cologuard at her last primary care providers visit. She continues to do well on her famotidine, omeprazole, and fiber. She never heard to schedule the colonoscopy so I will send another request to our schedulers. This is important because she had a positive Cologuard and this likely means that there is a polyp that needs to come out. She also has a family history of colon polyps. This increases her too high risk for colon cancer. There are no prior problems with anesthesia or sedation.. No card problems but she does have wheezing with cold weather and has an inhaler. She has a presumptive diagnosis of mild asthma. She is a smoker. No ID problems. She has a FHX of colon polyps. Return office visit in 6 months for her regular care and of course I will see her after the colonoscopy as well. COLONOSCOPY BIOPSY Medications: Refilled omeprazole 20 mg PO BID 180 caps 2RF psyllium husk (Natural Fiber Laxative) 0.52 grams PO BEDTIME PRN 90 caps 3RF constipation K59.00 - Constipation, unspecified Discontinued sucralfate (Carafate) Discontinued Reason: Doctor's Order 2 grams (2 x 1 gram) PO QNOON 60 tabs 1RF R10.13 - Epigastric pain, R13.10 - Dysphagia, unspecified Coding Level of Care Code Est Pt Level 3 (39939) Diagnoses Positive colorectal cancer screening using Cologuard test R19.5 Gastroesophageal reflux disease without esophagitis K21.9 Esophagitis presence: without esophagitis Constipation K59.00 Family history of polyps in the colon Z83.719
== END 2024-03-02 10:09 | disposition home or self-care (01) ==
PROVIDERS: PCP Internal Medicine; Visit Provider Nurse Practitioner
DX: R19.5 Other fecal abnormalities (principal); K21.9 Gastro-esophageal reflux disease without esophagitis; K59.00 Constipation, unspecified; Z83.719 Family history of colon polyps, unspecified
CPT/HCPCS: 99213

== ENCOUNTER → 2024-03-02 09:37 | Outpatient (BNVA) | payer OTHER, SELFPAY | PROVIDERS: PCP Internal Medicine; Visit Provider Nurse Practitioner | DX: K21.9 Gastro-esophageal reflux disease without esophagitis (principal); K59.00 Constipation, unspecified; R19.5 Other fecal abnormalities; Z83.719 Family history of colon polyps, unspecified | CPT/HCPCS: 99212 ==

== ENCOUNTER 2024-03-08 09:22 | Outpatient (AMB) | payer OTHER, SELFPAY ==
--- NOTE | 2024-03-08 09:43 | MHC.OFFVIS ---
Vital Signs 03/08/24 09:46 Height 5 ft 2 in Weight 158 lb 11.725 oz BMI 29.0 Intake Visit Reasons: Ct-Scan follow-up Intake Note: This patient presents for Ct-Scan follow-up. Pt c/o; 02/07/2024 CT-Scan. Controller Operations And Hr Manager Required: No Accompanied by: Self / Same As Patient Allergies Iodinated Contrast Media [IV DYE, IODINE CONTAINING CONTRAST ] Allergy (Unknown, Verified 03/14/24 14:27) SHAKING Medication List - Last Reconciled 03/08/24 by Jay Vasquez MD albuterol sulfate 90 mcg/actuation 2 puffs inhalation Q4-6H PRN amlodipine 10 mg PO DAILY ascorbate calcium (vitamin C) 500 mg PO DAILY bisacodyl (Dulcolax (bisacodyl)) 10 mg (2 x 5 mg) PO BEDTIME 2 days cholecalciferol (vitamin D3) 50 mcg PO DAILY 90 days clonazepam 0.5 mg PO BID 30 days cyclobenzaprine 10 mg PO TID famotidine 40 mg PO BEDTIME ferrous sulfate 324 mg PO DAILY hydrocortisone 1% (Anti-Itch (hydrocortisone)) 1 appl topical TID PRN hydroxyzine HCl 25 mg PO BEDTIME PRN isosorbide mononitrate ER 30 mg PO DAILY lisinopril 10 mg PO DAILY loratadine 10 mg PO DAILY meclizine 25 mg PO TID PRN naproxen 500 mg PO Q8-12H PRN omeprazole 20 mg PO BID prednisone 40 mg (2 x 20 mg) PO DAILY 5 days psyllium husk (Natural Fiber Laxative) 0.52 grams PO BEDTIME PRN rosuvastatin 40 mg PO DAILY 90 days sertraline 50 mg PO DAILY sumatriptan succinate (Imitrex) 50 mg PO .QD PRN HPI HPI Ct-Scan follow-up: Details: [age] year old female here for follow-up for an incisional hernia. I had seen her last month because of what she describes as a reducible mass on her right lower quadrant on her old hysterectomy site. She says she has to this for about 5 years now. She feels that this getting worse. She describes discomfort with this. She says the mass seemed to be bigger when she has been standing for long periods of time. She denies GI complaints otherwise. I had sent her for a CT scan of the abdomen and pelvis and she is here to discuss the findings. [facility] Medical History Pre-op examination Tobacco abuse Abnormal weight loss Colon cancer screening Cough Obesity (BMI 30-39.9) Elevated fasting glucose Peptic ulcer disease Dysphagia Nausea and vomiting Diarrhea Lower abdominal pain UTI (urinary tract infection) Dysuria Epigastric pain Annual physical exam Incisional hernia Osteopenia COVID-19 vaccine series completed Generalized anxiety disorder Psoriasis Hypercholesterolemia Coronary artery disease Diverticulitis GERD (gastroesophageal reflux disease) Migraine Leukopenia Hypertension Impaired glucose tolerance Surgical History History of hysterectomy Hx of bladder repair surgery Hx of umbilical hernia repair History of esophagogastroduodenoscopy (EGD) H/O colonoscopy History of pubovaginal sling History of section Family History Father Medical history unknown Mother Myocardial infarction Hypertension CVD (cardiovascular disease) Breast cancer Social History Household Members: Spouse Housing: Apartment Alcohol intake: current Alcohol intake frequency: holidays/special occasions only Comment: holiday 1 drink Patient Tobacco Use Status: Never used Tobacco e-Cigarette/Vaping Use: Never Used Second Hand Smoke Exposure: No Substance Use Type: Marijuana service: No Current occupational status: unemployed Cognitive needs: No Hearing needs: No Vision needs: Yes Female Reproductive History Menstrual Age of Menarche: 14 Review of Systems Const Denies chills and Denies fever(s) Card Denies chest pain, Denies dyspnea and Denies dyspnea on exertion Resp Denies cough, Denies dyspnea and Denies dyspnea on exertion GI Denies hematochezia and Denies change in bowel habits Denies hematuria Musc Denies back pain and Denies limited range of motion Neuro Denies focal weakness and Denies convulsions Psych Denies depression and Denies mood swings Physical Exam Vital Signs: BMI result Body Mass Index 29.0 Const General: comfortable and no acute distress Orientation/consciousness: patient oriented x3 Neck Neck: Yes no lymphadenopathy Resp Auscultation: clear to auscultation bilaterally Cardio Rhythm: regular rhythm GI Other: Reducible mass on the right side of the suprapubic area near the midline along her Pfannenstiel incision, with the defect about 2.5 cm Palpation (GI): Soft to palpation, nontender and no guarding Neuro General: patient oriented x3 Assessment & Plan Assessment & Plan (1) Incisional hernia: Code(s): K43.2 - Incisional hernia without obstruction or gangrene Category: Medical Plan: She has what appears to be a reducible hernia on the area of the Pfannenstiel incision as described above. I have reviewed her CAT scan. The official report states that this is a fat containing inguinal hernia. However, the location seemed to be more above the groin area and closer to the midline. This is likely to be an incisional hernia from her previous Pfannenstiel incision on the suprapubic area. I explained to her the technique of repair with possible mesh. I reviewed the risks including but not limited to bleeding and infections, injury to other organs including bowel, recurrence, as well as the benefits and alternatives In view of symptoms wants to proceed. She understands the above. I also reviewed with her what to expect postoperatively. Coding Level of Care Code Est Pt Level 4 (39052) Diagnoses Incisional hernia K43.2
[2024-03-08 09:46] VITALS: BMI 29.0
== END 2024-03-08 09:59 | disposition home or self-care (01) ==
PROVIDERS: PCP Internal Medicine; Visit Provider Surgery
DX: K43.2 Incisional hernia without obstruction or gangrene (principal)
CPT/HCPCS: 99214

== ENCOUNTER → 2024-03-08 09:22 | Outpatient (BNVA) | payer OTHER, SELFPAY | PROVIDERS: PCP Internal Medicine; Visit Provider Surgery | DX: K43.2 Incisional hernia without obstruction or gangrene (principal) | CPT/HCPCS: 99212 ==

== ENCOUNTER 2024-03-14 13:46 | Outpatient (AMB) | payer OTHER, SELFPAY ==
[2024-03-14 13:50] VITALS: BP 170/78; PULSE 63; O2SAT 98; BMI 28.5
--- NOTE | 2024-03-14 13:50 | MHC.PC.OV ---
Vital Signs 03/14/24 13:50 03/14/24 14:33 Height 5 ft 2 in Weight 156 lb BMI 28.5 BP 170/78 H 158/80 H Blood Pressure Location Lt brachial Lt brachial Position Sitting Sitting Pulse 63 Pulse Source Pulse Oximeter Pulse Oximetry (%) 98 Oxygen Delivery Method Room Air Intake Visit Reasons: Incisional hernia repair 03/20 Dr. Vasquez Intake Note: Patient is here for a Pre-op for Incisional Hernia Repair scheduled with Dr. Vasquez on 03/20/24 Sprayer Insecticide Required: No Allergies Iodinated Contrast Media [IV DYE, IODINE CONTAINING CONTRAST ] Allergy (Unknown, Verified 03/14/24 14:27) SHAKING Medication List - Last Reconciled 03/14/24 by Vee Mar PA-C albuterol sulfate 90 mcg/actuation 2 puffs inhalation Q4-6H PRN amlodipine 10 mg PO DAILY ascorbate calcium (vitamin C) 500 mg PO DAILY bisacodyl (Dulcolax (bisacodyl)) 10 mg (2 x 5 mg) PO BEDTIME 2 days cholecalciferol (vitamin D3) 50 mcg PO DAILY 90 days clonazepam 0.5 mg PO BID 30 days cyclobenzaprine 10 mg PO TID famotidine 40 mg PO BEDTIME ferrous sulfate 324 mg PO DAILY hydrocortisone 1% (Anti-Itch (hydrocortisone)) 1 appl topical TID PRN hydroxyzine HCl 25 mg PO BEDTIME PRN isosorbide mononitrate ER 30 mg PO DAILY lisinopril 10 mg PO DAILY loratadine 10 mg PO DAILY meclizine 25 mg PO TID PRN naproxen 500 mg PO Q8-12H PRN omeprazole 20 mg PO BID psyllium husk (Natural Fiber Laxative) 0.52 grams PO BEDTIME PRN rosuvastatin 40 mg PO DAILY 90 days sertraline 50 mg PO DAILY sumatriptan succinate (Imitrex) 50 mg PO .QD PRN Tobacco use date assessed: 08/11/23 Fall risk assessment: No Falls in past year Last assessed Fall Risk: 03/14/24 Dental Screening Dental Screen Date: 03/14/24 HPI Incisional hernia repair 03/20 Dr. Vasquez HPI Details 68-year-old female with past medical history of coronary artery disease, hypercholesterolemia, GERD, hypertension, impaired glucose tolerance, generalized anxiety disorder last seen by Dr. Bills July 2023 coming in for preoperative visit. Patient is scheduled to have incisional hernia repair 03/20/[address] Vasquez. In review of the notes, patient was seen by General surgery 03/08/2024 found to have reducible hernia and advised to proceed with surgical correction with possible mesh. blood pressures at home have been within normal limits. with highs in the 130s endorses anxiety surrounding the surgery. Hypertension: blood pressure elevated today in the office. Currently on Lisinopril and Amlodipine. Impaired glucose tolerance: ordered for updated blood work. No history of GA, CVA, CHF or diabetes mellitus. Patient has undergone anesthesia and surgery in the past without complication. [facility] Medical History Pre-op examination Tobacco abuse Abnormal weight loss Colon cancer screening Cough Obesity (BMI 30-39.9) Elevated fasting glucose Peptic ulcer disease Dysphagia Nausea and vomiting Diarrhea Lower abdominal pain UTI (urinary tract infection) Dysuria Epigastric pain Annual physical exam Incisional hernia Osteopenia COVID-19 vaccine series completed Generalized anxiety disorder Psoriasis Hypercholesterolemia Coronary artery disease Diverticulitis GERD (gastroesophageal reflux disease) Migraine Leukopenia Hypertension Impaired glucose tolerance Surgical History History of hysterectomy Hx of bladder repair surgery Hx of umbilical hernia repair History of esophagogastroduodenoscopy (EGD) H/O colonoscopy History of pubovaginal sling History of section Family History Father Medical history unknown Mother Myocardial infarction Hypertension CVD (cardiovascular disease) Breast cancer Social History Household Members: Spouse Housing: Apartment Alcohol intake: current Alcohol intake frequency: holidays/special occasions only Comment: holiday 1 drink Patient Tobacco Use Status: Never used Tobacco e-Cigarette/Vaping Use: Never Used Second Hand Smoke Exposure: No Substance Use Type: Marijuana service: No Current occupational status: unemployed Cognitive needs: No Hearing needs: No Vision needs: Yes Female Reproductive History Menstrual Age of Menarche: 14 Questionnaire Thrive Questionnaire Date Thrive assessed: 03/14/24 I am a: Patient What is your living situation today?: I have a steady place to live Within the past 12 months, did the food you bought not last and you didn't have the money to get more?: Never true Within the past 12 months, did you worry whether your food would run out before you got money to buy more?: Never true Do you have trouble paying for medicines?: No Do you have trouble getting transportation to medical appointments?: No Do you have trouble paying your heating and electricity bill?: No Do you have trouble taking care of your child, family member or friend?: No Do you have trouble with day-to-day activities such as bathing, preparing meals, shopping, managing finances, etc.?: No Are you currently unemployed and looking for a job?: No Are you interested in more education?: No Please select the resources that you would like help with: None Currently or been in a relationship where the following occur: No concerns reported THRIVE Score: 0 AUDIT C Alcohol Use Questionnaire (AUDIT-C) 1. How often do you have a drink containing alcohol?: Monthly or less 2. How many drinks containing alcohol do you have on a typical day when you are drinking?: 1 or 2 3. How often do you have six or more drinks on one occasion?: Never Total Score: 1 LAUREN-7 AMB Questionnaire LAUREN-7 Date LAUREN - 7 assessed: 08/11/23 Source: Developed by Drs. Michael Owens, Ijeoma Blake, Asif Stack and colleagues, with an educational robby from [employer]. Review of Systems Const Denies body aches, Denies chills, Denies fever(s), Reports headache(s) and Denies poor appetite Eyes Reports no additional complaints ENT Denies dizziness and Reports headache(s) Card Denies chest pain, Denies syncope, Denies edema, Denies irregular heart rhythm, Denies lightheadedness and Denies dyspnea Resp Denies cough and Denies dyspnea GI Denies abdominal pain, Denies constipation, Denies diarrhea, Denies nausea and Denies vomiting Reports no additional complaints Musc Reports no additional complaints and Denies abnormal gait Skin/Breast Reports system reviewed and no additional complaints, except as documented Neuro Denies abnormal gait, Denies dizziness, Denies syncope and Reports headache(s) Psych Reports no additional complaints Physical exam (Primary Care) Vital Signs: Oxygen Delivery Method Room Air 03/14/24 13:50 Tobacco/Smoking Status: Tobacco use Status Tobacco use date assessed 08/11/23 03/14/24 13:51 Patient Tobacco Use Status Never used Tobacco 03/14/24 13:51 e-Cigarette/Vaping Use Never Used 03/14/24 13:51 Thrive Assessment: Date of Thrive Assessment Date Thrive assessed 03/14/24 03/14/24 13:52 Currently or been in a relationship where the following occur: No concerns reported Const General: cooperative, healthy appearing, comfortable and no acute distress Orientation/consciousness: patient oriented x3 HENMT Head: Yes normocephalic Ears: hearing grossly normal bilaterally General nose exam: Normal external nose present Eyes General: appearance normal, both eyes and all related structures Conjunctivae: conjunctivae normal Neck Neck: Yes full ROM and Yes no lymphadenopathy Resp Effort & Inspection: normal respiratory effort Auscultation: clear to auscultation bilaterally, no crackles, no rales, no rhonchi and no wheezes Cardio Rate: regular rate Rhythm: regular rhythm Skin General skin exam: no rashes or lesions noted Neuro General: patient oriented x3 Gait exam (Neuro): Normal gait present Extrem General: Yes normal to inspection, Yes full ROM and No edema Psych Affect: normal affect Attitude: cooperative Insight: Good insight present (Psych) Judgement: Good judgement present (Psych) Coding Level of Care Code Est Pt Level 3 (63234) Diagnoses Pre-op examination Z01.818 Essential hypertension I10 Hypertension type: essential hypertension Assessment & Plan Assessment & Plan (1) Pre-op examination: Code(s): Z01.818 - Encounter for other preprocedural examination Category: Medical Plan: Regarding preop clearance, the patient is at moderate risk for proposed surgery due to age and comorbidities. Her blood pressure is elevated in the office today and she states her blood pressures at home have been normal but she is anxious today. Increased Lisinopril to 30mg and advised to follow up with Nurse navigator on Tuesday. If blood pressures continue to be elevated the surgery may be postponed. Reviewed with the patient that no surgery is completely free of risk and that this examination is to assist the surgeon in reviewing informed consent. Discussed with the patient all medications must be discontinued the night before the procedure and may continued after the procedure with the exception of blood pressure medication. Blood pressure medication should be taken on the morning of the procedure. Ordered for updated blood work and EKG and we will add addendum once these tests have been completed and reviewed. Patient is nondiabetic, takes no disease modifying drugs and is not currently on anticoagulation. (2) Hypertension: Code(s): I10 - Essential (primary) hypertension Category: Medical Qualifiers: Hypertension type: essential hypertension Qualified Code(s): I10 - Essential (primary) hypertension Plan: blood pressure elevated in the office today and increased Lisinopril to 30 mg and will follow up with nurse navigator on Tuesday. Discussed with patient the surgery may be postponed if blood pressure continues to be elevated. Patient understands and agrees with the plan. Continue to avoid salt. Plan This note was constructed using voice recognition software. While every effort has been made to ensure accuracy and roller printing supervisor, still areas may have been included sometimes these areas may affect the content or meeting of the given symptoms. Total time spent caring for the patient today was 30 minutes. This includes time spent before the visit reviewing the chart, time spent during the visit, and time spent after the visit and documentation. Orders: Orders ECG 12 lead EKG Today Z01.818 - Encounter for other preprocedural examination Complete Blood Count Auto Diff Today Z00.00 - Encounter for general adult medical examination without abnormal findings Comprehensive Met. Panel Today Z00.00 - Encounter for general adult medical examination without abnormal findings Hemoglobin A1c Today Z00.00 - Encounter for general adult medical examination without abnormal findings Medications: New lisinopril 30 mg PO DAILY 30 tabs 2RF Discontinued lisinopril Discontinued Reason: Patient no longer taking 10 mg PO DAILY 30 tabs 1RF
[2024-03-14 14:33] VITALS: BP 158/80
== END 2024-03-14 14:46 | disposition home or self-care (01) ==
PROVIDERS: PCP Internal Medicine
DX: Z01.818 Encounter for other preprocedural examination (principal); I10 Essential (primary) hypertension

== ENCOUNTER 2024-03-14 13:46 | Outpatient (REF) | payer OTHER, SELFPAY ==
--- NOTE | 2024-03-14 15:03 | ECG_ITS ---
Test Reason : PREOP Blood Pressure : / mmHG Vent. Rate : 043 BPM Atrial Rate : 043 BPM P-R Int : 140 ms QRS Dur : 084 ms QT Int : 510 ms P-R-T Axes : 014 060 007 degrees QTc Int : 430 ms Marked sinus bradycardia Abnormal ECG When compared with ECG of 19-OCT-2023 12:11, No significant change was found Referred By: Vee Mar Electronically Signed By:Joey Alonzo
[2024-03-14 15:11] LABS: MANUAL DIFF FLAG NO
[2024-03-14 15:54] LABS: Basophils Percent Auto 0.3 % (0-2); Eosinophils Absolute Auto 0.1 X10*3/uL (0.0-0.4); Eosinophils Percent Auto 1.8 % (0-4); Hematocrit 37.4 % (37.0-47.0); Hemoglobin 12.4 g/dl (12.0-16.0); Imm Gran Abs Auto 0.01 X10*3/uL (0.00-0.03); Imm Gran Pct Auto 0.2 % (0.0-0.4); Lymphocytes Absolute Auto 1.7 X10*3/uL (1.2-4.9); Lymphocytes Percent Auto 28.1 % (20-40); Mean Corpuscular HGB Conc 33.2 g/dl (31.0-35.0); Mean Corpuscular Hemoglobin 29.7 pg (27.0-33.0); Mean Corpuscular Volume 89.7 fL (80.0-98.0); Mean Platelet Volume 10.5 fL (9.4-12.3); Monocytes Absolute Auto 0.4 X10*3/uL (0.1-1.2); Monocytes Percent Auto 6.1 % (2-11); Neutrophils Absolute Auto 3.8 x10*3/uL (2.0-8.3); Neutrophils Percent Auto 63.5 % (45-73); Platelet Count 228 X10*3/uL (160-400); Red Blood Count 4.17 X10*6/uL (4.20-5.50); Red Cell Distribution Width 13.2 % (11.0-16.0)
[2024-03-14 15:58] LABS: Estimated Average Glucose 103 mg/dL; Hemoglobin A1C 108.9546 umol/L; Hemoglobin A1c % 5.2 % (<6.0); Total Hemoglobin (HGBA1C) 3234.2212 umol/L
[2024-03-14 16:29] LABS: Alanine Aminotransferase 17 U/L (0-31); Alkaline Phosphatase 83 U/L (39-117); Anion Gap 9 (12-20); Aspartate Amino Transferase 19 U/L (5-31); Bilirubin Total 0.3 mg/dL (0.0-1.0); Blood Urea Nitrogen 12 mg/dL (9-16); Calcium 9.5 mg/dL (8.4-10.2); Carbon Dioxide 29 mmol/L (22-29); Chloride 111 mmol/L (96-108); Estimated Glomerular Filt Rate 44; Glucose Random 89 mg/dL (60-115); Potassium 4.1 mmol/L (3.3-5.1); Sodium 145 mmol/L (135-145); Total Protein 6.7 g/dL (6.5-8.0)
== END 2024-03-14 13:47 | disposition home or self-care (01) ==
LOC: HO.LAB 13:46
PROVIDERS: PCP Internal Medicine
DX: Z01.818 Encounter for other preprocedural examination (principal); I10 Essential (primary) hypertension; R73.02 Impaired glucose tolerance (oral); K43.2 Incisional hernia without obstruction or gangrene
CPT/HCPCS: 36415; 80053; 83036; 85025; 93005; 99212

== ENCOUNTER → 2024-03-14 15:03 | Outpatient (BNV) | payer OTHER, SELFPAY | PROVIDERS: PCP Internal Medicine; Visit Provider Internal Medicine Cardiovascular Disease | DX: R94.31 Abnormal electrocardiogram [ECG] [EKG] (principal) | CPT/HCPCS: 93010 ==

== ENCOUNTER → 2024-03-16 09:26 | Outpatient (BNVA) | payer OTHER, SELFPAY | PROVIDERS: PCP Internal Medicine ==

== ENCOUNTER 2024-03-20 09:51 | Day surgery (SDC) | payer OTHER, SELFPAY ==
--- NOTE | 2024-03-19 10:04 | HO.ANESPROP2 ---
Documented by User: Lavonne Rushing NP 03/19/24 10:07 HPI - Anesthesia Eval Consult details Narrative: 68yo F for Repair Hernia Incisional Reducible,with possible mesh Medically optimized per PCP [facility] Active Problems Active Problems: All Active Problems Pre-op examination (Acute) Incisional hernia (Acute) Smoker (Acute) Asthma (Acute) Family history of polyps in the colon (Acute) Inguinal hernia, right (Acute) Positive colorectal cancer screening using Cologuard test (Acute) Polyuria (Acute) Overweight (Acute) Weight loss, non-intentional (Acute) Microscopic hematuria (Acute) Female pelvic pain (Acute) Vaginal pain (Acute) Sciatic leg pain (Acute) Right shoulder tendinitis (Acute) Generalized anxiety disorder (Acute) Peripheral vascular disease (Acute) Anemia (Acute) Hip osteoarthritis (Acute) Constipation (Acute) Osteopenia (Acute) Hypercholesterolemia (Acute) Coronary artery disease (Acute) GERD (gastroesophageal reflux disease) (Acute) Hypertension (Acute) Impaired glucose tolerance (Acute) Past Medical History Medical History Pre-op examination Tobacco abuse Abnormal weight loss Colon cancer screening Cough Obesity (BMI 30-39.9) Elevated fasting glucose Peptic ulcer disease Dysphagia Nausea and vomiting Diarrhea Lower abdominal pain UTI (urinary tract infection) Dysuria Epigastric pain Annual physical exam Incisional hernia Osteopenia COVID-19 vaccine series completed Generalized anxiety disorder Psoriasis Hypercholesterolemia Coronary artery disease Diverticulitis GERD (gastroesophageal reflux disease) Migraine Leukopenia Hypertension Impaired glucose tolerance Family History Family History Father Medical history unknown Mother Myocardial infarction Hypertension CVD (cardiovascular disease) Breast cancer Family history of problems with anesthesia: No Surgical History Surgical History History of hysterectomy Hx of bladder repair surgery Hx of umbilical hernia repair History of esophagogastroduodenoscopy (EGD) H/O colonoscopy History of pubovaginal sling History of section History of Problems with Anesthesia: No Social History Social History Household Members: Spouse Housing: Apartment Are you a primary care management specialist to a significant other at home: No Do you presently have visiting nurse or other home services: No Alcohol intake: current Alcohol intake frequency: holidays/special occasions only Comment: holiday 1 drink Patient Tobacco Use Status: Never used Tobacco e-Cigarette/Vaping Use: Never Used Second Hand Smoke Exposure: No Use of substances other than those prescribed or required for medical reasons: Yes Substance Use Type: Marijuana Substance Use Frequency: Daily Have you been hit, kicked, punched, or otherwise hurt by someone within the past year? If so, by whom?: No Are you DNR?: No Advance Directives: No Advance Directives Information Provided: Yes Recently lost weight without trying: No Nutrition Risks: No Nutritional Risk Patient : No service: No Current occupational status: unemployed Cognitive needs: No Hearing needs: No Vision needs: Yes Meds Allergies Allergy/AdvReac Type Severity Reaction Status Date / Time Iodinated Contrast Media Allergy Unknown SHAKING Verified 03/20/24 10:11 [IV DYE, IODINE CONTAINING CONTRAST ] Exam Pertinent Lab Results Pertinent Lab Results: Laboratory Tests 03/14/24 15:07 WBC 6.0 Hgb 12.4 Hct 37.4 Plt Count 228 Sodium 145 Potassium 4.1 Chloride 111 H Carbon Dioxide 29 BUN 12 Creatinine 1.23 Narrative Narrative: EKG 02/2024 Vent. Rate : 043 BPM Atrial Rate : 043 BPM P-R Int : 140 ms QRS Dur : 084 ms QT Int : 510 ms P-R-T Axes : 014 060 007 degrees QTc Int : 430 ms Marked sinus bradycardia Abnormal ECG When compared with ECG of 19-OCT-2023 12:11, No significant change was found Assessment and Plan Assessment Anesthesia Assessment: Chart Reviewed Final Anesthetic Review Family History of Problems with Anesthesia: No History of Problems with Anesthesia: No Documented by User: Adela Hammond MD 03/20/24 11:24 [facility] Past Medical History Medical History Pre-op examination Tobacco abuse Abnormal weight loss Colon cancer screening Cough Obesity (BMI 30-39.9) Elevated fasting glucose Peptic ulcer disease Dysphagia Nausea and vomiting Diarrhea Lower abdominal pain UTI (urinary tract infection) Dysuria Epigastric pain Annual physical exam Incisional hernia Osteopenia COVID-19 vaccine series completed Generalized anxiety disorder Psoriasis Hypercholesterolemia Coronary artery disease Diverticulitis GERD (gastroesophageal reflux disease) Migraine Leukopenia Hypertension Impaired glucose tolerance Family History Family History Father Medical history unknown Mother Myocardial infarction Hypertension CVD (cardiovascular disease) Breast cancer Surgical History Surgical History History of hysterectomy Hx of bladder repair surgery Hx of umbilical hernia repair History of esophagogastroduodenoscopy (EGD) H/O colonoscopy History of pubovaginal sling History of section Social History Social History Household Members: Spouse Housing: Apartment Are you a primary care management specialist to a significant other at home: No Do you presently have visiting nurse or other home services: No Alcohol intake: current Alcohol intake frequency: holidays/special occasions only Comment: holiday 1 drink Patient Tobacco Use Status: Never used Tobacco e-Cigarette/Vaping Use: Never Used Second Hand Smoke Exposure: No Use of substances other than those prescribed or required for medical reasons: Yes Substance Use Type: Marijuana Substance Use Frequency: Daily Have you been hit, kicked, punched, or otherwise hurt by someone within the past year? If so, by whom?: No Are you DNR?: No Advance Directives: No Advance Directives Information Provided: Yes Recently lost weight without trying: No Nutrition Risks: No Nutritional Risk Patient : No service: No Current occupational status: unemployed Cognitive needs: No Hearing needs: No Vision needs: Yes Meds Allergies Allergy/AdvReac Type Severity Reaction Status Date / Time Iodinated Contrast Media Allergy Unknown SHAKING Verified 03/20/24 10:11 [IV DYE, IODINE CONTAINING CONTRAST ] Exam Airway Mallampati Class: II TM Dist: >3cm Neck ROM: Full Loose/Missing/Broken Teeth: No Heart: RRR Lungs: CTA Assessment and Plan Assessment Anesthesia Assessment: Anesthesia Plan Discussed Final Anesthetic Review NPO: Yes ASA Class: II Final Preanesthetic Review: Meds/Allgs Chart Reviewed, Consent Obtained/Reviewed and Anes Risks/Benef Reviewed Patient Risk: Low Procedure Risk: Low Anesthetic Plan Anesthetic Plan: GA Disposition: Standard PACU
[2024-03-20] VITALS (7 sets, daily range): BP systolic 128–154; BP diastolic 44–75; PULSE 50–75; RESP 12–18; TEMP 36.2; O2SAT 95–98; BMI 28.9
--- NOTE | 2024-03-20 10:51 | MHC.SHP ---
Pre-Procedural Eval Section A - 24 Hr Update-Section A only Date of Service: 03/20/24 The patient is an INPATIENT: No Changes since office visit: No Cold of Flu in the past 2 weeks, No New Medical Problems, No Changes in Medication and No Patient answered all questions The patient has been examined within 24 hours of the surgical procedure. The History & Physical has been completed within 30 days and I have reviewed it.: Yes Section B - Complete if H&P > 30 days Chief Complaint: Incisional hernia without obstruction or gangrene Allergies: Allergies Allergy/AdvReac Type Severity Reaction Status Date / Time Iodinated Contrast Media Allergy Unknown SHAKING Verified 03/20/24 10:11 [IV DYE, IODINE CONTAINING CONTRAST ] Plan I have reviewed the history and physical and performed a pertinent physical examination on my patient. No changes have occurred unless specified. Time Spent With Patient Time: Total time managing care of this patient today ____ minutes.
[2024-03-20] MEDS: Lactated Ringers 1,000 ML 100 ML IVCONT (10:54)
--- NOTE | 2024-03-20 12:19 | W.PM.OPN ---
Operative Note Operative Note Date of Service: 03/20/24 Narrative: Preop diagnosis: Incisional hernia, along suprapubic area to the right of the midline Postop diagnosis: The same, reducible Procedure: Repair of incisional hernia with Ventralex mesh Surgeon: Jay Vasquez MD pharmacist assistant: KAVIN Jiang The patient is a 68 year old female with a reducible mass on the right supra pubic area along previous Pfannenstiel incision consistent with an incisional hernia. This appeared fat containing on her CT scan. She understood the technique of the planned procedure as well as the risks, benefits, and alternatives She was brought to the operating room. She was placed supine under general anesthesia via laryngeal mask airway. Lower abdomen was prepped and draped in the usual sterile fashion. A surgical time-out was done. The patient received cefazolin 2 g IV preoperatively I infiltrated the planned line of incision with lidocaine 1%. I made short incision above the suprapubic area to the right of the midline with a blade 15 transversely. This was carried down through the full-thickness of the skin subcutaneous fat with electrocautery. I then proceeded to bluntly dissect my fingers down to the fascia. I was able to then feel a fascial defect. I define this with Metzenbaum scissors. I was able to identify a sac. This was easily reducible through the fascial defect. The fascial defect was about 2.5 cm. I continued to free up the entire fascial defect allow us to position the mesh. I chose a small-sized Ventralex mesh. This was flattened underneath the abdominal wall surrounding the defect. The mesh was secured to the fascia on both sides using Prolene 2 sutures each with the Prolene straps of the mesh. I then closed the fascial defect with a running Maxon 1 stitch. Please note that the fascia appeared and felt tenuous because of her multiple previous surgeries. The area was irrigated. The subcutaneous layer was reapposed with Polysorb 3-0 simple interrupted sutures. Skin closure was achieved with Polysorb 4-0 subcuticular running stitch. The area was then infiltrated with Marcaine 0.5% for postop analgesia Dressings were applied. The procedure was completed The patient tolerated the procedure well. There were no immediate complications. Initial and final counts of sponges and instruments were correct. Estimated blood loss was less than 20 cc The patient was extubated without difficulty and transferred to the recovery room with stable vital signs.
== END 2024-03-20 13:40 | disposition home or self-care (01) ==
PROVIDERS: PCP Internal Medicine; Visit Provider Surgery
PROC: (CPT 49591; principal; 2024-03-20 12:00)
DX: K43.2 Incisional hernia without obstruction or gangrene (principal); K21.9 Gastro-esophageal reflux disease without esophagitis; K27.9 Peptic ulcer, site unspecified, unspecified as acute or chronic, without hemorrhage or perforation; I25.10 Atherosclerotic heart disease of native coronary artery without angina pectoris; I10 Essential (primary) hypertension; E78.00 Pure hypercholesterolemia, unspecified; R73.01 Impaired fasting glucose; Z79.1 Long term (current) use of non-steroidal anti-inflammatories (NSAID); Z79.899 Other long term (current) drug therapy; Z91.041 Radiographic dye allergy status; Z90.710 Acquired absence of both cervix and uterus; Z98.890 Other specified postprocedural states; Z56.0 Unemployment, unspecified
CPT/HCPCS: 49591; C1781; J0690; J2003; J2250; J2704; J2795; J3010

== ENCOUNTER → 2024-03-20 09:51 | Outpatient (BNV) | payer OTHER, SELFPAY | PROVIDERS: PCP Internal Medicine; Visit Provider Surgery | DX: K43.2 Incisional hernia without obstruction or gangrene (principal) | CPT/HCPCS: 49591 ==

== ENCOUNTER 2024-04-02 10:44 | Outpatient (AMB) | payer OTHER, SELFPAY ==
--- NOTE | 2024-04-02 11:03 | A.OFFVIS_ITS ---
Intake Visit Reasons: S/P incisional hernia Intake Note: This patient presents for post-op assessment status post Repair of incisional hernia with Ventralex mesh (03/20/2024). Pt c/o; reports incision's are healing well, reports no complaints pertaining to surgery. Mirror Framer Required: No Accompanied by: Self / Same As Patient Allergies Iodinated Contrast Media [IV DYE, IODINE CONTAINING CONTRAST ] Allergy (Unknown, Verified 04/02/24 11:04) SHAKING HPI HPI S/P incisional hernia: Details: She underwent repair of an incisional hernia with mesh last 03/20/2024. She tolerated procedure well. She currently is doing very well and denies significant complaints. [facility] Medical History Pre-op examination Tobacco abuse Abnormal weight loss Colon cancer screening Cough Obesity (BMI 30-39.9) Elevated fasting glucose Peptic ulcer disease Dysphagia Nausea and vomiting Diarrhea Lower abdominal pain UTI (urinary tract infection) Dysuria Epigastric pain Annual physical exam Incisional hernia Osteopenia COVID-19 vaccine series completed Generalized anxiety disorder Psoriasis Hypercholesterolemia Coronary artery disease Diverticulitis GERD (gastroesophageal reflux disease) Migraine Leukopenia Hypertension Impaired glucose tolerance Surgical History History of incisional hernia repair (~03/20/24) History of hysterectomy Hx of bladder repair surgery Hx of umbilical hernia repair History of esophagogastroduodenoscopy (EGD) H/O colonoscopy History of pubovaginal sling History of section Family History Father Medical history unknown Mother Myocardial infarction Hypertension CVD (cardiovascular disease) Breast cancer Social History Household Members: Spouse Housing: Apartment Are you a primary child care center assistant director to a significant other at home: No Do you presently have visiting nurse or other home services: No Alcohol intake: current Alcohol intake frequency: holidays/special occasions only Comment: holiday 1 drink Patient Tobacco Use Status: Never used Tobacco e-Cigarette/Vaping Use: Never Used Second Hand Smoke Exposure: No Substance Use Type: Marijuana service: No Current occupational status: unemployed Cognitive needs: No Hearing needs: No Vision needs: Yes Female Reproductive History Menstrual Age of Menarche: 14 Review of Systems Const Denies chills and Denies fever(s) GI Denies abdominal pain Physical Exam Const General: comfortable and no acute distress Resp Effort & Inspection: normal respiratory effort GI Other: Hernia repair site on the lower abdomen on the right is well healed, not infected, repair intact with no signs of recurrence Assessment & Plan Assessment & Plan (1) Inguinal hernia, right: Code(s): K40.90 - Unilateral inguinal hernia, without obstruction or gangrene, not specified as recurrent Category: Medical Plan: Status post repair with mesh. She is doing very well. The repair site is intact. The incisions well healed. I advised her to avoid lifting anything more than 20 lb for about 3 more weeks. She can otherwise follow up on a p.r.n. basis. Coding Level of Care Code Global (02727) Diagnoses Inguinal hernia, right K40.90
== END 2024-04-02 11:14 | disposition home or self-care (01) ==
PROVIDERS: PCP Internal Medicine; Visit Provider Surgery
DX: K40.90 Unilateral inguinal hernia, without obstruction or gangrene, not specified as recurrent (principal)
CPT/HCPCS: 99212

== ENCOUNTER → 2024-04-02 10:44 | Outpatient (BNVA) | payer OTHER, SELFPAY | PROVIDERS: PCP Internal Medicine; Visit Provider Surgery | DX: K40.90 Unilateral inguinal hernia, without obstruction or gangrene, not specified as recurrent (principal); Z87.19 Personal history of other diseases of the digestive system; Z98.890 Other specified postprocedural states | CPT/HCPCS: 99212 ==

== ENCOUNTER 2024-04-12 14:36 | Outpatient (AMB) | payer OTHER, SELFPAY ==
[2024-04-12 14:40] VITALS: BP 128/80; PULSE 51; O2SAT 97; BMI 28.6
--- NOTE | 2024-04-12 14:40 | MHC.PC.OV ---
Vital Signs 04/12/24 14:40 Height 5 ft 2 in Weight 156 lb 4 oz BMI 28.6 BP 128/80 Blood Pressure Location Lt brachial Position Sitting Pulse 51 Pulse Source Pulse Oximeter Pulse Oximetry (%) 97 Oxygen Delivery Method Room Air Intake Visit Reasons: Rsch from 12/04 Microfilm Clerk Required: No Accompanied by: Self / Same As Patient Allergies Iodinated Contrast Media [IV DYE, IODINE CONTAINING CONTRAST ] Allergy (Unknown, Verified 04/12/24 14:40) SHAKING Tobacco use date assessed: 04/12/24 Fall risk assessment: No Falls in past year Last assessed Fall Risk: 04/12/24 Dental Screening Dental Screen Date: 04/12/24 Did you have a dental visit in the last 12 months?: Yes Did you have a dental problem in the last 6 months where you did not have access to dental care?: No Was dental information given to patient?: Patient has dentist HPI Rsch from 12/04 HPI Details 68-year-old overweight female smoker with a history of hypertension impaired glucose tolerance GERD hypercholesterolemia coronary artery disease peripheral vascular disease generalized anxiety disorder asthma coming in for follow-up. Last seen in February 2024 for preop. Patient is due for mammogram up-to-date with bone density advised colonoscopy.. Patient had repair of the incisional hernia 03/20/2024. patient takes advil.concern on renal function. complains also of thristy 2 months at night - will check the blood work. mammo is tuesday [facility] Medical History (Updated 04/12/24 @ 15:02 by Leila Bills MD) Tobacco abuse Pre-op examination Abnormal weight loss Colon cancer screening Cough Obesity (BMI 30-39.9) Elevated fasting glucose Peptic ulcer disease Dysphagia Nausea and vomiting Diarrhea Lower abdominal pain UTI (urinary tract infection) Dysuria Epigastric pain Annual physical exam Incisional hernia Osteopenia COVID-19 vaccine series completed Generalized anxiety disorder Psoriasis Hypercholesterolemia Coronary artery disease Diverticulitis GERD (gastroesophageal reflux disease) Migraine Leukopenia Hypertension Impaired glucose tolerance Surgical History History of incisional hernia repair (~03/20/24) History of hysterectomy Hx of bladder repair surgery Hx of umbilical hernia repair History of esophagogastroduodenoscopy (EGD) H/O colonoscopy History of pubovaginal sling History of section Family History Father Medical history unknown Mother Myocardial infarction Hypertension CVD (cardiovascular disease) Breast cancer Social History Household Members: Spouse Housing: Apartment Are you a primary lawn care worker to a significant other at home: No Do you presently have visiting nurse or other home services: No Alcohol intake: current Alcohol intake frequency: holidays/special occasions only Comment: holiday 1 drink Patient Tobacco Use Status: Never used Tobacco e-Cigarette/Vaping Use: Never Used Second Hand Smoke Exposure: No Substance Use Type: Marijuana service: No Current occupational status: unemployed Cognitive needs: No Hearing needs: No Vision needs: Yes Female Reproductive History Menstrual Age of Menarche: 14 Questionnaire PHQ-9 Over the last 2 weeks, how often have you been bothered by any of the following problems? 1. Little interest or pleasure in doing things: several days 2. Feeling down, depressed, or hopeless: several days 3. Trouble falling or staying asleep, or sleeping too much: not at all 4. Feeling tired or having little energy: not at all 5. Poor appetite or overeating: not at all 6. Feeling bad about yourself - or that you are a failure or have let yourself or your family down: not at all 7. Trouble concentrating on things, such as reading the newspaper or watching television: not at all 8. Moving or speaking so slowly that other people could have noticed. Or the opposite - being so fidgety or restless that you have been moving around a lot more than usual: not at all 9. Thoughts that you would be better off or of hurting yourself in some way: not at all Total score: 2 Depression Screening Interpretation: Positive Depression Screening Done: Yes Source: Developed by Drs. Michael Owens, Ijeoma Blake, Asif Stack and colleagues, with an educational robby from [employer]. Thrive Questionnaire Date Thrive assessed: 04/12/24 I am a: Patient What is your living situation today?: I have a steady place to live Within the past 12 months, did the food you bought not last and you didn't have the money to get more?: Never true Within the past 12 months, did you worry whether your food would run out before you got money to buy more?: Never true Do you have trouble paying for medicines?: No Do you have trouble getting transportation to medical appointments?: No Do you have trouble paying your heating and electricity bill?: No Do you have trouble taking care of your child, family member or friend?: No Do you have trouble with day-to-day activities such as bathing, preparing meals, shopping, managing finances, etc.?: No Are you currently unemployed and looking for a job?: No Are you interested in more education?: No Please select the resources that you would like help with: None Currently or been in a relationship where the following occur: No concerns reported THRIVE Score: 0 AUDIT C Alcohol Use Questionnaire (AUDIT-C) 1. How often do you have a drink containing alcohol?: Monthly or less 2. How many drinks containing alcohol do you have on a typical day when you are drinking?: 1 or 2 3. How often do you have six or more drinks on one occasion?: Never Total Score: 1 LAUREN-7 AMB Questionnaire LAUREN-7 Date LAUREN - 7 assessed: 04/12/24 Feeling nervous, anxious, or on edge: 0 = Not at all Not being able to stop or control worryin = Not at all Worrying too much about different things: 0 = Not at all Trouble relaxin = Not at all Being so restless that it is hard to sit still: 0 = Not at all Becoming easily annoyed or irritable: 0 = Not at all Feeling afraid as if something awful might happen: 0 = Not at all Total LAUREN-7 score (0-4 normal; 5-9 mild; 10-14 moderate; 15-21 severe): 0 Source: Developed by Drs. Michael Owens, Ijeoma Blake, Asif Stack and colleagues, with an educational robby from [employer]. Physical exam (Primary Care) Vital Signs: Last Vital Signs Pulse 51 04/12/24 14:40 BP 128/80 04/12/24 14:40 Pulse Ox 97 04/12/24 14:40 Oxygen Delivery Method Room Air 04/12/24 14:40 BMI result Body Mass Index 28.6 Tobacco/Smoking Status: Tobacco use Status Tobacco use date assessed 04/12/24 04/12/24 14:46 Patient Tobacco Use Status Never used Tobacco 04/12/24 14:46 e-Cigarette/Vaping Use Never Used 04/12/24 14:46 PHQ-9: PHQ-9 Score PHQ-9: Total score 2 04/12/24 14:46 Depression Screening Interpretation: Positive Thrive Assessment: Date of Thrive Assessment Date Thrive assessed 04/12/24 04/12/24 14:46 Currently or been in a relationship where the following occur: No concerns reported Const General: alert; No acute distress Eyes Conjunctivae: conjunctivae normal Resp Auscultation: clear to auscultation bilaterally Cardio Rate: regular rate Rhythm: regular rhythm GI Inspection: Yes normal to inspection Extrem General: Yes normal to inspection and No edema Coding Level of Care Code Est Pt Level 4 (24218) Complex EM visit Add On G2211 Diagnoses Incisional hernia, without obstruction or gangrene K43.2 Obstruction and gangrene presence: without obstruction or gangrene Positive colorectal cancer screening using Cologuard test R19.5 Generalized anxiety disorder F41.1 Coronary artery disease involving [place] coronary artery of [place] heart without angina pectoris I25.10 Coronary Disease-Associated Artery/Lesion type: [place] artery [place] vs. transplanted heart: [place] heart Associated angina: without angina Hypercholesterolemia E78.00 Essential hypertension I10 Hypertension type: essential hypertension Assessment & Plan Assessment & Plan (1) Incisional hernia: Comment: status post repair February 2024 Code(s): K43.2 - Incisional hernia without obstruction or gangrene Category: Medical Qualifiers: Obstruction and gangrene presence: without obstruction or gangrene Qualified Code(s): K43.2 - Incisional hernia without obstruction or gangrene Plan: status post repair 03/11/2024 advised to avoid heavy lifting for the next 3 weeks. (2) Positive colorectal cancer screening using Cologuard test: Code(s): R19.5 - Other fecal abnormalities Category: Medical Plan: patient has met with Gastroenterology [place] (3) Generalized anxiety disorder: Comment: Decline any counseling referral Code(s): F41.1 - Generalized anxiety disorder Category: Medical Plan: iting colonoscopy continue with present medication (4) Coronary artery disease: Comment: had w/u w/Dr. Alonzo 2017-last appt 2019-denies cardiac symptoms-follows w/PCP Code(s): I25.10 - Atherosclerotic heart disease of [place] coronary artery without angina pectoris Category: Medical Qualifiers: Coronary Disease-Associated Artery/Lesion type: [place] artery [place] vs. transplanted heart: [place] heart Associated angina: without angina Qualified Code(s): I25.10 - Atherosclerotic heart disease of [place] coronary artery without angina pectoris Plan: Control the cholesterol, weight, blood pressure, (5) Hypercholesterolemia: Code(s): E78.00 - Pure hypercholesterolemia, unspecified Category: Medical Plan: Avoid fried foods, chicken skin, eggs, butter margarine, pastries and meat. Be it pork or beef they have a lot of cholesterol LDL goal of less than 70 and triglyceride of less than 150. On rosuvastatin 40 mg once a day (6) Hypertension: Code(s): I10 - Essential (primary) hypertension Category: Medical Qualifiers: Hypertension type: essential hypertension Qualified Code(s): I10 - Essential (primary) hypertension Plan: blood pressure bland takes amlodipine 10 mg once a day lisinopril 30 mg once a day Orders: Orders Complete Blood Count Auto Diff Today I10 - Essential (primary) hypertension Hemoglobin A1c Today I10 - Essential (primary) hypertension Comprehensive Met. Panel Today I10 - Essential (primary) hypertension
== END 2024-04-12 15:10 | disposition home or self-care (01) ==
PROVIDERS: PCP Internal Medicine; Visit Provider Internal Medicine
DX: K43.2 Incisional hernia without obstruction or gangrene (principal); R19.5 Other fecal abnormalities; F41.1 Generalized anxiety disorder; I25.10 Atherosclerotic heart disease of native coronary artery without angina pectoris; E78.00 Pure hypercholesterolemia, unspecified; I10 Essential (primary) hypertension

== ENCOUNTER → 2024-04-12 14:36 | Outpatient (BNVA) | payer OTHER, SELFPAY | PROVIDERS: PCP Internal Medicine; Visit Provider Internal Medicine | DX: K43.2 Incisional hernia without obstruction or gangrene (principal); R19.5 Other fecal abnormalities; F41.1 Generalized anxiety disorder; I25.10 Atherosclerotic heart disease of native coronary artery without angina pectoris; I10 Essential (primary) hypertension; E78.00 Pure hypercholesterolemia, unspecified | CPT/HCPCS: 96127; 99212 ==

== ENCOUNTER 2024-04-13 08:58 | Outpatient (REF) | payer OTHER, SELFPAY ==
[2024-04-13 09:12] LABS: MANUAL DIFF FLAG NO
[2024-04-13 10:37] LABS: Basophils Percent Auto 0.8 % (0-2); Eosinophils Absolute Auto 0.1 X10*3/uL (0.0-0.4); Hematocrit 40.3 % (37.0-47.0); Hemoglobin 13.3 g/dl (12.0-16.0); Imm Gran Abs Auto 0.01 X10*3/uL (0.00-0.03); Imm Gran Pct Auto 0.3 % (0.0-0.4); Lymphocytes Absolute Auto 1.4 X10*3/uL (1.2-4.9); Lymphocytes Percent Auto 34.8 % (20-40); Mean Corpuscular Hemoglobin 29.5 pg (27.0-33.0); Mean Corpuscular Volume 89.4 fL (80.0-98.0); Mean Platelet Volume 10.8 fL (9.4-12.3); Monocytes Absolute Auto 0.2 X10*3/uL (0.1-1.2); Neutrophils Absolute Auto 2.2 x10*3/uL (2.0-8.3); Neutrophils Percent Auto 55.1 % (45-73); Platelet Count 241 X10*3/uL (160-400); Red Blood Count 4.51 X10*6/uL (4.20-5.50); Red Cell Distribution Width 13.4 % (11.0-16.0)
[2024-04-13 10:46] LABS: Estimated Average Glucose 105 mg/dL; Hemoglobin A1C 117.7322 umol/L; Hemoglobin A1c % 5.3 % (<6.0); Total Hemoglobin (HGBA1C) 3420.9918 umol/L
[2024-04-13 11:15] LABS: Alanine Aminotransferase 16 U/L (0-31); Alkaline Phosphatase 87 U/L (39-117); Anion Gap 13 (12-20); Aspartate Amino Transferase 23 U/L (5-31); Bilirubin Total 0.5 mg/dL (0.0-1.0); Blood Urea Nitrogen 11 mg/dL (9-16); Calcium 9.4 mg/dL (8.4-10.2); Carbon Dioxide 25 mmol/L (22-29); Chloride 108 mmol/L (96-108); Estimated Glomerular Filt Rate 57; Glucose Random 85 mg/dL (60-115); Potassium 3.8 mmol/L (3.3-5.1); Sodium 142 mmol/L (135-145); Total Protein 6.6 g/dL (6.5-8.0)
[2024-04-13 12:16] LABS: Appearance Urine Cloudy; Color Urine Dark Yellow; Glucose Urine UA Negative (Negative); Leukocyte Esterase Urine Small (1+) (Negative); Nitrite Urine Negative (Negative); PH 5.5 (5.0-9.0); UMIC TRIGGER UACC YES; Urine Blood Trace (Negative); Urine Ketones Trace mg/dL (Negative); Urine Protein 30 (1+) mg/dL (Neg-Trace)
[2024-04-13 12:30] LABS: Bacteria Urine None Seen (None Seen); Calcium Oxalate Crystals Urine Present; Hyaline Casts Urine 0-2 /LPF (0-2); RBC Urine 0-2 /HPF (0-2); Squamous Epithelial Cell Urine 0-2 /HPF (0-2); UACC Culture Trigger YES; WBC Urine 0-5 /HPF (0-5)
== END 2024-04-13 08:59 | disposition home or self-care (01) ==
LOC: HO.LAB 08:58
PROVIDERS: Absent Provider Nurse Practitioner; PCP Internal Medicine; Visit Provider Internal Medicine
DX: I10 Essential (primary) hypertension (principal); R30.0 Dysuria; Z13.1 Encounter for screening for diabetes mellitus
CPT/HCPCS: 36415; 80053; 81001; 81003; 83036; 85025; 87086

== ENCOUNTER 2024-05-09 11:11 | Emergency (ER) | payer OTHER, SELFPAY ==
--- NOTE | ~2024-05-09 | XR_ITS ---
EXAMINATION: XR SACRUM AND COCCYX CLINICAL INFORMATION: fall, pain COMPARISON: None available. TECHNIQUE: 2 views of the sacrum and 2 views of the coccyx were obtained. FINDINGS: Sacrum intact. SI joints appear symmetric with only minor degenerative change seen in the inferior right SI joint. Symphysis pubis intact. No fracture or destructive process. Facet degenerative change is seen, L4-S1. XR/XR sacrum coccyx min 2V IMPRESSION: Degenerative change noted. Electronically signed by: Craig Schilling MD 05/09/2024 03:31 PM [facility]
[2024-05-09 11:15] VITALS: BP 168/96; PULSE 60; RESP 16; TEMP 37; O2SAT 98; BMI 27.5
--- NOTE | 2024-05-09 11:16 | ED.GENADULT ---
HPI - General Adult General Chief complaint: Fall Stated complaint: Low Back Pain No Injury Time Seen by Provider: 05/09/24 11:45 Source: patient and RN notes reviewed Mode of arrival: ambulatory Limitations: no limitations History of Present Illness ED Provider: Donita Tate PA-C HPI narrative: This is a 68-year-old female, history of GERD, hypertension, who presents emergency department with complaints of low back pain. Patient states that she accidentally slipped and fell down her stairs 2 weeks ago. She denies hitting her head or LOC. She landed directly on her lower back. She states that she has had pain to her low back since the fall. Denies any numbness, tingling, or weakness. No urinary or bowel retention or incontinence. No saddle anesthesia. She has been taking Tylenol with minimal relief. Reports pain worsens with movement. She denies any chest pain, shortness breath, abdominal pain, nausea, vomiting or diarrhea. No other complaints or concerns at this time. MD complaint: Low back pain Onset (ago): week(s) Radiation: back Severity: moderate Quality: aching Pain Consistency: constant Relieving factors: none Exacerbating factors: none Associated symptoms: denies other symptoms Treatments prior to arrival: none Related Data Previous Rx's ?Medication ?Instructions ?Recorded sumatriptan succinate 50 mg tablet 50 mg PO .QD PRN migraine headache 04/09/20 (Imitrex) #14 tabs isosorbide mononitrate 30 mg 30 mg PO DAILY #90 tabs 04/08/21 tablet,extended release 24 hr ferrous sulfate 324 mg (65 mg 324 mg PO DAILY #90 tabs 10/21/21 iron) tablet,delayed release clonazepam 0.5 mg tablet 0.5 mg PO BID 30 days #60 tabs 01/19/22 amlodipine 10 mg tablet 10 mg PO DAILY #90 tabs 04/11/22 ascorbate calcium (vitamin C) 500 500 mg PO DAILY #90 tabs 07/16/22 mg tablet loratadine 10 mg tablet 10 mg PO DAILY #90 tabs 11/02/22 bisacodyl 5 mg tablet,delayed 10 mg (2 x 5 mg) PO BEDTIME 2 days 05/31/23 release (Dulcolax (bisacodyl)) #4 tabs famotidine 40 mg tablet 40 mg PO BEDTIME #90 tabs 05/31/23 naproxen 500 mg tablet 500 mg PO Q8-12H PRN pain (scale 07/11/23 score 4-6) #20 tabs cyclobenzaprine 10 mg tablet 10 mg PO TID #90 tabs 09/16/23 albuterol sulfate 90 mcg/actuation 2 puff inhalation Q4-6H PRN 10/19/23 aerosol inhaler shortness of breath or wheezing #6.7 grams meclizine 25 mg tablet 25 mg PO TID PRN dizziness #30 tabs 10/19/23 hydrocortisone 1 % topical cream 1 appl topical TID PRN itching 11/29/23 (Anti-Itch (hydrocortisone)) #28.4 grams hydroxyzine HCl 25 mg tablet 25 mg PO BEDTIME PRN anxiety #10 11/29/23 tabs cholecalciferol (vitamin D3) 50 50 mcg PO DAILY 90 days #90 caps 01/16/24 mcg (2,000 unit) capsule rosuvastatin 40 mg tablet 40 mg PO DAILY 90 days #90 tabs 02/04/24 omeprazole 20 mg capsule,delayed 20 mg PO BID #180 caps 03/02/24 release psyllium husk 0.52 gram capsule 0.52 g PO BEDTIME PRN constipation 03/02/24 (Natural Fiber Laxative) #90 caps lisinopril 30 mg tablet 30 mg PO DAILY #30 tabs 03/14/24 oxycodone-acetaminophen 5 mg-325 1 tab PO Q4-6H PRN pain #25 tabs 03/20/24 mg tablet (Percocet) sertraline 50 mg tablet 50 mg PO DAILY #90 tabs 05/03/24 lidocaine 5 % topical patch 1 patch topical DAILY #30 ea 05/09/24 (Lidoderm) oxycodone-acetaminophen 5 mg-325 1 tab PO Q6H PRN pain #5 tabs 05/09/24 mg tablet (Percocet) Allergies Allergy/AdvReac Type Severity Reaction Status Date / Time Iodinated Contrast Media Allergy Unknown SHAKING Verified 05/09/24 11:18 [IV DYE, IODINE CONTAINING CONTRAST ] Review of Systems Review of Systems: Yes all other systems are reviewed and are negative Constitutional: Constitutional: Reports as per [facility] Past Medical History Medical History (Updated 05/09/24 @ 15:46 by KAVIN Valdovinos) Tobacco abuse Pre-op examination Abnormal weight loss Colon cancer screening Cough Obesity (BMI 30-39.9) Elevated fasting glucose Peptic ulcer disease Dysphagia Nausea and vomiting Diarrhea Lower abdominal pain UTI (urinary tract infection) Dysuria Epigastric pain Annual physical exam Incisional hernia Osteopenia COVID-19 vaccine series completed Generalized anxiety disorder Psoriasis Hypercholesterolemia Coronary artery disease Diverticulitis GERD (gastroesophageal reflux disease) Migraine Leukopenia Hypertension Impaired glucose tolerance Surgical History History of incisional hernia repair (~03/20/24) History of hysterectomy Hx of bladder repair surgery Hx of umbilical hernia repair History of esophagogastroduodenoscopy (EGD) H/O colonoscopy History of pubovaginal sling History of section Family History Family History Father Medical history unknown Mother Myocardial infarction Hypertension CVD (cardiovascular disease) Breast cancer Social History Social History Household Members: Spouse Housing: Apartment Are you a primary pediatric acute care unit nurse to a significant other at home: No Do you presently have visiting nurse or other home services: No Alcohol intake: current Alcohol intake frequency: holidays/special occasions only Comment: holiday 1 drink Patient Tobacco Use Status: Never used Tobacco e-Cigarette/Vaping Use: Never Used Second Hand Smoke Exposure: No Substance Use Type: Marijuana Advance Directives: No Advance Directives Information Provided: Yes Do you have a plan to hurt others: No Plan service: No Current occupational status: unemployed Cognitive needs: No Hearing needs: No Vision needs: Yes Physical Exam ED Vital Signs: Vital Signs - 24 hr 05/09/24 11:15 05/09/24 13:16 05/09/24 15:57 Temperature 98.6 F 98.6 F 98.6 F Pulse Rate 60 57 57 Respiratory Rate 16 16 16 Blood Pressure 168/96 H 163/63 H 163/63 H Pulse Oximetry 98 100 100 Oxygen Delivery Method Room Air Room Air Room Air BMI result Body Mass Index 27.5 Const General: cooperative, comfortable and no acute distress Orientation/consciousness: patient oriented x3 Limitations: no limitations HENMT Head: Yes normal to inspection, Yes normocephalic and Yes atraumatic Ears: hearing grossly normal bilaterally General nose exam: Normal external nose present Face and sinus: Yes normal facial exam Mouth: Normal oral and palatal mucosa present, oropharynx normal and moist mucous membranes Throat: Yes posterior oropharynx normal Eyes General: appearance normal, both eyes and all related structures Eyelids: Yes eyelids normal Conjunctivae: conjunctivae normal Sclerae: sclerae normal Pupils: Equal, round and reactive pupils present EOM: EOMs intact bilaterally Neck Neck: Yes normal visual inspection, Yes full ROM and Yes no lymphadenopathy Lymphatic: no lymphadenopathy noted Chest Chest palpation & inspection: normal inspection of the chest Resp Effort & Inspection: normal respiratory effort and able to speak in complete sentences Auscultation: clear to auscultation bilaterally, no crackles, no rales, no rhonchi and no wheezes Cardio Rate: regular rate Rhythm: regular rhythm Heart sounds: S1 normal heart sound present and S2 normal heart sound present GI Inspection: Yes normal to inspection Back/Spine/Pelvis Other: Tenderness palpation along the midline spine, overlying the coccyx, no bony step-off or deformity noted, no bruising noted, there is old adhesive markings noted to the low back from pain patches. Skin General skin exam: no rashes or lesions noted Trauma: no lacerations or abrasions Wounds: no wounds Neuro General: patient oriented x3 and moves all extremities Cranial nerves: Yes Equal, round and reactive pupils present Extrem General: Yes normal to inspection Right upper extremity: normal to inspection Left upper extremity: normal to inspection Right lower extremity: normal to inspection Left lower extremity: normal to inspection Course Course Course Narrative: RME, this is a rapid medical exam performed by Anshul Chavis please refer to primary provider for complete H&P- 68-year-old female presents for evaluation of pain to her tailbone. She reports falling down the stairs about 2 weeks ago and injuring her tailbone. Denies any other injuries. She reports that she is able to sit but is unable to stand up from a seated position. She has pain right over her coccyx. Plan for x-ray Reevaluation(s) Reevaluation #1: Patient feeling much better after receiving medication. X-ray do not show any fractures. Discussed findings with patient. Advised the importance of following up with PCP. Also advised ibuprofen and Tylenol usage as well as Percocet to be only use as needed for severe pain only. She understands and agrees with plan. She is ambulatory in the department. She will follow-up with her PCP. Stable for discharge. Medications Administered Discontinued Medications Generic Name Dose Route Start Last Admin Trade Name Will PRN Reason Stop Dose Admin Hydrocodone Bitart/Acetaminophen 1 tab 05/09/24 12:25 05/09/24 12:53 Hydrocodone Bit/Acetam 5/325 Tablet PO 05/09/24 12:26 1 tab ONCE ONE Administration Lidocaine 1 patch 05/09/24 12:26 05/09/24 12:52 Lidocaine 4 % Patch Adh..Patch TRANSDERMA 05/09/24 12:27 1 patch ONCE ONE Administration Protocol Medical Decision Making Medical Decision Making MDM Narrative: This is a 68-year-old female who presents emergency department with complaints of low back pain for the last 2 weeks. On arrival, blood pressure mildly elevated at 160 8/96, all other vital signs within normal limits. She has point tenderness palpation along the midline low spine, overlying the coccyx, she has no overlying skin changes or warmth. Pain started after a slip and fall 2 weeks ago. Denies any head strike or LOC. She is not anticoagulated. Patient reports that Tylenol and Motrin have not been helping her symptoms. She states that her pain is very severe, she was medicated with hydrocodone/acetaminophen. Also given Lidoderm patch. X-rays were obtained Differential Diagnosis Differential Diagnoses: The differential diagnosis associated with the presentation includes Fracture, contusion, sciatica, disc herniation, cauda equina-unlikely Radiology Impression Discussion of test interpretation with radiology: I have reviewed the radiologist's reading. Radiologist Impression: [address] [address] XRay Report Signed Patient: Christine Gill MR#: [id number] : 1955 Acct:[id number] Age/Sex: 68 / F ADM Date: 05/09/24 Loc: HO.ED Attending Dr: Ordering Physician: Jesse Chavis Date of Service: 05/09/24 Procedure(s): XR sacrum coccyx min 2V Accession Number(s): [id number] cc: Jesse Chavis; Leila Bills MD~ EXAMINATION: XR SACRUM AND COCCYX CLINICAL INFORMATION: fall, pain COMPARISON: None available. TECHNIQUE: 2 views of the sacrum and 2 views of the coccyx were obtained. FINDINGS: Sacrum intact. SI joints appear symmetric with only minor degenerative change seen in the inferior right SI joint. Symphysis pubis intact. No fracture or destructive process. Facet degenerative change is seen, L4-S1. XR/XR sacrum coccyx min 2V IMPRESSION: Degenerative change noted. Electronically signed by: Craig Schilling MD 05/09/2024 03:[address] [facility] Dictated By: Craig Schilling MD Signed By: <Electronically signed by Craig Schilling MD in OV> Discharge Plan Discharge Clinical Impression: Back contusion Patient Disposition: Home, Self-Care Instructions: Contusion in Adults (ED) Additional Instructions: You were seen in the emergency department due to back pain. Your x-ray of your back does not show any broken bones. You do have degenerative changes. Please rest, apply heat or ice, gentle stretching and massage can also help. Apply Lidoderm patches as needed. Do not directly apply heat or ice to this area as this can cause a burn on your skin. Alternate between ibuprofen and or Tylenol as needed for pain and symptoms. If any new or worsening symptoms occur including but not limited to high fevers, numbness or tingling into your groin, loss of control of your bladder or bowel, please seek emergent care. Prescriptions: New lidocaine [Lidoderm] 5 % adhesive patch,medicated 1 patch topical DAILY Qty: 30 0RF Rx Instructions: leave on most painful area for up to 12 hrs oxycodone-acetaminophen [Percocet] 5-325 mg tablet 1 tab PO Q6H PRN (Reason: pain) Qty: 5 0RF Rx Instructions: Partial Fill upon patient request. No Action isosorbide mononitrate 30 mg tablet extended release 24 hr 30 mg PO DAILY Qty: 90 0RF Rx Instructions: Must call and schedule an appt for refills ferrous sulfate 324 mg (65 mg iron) tablet,delayed release (DR/EC) 324 mg PO DAILY Qty: 90 2RF clonazepam 0.5 mg tablet 0.5 mg PO BID 30 Days Qty: 60 1RF amlodipine 10 mg tablet 10 mg PO DAILY Qty: 90 1RF ascorbate calcium (vitamin C) 500 mg tablet 500 mg PO DAILY Qty: 90 3RF cyclobenzaprine 10 mg tablet 10 mg PO TID Qty: 90 1RF albuterol sulfate 90 mcg/actuation HFA aerosol inhaler 2 puff inhalation Q4-6H PRN (Reason: shortness of breath or wheezing) Qty: 6.7 0RF cholecalciferol (vitamin D3) 50 mcg (2,000 unit) capsule 50 mcg PO DAILY 90 Days Qty: 90 3RF rosuvastatin 40 mg tablet 40 mg PO DAILY 90 Days Qty: 90 2RF sertraline 50 mg tablet 50 mg PO DAILY Qty: 90 1RF naproxen 500 mg tablet 500 mg PO Q8-12H PRN (Reason: pain (scale score 4-6)) Qty: 20 0RF hydrocortisone [Anti-Itch (HC)] 1 % cream 1 appl topical TID PRN (Reason: itching) Qty: 28.4 0RF hydroxyzine HCl 25 mg tablet 25 mg PO BEDTIME PRN (Reason: anxiety) Qty: 10 0RF oxycodone-acetaminophen [Percocet] 5-325 mg tablet 1 tab PO Q4-6H PRN (Reason: pain) Qty: 25 0RF Rx Instructions: Partial Fill upon patient request. meclizine 25 mg tablet 25 mg PO TID PRN (Reason: dizziness) Qty: 30 0RF sumatriptan succinate [Imitrex] 50 mg tablet 50 mg PO .QD PRN (Reason: migraine headache) Qty: 14 6RF Rx Instructions: do not exceed 4 doses per 24 hrs loratadine 10 mg tablet 10 mg PO DAILY Qty: 90 1RF psyllium husk [Natural Fiber Laxative] 0.52 gram capsule 0.52 g PO BEDTIME PRN (Reason: constipation) Qty: 90 3RF omeprazole 20 mg capsule,delayed release(DR/EC) 20 mg PO BID Qty: 180 2RF lisinopril 30 mg tablet 30 mg PO DAILY Qty: 30 2RF famotidine 40 mg tablet 40 mg PO BEDTIME Qty: 90 3RF bisacodyl [Dulcolax (bisacodyl)] 5 mg tablet,delayed release (DR/EC) 10 mg PO BEDTIME 2 Days Qty: 4 0RF Interventions: ED Discharge Assessment Last Done: 05/09/24 15:57 Discharge Date/Time: 05/09/24 15:57 Print Language: Lithuanian
[2024-05-09] MEDS: Lidocaine 4 % Patch ADH..PATCH 1 PATCH TRANSDERMA (12:52)
[2024-05-09] MEDS: HYDROcodone Bit/Acetam 5/325 TABLET 1 TAB PO (12:53)
[2024-05-09 13:16] VITALS: BP 163/63; PULSE 57; RESP 16; TEMP 37; O2SAT 100
[2024-05-09 15:57] VITALS: BP 163/63; PULSE 57; RESP 16; TEMP 37; O2SAT 100
== END 2024-05-09 15:57 | disposition home or self-care (01) ==
PROVIDERS: Emergency Provider Emergency Medicine; PCP Internal Medicine
DX: S30.0XXA Contusion of lower back and pelvis, initial encounter (principal); S20.229A Contusion of unspecified back wall of thorax, initial encounter; W10.9XXA Fall (on) (from) unspecified stairs and steps, initial encounter; Y93.89 Activity, other specified; Y92.89 Other specified places as the place of occurrence of the external cause; Y99.8 Other external cause status
CPT/HCPCS: 72220; 99283; 99284

== ENCOUNTER 2024-05-11 08:00 | Outpatient (AMB) | payer OTHER, SELFPAY ==
--- NOTE | 2024-05-11 08:33 | MHC.PC.OV ---
Vital Signs 05/11/24 08:34 05/11/24 08:52 Height 5 ft 2 in Weight 154 lb 4 oz BMI 28.2 BP 140/80 H 160/82 H Blood Pressure Location Lt brachial Lt brachial Position Sitting Sitting Pulse 57 Pulse Source Pulse Oximeter Pulse Oximetry (%) 97 Oxygen Delivery Method Room Air Intake Visit Reasons: f/u bp Intake Note: Patient is here to follow up on bp. 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 Milieu Counselor: Not Required per policy Accompanied by: Self / Same As Patient Allergies Iodinated Contrast Media [IV DYE, IODINE CONTAINING CONTRAST ] Allergy (Unknown, Verified 05/11/24 08:33) SHAKING Medication List - Last Reconciled 05/11/24 by Vee Mar PA-C albuterol sulfate 90 mcg/actuation 2 puffs inhalation Q4-6H PRN amlodipine 10 mg PO DAILY ascorbate calcium (vitamin C) 500 mg PO DAILY bisacodyl (Dulcolax (bisacodyl)) 10 mg (2 x 5 mg) PO BEDTIME 2 days cholecalciferol (vitamin D3) 50 mcg PO DAILY 90 days clonazepam 0.5 mg PO BID 30 days cyclobenzaprine 10 mg PO TID famotidine 40 mg PO BEDTIME ferrous sulfate 324 mg PO DAILY hydrocortisone 1% (Anti-Itch (hydrocortisone)) 1 appl topical TID PRN hydroxyzine HCl 25 mg PO BEDTIME PRN isosorbide mononitrate ER 30 mg PO DAILY lidocaine 5% (Lidoderm) 1 patch topical DAILY lisinopril 30 mg PO DAILY loratadine 10 mg PO DAILY meclizine 25 mg PO TID PRN naproxen 500 mg PO Q8-12H PRN omeprazole 20 mg PO BID oxycodone-acetaminophen 5-325 mg (Percocet) 1 tab PO Q6H PRN oxycodone-acetaminophen 5-325 mg (Percocet) 1 tab PO Q4-6H PRN psyllium husk (Natural Fiber Laxative) 0.52 grams PO BEDTIME PRN rosuvastatin 40 mg PO DAILY 90 days sertraline 50 mg PO DAILY sumatriptan succinate (Imitrex) 50 mg PO .QD PRN Tobacco use date assessed: 05/11/24 Fall risk assessment: 1 Fall in past year Last assessed Fall Risk: 05/11/24 Dental Screening Dental Screen Date: 04/12/24 HPI f/u bp HPI Details 68-year-old female with past medical history of coronary artery disease, hypercholesterolemia, GERD, hypertension, impaired glucose tolerance, generalized anxiety disorder last seen by Dr. Bills March 2024 coming in for blood pressure follow up. In review of the notes patient was seen in [facility] 05/09/2024 after slipping and falling down her stairs 2 weeks prior and having continuous back pain x-ray negative given oxycodone and lidocaine patches. Patient tells us today she continues to have low back pain despite using the oxycodone in the lidocaine patches. She is out of oxycodone and feel they did not help her. She states when she wakes up in the morning she will have occasional numbness and tingling in her legs. She has been monitoring her blood pressures at home and does have a [employer] nurse coming into the home and monitoring the blood pressures at well. Her blood pressures have been less than 140/90 and many of them in the 120 range systolic. [facility] Medical History Tobacco abuse Pre-op examination Abnormal weight loss Colon cancer screening Cough Obesity (BMI 30-39.9) Elevated fasting glucose Peptic ulcer disease Dysphagia Nausea and vomiting Diarrhea Lower abdominal pain UTI (urinary tract infection) Dysuria Epigastric pain Annual physical exam Incisional hernia Osteopenia COVID-19 vaccine series completed Generalized anxiety disorder Psoriasis Hypercholesterolemia Coronary artery disease Diverticulitis GERD (gastroesophageal reflux disease) Migraine Leukopenia Hypertension Impaired glucose tolerance Surgical History History of incisional hernia repair (~03/20/24) History of hysterectomy Hx of bladder repair surgery Hx of umbilical hernia repair History of esophagogastroduodenoscopy (EGD) H/O colonoscopy History of pubovaginal sling History of section Family History Father Medical history unknown Mother Myocardial infarction Hypertension CVD (cardiovascular disease) Breast cancer Social History Household Members: Spouse Housing: Apartment Are you a primary floor care technician to a significant other at home: No Do you presently have visiting nurse or other home services: No Alcohol intake: current Alcohol intake frequency: holidays/special occasions only Comment: holiday 1 drink Patient Tobacco Use Status: Never used Tobacco e-Cigarette/Vaping Use: Never Used Second Hand Smoke Exposure: No Substance Use Type: Marijuana service: No Current occupational status: unemployed Cognitive needs: No Hearing needs: No Vision needs: Yes Female Reproductive History Menstrual Age of Menarche: 14 Questionnaire Thrive Questionnaire Date Thrive assessed: 04/12/24 LAUREN-7 AMB Questionnaire LAUREN-7 Date LAUREN - 7 assessed: 04/12/24 Source: Developed by Drs. Michael Owens, Ijeoma Blake, Asif Stack and colleagues, with an educational robby from [employer]. Review of Systems Const Denies body aches, Denies chills, Denies fever(s), Denies headache(s) and Denies poor appetite Eyes Reports no additional complaints ENT Denies dysphagia, Denies dizziness, Denies headache(s) and Denies odynophagia Card Denies chest pain, Denies syncope, Denies edema, Denies irregular heart rhythm, Denies lightheadedness and Denies dyspnea Resp Denies cough and Denies dyspnea GI Denies abdominal pain, Denies constipation, Denies dysphagia, Denies diarrhea, Denies nausea, Denies odynophagia and Denies vomiting Reports no additional complaints Musc Reports no additional complaints and Denies abnormal gait Skin/Breast Reports system reviewed and no additional complaints, except as documented Neuro Denies abnormal gait, Denies dizziness, Denies syncope and Denies headache(s) Psych Reports no additional complaints Physical exam (Primary Care) Tobacco/Smoking Status: Tobacco use Status Tobacco use date assessed 04/12/24 04/12/24 14:46 Patient Tobacco Use Status Never used Tobacco 04/12/24 14:46 e-Cigarette/Vaping Use Never Used 04/12/24 14:46 Thrive Assessment: Date of Thrive Assessment Date Thrive assessed 04/12/24 04/12/24 14:46 Const General: cooperative, healthy appearing, comfortable and no acute distress Orientation/consciousness: patient oriented x3 HENMT Head: Yes normocephalic Ears: hearing grossly normal bilaterally General nose exam: Normal external nose present Eyes General: appearance normal, both eyes and all related structures Conjunctivae: conjunctivae normal Neck Neck: Yes full ROM and Yes no lymphadenopathy Resp Effort & Inspection: normal respiratory effort Auscultation: clear to auscultation bilaterally, no crackles, no rales, no rhonchi and no wheezes Cardio Rate: regular rate Rhythm: regular rhythm Skin General skin exam: no rashes or lesions noted Neuro General: patient oriented x3 Gait exam (Neuro): Normal gait present Extrem General: Yes normal to inspection, Yes full ROM and No edema Psych Affect: normal affect Attitude: cooperative Insight: Good insight present (Psych) Judgement: Good judgement present (Psych) Coding Level of Care Code Est Pt Level 4 (29752) Diagnoses Asthma J45.909 Overweight E66.3 Hypercholesterolemia E78.00 Coronary artery disease involving [place] coronary artery of [place] heart without angina pectoris I25.10 Coronary Disease-Associated Artery/Lesion type: [place] artery [place] vs. transplanted heart: [place] heart Associated angina: without angina Essential hypertension I10 Hypertension type: essential hypertension Impaired glucose tolerance R73.02 Assessment & Plan Assessment & Plan (1) Asthma: Code(s): J45.909 - Unspecified asthma, uncomplicated Category: Medical Plan: Asthma currently controlled on present medications. Continue on albuterol as needed. Avoid triggers such as allergies. (2) Overweight: Code(s): E66.3 - Overweight Category: Medical Plan: Healthy diet and regular exercise is encouraged. (3) Hypercholesterolemia: Code(s): E78.00 - Pure hypercholesterolemia, unspecified Category: Medical Plan: Avoid foods that are high in cholesterol such as red meat, fried foods, eggs and baked goods. Triglyceride goal of less than 150 and LDL goal of less than 70. Continue on rosuvastatin 40 mg. Ordered for updated cholesterol labs. (4) Coronary artery disease: Comment: had w/u w/Dr. Alonzo 2017-last appt 2019-denies cardiac symptoms-follows w/PCP Code(s): I25.10 - Atherosclerotic heart disease of [place] coronary artery without angina pectoris Category: Medical Qualifiers: Coronary Disease-Associated Artery/Lesion type: [place] artery [place] vs. transplanted heart: [place] heart Associated angina: without angina Qualified Code(s): I25.10 - Atherosclerotic heart disease of [place] coronary artery without angina pectoris Plan: Continue with good control of blood sugars, cholesterol and blood pressure. (5) Hypertension: Code(s): I10 - Essential (primary) hypertension Category: Medical Qualifiers: Hypertension type: essential hypertension Qualified Code(s): I10 - Essential (primary) hypertension Plan: Continue on current blood pressure medication. Avoid salt intake and encourage healthy diet and regular exercise. Patient is declining an increase in her lisinopril at this time due to normal blood pressures at home. She is presently on lisinopril 30 mg and amlodipine 10 mg. Advised patient to continue to monitor blood pressures at home and bring log to next appointment. (6) Impaired glucose tolerance: Code(s): R73.02 - Impaired glucose tolerance (oral) Category: Medical Plan: Decrease the amount of carbohydrates such as pasta, bread, rice, and potatoes and limit the amount of sweets. Although fruits are generally healthy they should be eaten in moderation as they are still high in sugar. Last A1c 5.3% no diagnosis of diabetes at this time. Plan This note was constructed using voice recognition software. While every effort has been made to ensure accuracy and kettle cleaner, still areas may have been included sometimes these areas may affect the content or meeting of the given symptoms. Total time spent caring for the patient today was 20 minutes. This includes time spent before the visit reviewing the chart, time spent during the visit, and time spent after the visit and documentation. Orders: Orders Lipid Panel 3 Months E78.00 - Pure hypercholesterolemia, unspecified Medications: Refilled cyclobenzaprine 10 mg PO TID 90 tabs 0RF E78.00 - Pure hypercholesterolemia, unspecified
[2024-05-11 08:34] VITALS: BP 140/80; PULSE 57; O2SAT 97; BMI 28.2
[2024-05-11 08:52] VITALS: BP 160/82
== END 2024-05-11 09:04 | disposition home or self-care (01) ==
PROVIDERS: PCP Internal Medicine
DX: J45.909 Unspecified asthma, uncomplicated (principal); E66.3 Overweight; E78.00 Pure hypercholesterolemia, unspecified; I25.10 Atherosclerotic heart disease of native coronary artery without angina pectoris; I10 Essential (primary) hypertension; R73.02 Impaired glucose tolerance (oral)

== ENCOUNTER → 2024-05-11 08:00 | Outpatient (BNVA) | payer OTHER, SELFPAY | PROVIDERS: PCP Internal Medicine | DX: I25.10 Atherosclerotic heart disease of native coronary artery without angina pectoris (principal); E78.00 Pure hypercholesterolemia, unspecified; K21.9 Gastro-esophageal reflux disease without esophagitis; I10 Essential (primary) hypertension; F41.1 Generalized anxiety disorder; J45.909 Unspecified asthma, uncomplicated; E66.3 Overweight; R73.02 Impaired glucose tolerance (oral); Z68.28 Body mass index [BMI] 28.0-28.9, adult; Z91.81 History of falling; Z79.891 Long term (current) use of opiate analgesic | CPT/HCPCS: 99212 ==

== ENCOUNTER 2024-05-19 08:46 | Outpatient (REF) | payer OTHER, SELFPAY | END 2024-05-19 08:47 | disposition home or self-care (01) | LOC: HO.MAMMO 08:46 | PROVIDERS: PCP Internal Medicine; Visit Provider Internal Medicine | DX: Z12.31 Encounter for screening mammogram for malignant neoplasm of breast (principal) | CPT/HCPCS: 77063; 77067 ==

== ENCOUNTER → 2024-05-19 09:00 | Outpatient (BNV) | payer OTHER, SELFPAY | PROVIDERS: PCP Internal Medicine; Visit Provider Internal Medicine | DX: Z12.31 Encounter for screening mammogram for malignant neoplasm of breast (principal) | CPT/HCPCS: 77063; 77067 ==

== ENCOUNTER 2024-07-10 08:54 | Outpatient (REF) | payer OTHER, SELFPAY ==
[2024-07-10 10:19] LABS: Cholesterol 126 mg/dL (<200); HDL Cholesterol 46 mg/dL (>40); LDL Cholesterol Calculated 66 mg/dL (<100); Triglycerides 71 mg/dL (<150)
== END 2024-07-10 08:55 | disposition home or self-care (01) ==
LOC: HO.LAB 08:54
PROVIDERS: PCP Internal Medicine
DX: E78.00 Pure hypercholesterolemia, unspecified (principal)
CPT/HCPCS: 36415; 80061

== ENCOUNTER 2024-07-25 11:16 | Outpatient (AMB) | payer OTHER, SELFPAY ==
--- NOTE | 2024-07-25 11:42 | MHC.OFFVIS ---
Vital Signs 07/25/24 11:47 Height 5 ft 2 in Weight 160 lb BMI 29.3 Intake Visit Reasons: colonoscopy screening Intake Note: This patient presents for colonoscopy screening. Pt c/o; reports no complaints. [employer]ile [employer] Miss[employer] Checkout Technician Required: No Accompanied by: Self / Same As Patient Allergies Iodinated Contrast Media [IV DYE, IODINE CONTAINING CONTRAST ] Allergy (Unknown, Verified 07/25/24 11:48) SHAKING Medication List - Last Reconciled 07/25/24 by Jay Vasquez MD albuterol sulfate 90 mcg/actuation 2 puffs inhalation Q4-6H PRN amlodipine 10 mg PO DAILY ascorbate calcium (vitamin C) 500 mg PO DAILY bisacodyl (Dulcolax (bisacodyl)) 10 mg (2 x 5 mg) PO BEDTIME 2 days cholecalciferol (vitamin D3) 50 mcg PO DAILY 90 days clonazepam 0.5 mg PO BID 30 days cyclobenzaprine 10 mg PO TID famotidine 40 mg PO BEDTIME ferrous sulfate 324 mg PO DAILY hydrocortisone 1% (Anti-Itch (hydrocortisone)) 1 appl topical TID PRN hydroxyzine HCl 25 mg PO BEDTIME PRN isosorbide mononitrate ER 30 mg PO DAILY lidocaine 5% (Lidoderm) 1 patch topical DAILY lisinopril 30 mg PO DAILY loratadine 10 mg PO DAILY meclizine 25 mg PO TID PRN naproxen 500 mg PO Q8-12H PRN omeprazole 20 mg PO BID oxycodone-acetaminophen 5-325 mg (Percocet) 1 tab PO Q6H PRN oxycodone-acetaminophen 5-325 mg (Percocet) 1 tab PO Q4-6H PRN psyllium husk (Natural Fiber Laxative) 0.52 grams PO BEDTIME PRN rosuvastatin 40 mg PO DAILY 90 days sertraline 50 mg PO DAILY sumatriptan succinate (Imitrex) 50 mg PO .QD PRN HPI HPI colonoscopy screening: Details: 68-year-old female referred for screening colonoscopy. Review of her records show that her last colonoscopy was with Dr. Rosas in 2017. However at that time, there was note of a question of a polyp at level 35 cm. Biopsies of this showed hyperplastic polyps. Dr. Rosas had recommended repeating the colonoscopy in 5-7 years. She otherwise denies significant GI complaints. She denies any family history of colon cancer. She says she feels well overall. COUNT INCLUDES [facility] Medical History (Updated 07/25/24 @ 11:58 by Jay Vasquez MD) Colon cancer screening Tobacco abuse Pre-op examination Abnormal weight loss Cough Obesity (BMI 30-39.9) Elevated fasting glucose Peptic ulcer disease Dysphagia Nausea and vomiting Diarrhea Lower abdominal pain UTI (urinary tract infection) Dysuria Epigastric pain Annual physical exam Incisional hernia Osteopenia COVID-19 vaccine series completed Generalized anxiety disorder Psoriasis Hypercholesterolemia Coronary artery disease Diverticulitis GERD (gastroesophageal reflux disease) Migraine Leukopenia Hypertension Impaired glucose tolerance Surgical History History of incisional hernia repair (~03/20/24) History of hysterectomy Hx of bladder repair surgery Hx of umbilical hernia repair History of esophagogastroduodenoscopy (EGD) H/O colonoscopy History of pubovaginal sling History of section Family History Father Medical history unknown Mother Myocardial infarction Hypertension CVD (cardiovascular disease) Breast cancer Social History Household Members: Spouse Housing: Apartment Are you a primary outdoor emergency care technician to a significant other at home: No Do you presently have visiting nurse or other home services: No Alcohol intake: current Alcohol intake frequency: holidays/special occasions only Comment: holiday 1 drink Patient Tobacco Use Status: Never used Tobacco e-Cigarette/Vaping Use: Never Used Second Hand Smoke Exposure: No Substance Use Type: Marijuana service: No Current occupational status: unemployed Cognitive needs: No Hearing needs: No Vision needs: Yes Female Reproductive History Menstrual Age of Menarche: 14 Review of Systems Const Denies chills and Denies fever(s) Card Denies chest pain, Denies dyspnea and Denies dyspnea on exertion Resp Denies cough, Denies dyspnea and Denies dyspnea on exertion GI Denies hematochezia and Denies change in bowel habits Denies hematuria Musc Denies back pain and Denies limited range of motion Neuro Denies focal weakness and Denies convulsions Psych Denies depression and Denies mood swings Physical Exam Vital Signs: BMI result Body Mass Index 29.3 Const General: comfortable and no acute distress Orientation/consciousness: patient oriented x3 Neck Neck: Yes no lymphadenopathy Resp Auscultation: clear to auscultation bilaterally Cardio Rhythm: regular rhythm GI Palpation (GI): Soft to palpation, nontender and no guarding Neuro General: patient oriented x3 Assessment & Plan Assessment & Plan (1) Colon cancer screening: Code(s): Z12.11 - Encounter for screening for malignant neoplasm of colon Category: Medical Plan: She had a colonoscopy 2016 with note of a question of a polyp at level 30 cm. She was recommended to undergo another colonoscopy in 5-[address] Ralph cali. I reviewed with the technique of colonoscopy. I explained the risks including but not limited to bleeding and perforation, as well as the benefits and alternatives. She understands and agrees to proceed. Coding Level of Care Code New Pt Level 3 (07101) Diagnoses Colon cancer screening Z12.11
[2024-07-25 11:47] VITALS: BMI 29.3
== END 2024-07-25 11:54 | disposition home or self-care (01) ==
LOC: HO.HGS 11:16
PROVIDERS: PCP Internal Medicine; Visit Provider Surgery
DX: Z12.11 Encounter for screening for malignant neoplasm of colon (principal)
CPT/HCPCS: 99213

== ENCOUNTER → 2024-07-25 11:16 | Outpatient (BNVA) | payer OTHER, SELFPAY | PROVIDERS: PCP Internal Medicine; Visit Provider Surgery | DX: Z01.818 Encounter for other preprocedural examination (principal) | CPT/HCPCS: 99212 ==

== ENCOUNTER 2024-07-26 09:05 | Outpatient (AMB) | payer OTHER, SELFPAY ==
[2024-07-26 09:33] VITALS: BP 148/80; PULSE 54; RESP 18; TEMP 36.3; O2SAT 97; BMI 28.9
--- NOTE | 2024-07-26 09:33 | MHC.PC.OV ---
Vital Signs 07/26/24 09:33 Height 5 ft 2 in Weight 158 lb BMI 28.9 BP 148/80 H Respiration 18 Pulse 54 Pulse Source Pulse Oximeter Temp 97.3 F Pulse Oximetry (%) 97 Oxygen Delivery Method Room Air Intake Visit Reasons: IFT, renal insuf, cad Elder Counselor Required: No Accompanied by: Spouse Allergies Iodinated Contrast Media [IV DYE, IODINE CONTAINING CONTRAST ] Allergy (Unknown, Verified 07/26/24 09:37) SHAKING Medication List - Last Reconciled 07/26/24 by Leila Bills MD albuterol sulfate 90 mcg/actuation 2 puffs inhalation Q4-6H PRN amlodipine 10 mg PO DAILY ascorbate calcium (vitamin C) 500 mg PO DAILY bisacodyl (Dulcolax (bisacodyl)) 10 mg (2 x 5 mg) PO BEDTIME 2 days cholecalciferol (vitamin D3) 50 mcg PO DAILY 90 days cyclobenzaprine 10 mg PO TID famotidine 40 mg PO BEDTIME ferrous sulfate 324 mg PO DAILY hydrocortisone 1% (Anti-Itch (hydrocortisone)) 1 appl topical TID PRN hydroxyzine HCl 25 mg PO BEDTIME PRN isosorbide mononitrate ER 30 mg PO DAILY lidocaine 5% (Lidoderm) 1 patch topical DAILY lisinopril-hydrochlorothiazide 20-12.5 mg 1 tab PO BID loratadine 10 mg PO DAILY meclizine 25 mg PO TID PRN naproxen 500 mg PO Q8-12H PRN omeprazole 20 mg PO BID psyllium husk (Natural Fiber Laxative) 0.52 grams PO BEDTIME PRN rosuvastatin 40 mg PO DAILY 90 days sertraline 50 mg PO DAILY sodium,potassium,mag sulfates 17.5-3.13-1.6 gram (Suprep Bowel Prep Kit) DILUTE; drink full amount early evening before AND next morning at least 2 hr before procedure; follow w 960 mL water PO sumatriptan succinate (Imitrex) 50 mg PO .QD PRN Tobacco use date assessed: 05/11/24 Dental Screening Dental Screen Date: 04/12/24 Did you have a dental visit in the last 12 months?: Yes Did you have a dental problem in the last 6 months where you did not have access to dental care?: No [facility] Medical History (Updated 07/25/24 @ 11:58 by Jay Vasquez MD) Colon cancer screening Tobacco abuse Pre-op examination Abnormal weight loss Cough Obesity (BMI 30-39.9) Elevated fasting glucose Peptic ulcer disease Dysphagia Nausea and vomiting Diarrhea Lower abdominal pain UTI (urinary tract infection) Dysuria Epigastric pain Annual physical exam Incisional hernia Osteopenia COVID-19 vaccine series completed Generalized anxiety disorder Psoriasis Hypercholesterolemia Coronary artery disease Diverticulitis GERD (gastroesophageal reflux disease) Migraine Leukopenia Hypertension Impaired glucose tolerance Surgical History History of incisional hernia repair (~03/20/24) History of hysterectomy Hx of bladder repair surgery Hx of umbilical hernia repair History of esophagogastroduodenoscopy (EGD) H/O colonoscopy History of pubovaginal sling History of section Family History Father Medical history unknown Mother Myocardial infarction Hypertension CVD (cardiovascular disease) Breast cancer Social History Household Members: Spouse Housing: Apartment Are you a primary emergency care attendant to a significant other at home: No Do you presently have visiting nurse or other home services: No Alcohol intake: current Alcohol intake frequency: holidays/special occasions only Comment: holiday 1 drink Patient Tobacco Use Status: Never used Tobacco e-Cigarette/Vaping Use: Never Used Second Hand Smoke Exposure: No Substance Use Type: Marijuana service: No Current occupational status: unemployed Cognitive needs: No Hearing needs: No Vision needs: Yes Female Reproductive History Menstrual Age of Menarche: 14 Questionnaire PHQ-9 Over the last 2 weeks, how often have you been bothered by any of the following problems? 1. Little interest or pleasure in doing things: several days 2. Feeling down, depressed, or hopeless: several days 3. Trouble falling or staying asleep, or sleeping too much: not at all 4. Feeling tired or having little energy: not at all 5. Poor appetite or overeating: not at all 6. Feeling bad about yourself - or that you are a failure or have let yourself or your family down: not at all 7. Trouble concentrating on things, such as reading the newspaper or watching television: not at all 8. Moving or speaking so slowly that other people could have noticed. Or the opposite - being so fidgety or restless that you have been moving around a lot more than usual: not at all 9. Thoughts that you would be better off or of hurting yourself in some way: not at all Total score: 2 Depression Screening Interpretation: Positive Depression Screening Done: Yes Source: Developed by Drs. Michael Owens, Ijeoma Blake, Asif Stack and colleagues, with an educational robby from [employer]. Thrive Questionnaire Date Thrive assessed: 04/12/24 I am a: Patient What is your living situation today?: I have a steady place to live Within the past 12 months, did the food you bought not last and you didn't have the money to get more?: Never true Within the past 12 months, did you worry whether your food would run out before you got money to buy more?: Never true Do you have trouble paying for medicines?: No Do you have trouble getting transportation to medical appointments?: No Do you have trouble paying your heating and electricity bill?: No Do you have trouble taking care of your child, family member or friend?: No Do you have trouble with day-to-day activities such as bathing, preparing meals, shopping, managing finances, etc.?: No Are you currently unemployed and looking for a job?: No Are you interested in more education?: No Please select the resources that you would like help with: None THRIVE Score: 0 AUDIT C Alcohol Use Questionnaire (AUDIT-C) 1. How often do you have a drink containing alcohol?: Monthly or less 2. How many drinks containing alcohol do you have on a typical day when you are drinking?: 1 or 2 3. How often do you have six or more drinks on one occasion?: Never Total Score: 1 LAUREN-7 AMB Questionnaire LAUREN-7 Date LAUREN - 7 assessed: 04/12/24 Feeling nervous, anxious, or on edge: 0 = Not at all Not being able to stop or control worryin = Not at all Worrying too much about different things: 0 = Not at all Trouble relaxin = Not at all Being so restless that it is hard to sit still: 0 = Not at all Becoming easily annoyed or irritable: 0 = Not at all Feeling afraid as if something awful might happen: 0 = Not at all Total LAUREN-7 score (0-4 normal; 5-9 mild; 10-14 moderate; 15-21 severe): 0 Source: Developed by Drs. Michael Owens, Ijeoma Blake, Asif Stack and colleagues, with an educational robby from [employer]. Physical exam (Primary Care) Vital Signs: Last Vital Signs Temp 97.3 F 07/26/24 09:33 Pulse 54 07/26/24 09:33 Resp 18 07/26/24 09:33 BP 148/80 H 07/26/24 09:33 Pulse Ox 97 07/26/24 09:33 Oxygen Delivery Method Room Air 07/26/24 09:33 BMI result Body Mass Index 28.9 Tobacco/Smoking Status: Tobacco use Status Tobacco use date assessed 05/11/24 07/26/24 09:40 Patient Tobacco Use Status Never used Tobacco 07/26/24 09:40 e-Cigarette/Vaping Use Never Used 07/26/24 09:40 PHQ-9: PHQ-9 Score PHQ-9: Total score 2 07/26/24 09:40 Depression Screening Interpretation: Positive Thrive Assessment: Date of Thrive Assessment Date Thrive assessed 04/12/24 07/26/24 09:40 Const General: alert; No acute distress Eyes Conjunctivae: conjunctivae normal Resp Auscultation: clear to auscultation bilaterally Cardio Rate: regular rate Rhythm: regular rhythm GI Inspection: Yes normal to inspection Extrem General: Yes normal to inspection and No edema Coding Level of Care Code Est Pt Level 4 (82200) Complex EM visit Add On G2211 Diagnoses Colon cancer screening Z12.11 Asthma J45.909 Essential hypertension I10 Hypertension type: essential hypertension Gastroesophageal reflux disease without esophagitis K21.9 Esophagitis presence: without esophagitis Hypercholesterolemia E78.00 Coronary artery disease involving [place] coronary artery of [place] heart without angina pectoris I25.10 Coronary Disease-Associated Artery/Lesion type: [place] artery [place] vs. transplanted heart: [place] heart Associated angina: without angina Assessment & Plan Assessment & Plan (1) Colon cancer screening: Code(s): Z12.11 - Encounter for screening for malignant neoplasm of colon Category: Medical Plan: Has met with the surgeon and will have a planned colonoscopy (2) Asthma: Code(s): J45.909 - Unspecified asthma, uncomplicated Category: Medical Plan: Patient on albuterol inhaler as needed (3) Hypertension: Code(s): I10 - Essential (primary) hypertension Category: Medical Qualifiers: Hypertension type: essential hypertension Qualified Code(s): I10 - Essential (primary) hypertension Plan: Continue with blood pressure medication. Decrease salt intake and exercise presently on lisinopril 30 mg once a day isosorbide mononitrate 30 mg once a day amlodipine 10 mg once a day (4) GERD (gastroesophageal reflux disease): Code(s): K21.9 - Gastro-esophageal reflux disease without esophagitis Category: Medical Qualifiers: Esophagitis presence: without esophagitis Qualified Code(s): K21.9 - Gastro-esophageal reflux disease without esophagitis Plan: Avoid the foods that causes that usually spicy foods, tomato products, juices, coffee, soda and foods that your sensitive to. After eating do not lie down, allow 3-4 hours before in lie down. And keep the head of bed above 30 degrees to avoid the acid from going up. (5) Hypercholesterolemia: Code(s): E78.00 - Pure hypercholesterolemia, unspecified Category: Medical Plan: Avoid fried foods, chicken skin, eggs, butter margarine, pastries and meat. Be it pork or beef they have a lot of cholesterol LDL goal of less than 70 and triglyceride of less than 150 patient is on rosuvastatin 40 mg once a day (6) Coronary artery disease: Comment: had w/u w/Dr. Alonzo 2017-last appt 2019-denies cardiac symptoms-follows w/PCP Code(s): I25.10 - Atherosclerotic heart disease of [place] coronary artery without angina pectoris Category: Medical Qualifiers: Coronary Disease-Associated Artery/Lesion type: [place] artery [place] vs. transplanted heart: [place] heart Associated angina: without angina Qualified Code(s): I25.10 - Atherosclerotic heart disease of [place] coronary artery without angina pectoris Plan: Control the cholesterol, weight, blood pressure,. Plan History of Present Illness The patient is a 68-year-old female presenting for a follow-up on her hypertension management. Her blood pressure control has been inconsistent, often reading high during medical visits. Current management includes lisinopril and amlodipine, with a recent adjustment to increase lisinopril to twice daily to better manage the condition. She also presents historical issues of anemia and leukopenia with no current concerns requiring immediate attention. For asthma, she uses an albuterol inhaler infrequently, indicating stable control. Her GERD is managed with omeprazole, and she expresses preference to avoid excessive medications. The patient's coronary artery disease is managed with consistent medication adherence, and her lipid profile indicates effective cholesterol regulation. Osteopenia is noted, with routine bone density checks showing stable status. She has completed screenings for mammogram and colonoscopy as per guidelines, with no abnormalities reported. Health Maintenance - Mammogram up to date as of April 2024. - Bone density test up to date, May 2023. - Colonoscopy most recently performed in March 2023, awaiting future scheduling. - LDL cholesterol maintained at target levels, < 70 mg/dL. - Flu vaccine administered recently. Social History - - Medication adherence issues characterized by occasional preferences for fewer medications due to perceived overmedication. - Exercises no specific routine for blood pressure monitoring at home. Review of Systems - Respiratory: Reports infrequent use of her albuterol inhaler, approximately once a week. - Gastrointestinal: Denies current constipation from iron use. Physical Exam - Respiratory- Respiratory examination included auscultation with instruction for the patient to take deep breaths, recorded as normal. Results - Labs: Cholesterol measured with LDL at 66 mg/dL. - Previous anemia and leukopenia with current stability indicated. - Electrolyte panel and renal function tests normal. Plan The management of the patient's hypertension will be adjusted by increasing lisinopril from once to twice daily while maintaining current amlodipine treatment. The asthma treatment using albuterol is deemed adequate given usage frequency. GERD is effectively controlled with the decision to cease famotidine. Cholesterol management with rosuvastatin successfully maintains target LDL levels. Continued surveillance of her osteopenia and monitoring of her respiratory health, , are recommended. Patient was informed and verbally consented to the use of an ambient scribe for clinic note documentation during this visit. Discussion Notes During this visit, we discussed hypertension management adjustments and confirmed current medications. I explained the rationale for modifying lisinopril frequency to enhance blood pressure control. We reviewed the use of her albuterol inhaler and noted her stable asthma condition. The decision to streamline GERD medication was communicated. We reviewed successful cholesterol management pointers and examined preventative management, including osteopenia. Future screenings are scheduled as per guideline recommendations. Follow-up will occur in three months, with interim monitoring of blood pressure levels. Patient Instructions - Begin taking lisinopril twice daily along with amlodipine once daily. - Continue using the albuterol inhaler as needed. - Continue on omeprazole and discontinue famotidine. - Maintain cholesterol medication as prescribed. - Schedule follow-up appointment in three months. - Monitor blood pressure more regularly at home. - - Await further details from the surgeon's office regarding a colonoscopy date. Medications: New lisinopril-hydrochlorothiazide 20-12.5 mg 1 tab PO BID 60 tabs 2RF I10 - Essential (primary) hypertension Refilled cyclobenzaprine 10 mg PO TID 90 tabs 0RF E78.00 - Pure hypercholesterolemia, unspecified omeprazole 20 mg PO BID 180 caps 2RF I10 - Essential (primary) hypertension amlodipine 10 mg PO DAILY 90 tabs 1RF albuterol sulfate 90 mcg/actuation 2 puffs inhalation Q4-6H PRN 6.7 grams 0RF shortness of breath or wheezing I10 - Essential (primary) hypertension rosuvastatin 40 mg PO DAILY 90 days 90 tabs 2RF E78.00 - Pure hypercholesterolemia, unspecified sertraline 50 mg PO DAILY 90 tabs 1RF F41.1 - Generalized anxiety disorder psyllium husk (Natural Fiber Laxative) 0.52 grams PO BEDTIME PRN 90 caps 3RF constipation K59.00 - Constipation, unspecified Discontinued famotidine Discontinued Reason: Duplicate 40 mg PO BEDTIME 90 tabs 3RF R13.10 - Dysphagia, unspecified lisinopril Discontinued Reason: Doctor's Order 30 mg PO DAILY 90 tabs 0RF
== END 2024-07-26 10:26 | disposition home or self-care (01) ==
PROVIDERS: PCP Internal Medicine; Visit Provider Internal Medicine
DX: Z12.11 Encounter for screening for malignant neoplasm of colon (principal); J45.909 Unspecified asthma, uncomplicated; I10 Essential (primary) hypertension; K21.9 Gastro-esophageal reflux disease without esophagitis; E78.00 Pure hypercholesterolemia, unspecified; I25.10 Atherosclerotic heart disease of native coronary artery without angina pectoris

== ENCOUNTER → 2024-07-26 09:05 | Outpatient (BNVA) | payer OTHER, SELFPAY | PROVIDERS: PCP Internal Medicine; Visit Provider Internal Medicine | DX: J45.909 Unspecified asthma, uncomplicated (principal); I10 Essential (primary) hypertension; K21.9 Gastro-esophageal reflux disease without esophagitis; E78.00 Pure hypercholesterolemia, unspecified; I25.10 Atherosclerotic heart disease of native coronary artery without angina pectoris | CPT/HCPCS: 99212 ==

== ENCOUNTER 2024-08-31 09:24 | Outpatient (AMB) | payer OTHER, SELFPAY ==
--- NOTE | 2024-08-31 09:26 | A.OFFVIS_ITS ---
Vital Signs 08/31/24 09:31 Height 5 ft 2 in Weight 156 lb 15.506 oz BMI 28.7 BP 106/65 Blood Pressure Location Lt brachial Position Sitting Pulse 66 Intake Visit Reasons: 6 month follow up Intake Note: Christine presents to in office follow up of abdominal pain. CC: Patient reports an episode of upper abdominal pain with radiation to her right lower abdomen, diarrhea, and vomiting after eating BBQ chicken wings. She also c/o lower abdominal pain. Per patient she has a colonoscopy scheduled for next Tuesday. Vp Emerging Media Required: No Accompanied by: Self / Same As Patient Allergies Iodinated Contrast Media [IV DYE, IODINE CONTAINING CONTRAST ] Allergy (Unknown, Verified 08/31/24 09:36) SHAKING HPI HPI 6 month follow up: Details: Assessment & Plan (1) Positive colorectal cancer screening using Cologuard test: Code(s): R19.5 - Other fecal abnormalities Category: Medical (2) GERD (gastroesophageal reflux disease): Code(s): K21.9 - Gastro-esophageal reflux disease without esophagitis Category: Medical Qualifiers: Esophagitis presence: without esophagitis Qualified Code(s): K21.9 - Gastro-esophageal reflux disease without esophagitis (3) Constipation: Code(s): K59.00 - Constipation, unspecified Category: Medical (4) Family history of polyps in the colon: Code(s): Z83.719 - Family history of colon polyps, unspecified Category: Medical Plan Apparently she had a positive Cologuard at her last primary care providers visit. She continues to do well on her famotidine, omeprazole, and fiber. She never heard to schedule the colonoscopy so I will send another request to our schedulers. This is important because she had a positive Cologuard and this likely means that there is a polyp that needs to come out. She also has a family history of colon polyps. This increases her too high risk for colon cancer. There are no prior problems with anesthesia or sedation.. No card problems but she does have wheezing with cold weather and has an inhaler. She has a presumptive diagnosis of mild asthma. She is a smoker. No ID problems. She has a FHX of colon polyps. Return office visit in 6 months for her regular care and of course I will see her after the colonoscopy as well. Medications: Refilled omeprazole 20 mg PO BID 180 caps 2RF psyllium husk (Natural Fiber Laxative) 0.52 grams PO BEDTIME PRN 90 caps 3RF constipation K59.00 - Constipation, unspecified Discontinued sucralfate (Carafate) Discontinued Reason: Doctor's Order 2 grams (2 x 1 gram) PO QNOON 60 tabs 1RF R10.13 - Epigastric pain, R13.10 - Dysphagia, unspecified COLONOSCOPY 09/04/2024 BIOPSY TODAYS VISIT Apparently she had a positive Cologuard at her last primary care providers visit. She continues to do well on her, omeprazole 20 mg twice a day, and fiber. She developed sudden onset of nausea vomiting diarrhea and abdominal pain. The pain started in the gastric area but then moved over to the right to her back and then down to the suprapubic area. The pain is now persisting in the mid to right upper quadrant. Fortunately the other symptoms seem to be improving. There are no other known sick contacts, she did have ribs to eat prior to that which she has had trouble tolerating in the past, she recently had a medication increase her Lipitor and her amlodipine, she does not partake in any other risky foods in terms of food poisoning. When she was ill she took 3 of her omeprazole and this did seem to help the pain fade somewhat. She has not upcoming colonoscopy with Dr. Vasquez. She does have a strong family history of gallbladder disease so will get an ultrasound even though there was a 2023 cat scan that did not seem to go gallstones at that time. If this does not show any reason for the pain and the pain persists will consider a HIDA scan or even an EGD. In the meantime I will increase her omeprazole to 40 mg twice a day at least temporarily to see if we can give her some relief. Return office visit after the ultrasound. ROV after US. [facility] Medical History (Updated 08/31/24 @ 09:52 by GABRIELLA Teague) Colon cancer screening Tobacco abuse Pre-op examination Abnormal weight loss Cough Obesity (BMI 30-39.9) Elevated fasting glucose Peptic ulcer disease Dysphagia Nausea and vomiting Diarrhea Lower abdominal pain UTI (urinary tract infection) Dysuria Epigastric pain Annual physical exam Incisional hernia Osteopenia COVID-19 vaccine series completed Generalized anxiety disorder Psoriasis Hypercholesterolemia Coronary artery disease Diverticulitis GERD (gastroesophageal reflux disease) Migraine Leukopenia Hypertension Impaired glucose tolerance Surgical History History of incisional hernia repair (~03/20/24) History of hysterectomy Hx of bladder repair surgery Hx of umbilical hernia repair History of esophagogastroduodenoscopy (EGD) H/O colonoscopy History of pubovaginal sling History of section Family History Father Medical history unknown Mother Myocardial infarction Hypertension CVD (cardiovascular disease) Breast cancer Social History Household Members: Spouse Housing: Apartment Are you a primary care assistant to a significant other at home: No Do you presently have visiting nurse or other home services: No Alcohol intake: current Alcohol intake frequency: holidays/special occasions only Comment: holiday 1 drink Patient Tobacco Use Status: Never used Tobacco e-Cigarette/Vaping Use: Never Used Second Hand Smoke Exposure: No Substance Use Type: Marijuana service: No Current occupational status: unemployed Cognitive needs: No Hearing needs: No Vision needs: Yes Female Reproductive History Menstrual Age of Menarche: 14 Review of Systems Const Denies fatigue, Denies fever(s), Denies night sweats, Denies poor appetite and Denies weight loss Eyes Details: glasses Reports requires corrective lenses ENT Reports Normal hearing present, Denies dental pain, Denies dysphagia, Denies hearing loss, Denies mouth pain, Denies odynophagia, Denies throat swelling, Denies tongue swelling and Reports other (Dentition adequate) Card Reports no additional complaints Resp Reports no additional complaints GI Details: Reports abdominal pain, Denies melena, Denies bloating, Denies hematochezia, Denies constipation, Denies GI cramping, Denies dysphagia, Denies excessive flatus, Denies early satiety, Reports heartburn, Reports diarrhea, Reports nausea, Denies odynophagia, Reports vomiting and Denies hematemesis Skin/Breast Denies pruritus, Denies lesions, Denies rash and Denies jaundice Neuro Reports Normal hearing present and Denies Abnormal speech present Endo Denies fatigue Aller/Immun Denies throat swelling and Denies tongue swelling Physical Exam Vital Signs: BMI result Body Mass Index 28.7 Const General: cooperative, no acute distress, well developed and well groomed Nutritional Appearance: well nourished and overweight Orientation/consciousness: oriented to person, oriented to place and oriented to time Limitations: No language barrier HEENT Head: Yes normocephalic and Yes atraumatic Eyes General: appearance normal, both eyes and all related structures Pupils: Equal, round and reactive pupils present Neck Neck: Yes normal visual inspection and Yes no lymphadenopathy Thyroid: Thyroid normal Resp Effort & Inspection: normal respiratory effort and able to speak in complete sentences Auscultation: clear to auscultation bilaterally Cardio Rate: regular rate Rhythm: regular rhythm Heart sounds: Normal, physiologic split S2 sound present Peripheral pulses: radial pulses present and posterior tibial pulses present GI Inspection: No distended and No Abdominal panniculus present Palpation (GI): Soft to palpation, Tenderness to palpation present (GI) in the RUQ, no guarding, not rigid and No hepatosplenomegaly present Percussion: Yes normal to percussion Auscultation: normal bowel sounds Rectal Exam - Female: deferred Skin General skin exam: no rashes or lesions noted, turgor normal, skin not dry, no jaundice, No spider nevi and no striae Rashes: no rashes Nails: normal Neuro General: oriented to person, oriented to place and oriented to time Cranial nerves: Yes Equal, round and reactive pupils present and Yes Normal hea ring present Speech: No Abnormal speech present Extrem General: Yes normal to inspection, No clubbing, No cyanosis and No edema Psych Appearance: grossly normal and well kempt Mental Status: mental status grossly normal Speech and movement: Normal speech and movement present Affect: normal affect Attitude: cooperative Thought process: Normal thought process present and not confabulating Thought content: Normal thought content present Insight: Fair insight present (Psych) Judgement: Fair judgement present (Psych) Assessment & Plan Assessment & Plan (1) RUQ abdominal pain: Code(s): R10.11 - Right upper quadrant pain Category: Medical (2) Positive colorectal cancer screening using Cologuard test: Code(s): R19.5 - Other fecal abnormalities Category: Medical (3) Constipation: Code(s): K59.00 - Constipation, unspecified Category: Medical (4) GERD (gastroesophageal reflux disease): Code(s): K21.9 - Gastro-esophageal reflux disease without esophagitis Category: Medical Qualifiers: Esophagitis presence: without esophagitis Qualified Code(s): K21.9 - Gastro-esophageal reflux disease without esophagitis Plan Apparently she had a positive Cologuard at her last primary care providers visit. She continues to do well on her, omeprazole 20 mg twice a day, and fiber. She developed sudden onset of nausea vomiting diarrhea and abdominal pain. The pain started in the gastric area but then moved over to the right to her back and then down to the suprapubic area. The pain is now persisting in the mid to right upper quadrant. Fortunately the other symptoms seem to be improving. There are no other known sick contacts, she did have ribs to eat prior to that which she has had trouble tolerating in the past, she recently had a medication increase her Lipitor and her amlodipine, she does not partake in any other risky foods in terms of food poisoning. When she was ill she took 3 of her omeprazole and this did seem to help the pain fade somewhat. She has not upcoming colonoscopy with Dr. Vasquez. She does have a strong family history of gallbladder disease so will get an ultrasound even though there was a 2023 cat scan that did not seem to go gallstones at that time. If this does not show any reason for the pain and the pain persists will consider a HIDA scan or even an EGD. In the meantime I will increase her omeprazole to 40 mg twice a day at least temporarily to see if we can give her some relief. Return office visit after the ultrasound. ROV after US. Orders: Orders US abdomen complete Today R10.11 - Right upper quadrant pain Medications: New omeprazole 40 mg PO BID 30 days 60 caps 3RF Refilled psyllium husk (Natural Fiber Laxative) 0.52 grams PO BEDTIME PRN 90 caps 3RF constipation K59.00 - Constipation, unspecified Discontinued omeprazole Discontinued Reason: Doctor's Order 20 mg PO BID 180 caps 2RF I10 - Essential (primary) hypertension Coding Level of Care Code Est Pt Level 3 (84281) Diagnoses RUQ abdominal pain R10.11 Positive colorectal cancer screening using Cologuard test R19.5 Constipation K59.00 Gastroesophageal reflux disease without esophagitis K21.9 Esophagitis presence: without esophagitis
[2024-08-31 09:31] VITALS: BP 106/65; PULSE 66; BMI 28.7
== END 2024-08-31 10:00 | disposition home or self-care (01) ==
LOC: HO.HGI 09:24
PROVIDERS: PCP Internal Medicine; Visit Provider Nurse Practitioner
DX: R10.11 Right upper quadrant pain (principal); R19.5 Other fecal abnormalities; K59.00 Constipation, unspecified; K21.9 Gastro-esophageal reflux disease without esophagitis
CPT/HCPCS: 99213

== ENCOUNTER → 2024-08-31 09:24 | Outpatient (BNVA) | payer OTHER, SELFPAY | PROVIDERS: PCP Internal Medicine; Visit Provider Nurse Practitioner | DX: R10.11 Right upper quadrant pain (principal); R19.5 Other fecal abnormalities; K59.00 Constipation, unspecified; K21.9 Gastro-esophageal reflux disease without esophagitis | CPT/HCPCS: 99212 ==

== ENCOUNTER 2024-09-04 06:58 | Day surgery (SDC) | payer OTHER, SELFPAY ==
[2024-08-31 09:28] VITALS: BMI 29.3
[2024-09-04 07:07] VITALS: BMI 28.2
[2024-09-04 07:20] VITALS: BP 179/78; PULSE 67; RESP 16; TEMP 36.2; O2SAT 95
[2024-09-04] MEDS: Lactated Ringers 1,000 ML 80 ML IVCONT (07:32)
--- NOTE | 2024-09-04 07:56 | HO.ANESPROP2 ---
HPI - Anesthesia Eval Consult details Narrative: for colonoscopy PMFSH Active Problems Active Problems: All Active Problems RUQ abdominal pain (Acute) Colon cancer screening (Acute) Tobacco abuse (Acute) Pre-op examination (Acute) Incisional hernia (Acute) Smoker (Acute) Asthma (Acute) Family history of polyps in the colon (Acute) Inguinal hernia, right (Acute) Positive colorectal cancer screening using Cologuard test (Acute) Polyuria (Acute) Overweight (Acute) Weight loss, non-intentional (Acute) Microscopic hematuria (Acute) Female pelvic pain (Acute) Vaginal pain (Acute) Sciatic leg pain (Acute) Right shoulder tendinitis (Acute) Generalized anxiety disorder (Acute) Peripheral vascular disease (Acute) Anemia (Acute) Hip osteoarthritis (Acute) Constipation (Acute) Osteopenia (Acute) Hypercholesterolemia (Acute) Coronary artery disease (Acute) GERD (gastroesophageal reflux disease) (Acute) Hypertension (Acute) Impaired glucose tolerance (Acute) Past Medical History Medical History (Updated 08/31/24 @ 09:52 by GABRIELLA Teague) Colon cancer screening Tobacco abuse Pre-op examination Abnormal weight loss Cough Obesity (BMI 30-39.9) Elevated fasting glucose Peptic ulcer disease Dysphagia Nausea and vomiting Diarrhea Lower abdominal pain UTI (urinary tract infection) Dysuria Epigastric pain Annual physical exam Incisional hernia Osteopenia COVID-19 vaccine series completed Generalized anxiety disorder Psoriasis Hypercholesterolemia Coronary artery disease Diverticulitis GERD (gastroesophageal reflux disease) Migraine Leukopenia Hypertension Impaired glucose tolerance Family History Family History Father Medical history unknown Mother Myocardial infarction Hypertension CVD (cardiovascular disease) Breast cancer Family history of problems with anesthesia: No Surgical History Surgical History History of incisional hernia repair (~03/20/24) History of hysterectomy Hx of bladder repair surgery Hx of umbilical hernia repair History of esophagogastroduodenoscopy (EGD) H/O colonoscopy History of pubovaginal sling History of section History of Problems with Anesthesia: No Social History Social History Household Members: Spouse Housing: Apartment Are you a primary veterinarian laboratory animal care to a significant other at home: No Do you presently have visiting nurse or other home services: No Alcohol intake: current Alcohol intake frequency: holidays/special occasions only Comment: holiday 1 drink Patient Tobacco Use Status: Never used Tobacco e-Cigarette/Vaping Use: Never Used Second Hand Smoke Exposure: No Use of substances other than those prescribed or required for medical reasons: Yes Substance Use Type: Marijuana Are you DNR?: No Advance Directives: No Advance Directives Information Provided: Yes Patient : No : No Poor oral hygiene: No service: No Current occupational status: unemployed Cognitive needs: No Hearing needs: No Vision needs: Yes Meds Allergies Allergy/AdvReac Type Severity Reaction Status Date / Time Iodinated Contrast Media Allergy Unknown SHAKING Verified 08/31/24 09:36 [IV DYE, IODINE CONTAINING CONTRAST ] Active Medications: Current Medications Lactated Ringer's (Lr) 1,000 mls @ 80 mls/hr IVCONT .[id number] BYRNO Last Admin: 09/04/24 07:32 Dose: 80 mls/hr Exam Height,Weight and Vital Signs: Height 5 ft 2 in Weight 70 kg Last Vital Signs Temp 97.1 F 09/04/24 07:20 Pulse 67 09/04/24 07:20 Resp 16 09/04/24 07:20 BP 179/78 H 09/04/24 07:20 Pulse Ox 95 09/04/24 07:20 O2 Del Method Room Air 09/04/24 07:20 Airway Mallampati Class: I TM Dist: >3cm Neck ROM: Full Heart: ok Lungs: ok Assessment and Plan Assessment Anesthesia Assessment: Anesthesia Plan Discussed and Chart Reviewed Final Anesthetic Review Family History of Problems with Anesthesia: No History of Problems with Anesthesia: No NPO: No (drank 8oz prep about 0630.) ASA Class: III Final Preanesthetic Review: No Changes in Pt Med Stat, Meds/Allgs Chart Reviewed, Consent Obtained/Reviewed and Anes Risks/Benef Reviewed Patient Risk: Intermediate Procedure Risk: Low Anesthetic Plan Anesthetic Plan: MAC: and Agree w/ Assess. and Plan Disposition: Standard PACU
--- NOTE | 2024-09-04 08:28 | MHC.SHP ---
Pre-Procedural Eval Section A - 24 Hr Update-Section A only Date of Service: 09/04/24 Section B - Complete if H&P > 30 days Chief Complaint: screening Details of Present Illness: Patient was here for screening colonoscopy. Last colonoscopy was done by Dr. Rosas Relevant Family History (Specify if Yes): No Relevant Social History: None Present Medications: see Short Stay Collaborative assessment Medical History: Significant History (Smoking history, asthma, peripheral vascular disease, osteoarthritis, hyperlipidemia) Allergies: Allergies Allergy/AdvReac Type Severity Reaction Status Date / Time Iodinated Contrast Media Allergy Unknown SHAKING Verified 08/31/24 09:36 [IV DYE, IODINE CONTAINING CONTRAST ] Review of Systems Sugical H&P ROS: Negative: Constitution, Cardiovascular, Respiratory and Gastrointestinal Exam Surgical H&P Exam: Normal: Heart, Normal: Lungs and Normal: Abdomen Plan Diagnosis/Plan: Unchanged I have reviewed the history and physical and performed a pertinent physical examination on my patient. No changes have occurred unless specified. Time Spent With Patient Time: Total time managing care of this patient today ____ minutes.
--- NOTE | 2024-09-04 09:32 | W.PM.OPN ---
Operative Note Operative Note Date of Service: 09/04/24 Narrative: Preop diagnosis: Colon cancer screening Postop diagnosis: 1. Flat polyp about 7 mm, at level of 50 cm, removed with cold forceps 2. Polyp, about 2-3 mm, at level 10 cm, removed with cold forceps 3. Severe diverticulosis throughout the entire colon Procedure: Colonoscopy with polypectomy using cold forceps x2 Surgeon: Jay Vasquez MD The patient is a 68 year old female referred to me for screening colonoscopy. Her last colonoscopy was 8 years ago. She apparently had a polyp removed at that time and was told to have another colonoscopy in 5 years. She understood the technique of the planned procedure as was the risks, benefits, and alternatives The patient was brought to the operating room and placed in left lateral decubitus position under monitored anesthesia care. A surgical time-out was done. A full digital rectal exam was done and this did not reveal any significant anal lesions. The tip of the Olympus colonoscope was gently introduced through the anal orifice advanced with insufflation all the way to the cecum. The patient had severe diverticulosis mostly in the sigmoid but involving the right colon. The cecum was intubated. The cecum was identified by visualization of the ileocecal valve as well as the appendiceal orifice. The cecal mucosa was unremarkable. The scope was gradually withdrawn with careful examination of the entire colonic mucosa being done with scope withdrawal. The patient had adequate bowel prep so it was unlikely that any lesion may have been missed. There was a flat polyp at level 3 cm probably about 5 mm in size removed with cold forceps. The rectum was reached and there were no lesions seen. There was note of a small polyp 2-3 mm at level 10 cm removed with cold forceps. The anal canal was unremarkable. The scope was then withdrawn completely with desufflation The patient tolerated procedure well. There were no immediate complications. Depending on her path report, I would probably recommend repeating the colonoscopy in the next 1-2 years because of the flat polyp.
[2024-09-04 09:47] VITALS: BP 121/61; PULSE 55; RESP 18; TEMP 36.3; O2SAT 99
[2024-09-04 10:02] VITALS: BP 129/68; PULSE 55; RESP 20; TEMP 36.6; O2SAT 99
== END 2024-09-04 10:24 | disposition home or self-care (01) ==
PROVIDERS: PCP Internal Medicine; Visit Provider Surgery
PROC: 0DBE8ZZ Excision of Large Intestine, Via Natural or Artificial Opening Endoscopic (ICD-10-PCS; CPT 45380; principal; 2024-09-04 08:30)
DX: Z12.11 Encounter for screening for malignant neoplasm of colon (principal); K63.5 Polyp of colon; K62.1 Rectal polyp; K57.30 Diverticulosis of large intestine without perforation or abscess without bleeding; Z87.19 Personal history of other diseases of the digestive system; K21.9 Gastro-esophageal reflux disease without esophagitis; K27.9 Peptic ulcer, site unspecified, unspecified as acute or chronic, without hemorrhage or perforation; I25.10 Atherosclerotic heart disease of native coronary artery without angina pectoris; E78.00 Pure hypercholesterolemia, unspecified; L40.9 Psoriasis, unspecified; Z79.1 Long term (current) use of non-steroidal anti-inflammatories (NSAID); Z79.899 Other long term (current) drug therapy; Z91.041 Radiographic dye allergy status; Z98.890 Other specified postprocedural states; Z56.0 Unemployment, unspecified
CPT/HCPCS: 45380; 88305; J2003; J2704; J3010

== ENCOUNTER → 2024-09-04 06:58 | Outpatient (BNV) | payer OTHER, SELFPAY | PROVIDERS: PCP Internal Medicine; Visit Provider Surgery | DX: Z12.11 Encounter for screening for malignant neoplasm of colon (principal); K63.5 Polyp of colon; K57.90 Diverticulosis of intestine, part unspecified, without perforation or abscess without bleeding | CPT/HCPCS: 45380 ==

== ENCOUNTER 2024-09-13 11:59 | Emergency (ER) | payer OTHER, SELFPAY ==
--- NOTE | ~2024-09-13 | XR_ITS ---
EXAMINATION: XR CHEST CLINICAL INFORMATION: cough, sob COMPARISON: To 524. TECHNIQUE: 2 views of the chest were obtained. FINDINGS: The cardiac, hilar, and mediastinal contours are normal. The lungs are clear bilaterally. There is no pneumothorax or pleural effusion. There is no focal osseous or soft tissue abnormality. XR/XR chest 2V IMPRESSION: No active pulmonary disease. Electronically signed by: Alden Blackwell MD 09/13/2024 12:52 PM EDT
--- NOTE | 2024-09-13 12:01 | ECG_ITS ---
Test Reason : CHEST PAIN Blood Pressure : */* mmHG Vent. Rate : 72 BPM Atrial Rate : 72 BPM P-R Int : 116 ms QRS Dur : 108 ms QT Int : 442 ms P-R-T Axes : 18 81 44 degrees QTcB Int : 483 ms Normal sinus rhythm Incomplete right bundle branch block Nonspecific ST abnormality Abnormal ECG When compared with ECG of 14-Mar-2024 15:10, Vent. rate has increased by 29 bpm Incomplete right bundle branch block is now Present QT has lengthened Referred By: Marialuisa Sandoval Electronically Signed By: JESSICA PRICE
[2024-09-13 12:03] VITALS: BP 142/80; PULSE 74; RESP 16; TEMP 36.8; O2SAT 96; BMI 27.4
--- NOTE | 2024-09-13 12:03 | ED.URI ---
HPI - URI/Sore Throat General Chief Complaint: Upper Respiratory Symptoms Stated Complaint: Vomiting, Nausea, Chest Pain, Back Pain Time Seen by Provider: 09/13/24 15:01 Source: patient Mode of arrival: ambulatory Limitations: no limitations History of Present Illness ED Provider: LOREE SANTILLAN Narrative: 68 year-old female with PMHx of HTN, HDL, GERD, PUD, asthma presents to the ED due to 2 weeks of cough with increased sputum production, nausea, vomiting and chills. She explains she had a colonoscopy done 2 weeks ago and started experiencing symptoms soon after the procedure. She states she is nauseous but vomiting occurs after bouts of coughing. She has not noticed or checked for any fevers at home. She states her 3 year old grand daughter who is in preschool is sick with a cough and has been ill over the past 2 weeks. Additionally, she is experiencing increased urinary frequency. She denies chest pain, SOB, fever, sore throat, bloody/bilious vomiting, black/bloody stool, diarrhea, or headache. MD elicited complaint: cough Pertinent past history: asthma Onset (ago): week(s) (2 weeks ) Consistency: constant Severity: moderate Description of mucous: other (thick, white ) Able to tolerate fluids by mouth: Yes Exacerbating factors: nothing Relieving factors: nothing Context: sick contacts (3 y.o granddaughter) Associated symptoms: shortness of breath Treatments prior to arrival: none Related Data Previous Rx's ?Medication ?Instructions ?Recorded sumatriptan succinate 50 mg tablet 50 mg PO .QD PRN migraine headache 04/09/20 (Imitrex) #14 tabs isosorbide mononitrate 30 mg 30 mg PO DAILY #90 tabs 04/08/21 tablet,extended release 24 hr ferrous sulfate 324 mg (65 mg 324 mg PO DAILY #90 tabs 10/21/21 iron) tablet,delayed release ascorbate calcium (vitamin C) 500 500 mg PO DAILY #90 tabs 07/16/22 mg tablet loratadine 10 mg tablet 10 mg PO DAILY #90 tabs 11/02/22 bisacodyl 5 mg tablet,delayed 10 mg (2 x 5 mg) PO BEDTIME 2 days 05/31/23 release (Dulcolax (bisacodyl)) #4 tabs naproxen 500 mg tablet 500 mg PO Q8-12H PRN pain (scale 07/11/23 score 4-6) #20 tabs meclizine 25 mg tablet 25 mg PO TID PRN dizziness #30 tabs 10/19/23 hydroxyzine HCl 25 mg tablet 25 mg PO BEDTIME PRN anxiety #10 11/29/23 tabs cholecalciferol (vitamin D3) 50 50 mcg PO DAILY 90 days #90 caps 01/16/24 mcg (2,000 unit) capsule lidocaine 5 % topical patch 1 patch topical DAILY #30 ea 05/09/24 (Lidoderm) sodium,potassium,mag sulfates 17.5 See Rx Instructions PO .COMPLEX 07/25/24 gram-3.13 gram-1.6 gram oral soln #354 mL (Suprep Bowel Prep Kit) amlodipine 10 mg tablet 10 mg PO DAILY #90 tabs 07/26/24 lisinopril 20 1 tab PO BID #60 tabs 07/26/24 mg-hydrochlorothiazide 12.5 mg tablet rosuvastatin 40 mg tablet 40 mg PO DAILY 90 days #90 tabs 07/26/24 sertraline 50 mg tablet 50 mg PO DAILY #90 tabs 07/26/24 albuterol sulfate 90 mcg/actuation 2 puff inhalation Q4-6H PRN 08/22/24 aerosol inhaler shortness of breath or wheezing #6.7 grams cyclobenzaprine 10 mg tablet 10 mg PO TID #90 tabs 08/22/24 omeprazole 40 mg capsule,delayed 40 mg PO BID 30 days #60 caps 08/31/24 release psyllium husk 0.52 gram capsule 0.52 g PO BEDTIME PRN constipation 08/31/24 (Natural Fiber Laxative) #90 caps albuterol sulfate 90 mcg/actuation 2 puff inhalation Q6H PRN 09/13/24 aerosol inhaler shortness of breath or wheezing #6.7 grams amoxicillin 875 mg-potassium 1 tab PO BID 7 days #14 tabs 09/13/24 clavulanate 125 mg tablet doxycycline hyclate 100 mg capsule 100 mg PO BID 7 days #14 caps 09/13/24 prednisone 20 mg tablet 40 mg (2 x 20 mg) PO DAILY 5 days 09/13/24 #10 tabs Allergies Allergy/AdvReac Type Severity Reaction Status Date / Time Iodinated Contrast Media Allergy Unknown SHAKING Verified 09/13/24 12:04 [IV DYE, IODINE CONTAINING CONTRAST ] Review of Systems Review of Systems: Constitutional: No Weight loss, No Fever, + Chills, No Night Sweats, No Fatigue, No Malaise ENT/Mouth: No Hearing loss, No Ear Pain, No Nasal Congestion, No Sinus Pain, No Hoarseness, No sore throat, No Rhinorrhea, No Swallowing Difficulty Eyes: No Eye Pain, No Swelling, No Redness, No Foreign Body, No Discharge, No Vision Changes Cardiovascular: No Chest Pain, No SOB, No Dyspnea on Exertion, No Orthopnea, No Edema, No Palpitations Respiratory: + Cough, + Sputum, + Wheezing, No Smoke Exposure, No Dyspnea Gastrointestinal: + Nausea, + Vomiting, No Diarrhea, No Constipation, No Abdominal pain, No Hematochezia, No Melena Genitourinary: No irregular bleeding, No Dysuria, + Urinary Frequency, No Hematuria, No Urinary Incontinence/retention, No Urgency, No Flank Pain, No Urinary Flow Changes, No Hesitancy Musculoskeletal: No joint pain, No Myalgias, No Joint Swelling Skin: No Skin Lesions, No rash Neuro: No Weakness, No Numbness, No Paresthesias, No Loss of Consciousness, No Dizziness, No Headache Psych: No Anxiety/Panic, No Depression, No SI/HI/AH/VH, No Social Issues, Heme/Lymph: No Bruising, No Bleeding,No Lymphadenopathy Endocrine: No Polyuria, No Polydipsia, No Temperature Intolerance Yes all other systems are reviewed and are negative [facility] Past Medical History Attestation statement: The following information was validated with the patient. Source: old records reviewed Medical History Colon cancer screening Tobacco abuse Pre-op examination Abnormal weight loss Cough Obesity (BMI 30-39.9) Elevated fasting glucose Peptic ulcer disease Dysphagia Nausea and vomiting Diarrhea Lower abdominal pain UTI (urinary tract infection) Dysuria Epigastric pain Annual physical exam Incisional hernia Osteopenia COVID-19 vaccine series completed Generalized anxiety disorder Psoriasis Hypercholesterolemia Coronary artery disease Diverticulitis GERD (gastroesophageal reflux disease) Migraine Leukopenia Hypertension Impaired glucose tolerance Surgical History History of incisional hernia repair (~03/20/24) History of hysterectomy Hx of bladder repair surgery Hx of umbilical hernia repair History of esophagogastroduodenoscopy (EGD) H/O colonoscopy History of pubovaginal sling History of section Family History Family History Father Medical history unknown Mother Myocardial infarction Hypertension CVD (cardiovascular disease) Breast cancer Social History Social History Household Members: Spouse Housing: Apartment Are you a primary memory care program director to a significant other at home: No Do you presently have visiting nurse or other home services: No Alcohol intake: current Alcohol intake frequency: holidays/special occasions only Comment: holiday 1 drink Patient Tobacco Use Status: Never used Tobacco Smoked in Last 30 Days: No e-Cigarette/Vaping Use: Never Used Second Hand Smoke Exposure: No Use of substances other than those prescribed or required for medical reasons: No Substance Use Type: Marijuana Advance Directives: No Advance Directives Information Provided: Yes Do you have a plan to hurt others: No Plan service: No Current occupational status: unemployed Cognitive needs: No Hearing needs: No Vision needs: Yes Physical Exam Vital Signs: Vital Signs: Last Vital Signs Temp 99.7 F 09/13/24 16:33 Pulse 67 09/13/24 16:33 Resp 18 09/13/24 16:33 BP 133/65 09/13/24 16:33 Pulse Ox 94 09/13/24 16:33 O2 Del Method Room Air 09/13/24 16:33 BMI result Body Mass Index 27.4 Appearance: Alert. Oriented X3. No acute distress. Eyes: Pupils equal, round and reactive to light. ENT: Pharynx normal. Neck: Normal inspection. Neck supple. CVS: Normal heart rate and rhythm. Pulses normal. Respiratory: No respiratory distress. Bilateral inspiratory/expiratory wheezing heard at lung bases on auscultation. Abdomen: Soft and non-distended, epigastric tenderness to palpation. +BS x4 Skin: Skin warm and dry. Normal skin color. Normal skin turgor. No rashes. Extremities: No lower extremity edema. Neuro: Oriented X 3. No motor deficit. No sensory deficit. CN II-XII intact. Course Course Course Narrative: This is a Rapid Medical Exam performed in triage by Marialuisa Sandoval PA-C. Full HPI, ROS and PE to be performed by primary ED provider. 68 yo F w/PMHx asthma, GERD, CAD, HLD presenting to the ED c/o cough, chills, SOB, diarrhea, back pain, CEDILLO x1.5wks. denies CP. +sick contacts PE: talking in complete sentences, nontoxic appearing, lungs w/coarse sounds/exp wheeze w/cough Plan: EKG, SARs, CXR, ED bronch protocol Medications Administered Discontinued Medications Generic Name Dose Route Start Last Admin Trade Name Will PRN Reason Stop Dose Admin Acetaminophen 975 mg 09/13/24 17:04 09/13/24 17:11 Acetaminophen 325 Mg Tablet PO 09/13/24 17:05 975 mg ONCE ONE Administration Albuterol/Ipratropium 3 ml 09/13/24 14:39 09/13/24 14:41 Albuterol/Iprat 2.5/0.5mg 3 Ml Ampul.Neb INHALE 09/13/24 14:40 3 ml ONCE ONE Administration Medical Decision Making Medical Decision Making MDM Narrative: 68 year-old female with PMHx of HTN, HDL, GERD, PUD, asthma presents to the ED due to 2 weeks of cough with increased sputum production, SOB, nausea, vomiting and chills. She explains she had a colonoscopy done 2 weeks ago and started experiencing symptoms soon after the procedure. She states she is nauseous but vomiting occurs after bouts of coughing. She has not noticed or checked for any fevers at home. She states her 3 year old grand daughter who is in preschool is sick with a cough and has been ill over the past 2 weeks. Additionally, she is experiencing increased urinary frequency. She denies chest pain, fever, sore throat, bloody/bilious vomiting, black/bloody stool, diarrhea, or headache. Patients vital signs are stable with elevated BP of 142/80. She is stable, in no acute distress and is non-toxic appearing. She received asthma uptake treatment and states SOB has improved after treatment. On physical exam bilateral inspiratory and expiratory wheezing from lung bases appreciated on auscultation. Will obtain EKG and troponin to rule out ACS. Chest X-ray revealed no consolidations, infiltrates, or cardiopulmonary abnormalities. Covid/flu/RSV swabs negative. Lipase within normal limits with no electrolyte abnormalities observed. No evidence of MITCHELL. At this time patients symptoms are likely from viral process. Course: Labs returned, she has no leukocytosis, stable H&H, chemistry with no significant electrolyte derangement. Troponin 9.4, she has no chest pain, EKG normal sinus rhythm at a ventricular rate of 72 beats per minute, VA interval 116, QT QTC 442/483 no STEMI present urine does not appear to be infected. Negative COVID, flu, RSV, and strep. Chest x-ray revealing no acute pulmonary disease. Will await repeat troponin. Patient remained stable, comfortable, reporting some body aches therefore was medicated with Tylenol 1 g p.o.. 1809 - troponin negative. Discussed overall workup today with patient. Will start her on Augmentin and doxycycline given recent colonoscopy cover for possible early pneumonia. Will also give prednisone and inhaler as needed. Given strict return precautions. They understand and agree with plan, please seek emergent care. Differential Diagnosis Differential Diagnoses: The differential diagnosis associated with the presentation includes ACS, viral illness, asthma exacerbation, pneumonia, Lab Data [facility] Lab Attestation statement: I reviewed the patient's lab results. See [facility] 09/13/24 14:53 09/13/24 14:53 Labs: Lab Results 09/13/24 09/13/24 09/13/24 Range/Units 12:18 14:53 16:20 WBC 7.0 (4.8-10.8) X10*3/uL RBC 4.23 (4.20-5.50) X10*6/uL Hgb 12.7 (12.0-16.0) g/dl Hct 37.1 (37.0-47.0) % MCV 87.7 (80.0-98.0) fL MCH 30.0 (27.0-33.0) pg MCHC 34.2 (31.0-35.0) g/dl RDW 12.9 (11.0-16.0) % Plt Count 201 (160-400) X10*3/uL MPV 10.5 (9.4-12.3) fL Immature Gran % (Auto) 0.1 (0.0-0.4) % Neut % (Auto) 77.0 H (45-73) % Lymph % (Auto) 15.1 L (20-40) % [place] % (Auto) 7.4 (2-11) % Eos % (Auto) 0.1 (0-4) % Baso % (Auto) 0.3 (0-2) % Lymph # (Auto) 1.1 L (1.2-4.9) X10*3/uL [place] # (Auto) 0.5 (0.1-1.2) X10*3/uL Eos # (Auto) 0.0 (0.0-0.4) X10*3/uL Baso # (Auto) 0.0 (0.0-0.2) X10*3/uL Abs Immat Gran (auto) 0.01 (0.00-0.03) X10*3/uL Absolute Neuts (auto) 5.4 (2.0-8.3) x10*3/uL Absolute Nucleated RBC 0.000 (0.0-0.012) X10*3/uL Nucleated RBC % (auto) 0.0 (0.0-0.2) /100WBC Sodium 140 (135-145) mmol/L Potassium 3.5 (3.3-5.1) mmol/L Chloride 105 (96-108) mmol/L Carbon Dioxide 25 (22-29) mmol/L Anion Gap 14 (12-20) BUN 18 H (9-16) mg/dL Creatinine 0.98 (0.5-1.4) mg/dL Estim Creat Clear Calc 50.3 Estimated GFR 57 Random Glucose 101 (60-115) mg/dL Calcium 9.3 (8.4-10.2) mg/dL Total Bilirubin 0.5 (0.0-1.0) mg/dL Direct Bilirubin 0.1 (0.0-0.5) mg/dL AST 27 (5-31) U/L ALT 14 (0-31) U/L Alkaline Phosphatase 82 (39-117) U/L Troponin I High Sens (<3.5-17.0) ng/L Troponin I Hi Sens Base 9.4 (<3.5-17.0) ng/L Troponin I Hi Sens 2 Hr (<3.5-17.0) ng/L B-Natriuretic Peptide 99 (<100) pg/mL Total Protein 7.2 (6.5-8.0) g/dL Albumin 4.1 (3.5-5.0) g/dL Lipase 11 (8-78) U/L Urine Color Dark Yellow Urine Appearance Clear Urine pH 5.5 (5.0-9.0) Ur Specific [place] >= 1.030 H (1.005-1.025) Urine Protein 300 (3+) H (Neg-Trace) mg/dL Urine Glucose (UA) Negative (Negative) mg/dL Urine Ketones 15 (Negative) mg/dL Urine Blood Trace H (Negative) Urine Nitrite Negative (Negative) Ur Leukocyte Esterase Negative (Negative) Urine RBC 0-2 (0-2) /HPF Urine WBC 0-5 (0-5) /HPF Ur Squamous Epith Cells 6-10 (0-2) /HPF Calcium Oxalate Crystal Present Urine Bacteria None Seen (None Seen) Hyaline Casts 3-5 (0-2) /LPF Influenza Type A (PCR) NEGATIVE (Negative) Influenza Type B (PCR) NEGATIVE (Negative) RSV RNA Qual (PCR) NEGATIVE (Negative) SARS-CoV-2 RNA (RT-PCR) NEGATIVE (Negative) S. pyogenes GrpA JEANETTE Negative (Negative) 09/13/24 Range/Units 17:39 WBC (4.8-10.8) X10*3/uL RBC (4.20-5.50) X10*6/uL Hgb (12.0-16.0) g/dl Hct (37.0-47.0) % MCV (80.0-98.0) fL MCH (27.0-33.0) pg MCHC (31.0-35.0) g/dl RDW (11.0-16.0) % Plt Count (160-400) X10*3/uL MPV (9.4-12.3) fL Immature Gran % (Auto) (0.0-0.4) % Neut % (Auto) (45-73) % Lymph % (Auto) (20-40) % [place] % (Auto) (2-11) % Eos % (Auto) (0-4) % Baso % (Auto) (0-2) % Lymph # (Auto) (1.2-4.9) X10*3/uL [place] # (Auto) (0.1-1.2) X10*3/uL Eos # (Auto) (0.0-0.4) X10*3/uL Baso # (Auto) (0.0-0.2) X10*3/uL Abs Immat Gran (auto) (0.00-0.03) X10*3/uL Absolute Neuts (auto) (2.0-8.3) x10*3/uL Absolute Nucleated RBC (0.0-0.012) X10*3/uL Nucleated RBC % (auto) (0.0-0.2) /100WBC Sodium (135-145) mmol/L Potassium (3.3-5.1) mmol/L Chloride (96-108) mmol/L Carbon Dioxide (22-29) mmol/L Anion Gap (12-20) BUN (9-16) mg/dL Creatinine (0.5-1.4) mg/dL Estim Creat Clear Calc Estimated GFR Random Glucose (60-115) mg/dL Calcium (8.4-10.2) mg/dL Total Bilirubin (0.0-1.0) mg/dL Direct Bilirubin (0.0-0.5) mg/dL AST (5-31) U/L ALT (0-31) U/L Alkaline Phosphatase (39-117) U/L Troponin I High Sens 8.7 D (<3.5-17.0) ng/L Troponin I Hi Sens Base (<3.5-17.0) ng/L Troponin I Hi Sens 2 Hr 8.3 (<3.5-17.0) ng/L B-Natriuretic Peptide (<100) pg/mL Total Protein (6.5-8.0) g/dL Albumin (3.5-5.0) g/dL Lipase (8-78) U/L Urine Color Urine Appearance Urine pH (5.0-9.0) Ur Specific [place] (1.005-1.025) Urine Protein (Neg-Trace) mg/dL Urine Glucose (UA) (Negative) mg/dL Urine Ketones (Negative) mg/dL Urine Blood (Negative) Urine Nitrite (Negative) Ur Leukocyte Esterase (Negative) Urine RBC (0-2) /HPF Urine WBC (0-5) /HPF Ur Squamous Epith Cells (0-2) /HPF Calcium Oxalate Crystal Urine Bacteria (None Seen) Hyaline Casts (0-2) /LPF Influenza Type A (PCR) (Negative) Influenza Type B (PCR) (Negative) RSV RNA Qual (PCR) (Negative) SARS-CoV-2 RNA (RT-PCR) (Negative) S. pyogenes GrpA JEANETTE (Negative) Independent Interpretation I performed an independent interpretation of an: EKG Interpretation: EKG normal sinus rhythm at a ventricular rate of 72 beats per minute, no STEMI. QT QTC 442/483 Radiology Impression Discussion of test interpretation with radiology: I have reviewed the radiologist's reading. Radiologist Impression: FINDINGS: The cardiac, hilar, and mediastinal contours are normal. The lungs are clear bilaterally. There is no pneumothorax or pleural effusion. There is no focal osseous or soft tissue abnormality. XR/XR chest 2V IMPRESSION: No active pulmonary disease. Electronically signed by: Alden Blackwell MD 09/13/2024 12:52 PM EDT RP Dictated By: Alden Blackwell MD Discharge Plan Discharge Clinical Impression: Acute upper respiratory infection Patient Disposition: Home, Self-Care Instructions: Asthma (DC), Viral Syndrome (ED) Additional Instructions: You were evaluated in the ED today due to cough with increased sputum, shortness of breath, nausea, and vomiting. Your lab work and EKG were reassuring. Your chest X-ray was normal. Your Covid/flu/RSV swabs were negative. Although these were negative there are many other viruses that could be causing your symptoms. Your shortness of breath improved after completing a breathing treatment which is reassuring. Please continue to use our albuterol inhaler at home when experiencing shortness of breath and wheezing to alleviate your symptoms. I am starting you on a course of prednisone, this is a steroid that can help decrease the inflammation in your lungs. I am also starting you on 2 different antibiotics given your recent colonoscopy, please take Augmentin twice a day and doxycycline twice a day. Finish the entire course even if your symptoms improve. Please follow up with your PCP to ensure your improvement of symptoms. Drink plenty of fluids and stay hydrated. Please return to the ED with worsening symptoms, difficulty breathing, palpitations or any other new symptoms or concerns. Prescriptions: New amoxicillin-pot clavulanate 875-125 mg tablet 1 tab PO BID 7 Days Qty: 14 0RF doxycycline hyclate 100 mg capsule 100 mg PO BID 7 Days Qty: 14 0RF prednisone 20 mg tablet 40 mg PO DAILY 5 Days Qty: 10 0RF albuterol sulfate 90 mcg/actuation HFA aerosol inhaler 2 puff inhalation Q6H PRN (Reason: shortness of breath or wheezing) Qty: 6.7 0RF No Action isosorbide mononitrate 30 mg tablet extended release 24 hr 30 mg PO DAILY Qty: 90 0RF Rx Instructions: Must call and schedule an appt for refills ferrous sulfate 324 mg (65 mg iron) tablet,delayed release (DR/EC) 324 mg PO DAILY Qty: 90 2RF ascorbate calcium (vitamin C) 500 mg tablet 500 mg PO DAILY Qty: 90 3RF cholecalciferol (vitamin D3) 50 mcg (2,000 unit) capsule 50 mcg PO DAILY 90 Days Qty: 90 3RF cyclobenzaprine 10 mg tablet 10 mg PO TID Qty: 90 0RF albuterol sulfate 90 mcg/actuation HFA aerosol inhaler 2 puff inhalation Q4-6H PRN (Reason: shortness of breath or wheezing) Qty: 6.7 0RF naproxen 500 mg tablet 500 mg PO Q8-12H PRN (Reason: pain (scale score 4-6)) Qty: 20 0RF hydroxyzine HCl 25 mg tablet 25 mg PO BEDTIME PRN (Reason: anxiety) Qty: 10 0RF lidocaine [Lidoderm] 5 % adhesive patch,medicated 1 patch topical DAILY Qty: 30 0RF Rx Instructions: leave on most painful area for up to 12 hrs meclizine 25 mg tablet 25 mg PO TID PRN (Reason: dizziness) Qty: 30 0RF sumatriptan succinate [Imitrex] 50 mg tablet 50 mg PO .QD PRN (Reason: migraine headache) Qty: 14 6RF Rx Instructions: do not exceed 4 doses per 24 hrs loratadine 10 mg tablet 10 mg PO DAILY Qty: 90 1RF omeprazole 40 mg capsule,delayed release(DR/EC) 40 mg PO BID 30 Days Qty: 60 3RF psyllium husk [Natural Fiber Laxative] 0.52 gram capsule 0.52 g PO BEDTIME PRN (Reason: constipation) Qty: 90 3RF sodium,potassium,mag sulfates [Suprep Bowel Prep Kit] 17.5-3.13-1.6 gram recon soln See Rx Instructions PO .COMPLEX Qty: 354 0RF Rx Instructions: DILUTE; drink full amount early evening before AND next morning at least 2 hr before procedure; follow w 960 mL water PO bisacodyl [Dulcolax (bisacodyl)] 5 mg tablet,delayed release (DR/EC) 10 mg PO BEDTIME 2 Days Qty: 4 0RF amlodipine 10 mg tablet 10 mg PO DAILY Qty: 90 1RF lisinopril-hydrochlorothiazide 20-12.5 mg tablet 1 tab PO BID Qty: 60 2RF rosuvastatin 40 mg tablet 40 mg PO DAILY 90 Days Qty: 90 2RF sertraline 50 mg tablet 50 mg PO DAILY Qty: 90 1RF Print Language: Congolese
[2024-09-13 12:33] LABS: IDNOW Serial# 55D5AD1C; Strep A Nucleic Acid Negative (Negative)
[2024-09-13 13:02] LABS: Influenza A PCR NEGATIVE (Negative); Influenza B PCR NEGATIVE (Negative); Resp Syncy Virus RNA Qual PCR NEGATIVE (Negative); SARS COV2 PCR INHOUSE NEGATIVE (Negative)
[2024-09-13 14:40] VITALS: PULSE 68; RESP 20; O2SAT 97
[2024-09-13] MEDS: Albuterol/Iprat 2.5/0.5MG 3 ML AMPUL.NEB INHALE (14:41)
[2024-09-13 14:59] LABS: MANUAL DIFF FLAG NO
[2024-09-13 15:29] LABS: Troponin-I High Sens Reflx 2hr 9.4 ng/L (<3.5-17.0)
[2024-09-13 15:31] LABS: Alanine Aminotransferase 14 U/L (0-31); Albumin Level 4.1 g/dL (3.5-5.0); Alkaline Phosphatase 82 U/L (39-117); Anion Gap 14 (12-20); Aspartate Amino Transferase 27 U/L (5-31); Bilirubin Direct 0.1 mg/dL (0.0-0.5); Bilirubin Total 0.5 mg/dL (0.0-1.0); Blood Urea Nitrogen 18 mg/dL (9-16); Calcium 9.3 mg/dL (8.4-10.2); Carbon Dioxide 25 mmol/L (22-29); Chloride 105 mmol/L (96-108); Creatinine Clr Calc Pharmacy 50.3; Estimated Glomerular Filt Rate 57; Glucose Random 101 mg/dL (60-115); Lipase 11 U/L (8-78); Potassium 3.5 mmol/L (3.3-5.1); Sodium 140 mmol/L (135-145); Total Protein 7.2 g/dL (6.5-8.0)
[2024-09-13 15:42] LABS: B Type Natriuretic Peptide 99 pg/mL (<100)
[2024-09-13 15:47] VITALS: O2SAT 95
[2024-09-13 16:31] LABS: Appearance Urine Clear; Color Urine Dark Yellow; Glucose Urine UA Negative (Negative); Leukocyte Esterase Urine Negative (Negative); Nitrite Urine Negative (Negative); PH 5.5 (5.0-9.0); Specific Gravity - Urine >= 1.030 (1.005-1.025); UMIC TRIGGER UACC YES; Urine Blood Trace (Negative); Urine Ketones 15 mg/dL (Negative); Urine Protein 300 (3+) mg/dL (Neg-Trace)
[2024-09-13 16:33] VITALS: BP 133/65; PULSE 67; RESP 18; TEMP 37.6; O2SAT 94
[2024-09-13 16:47] LABS: Bacteria Urine None Seen (None Seen); Calcium Oxalate Crystals Urine Present; RBC Urine 0-2 /HPF (0-2); WBC Urine 0-5 /HPF (0-5)
[2024-09-13 16:57] LABS: Reflex Trop? Y
[2024-09-13 16:59] LABS: Basophils Percent Auto 0.3 % (0-2); Eosinophils Percent Auto 0.1 % (0-4); Hematocrit 37.1 % (37.0-47.0); Hemoglobin 12.7 g/dl (12.0-16.0); Imm Gran Abs Auto 0.01 X10*3/uL (0.00-0.03); Imm Gran Pct Auto 0.1 % (0.0-0.4); Lymphocytes Absolute Auto 1.1 X10*3/uL (1.2-4.9); Lymphocytes Percent Auto 15.1 % (20-40); Mean Corpuscular HGB Conc 34.2 g/dl (31.0-35.0); Mean Corpuscular Volume 87.7 fL (80.0-98.0); Mean Platelet Volume 10.5 fL (9.4-12.3); Monocytes Absolute Auto 0.5 X10*3/uL (0.1-1.2); Monocytes Percent Auto 7.4 % (2-11); Neutrophils Absolute Auto 5.4 x10*3/uL (2.0-8.3); Platelet Count 201 X10*3/uL (160-400); Red Blood Count 4.23 X10*6/uL (4.20-5.50); Red Cell Distribution Width 12.9 % (11.0-16.0)
[2024-09-13] MEDS: Acetaminophen 325 MG TABLET 975 MG PO (17:11)
[2024-09-13 18:03] LABS: zTroponin-I High Sen Reflex #2 8.3 ng/L (<3.5-17.0)
[2024-09-13 18:04] LABS: Troponin-I High Sensitivity 8.7 ng/L (<3.5-17.0)
[2024-09-13 18:17] VITALS: BP 133/65; PULSE 67; RESP 18; TEMP 37.6; O2SAT 94
== END 2024-09-13 18:17 | disposition home or self-care (01) ==
PROVIDERS: Physician Assistant; Physician Assistant Medical; Student in an Organized Health Care Education/Training Program; Emergency Provider Emergency Medicine; PCP Internal Medicine
DX: J06.9 Acute upper respiratory infection, unspecified (principal); R05.9 Cough, unspecified; R06.02 Shortness of breath; I10 Essential (primary) hypertension; E78.5 Hyperlipidemia, unspecified; Z03.818 Encounter for observation for suspected exposure to other biological agents ruled out; J45.909 Unspecified asthma, uncomplicated; Z79.899 Other long term (current) drug therapy
CPT/HCPCS: 0241U; 36415; 71046; 80048; 80076; 81001; 83690; 83880; 84484; 85025; 87651; 93005; 94640; 99284; 99285

== ENCOUNTER → 2024-09-13 12:01 | Outpatient (BNV) | payer OTHER, SELFPAY | PROVIDERS: Emergency Provider Emergency Medicine; PCP Internal Medicine; Visit Provider Internal Medicine | DX: I45.10 Unspecified right bundle-branch block (principal) | CPT/HCPCS: 93010 ==

== ENCOUNTER → 2024-09-13 12:06 | Outpatient (BNV) | payer OTHER, SELFPAY | PROVIDERS: PCP Internal Medicine; Visit Provider Radiology Diagnostic Radiology | DX: R05.9 Cough, unspecified (principal); R06.02 Shortness of breath | CPT/HCPCS: 71046 ==

== ENCOUNTER 2024-09-19 09:17 | Outpatient (AMB) | payer OTHER, SELFPAY ==
[2024-09-19 09:51] VITALS: BP 124/71; PULSE 65
--- NOTE | 2024-09-19 09:51 | MHC.OFFVIS ---
Vital Signs 09/19/24 09:51 Weight 149 lb BP 124/71 Blood Pressure Location Rt brachial Position Sitting Pulse 65 Intake Visit Reasons: S/P colonoscopy Intake Note: Patient here s/p Colonoscopy screening on 09-04-2024. Reports procedure went well. Would like to know about polyps removed. 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: No Accompanied by: Self / Same As Patient Allergies Iodinated Contrast Media [IV DYE, IODINE CONTAINING CONTRAST ] Allergy (Unknown, Verified 09/19/24 09:52) SHAKING Medication List - Last Reconciled 09/19/24 by Jay Vasquez MD albuterol sulfate 90 mcg/actuation 2 puffs inhalation Q6H PRN albuterol sulfate 90 mcg/actuation 2 puffs inhalation Q4-6H PRN amlodipine 10 mg PO DAILY ascorbate calcium (vitamin C) 500 mg PO DAILY bisacodyl (Dulcolax (bisacodyl)) 10 mg (2 x 5 mg) PO BEDTIME 2 days cholecalciferol (vitamin D3) 50 mcg PO DAILY 90 days cyclobenzaprine 10 mg PO TID ferrous sulfate 324 mg PO DAILY hydroxyzine HCl 25 mg PO BEDTIME PRN isosorbide mononitrate ER 30 mg PO DAILY lidocaine 5% (Lidoderm) 1 patch topical DAILY lisinopril-hydrochlorothiazide 20-12.5 mg 1 tab PO BID loratadine 10 mg PO DAILY meclizine 25 mg PO TID PRN naproxen 500 mg PO Q8-12H PRN omeprazole 40 mg PO BID 30 days prednisone 40 mg (2 x 20 mg) PO DAILY 5 days psyllium husk (Natural Fiber Laxative) 0.52 grams PO BEDTIME PRN rosuvastatin 40 mg PO DAILY 90 days sertraline 50 mg PO DAILY sodium,potassium,mag sulfates 17.5-3.13-1.6 gram (Suprep Bowel Prep Kit) DILUTE; drink full amount early evening before AND next morning at least 2 hr before procedure; follow w 960 mL water PO sumatriptan succinate (Imitrex) 50 mg PO .QD PRN HPI HPI S/P colonoscopy: Details: She had undergone colonoscopy for screening last September 07, 2024. She tolerated the procedure well. She currently denies significant complaints. [facility] Medical History (Updated 09/19/24 @ 10:06 by Jay Vasquez MD) Hyperplastic colon polyp Colon cancer screening Tobacco abuse Pre-op examination Abnormal weight loss Cough Obesity (BMI 30-39.9) Elevated fasting glucose Peptic ulcer disease Dysphagia Nausea and vomiting Diarrhea Lower abdominal pain UTI (urinary tract infection) Dysuria Epigastric pain Annual physical exam Incisional hernia Osteopenia COVID-19 vaccine series completed Generalized anxiety disorder Psoriasis Hypercholesterolemia Coronary artery disease Diverticulitis GERD (gastroesophageal reflux disease) Migraine Leukopenia Hypertension Impaired glucose tolerance Surgical History History of colonoscopy (09/04/24) History of incisional hernia repair (~03/20/24) History of hysterectomy Hx of bladder repair surgery Hx of umbilical hernia repair History of esophagogastroduodenoscopy (EGD) H/O colonoscopy History of pubovaginal sling History of section Family History Father Medical history unknown Mother Myocardial infarction Hypertension CVD (cardiovascular disease) Breast cancer Social History Household Members: Spouse Housing: Apartment Are you a primary student career development specialist to a significant other at home: No Do you presently have visiting nurse or other home services: No Alcohol intake: current Alcohol intake frequency: holidays/special occasions only Comment: holiday 1 drink Patient Tobacco Use Status: Never used Tobacco e-Cigarette/Vaping Use: Never Used Second Hand Smoke Exposure: No Substance Use Type: Marijuana service: No Current occupational status: unemployed Cognitive needs: No Hearing needs: No Vision needs: Yes Female Reproductive History Menstrual Age of Menarche: 14 Review of Systems Const Denies chills and Denies fever(s) Card Denies chest pain Resp Denies cough GI Denies abdominal pain Physical Exam Vital Signs: Last Vital Signs Pulse 65 09/19/24 09:51 BP 124/71 09/19/24 09:51 Const General: comfortable and no acute distress Resp Effort & Inspection: normal respiratory effort GI Palpation (GI): Soft to palpation, not firm and nontender Assessment & Plan Assessment & Plan (1) Hyperplastic colon polyp: Code(s): K63.5 - Polyp of colon Category: Medical Plan: Status post colonoscopy. I removed 2 small polyps. The polyp at level 50 cm showed lymphoid aggregates. The polyp in the rectum was hyperplastic. These are non precancerous lesions. I therefore told her that we can repeat her colonoscopy before the age of 76. She understands the plan well. She can follow up in the office on a p.r.n. basis. Coding Level of Care Code Est Pt Level 2 (24289) Diagnoses Hyperplastic colon polyp K63.5
== END 2024-09-19 10:04 | disposition home or self-care (01) ==
LOC: HO.HGS 09:18
PROVIDERS: PCP Internal Medicine; Visit Provider Surgery
DX: K63.5 Polyp of colon (principal)
CPT/HCPCS: 99212

== ENCOUNTER → 2024-09-19 09:17 | Outpatient (BNVA) | payer OTHER, SELFPAY | PROVIDERS: PCP Internal Medicine; Visit Provider Surgery | DX: K63.5 Polyp of colon (principal) | CPT/HCPCS: 99212 ==

== ENCOUNTER 2024-09-20 08:56 | Outpatient (AMB) | payer OTHER, SELFPAY ==
[2024-09-20 09:39] VITALS: BP 132/72; PULSE 66; O2SAT 96; BMI 27.2
--- NOTE | 2024-09-20 09:39 | MHC.PC.OV ---
Vital Signs 09/20/24 09:39 Height 5 ft 2 in Weight 149 lb BMI 27.2 BP 132/72 Blood Pressure Location Lt brachial Position Sitting Pulse 66 Pulse Source Pulse Oximeter Pulse Oximetry (%) 96 Oxygen Delivery Method Room Air Intake Visit Reasons: [facility] [place] 09/09 Pneumonia Allergies Iodinated Contrast Media [IV DYE, IODINE CONTAINING CONTRAST ] Allergy (Unknown, Verified 09/20/24 09:48) SHAKING Medication List - Last Reconciled 09/20/24 by Kylah Brown PA-C albuterol sulfate 90 mcg/actuation 2 puffs inhalation Q6H PRN albuterol sulfate 90 mcg/actuation 2 puffs inhalation Q4-6H PRN amlodipine 10 mg PO DAILY ascorbate calcium (vitamin C) 500 mg PO DAILY bisacodyl (Dulcolax (bisacodyl)) 10 mg (2 x 5 mg) PO BEDTIME 2 days cholecalciferol (vitamin D3) 50 mcg PO DAILY 90 days cyclobenzaprine 10 mg PO TID ferrous sulfate 324 mg PO DAILY hydroxyzine HCl 25 mg PO BEDTIME PRN isosorbide mononitrate ER 30 mg PO DAILY lidocaine 5% (Lidoderm) 1 patch topical DAILY lisinopril-hydrochlorothiazide 20-12.5 mg 1 tab PO BID loratadine 10 mg PO DAILY meclizine 25 mg PO TID PRN naproxen 500 mg PO Q8-12H PRN omeprazole 40 mg PO BID 30 days psyllium husk (Natural Fiber Laxative) 0.52 grams PO BEDTIME PRN rosuvastatin 40 mg PO DAILY 90 days sertraline 50 mg PO DAILY sodium,potassium,mag sulfates 17.5-3.13-1.6 gram (Suprep Bowel Prep Kit) DILUTE; drink full amount early evening before AND next morning at least 2 hr before procedure; follow w 960 mL water PO sumatriptan succinate (Imitrex) 50 mg PO .QD PRN Tobacco use date assessed: 09/20/24 Fall risk assessment: No Falls in past year Last assessed Fall Risk: 09/20/24 Dental Screening Dental Screen Date: 09/20/24 Did you have a dental visit in the last 12 months?: Yes Did you have a dental problem in the last 6 months where you did not have access to dental care?: No Was dental information given to patient?: Patient has dentist [facility] 09/09 Pneumonia HPI Details The patient is a 68-year-old female presenting for a follow-up visit from the emergency department after she visited due to 2 weeks of a cough and was diagnosed with upper respiratory infection. She was sent home with albuterol inhaler, prednisone and 2 antibiotics which included Augmentin and doxycycline which she has completed. She reports she continues to have the cough worse at night. She denies any fevers, chills, chest pain, shortness of breath, dyspnea on exertion, orthopnea, leg swelling or calf tenderness, recent travel or any other symptoms related to this. She is requesting an inhaler. Reports smoking history of at least 15 years with 2 packs a day. Reports she has not seen pulmonology in the past. The patient reports this all started after she had a colonoscopy 2 weeks prior to the emergency department visit when she started having symptoms and she believes this is where she obtain the upper respiratory infection. When she was in emergency department she had a chest x-ray which was negative for pneumonia. She had negative COVID/RSV/flu swab. The patient has a history of previous smoking habit, which ended about 42 years ago but started at age 17. COPD was discussed as a consideration due to this history. A follow-up chest x-ray is warranted to reassess her condition. Social History - Past smoker: Initiated smoking at age 17, ceased approximately 42 years ago. - Former heavy smoker: History of smoking for about 15 years. - status unaffected: Re- post habitat change. - Family activities influenced: Engaged in cultural activities, which includes frequent familial travels. - Bilingual proficiency: Mongolian-speaking background affecting care understanding and response. [facility] Medical History (Updated 09/20/24 @ 10:14 by Kylah Brown PA-C) Upper respiratory infection COPD (chronic obstructive pulmonary disease) History of recent pneumonia Hyperplastic colon polyp Colon cancer screening Tobacco abuse Pre-op examination Abnormal weight loss Cough Obesity (BMI 30-39.9) Elevated fasting glucose Peptic ulcer disease Dysphagia Nausea and vomiting Diarrhea Lower abdominal pain UTI (urinary tract infection) Dysuria Epigastric pain Annual physical exam Incisional hernia Osteopenia COVID-19 vaccine series completed Generalized anxiety disorder Psoriasis Hypercholesterolemia Coronary artery disease Diverticulitis GERD (gastroesophageal reflux disease) Migraine Leukopenia Hypertension Impaired glucose tolerance Surgical History History of colonoscopy (09/04/24) History of incisional hernia repair (~03/20/24) History of hysterectomy Hx of bladder repair surgery Hx of umbilical hernia repair History of esophagogastroduodenoscopy (EGD) H/O colonoscopy History of pubovaginal sling History of section Family History Father Medical history unknown Mother Myocardial infarction Hypertension CVD (cardiovascular disease) Breast cancer Social History Household Members: Spouse Housing: Apartment Are you a primary chiropractic care to a significant other at home: No Do you presently have visiting nurse or other home services: No Alcohol intake: current Alcohol intake frequency: holidays/special occasions only Comment: holiday 1 drink Patient Tobacco Use Status: Never used Tobacco Tobacco use type: Cigarette e-Cigarette/Vaping Use: Never Used Second Hand Smoke Exposure: No Substance Use Type: Marijuana service: No Current occupational status: unemployed Cognitive needs: No Hearing needs: No Vision needs: Yes Female Reproductive History Menstrual Age of Menarche: 14 Questionnaire PHQ-9 Over the last 2 weeks, how often have you been bothered by any of the following problems? 1. Little interest or pleasure in doing things: several days 2. Feeling down, depressed, or hopeless: several days 3. Trouble falling or staying asleep, or sleeping too much: not at all 4. Feeling tired or having little energy: not at all 5. Poor appetite or overeating: not at all 6. Feeling bad about yourself - or that you are a failure or have let yourself or your family down: not at all 7. Trouble concentrating on things, such as reading the newspaper or watching television: not at all 8. Moving or speaking so slowly that other people could have noticed. Or the opposite - being so fidgety or restless that you have been moving around a lot more than usual: not at all 9. Thoughts that you would be better off or of hurting yourself in some way: not at all Total score: 2 Depression Screening Interpretation: Positive Depression Screening Follow-up: Existing condition and In treatment Depression Screening Done: Yes 52514 - PHQ-9 Billing: Yes Source: Developed by Drs. Michael Owens, Ijeoma Blake, Asif Stack and colleagues, with an educational robby from [employer]. Thrive Questionnaire Date Thrive assessed: 09/20/24 I am a: Patient What is your living situation today?: I have a steady place to live Within the past 12 months, did the food you bought not last and you didn't have the money to get more?: Never true Within the past 12 months, did you worry whether your food would run out before you got money to buy more?: Never true Do you have trouble paying for medicines?: No Do you have trouble getting transportation to medical appointments?: No Do you have trouble paying your heating and electricity bill?: No Do you have trouble taking care of your child, family member or friend?: No Do you have trouble with day-to-day activities such as bathing, preparing meals, shopping, managing finances, etc.?: No Are you currently unemployed and looking for a job?: No Are you interested in more education?: No Please select the resources that you would like help with: None Currently or been in a relationship where the following occur: No concerns reported THRIVE Score: 0 AUDIT C Alcohol Use Questionnaire (AUDIT-C) 1. How often do you have a drink containing alcohol?: Monthly or less 2. How many drinks containing alcohol do you have on a typical day when you are drinking?: 1 or 2 3. How often do you have six or more drinks on one occasion?: Never Total Score: 1 Score Reviewed/Action Taken: No LAUREN-7 AMB Questionnaire LAUREN-7 Date LAUREN - 7 assessed: 09/20/24 Feeling nervous, anxious, or on edge: 0 = Not at all Not being able to stop or control worryin = Not at all Worrying too much about different things: 0 = Not at all Trouble relaxin = Not at all Being so restless that it is hard to sit still: 0 = Not at all Becoming easily annoyed or irritable: 0 = Not at all Feeling afraid as if something awful might happen: 0 = Not at all Total LAUREN-7 score (0-4 normal; 5-9 mild; 10-14 moderate; 15-21 severe): 0 Source: Developed by Drs. Michael Owens, Ijeoma Blake, Asif Stack and colleagues, with an educational robby from [employer]. LAUREN-7 Assessment Billing LAUREN-7 Assessment Tool: LAUREN-7 Assessment 92700 Review of Systems Const Details: - Respiratory: Reports chronic cough persisting over two weeks, exacerbated at night. Denies fever now but had episodes of sweating heavily a day prior. - No reported fever at current, prior occurrence of sweats last night. Physical exam (Primary Care) Vital Signs: Last Vital Signs Pulse 66 09/20/24 09:39 BP 132/72 09/20/24 09:39 Pulse Ox 96 09/20/24 09:39 Oxygen Delivery Method Room Air 09/20/24 09:39 Care Plan Goal for BP management: <130/90 at Goal BMI result Body Mass Index 27.2 Tobacco/Smoking Status: Tobacco use Status Tobacco use date assessed 09/20/24 09/20/24 09:44 Patient Tobacco Use Status Never used Tobacco 09/20/24 09:44 Tobacco use type Cigarette 09/20/24 09:44 e-Cigarette/Vaping Use Never Used 09/20/24 09:44 PHQ-9: PHQ-9 Score PHQ-9: Total score 2 09/20/24 09:44 Depression Screening Interpretation: Positive Depression Screening Follow-up: Existing condition and In treatment Thrive Assessment: Date of Thrive Assessment Date Thrive assessed 09/20/24 09/20/24 09:44 Currently or been in a relationship where the following occur: No concerns reported Const Other: Appearance: Alert. Oriented X3. No acute distress. Head: Normal external exam. Normocephalic. Atraumatic. Eyes: Pupils are equal, round, and reactive to light. Extraocular movements intact. Conjunctiva and sclera normal. Eyelids normal. Ears: External auditory canal normal. Tympanic membranes normal. Throat: Pharynx normal. Uvula midline. Moist mucous membranes. Neck: Normal inspection. Neck supple. Full range of motion. Cardiovascular: Normal heart rate and rhythm. Heart sound normal. Murmur noted. Pulses normal throughout. Respiratory: No respiratory distress. Painless inspiration. Breath sounds normal. No wheezes/rales/rhonchi noted. Chest nontender. No accessory muscle usage noted or decreased air movement noted. Back: Full range of motion noted. Skin: Skin warm and dry. Extremities: Extremities exhibit normal range of motion. Results Reviewed Results Reviewed: - Tests and Diagnostics: - Chest x-ray (prior results negative) - Negative results for COVID-19, RSV, and flu Coding Level of Care Code Est Pt Level 4 (78989) Complex EM visit Add On G2211 Diagnoses Tobacco abuse Z72.0 COPD (chronic obstructive pulmonary disease) J44.9 Upper respiratory infection J06.9 Additional Codes LAUREN-7 Assessment Billing - LAUREN-7 Assessment Tool: LAUREN-7 Assessment 62068 ([id number]) PHQ-9 - 71866 - PHQ-9 Billing: Yes ([id number]) Time Spent (min) 35 Assessment & Plan Assessment & Plan (1) Tobacco abuse: Comment: stopped 43 years old. Smoked for 15 years 2ppd per day history. Code(s): Z72.0 - Tobacco use Category: Medical Plan: I arranged for a follow-up chest x-ray to check for any new developments. Continued use of the albuterol inhaler and additional prednisone prescribed. Previous antibiotics likely addressed the upper respiratory infection. No need for new antibiotics unless symptoms worsen. The treatment that was previously given was appropriate; symptomatic relief with inhalers is still ongoing. Patient will be started on Symbicort inhaler for consistent management, rescue inhaler for acute exacerbations with education given, given nebulizer. Will also refer to pulmonology. Proper education about trigger management given. (2) COPD (chronic obstructive pulmonary disease): Code(s): J44.9 - Chronic obstructive pulmonary disease, unspecified Category: Medical Plan: I arranged for a follow-up chest x-ray to check for any new developments. Continued use of the albuterol inhaler and additional prednisone prescribed. Previous antibiotics likely addressed the upper respiratory infection. No need for new antibiotics unless symptoms worsen. The treatment that was previously given was appropriate; symptomatic relief with inhalers is still ongoing. Patient will be started on Symbicort inhaler for consistent management, rescue inhaler for acute exacerbations with education given, given nebulizer. Will also refer to pulmonology. Proper education about trigger management given. (3) Upper respiratory infection: Code(s): J06.9 - Acute upper respiratory infection, unspecified Category: Medical Plan: I arranged for a follow-up chest x-ray to check for any new developments. Continued use of the albuterol inhaler and additional prednisone prescribed. Previous antibiotics likely addressed the upper respiratory infection. No need for new antibiotics unless symptoms worsen. The treatment that was previously given was appropriate; symptomatic relief with inhalers is still ongoing. Patient will be started on Symbicort inhaler for consistent management, rescue inhaler for acute exacerbations with education given, given nebulizer. Will also refer to pulmonology. Proper education about trigger management given. Plan Plan Patient was informed and verbally consented to the use of an ambient scribe for clinic note documentation during this visit. 1. Upper respiratory infection I arranged for a follow-up chest x-ray to check for any new developments. Continued use of the albuterol inhaler and additional prednisone prescribed. Previous antibiotics likely addressed the upper respiratory infection. No need for new antibiotics unless symptoms worsen. The treatment that was previously given was appropriate; symptomatic relief with inhalers is still ongoing. Patient will be started on Symbicort inhaler for consistent management, rescue inhaler for acute exacerbations with education given, given nebulizer. Will also refer to pulmonology. Proper education about trigger management given. During the consultation, I discussed the management of her chronic cough and the possible exacerbations of COPD due to her past extensive smoking history. We identified her as potentially having undiagnosed COPD due to these factors. I prescribed a daily inhaler treatment with Symbicort, to be taken regularly, and continued the use of prednisone for her inflammatory symptoms. I recommended a repeat chest x-ray to verify there are no new developments, given the persistent nature of her symptoms. I educated the patient on using her albuterol inhaler as needed and introduced the concept of a nebulizer for severe exacerbations, ensuring she knows to return if her symptoms do not improve or if she experiences worsening respiratory distress. A follow-up with pulmonology was deemed appropriate to manage her chronic respiratory issues effectively. Orders: Orders XR chest 2V Today Z87.01 - Personal history of pneumonia (recurrent) Referrals Pulmonology Referral Z72.0 - Tobacco use, Z87.01 - Personal history of pneumonia (recurrent) Medications: New albuterol sulfate 90 mcg/actuation 1 inh inhalation QID PRN 8.5 grams 1RF shortness of breath or wheezing ipratropium-albuterol 0.5 mg-3 mg(2.5 mg base)/3 mL 3 mL inhalation Q6H PRN 180 mL 1RF wheezing nebulizers (Altera Nebulizer System) As directed. Please provide accessories for nebulizer machine 1 ea 0RF Wheezing prednisone 40 mg (2 x 20 mg) PO DAILY 5 days 10 tabs 0RF budesonide-formoterol 160-4.5 mcg/actuation (Symbicort) 2 puffs inhalation Q12H 10.2 grams 1RF nebulizers (Altera Nebulizer System) As directed. Please provide accessories for nebulizer machine 1 ea 0RF Wheezing Patient Instructions: - Take Symbicort inhaler twice daily as prescribed. - Use the albuterol inhaler as needed for acute relief. - Follow instructions for the nebulizer; bring the prescription form to the medical supply on [address]. - You may go for the chest x-ray at your convenience. - Watch for any signs of worsening cough or respiratory distress, and seek care if this happens. - Continue to hydrate well and rest as needed. - It's important to attend follow-up appointments with pulmonology. - Ensure to go to [facility] [address] for medication pickups.
== END 2024-09-20 10:07 | disposition home or self-care (01) ==
LOC: HO.HMCH 08:56
PROVIDERS: PCP Internal Medicine; Visit Provider Physician Assistant Medical
DX: Z72.0 Tobacco use (principal); J44.9 Chronic obstructive pulmonary disease, unspecified; J06.9 Acute upper respiratory infection, unspecified

== ENCOUNTER → 2024-09-20 08:56 | Outpatient (BNVA) | payer OTHER, SELFPAY | PROVIDERS: PCP Internal Medicine; Visit Provider Physician Assistant Medical | DX: J06.9 Acute upper respiratory infection, unspecified (principal); J44.9 Chronic obstructive pulmonary disease, unspecified; Z72.0 Tobacco use | CPT/HCPCS: 96127; 99212 ==

== ENCOUNTER 2024-10-11 08:35 | Outpatient (REF) | payer OTHER, SELFPAY ==
--- NOTE | ~2024-10-11 | US_ITS ---
EXAMINATION: US ABDOMEN HISTORY: R10.11 - Right upper quadrant pain TECHNIQUE: Real-time grayscale ultrasound imaging of the abdomen was performed and images were reviewed. COMPARISON: Comparison is made with the prior examination dated 06/07/2023. FINDINGS: Liver: The right lobe of the liver measures 12.9 cm in size. The left lobe of the liver measures 8.2 cm in size. The liver demonstrates normal homogeneous echotexture. No focal mass or intrahepatic biliary ductal dilatation is identified. There is normal hepatopedal flow in the portal vein. Gallbladder and biliary tree: The gallbladder is unremarkable, without evidence of calculi, wall thickening, or pericholecystic fluid. There is no sonographic Leal sign. The common bile duct is normal in caliber measuring 2 mm. Kidneys: The right kidney measures 9.7 cm in length and demonstrates lower pole cysts measuring 9 x 9 x 7 mm and 6 x 4 x 6 mm. There is an extrarenal pelvis. The left kidney measures 9.9 cm in length and demonstrates an extrarenal pelvis. No renal calculi are identified. Pancreas: The pancreatic head, neck, and body are unremarkable. The pancreatic tail is obscured by bowel gas. Spleen: The spleen is normal in size and contour, measuring 8.0 cm in length. Abdominal aorta and inferior vena cava: The visualized portions of the abdominal aorta and inferior vena cava are normal in caliber. There is no free fluid in the abdomen. US/US abdomen complete IMPRESSION: Subcentimeter right renal cysts. Otherwise unremarkable abdominal ultrasound. Electronically signed by: Michael Badillo MD 10/11/2024 09:30 AM EDT
== END 2024-10-11 08:36 | disposition home or self-care (01) ==
LOC: HO.US 08:35
PROVIDERS: PCP Internal Medicine; Visit Provider Internal Medicine
DX: R10.11 Right upper quadrant pain (principal)
CPT/HCPCS: 76700

== ENCOUNTER → 2024-10-11 08:36 | Outpatient (BNV) | payer OTHER, SELFPAY | PROVIDERS: PCP Internal Medicine; Visit Provider Radiology Diagnostic Radiology | DX: N28.1 Cyst of kidney, acquired (principal) | CPT/HCPCS: 76700 ==

== ENCOUNTER 2024-10-31 14:03 | Outpatient (AMB) | payer OTHER, SELFPAY ==
--- NOTE | 2024-10-31 14:08 | MHC.OFFVIS ---
Vital Signs 10/31/24 14:10 Height 5 ft 2 in Weight 150 lb BMI 27.4 BP 112/72 Blood Pressure Location Rt brachial Position Sitting Pulse 58 Pulse Source Pulse Oximeter Pulse Oximetry (%) 96 Oxygen Delivery Method Room Air Intake Visit Reasons: Follow up Colon Polyps Intake Note: Established patient for mgmt of constipation. S/P [place] w/ Dr. Vasquez. 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: No Accompanied by: Self / Same As Patient Allergies Iodinated Contrast Media [IV DYE, IODINE CONTAINING CONTRAST ] Allergy (Unknown, Verified 10/31/24 14:10) SHAKING HPI HPI Follow up Colon Polyps: Details: Assessment & Plan (1) RUQ abdominal pain: Code(s): R10.11 - Right upper quadrant pain Category: Medical (2) Positive colorectal cancer screening using Cologuard test: Code(s): R19.5 - Other fecal abnormalities Category: Medical (3) Constipation: Code(s): K59.00 - Constipation, unspecified Category: Medical (4) GERD (gastroesophageal reflux disease): Code(s): K21.9 - Gastro-esophageal reflux disease without esophagitis Category: Medical Qualifiers: Esophagitis presence: without esophagitis Qualified Code(s): K21.9 - Gastro-esophageal reflux disease without esophagitis Plan Apparently she had a positive Cologuard at her last primary care providers visit. She continues to do well on her, omeprazole 20 mg twice a day, and fiber. She developed sudden onset of nausea vomiting diarrhea and abdominal pain. The pain started in the gastric area but then moved over to the right to her back and then down to the suprapubic area. The pain is now persisting in the mid to right upper quadrant. Fortunately the other symptoms seem to be improving. There are no other known sick contacts, she did have ribs to eat prior to that which she has had trouble tolerating in the past, she recently had a medication increase her Lipitor and her amlodipine, she does not partake in any other risky foods in terms of food poisoning. When she was ill she took 3 of her omeprazole and this did seem to help the pain fade somewhat. She has not upcoming colonoscopy with Dr. Vasquez. She does have a strong family history of gallbladder disease so will get an ultrasound even though there was a 2023 cat scan that did not seem to go gallstones at that time. If this does not show any reason for the pain and the pain persists will consider a HIDA scan or even an EGD. In the meantime I will increase her omeprazole to 40 mg twice a day at least temporarily to see if we can give her some relief. Return office visit after the ultrasound. ROV after US. Orders: Orders US abdomen complete Today R10.11 - Right upper quadrant pain Medications: New omeprazole 40 mg PO BID 30 days 60 caps 3RF Refilled psyllium husk (Natural Fiber Laxative) 0.52 grams PO BEDTIME PRN 90 caps 3RF constipation K59.00 - Constipation, unspecified Discontinued omeprazole Discontinued Reason: Doctor's Order 20 mg PO BID 180 caps 2RF I10 - Essential (primary) hypertension ULTRASOUND OF THE ABDOMEN 10/11/2024 FINDINGS: Liver: The right lobe of the liver measures 12.9 cm in size. The left lobe of the liver measures 8.2 cm in size. The liver demonstrates normal homogeneous echotexture. No focal mass or intrahepatic biliary ductal dilatation is identified. There is normal hepatopedal flow in the portal vein. Gallbladder and biliary tree: The gallbladder is unremarkable, without evidence of calculi, wall thickening, or pericholecystic fluid. There is no sonographic Leal sign. The common bile duct is normal in caliber measuring 2 mm. Kidneys: The right kidney measures 9.7 cm in length and demonstrates lower pole cysts measuring 9 x 9 x 7 mm and 6 x 4 x 6 mm. There is an extrarenal pelvis. The left kidney measures 9.9 cm in length and demonstrates an extrarenal pelvis. No renal calculi are identified. Pancreas: The pancreatic head, neck, and body are unremarkable. The pancreatic tail is obscured by bowel gas. Spleen: The spleen is normal in size and contour, measuring 8.0 cm in length. Abdominal aorta and inferior vena cava: The visualized portions of the abdominal aorta and inferior vena cava are normal in caliber. There is no free fluid in the abdomen. US/US abdomen complete IMPRESSION: Subcentimeter right renal cysts. Otherwise unremarkable abdominal ultrasound. TODAY'S VISIT She is having some relief in terms of HB with the higher dose of omepazole 40mg bid. She still has intermittent pain in the RUQ to right abd she describes as grabbing that is worse with fatty foods and certain red meats like pork or steak. She is ok with chicken. No US, will get HIDA scan and EGD to help tease out the DDX. Also she has point tenderness over the right mid-upper abd and I will get limited US to r/o hernia. ROV after US or hida which ever comes first. Her mother and maternal grandmother had bad PUD. She has asthma and has an upcoming referral to pulm, it shows CCAD on her hx but the pt denies knowlege of any cardiac problems. NO anes or sed problems. No ID problems. She will call us to book after studies. [facility] Medical History (Updated 10/31/24 @ 14:23 by GABRIELLA Teague) Incisional hernia Pre-op examination Colon cancer screening Hyperplastic colon polyp History of recent pneumonia Upper respiratory infection COPD (chronic obstructive pulmonary disease) Tobacco abuse Abnormal weight loss Cough Obesity (BMI 30-39.9) Elevated fasting glucose Peptic ulcer disease Dysphagia Nausea and vomiting Diarrhea Lower abdominal pain UTI (urinary tract infection) Dysuria Epigastric pain Annual physical exam Osteopenia COVID-19 vaccine series completed Generalized anxiety disorder Psoriasis Hypercholesterolemia Coronary artery disease Diverticulitis GERD (gastroesophageal reflux disease) Migraine Leukopenia Hypertension Impaired glucose tolerance Surgical History History of colonoscopy (09/04/24) History of incisional hernia repair (~03/20/24) History of hysterectomy Hx of bladder repair surgery Hx of umbilical hernia repair History of esophagogastroduodenoscopy (EGD) H/O colonoscopy History of pubovaginal sling History of section Family History Father Medical history unknown Mother Myocardial infarction Hypertension CVD (cardiovascular disease) Breast cancer Social History Household Members: Spouse Housing: Apartment Are you a primary prompt care rn to a significant other at home: No Do you presently have visiting nurse or other home services: No Alcohol intake: current Alcohol intake frequency: holidays/special occasions only Comment: holiday 1 drink Patient Tobacco Use Status: Never used Tobacco Tobacco use type: Cigarette e-Cigarette/Vaping Use: Never Used Second Hand Smoke Exposure: No Substance Use Type: Marijuana service: No Current occupational status: unemployed Cognitive needs: No Hearing needs: No Vision needs: Yes Female Reproductive History Menstrual Age of Menarche: 14 Review of Systems Const Denies fatigue, Denies fever(s), Denies night sweats, Denies poor appetite and Denies weight loss Eyes Details: glasses Reports requires corrective lenses ENT Reports Normal hearing present, Denies dental pain, Denies dysphagia, Denies hearing loss, Denies mouth pain, Denies odynophagia, Denies throat swelling, Denies tongue swelling and Reports other (Dentition adequate) Card Reports no additional complaints Resp Reports no additional complaints GI Details: Reports abdominal pain, Denies melena, Denies bloating, Denies hematochezia, Denies constipation, Denies GI cramping, Denies dysphagia, Denies excessive flatus, Denies early satiety, Reports dyspepsia, Reports heartburn, Denies diarrhea, Denies nausea, Denies odynophagia, Denies vomiting and Denies hematemesis Skin/Breast Denies pruritus, Denies lesions, Denies rash and Denies jaundice Neuro Reports Normal hearing present and Denies Abnormal speech present Endo Denies fatigue Aller/Immun Denies throat swelling and Denies tongue swelling Physical Exam Vital Signs: Last Vital Signs Pulse 58 10/31/24 14:10 BP 112/72 10/31/24 14:10 Pulse Ox 96 10/31/24 14:10 Oxygen Delivery Method Room Air 10/31/24 14:10 BMI result Body Mass Index 27.4 Const General: cooperative, no acute distress, well developed and well groomed Nutritional Appearance: average body habitus and well nourished Orientation/consciousness: oriented to person, oriented to place and oriented to time Limitations: No language barrier HEENT Head: Yes normocephalic and Yes atraumatic Eyes General: appearance normal, both eyes and all related structures Pupils: Equal, round and reactive pupils present Neck Neck: Yes normal visual inspection and Yes no lymphadenopathy Thyroid: Thyroid normal Resp Effort & Inspection: normal respiratory effort and able to speak in complete sentences Auscultation: clear to auscultation bilaterally Cardio Rate: regular rate Rhythm: regular rhythm Heart sounds: Normal, physiologic split S2 sound present Peripheral pulses: radial pulses present and posterior tibial pulses present GI Inspection: No distended and No Abdominal panniculus present Palpation (GI): Soft to palpation, Tenderness to palpation present (GI) (Right mid abdomen), no guarding, not rigid and No hepatosplenomegaly present Percussion: Yes normal to percussion Auscultation: normal bowel sounds Rectal Exam - Female: deferred Skin General skin exam: no rashes or lesions noted, turgor normal, skin not dry, no jaundice, No spider nevi and no striae Rashes: no rashes Nails: normal Neuro General: oriented to person, oriented to place and oriented to time Cranial nerves: Yes Equal, round and reactive pupils present and Yes Normal hearing present Speech: No Abnormal speech present Extrem General: Yes normal to inspection, No clubbing, No cyanosis and No edema Psych Appearance: grossly normal and well kempt Mental Status: mental status grossly normal Speech and movement: Normal speech and movement present Affect: normal affect Attitude: cooperative Thought process: Normal thought process present and not confabulating Thought content: Normal thought content present Insight: Limited insight present (Psych) Judgement: Limited judgement present (Psych) Assessment & Plan Assessment & Plan (1) RUQ abdominal pain: Code(s): R10.11 - Right upper quadrant pain Category: Medical (2) GERD (gastroesophageal reflux disease): Code(s): K21.9 - Gastro-esophageal reflux disease without esophagitis Category: Medical Qualifiers: Esophagitis presence: without esophagitis Qualified Code(s): K21.9 - Gastro-esophageal reflux disease without esophagitis (3) Upper abdominal pain: Code(s): R10.10 - Upper abdominal pain, unspecified Category: Medical Plan She is having some relief in terms of HB with the higher dose of omepazole 40mg bid. She still has intermittent pain in the RUQ to right abd she describes as grabbing that is worse with fatty foods and certain red meats like pork or steak. She is ok with chicken. No US, will get HIDA scan and EGD to help tease out the DDX. Also she has point tenderness over the right mid-upper abd and I will get limited US to r/o hernia. ROV after US or hida which ever comes first. Her mother and maternal grandmother had bad PUD. She has asthma and has an upcoming referral to pulm, it shows CCAD on her hx but the pt denies knowlege of any cardiac problems. NO anes or sed problems. No ID problems. She will call us to book after studies. Orders: Orders US abdomen limited 10/31/24 R10.10 - Upper abdominal pain, unspecified EGD - GI Use Only 10/31/24 R10.10 - Upper abdominal pain, unspecified, R10.11 - Right upper quadrant pain NM hepatobiliary w pharm 10/31/24 R10.10 - Upper abdominal pain, unspecified, R10.11 - Right upper quadrant pain Coding Level of Care Code Est Pt Level 4 (81613) Diagnoses RUQ abdominal pain R10.11 Gastroesophageal reflux disease without esophagitis K21.9 Esophagitis presence: without esophagitis Upper abdominal pain R10.10 Time Spent (min) 36
[2024-10-31 14:10] VITALS: BP 112/72; PULSE 58; O2SAT 96; BMI 27.4
== END 2024-10-31 14:31 | disposition home or self-care (01) ==
LOC: HO.HGI 14:04
PROVIDERS: PCP Internal Medicine; Visit Provider Nurse Practitioner
DX: R10.11 Right upper quadrant pain (principal); K21.9 Gastro-esophageal reflux disease without esophagitis; R10.10 Upper abdominal pain, unspecified
CPT/HCPCS: 99214

== ENCOUNTER → 2024-10-31 14:03 | Outpatient (BNVA) | payer OTHER, SELFPAY | PROVIDERS: PCP Internal Medicine; Visit Provider Nurse Practitioner | DX: R10.11 Right upper quadrant pain (principal); R19.5 Other fecal abnormalities; K59.00 Constipation, unspecified; K21.9 Gastro-esophageal reflux disease without esophagitis | CPT/HCPCS: 99212 ==

== ENCOUNTER 2024-11-07 09:01 | Outpatient (REF) | payer OTHER, SELFPAY ==
--- NOTE | ~2024-11-07 | US_ITS ---
EXAMINATION: US ABDOMEN LIMITED CLINICAL INFORMATION: Upper abdominal pain, unspecified.. COMPARISON: None available. TECHNIQUE: Real-time ultrasound of the abdomen wall using a linear transducer with grayscale and color Doppler technique. Examination in the region of concern. FINDINGS: No solid mass. No fluid collections. No protrusion of the intra-abdominal contents demonstrated Valsalva maneuvers. US/US abdomen limited IMPRESSION: Negative exam. Electronically signed by: Shay Barros MD 11/07/2024 09:30 AM EDT
== END 2024-11-07 09:02 | disposition home or self-care (01) ==
LOC: HO.US 09:01
PROVIDERS: Visit Provider Nurse Practitioner
DX: R10.10 Upper abdominal pain, unspecified (principal)
CPT/HCPCS: 76705

== ENCOUNTER → 2024-11-07 09:03 | Outpatient (BNV) | payer OTHER, SELFPAY | PROVIDERS: Visit Provider Radiology Diagnostic Radiology | DX: R10.10 Upper abdominal pain, unspecified (principal) | CPT/HCPCS: 76705 ==

== ENCOUNTER 2024-11-28 16:49 | Emergency (ER) | payer OTHER, SELFPAY ==
--- NOTE | ~2024-11-28 | XR_ITS ---
CLINICAL HISTORY: pain s p fall 3 view left foot Comparison: None provided Findings: No fractures or dislocations. Mild arthritic change. Pes cavus is present. There are calcaneal spurs. No ankle effusion. No radiopaque foreign body. IMPRESSION: 1. No acute findings. This document has been electronically signed by: Xiao Workman MD on 11/28/2024 17:30:12
--- NOTE | ~2024-11-28 | XR_ITS ---
CLINICAL HISTORY: pain s p fall 3 view left ankle Comparison: None provided Findings: No acute fractures or dislocations. Mild arthritic change. Calcaneal spurs are noted. No ankle effusion. No radiopaque foreign body. IMPRESSION: 1. No acute findings. This document has been electronically signed by: Xiao Workman MD on 11/28/2024 17:24:56
[2024-11-28 16:52] VITALS: BP 106/86; PULSE 57; RESP 18; TEMP 36.6; O2SAT 98; BMI 27.4
--- NOTE | 2024-11-28 16:53 | ED_ITS ---
HPI - Extremity Injury (Lower) General Chief Complaint: Extremity Injury, Lower Stated Complaint: Pain in rt leg Time Seen by Provider: 11/28/24 17:35 Source: patient and RN notes reviewed Mode of arrival: ambulatory Limitations: no limitations History of Present Illness ED Provider: Donita Maldonado PA-C HPI Narrative: This is a 68-year-old female, with a past medical history of COPD, GERD, hypercholesterolemia, diverticulitis, CAD, and hypertension, who presents emergency department with concerns of left ankle and foot pain after inversion injury which occurred today. Patient states that she accidentally fell down 3 steps and twisted her left ankle. Denies hearing any cracking or popping sensation. Denies head strike or LOC. she is unable to bear weight on her ankle. Denies taking any medications prior to arrival today. No other complaints or concerns at this time. MD complaint: ankle injury and foot injury Type of Injury: inversion Place: home Severity: moderate Relieving factors: nothing Exacerbating factors: weight bearing Associated symptoms: swelling Other symptoms: none Related Data Previous Rx's ?Medication ?Instructions ?Recorded sumatriptan succinate 50 mg tablet 50 mg PO .QD PRN mi graine headache 04/09/20 (Imitrex) #14 tabs isosorbide mononitrate 30 mg 30 mg PO DAILY #90 tabs 1 06/08/20 tablet,extended release 24 hr ferrous sulfate 324 mg (65 mg 324 mg PO DAILY #90 tabs 10/21/21 iron) tablet,delayed release ascorbate calcium (vitamin C) 500 500 mg PO DAILY #90 tabs 07/16/22 mg tablet loratadine 10 mg tablet 10 mg PO DAILY #90 tabs 10/21 08/12 bisacodyl 5 mg tablet,delayed 10 mg (2 x 5 mg) PO BEDT ROLA 2 days 05/31/23 release (Dulcolax (bisacodyl)) #4 tabs naproxen 500 mg tablet 500 mg PO Q8-12H PRN pain (s catie 07/11/23 score 4-6) #20 tabs meclizine 25 mg tablet 25 mg PO TID PRN dizziness # 30 tabs 10/19/23 hydroxyzine HCl 25 mg tablet 25 mg PO BEDTIME PRN anxi ety #10 11/29/23 tabs cholecalciferol (vitamin D3) 50 50 mcg PO DAILY 90 day s #90 caps 01/16/24 mcg (2,000 unit) capsule lidocaine 5 % topical patch 1 patch topical DAILY #30 ea 05/09/24 (Lidoderm) amlodipine 10 mg tablet 10 mg PO DAILY #90 tabs 0311/14 rosuvastatin 40 mg tablet 40 mg PO DAILY 90 days #90 t abs 07/26/24 sertraline 50 mg tablet 50 mg PO DAILY #90 tabs 030 11/14 omeprazole 40 mg capsule,delayed 40 mg PO BID 30 days #60 caps 08/31/24 release psyllium husk 0.52 gram capsule 0.52 g PO BEDTIME PRN constipation 08/31/24 (Natural Fiber Laxative) #90 caps ipratropium 0.5 mg-albuterol 3 mg 3 ml inhalation Q6H PRN wheezing 09/20/24 (2.5 mg base)/3 mL nebulization #180 mL soln nebulizers (Altera Nebulizer #1 ea 09/20/24 System) lisinopril 20 1 tab PO BID #60 tabs mg-hydrochlorothiazide 12.5 mg tablet budesonide-formoterol HFA 160 2 puff inhalation Q12H # 10.2 ea 11/14/24 mcg-4.5 mcg/actuation aerosol inhaler cyclobenzaprine 10 mg tablet 10 mg PO TID #90 tabs albuterol sulfate 90 mcg/actuation 1 inh inhalation QI D PRN shortness 11/21/24 aerosol inhaler of breath or wheezing #8.5 g dariel acetaminophen 650 mg 650 mg PO Q8H PRN pain #30 t abs 11/28/24 tablet,extended release (Tylenol 8 Hour) ibuprofen 600 mg tablet 600 mg PO Q6H PRN pain #30 t abs 11/28/24 Allergies Allergy/AdvReac Type Severity Reaction Status Date / Time Iodinated Contrast Media (IV Allergy Unknown SHAKING Verified 11/28/24 16:54 DYE, IODINE CONTAINING CONTRAST ) Review of Systems Review of Systems: Yes all other systems are reviewed and are negative Constitutional: Constitutional: Reports as per HPI Eyes: Eyes: Reports as per HPI, Denies change in vision and Denies eye discharge ENT: Reports system reviewed and no additional complaints, except as documented, Reports as per HPI, Reports Normal hearing present and Denies facial pain Cardiovascular: Cardiovascular: Reports as per HPI and Denies chest pain Respiratory: Respiratory: Reports as per HPI and Denies cough Gastrointestinal: Gastrointestinal: Reports as per HPI, Reports no additional gastrointestinal complaints, Denies abdominal pain, Denies diarrhea, Denies nausea and Denies vomiting Genitourinary: Genitourinary: Reports no additional female genitourinary complaints and Reports as per HPI Musculoskeletal: Musculoskeletal: Reports no additional musculoskeletal complaints and Reports as per HPI Integumentary/Breasts: Skin/Breast: Reports system reviewed and no additional complaints, except as docu, Reports as per HPI, Reports erythema, Denies rash and Denies wounds Neurologic: Reports Normal hearing present Psychiatric: Psychiatric: Reports no additional psychiatric complaints and Reports as per HPI Endocrine: Endocrine: Reports no additional endocrine complaints and Reports as per HPI Hematologic/Lymphatic: Hematologic/Lymphatic: Reports no additional hematologic/lymphatic complaints and Reports as per HPI Allergic/Immunologic: Allergic/Immunologic: Reports no additional allergic/immunologic complaints and Reports as per HPI [facility] Past Medical History Medical History (Updated 11/28/24 @ 17:39 by KAVIN Banda) Incisional hernia Pre-op examination Colon cancer screening Hyperplastic colon polyp History of recent pneumonia Upper respiratory infection COPD (chronic obstructive pulmonary disease) Tobacco abuse Abnormal weight loss Cough Obesity (BMI 30-39.9) Elevated fasting glucose Peptic ulcer disease Dysphagia Nausea and vomiting Diarrhea Lower abdominal pain UTI (urinary tract infection) Dysuria Epigastric pain Annual physical exam Osteopenia COVID-19 vaccine series completed Generalized anxiety disorder Psoriasis Hypercholesterolemia Coronary artery disease Diverticulitis GERD (gastroesophageal reflux disease) Migraine Leukopenia Hypertension Impaired glucose tolerance Surgical History History of colonoscopy (09/04/24) History of incisional hernia repair (~03/20/24) History of hysterectomy Hx of bladder repair surgery Hx of umbilical hernia repair History of esophagogastroduodenoscopy (EGD) H/O colonoscopy History of pubovaginal sling History of section Family History Family History Father Medical history unknown Mother Myocardial infarction Hypertension CVD (cardiovascular disease) Breast cancer Social History Social History Household Members: Spouse Housing: Apartment Are you a primary care aid to a significant other at home: No Do you presently have visiting nurse or other home services: No Alcohol intake: current Alcohol intake frequency: holidays/special occasions only Comment: holiday 1 drink Patient Tobacco Use Status: Never used Tobacco Tobacco use type: Cigarette e-Cigarette/Vaping Use: Never Used Second Hand Smoke Exposure: No Substance Use Type: Marijuana Advance Directives: No Advance Directives Information Provided: Yes service: No Current occupational status: unemployed Cognitive needs: No Hearing needs: No Vision needs: Yes Physical Exam Vital Signs: Vital Signs: Last Vital Signs Temp 97.9 F 11/28/24 16:52 Pulse 57 11/28/24 16:52 Resp 18 11/28/24 16:52 BP 106/86 11/28/24 16:52 Pulse Ox 98 11/28/24 16:52 O2 Del Method Room Air 11/28/24 16:52 BMI result Body Mass Index 27.4 Const: General: cooperative, comfortable and no acute distress Orientation/consciousness: patient oriented x3 Limitations: no limitations HEENT: Head: Yes normal to inspection, Yes normocephalic and Yes atraumatic Ears: hearing grossly normal bilaterally General nose exam: Normal external nose present Face and sinus: Yes normal facial exam Mouth: Normal oral and palatal mucosa present, oropharynx normal and moist mucous membranes Throat: Yes posterior oropharynx normal Eyes: General: appearance normal, both eyes and all related structures Eyelids: Yes eyelids normal Conjunctivae: conjunctivae normal Sclerae: sclerae normal Pupils: Equal, round and reactive pupils present EOM: EOMs intact bilaterally Neck: Neck: Yes normal visual inspection, Yes full ROM and Yes no lymphadenopathy Lymphatic: no lymphadenopathy noted Chest: Chest palpation & inspection: normal inspection of the chest Resp: Effort & Inspection: normal respiratory effort and able to speak in complete sentences Auscultation: clear to auscultation bilaterally Cardio: Rate: regular rate Rhythm: regular rhythm Heart sounds: S1 normal heart sound present and S2 normal heart sound present GI: Inspection: Yes normal to inspection Skin: General skin exam: no rashes or lesions noted Trauma: no lacerations or abrasions Wounds: no wounds Neuro: General: patient oriented x3 and moves all extremities Cranial nerves: Yes Equal, round and reactive pupils present and Yes Normal hearing present Extrem: Other: Left ankle with moderate edema noted overlying the lateral malleolus with tenderness palpation. Foot is nontender. Strong DP pulse. No overlying lacerations or abrasions. Strong DP pulse. Limited range of motion secondary to pain. Achilles tendon is intact. General: Yes normal to inspection Right upper extremity: normal to inspection Left upper extremity: normal to inspection Medications Administered Discontinued Medications Generic Name Dose Route Start Last Admin Trade Name Freq PRN Reason Stop Dose Admin Acetaminophen 975 mg 11/28/24 17:37 11/28/24 17:40 Acetaminophen 325 Mg Tablet PO 11/28/24 17:38 975 mg ONCE ONE Administration Medical Decision Making Medical Decision Making [facility] Narrative: This is a 68-year-old female, with a past medical history of COPD, hypertension, who presents emergency department with concerns of left ankle and foot pain status post mechanical fall which occurred this afternoon. On arrival, vital signs within normal limits. She is nonambulatory secondary to pain in her left ankle. Moderate edema noted overlying the lateral malleolus. X-rays were obtained revealing no acute bony abnormalities. Discussed findings with patient. She was placed in a walking boot, given crutches. Given strict return precautions, discharged on ibuprofen and Tylenol. Given dose of Tylenol in department today. Given orthopedic referral. Given strict return precautions, stable for discharge Differential Diagnosis Differential Diagnoses: The differential diagnosis associated with the presentation includes Sprain, strain, contusion, fracture, dislocation Radiology Impression Discussion of test interpretation with radiology: I have reviewed the radiologist's reading. Radiologist Impression: Findings: No fractures or dislocations. Mild arthritic change. Pes cavus is present. There are calcaneal spurs. No ankle effusion. No radiopaque foreign body. IMPRESSION: 1. No acute findings. This document has been electronically signed by: Xiao Workman MD on 11/28/2024 17:30:12 Dictated By: Xiao Workman MD Findings: No acute fractures or dislocations. Mild arthritic change. Calcaneal spurs are noted. No ankle effusion. No radiopaque foreign body. IMPRESSION: 1. No acute findings. This document has been electronically signed by: Xiao Workman MD on 11/28/2024 17:24:56 Dictated By: Xiao Workman MD Discharge Plan Discharge Clinical Impression: Ankle sprain Patient Disposition: Home, Self-Care Instructions: Ankle Sprain (ED), P.R.I.C.E. Treatment (ED), Walking Boot (ED) Additional Instructions: You were seen in the emergency department due to left ankle pain. Your x-rays do not show any broken bones. Please rest, ice, elevate, and use walking boot and crutches. Use walking boot until you no longer have pain with weight-bearing. Alternate between ibuprofen and or Tylenol as needed for pain and symptoms. If any new or worsening symptoms occur including but not limited to worsening pain, chest pain, shortness of breath, please seek emergent care. You may follow-up with the photographic specialist if you continue to have pain in your left ankle. Prescriptions: New ibuprofen 600 mg tablet 600 mg PO Q6H PRN (Reason: pain) Qty: 30 0RF acetaminophen [Tylenol 8 Hour] 650 mg tablet extended release 650 mg PO Q8H PRN (Reason: pain) Qty: 30 0RF No Action isosorbide mononitrate 30 mg tablet extended release 24 hr 30 mg PO DAILY Qty: 90 0RF Rx Instructions: Must call and schedule an appt for refills ferrous sulfate 324 mg (65 mg iron) tablet,delayed release (DR/EC) 324 mg PO DAILY Qty: 90 2RF ascorbate calcium (vitamin C) 500 mg tablet 500 mg PO DAILY Qty: 90 3RF cholecalciferol (vitamin D3) 50 mcg (2,000 unit) capsule 50 mcg PO DAILY 90 Days Qty: 90 3RF lisinopril-hydrochlorothiazide 20-12.5 mg tablet 1 tab PO BID Qty: 60 2RF budesonide-formoterol 160-4.5 mcg/actuation HFA aerosol inhaler 2 puff inhalation Q12H Qty: 10.2 1RF cyclobenzaprine 10 mg tablet 10 mg PO TID Qty: 90 0RF albuterol sulfate 90 mcg/actuation HFA aerosol inhaler 1 inh inhalation QID PRN (Reason: shortness of breath or wheezing) Qty: 8.5 1RF naproxen 500 mg tablet 500 mg PO Q8-12H PRN (Reason: pain (scale score 4-6)) Qty: 20 0RF hydroxyzine HCl 25 mg tablet 25 mg PO BEDTIME PRN (Reason: anxiety) Qty: 10 0RF lidocaine [Lidoderm] 5 % adhesive patch,medicated 1 patch topical DAILY Qty: 30 0RF Rx Instructions: leave on most painful area for up to 12 hrs meclizine 25 mg tablet 25 mg PO TID PRN (Reason: dizziness) Qty: 30 0RF sumatriptan succinate [Imitrex] 50 mg tablet 50 mg PO .QD PRN (Reason: migraine headache) Qty: 14 6RF Rx Instructions: do not exceed 4 doses per 24 hrs loratadine 10 mg tablet 10 mg PO DAILY Qty: 90 1RF omeprazole 40 mg capsule,delayed release(DR/EC) 40 mg PO BID 30 Days Qty: 60 3RF psyllium husk [Natural Fiber Laxative] 0.52 gram capsule 0.52 g PO BEDTIME PRN (Reason: constipation) Qty: 90 3RF bisacodyl [Dulcolax (bisacodyl)] 5 mg tablet,delayed release (DR/EC) 10 mg PO BEDTIME 2 Days Qty: 4 0RF amlodipine 10 mg tablet 10 mg PO DAILY Qty: 90 1RF rosuvastatin 40 mg tablet 40 mg PO DAILY 90 Days Qty: 90 2RF sertraline 50 mg tablet 50 mg PO DAILY Qty: 90 1RF ipratropium-albuterol 0.5 mg-3 mg(2.5 mg base)/3 mL solution for nebulization 3 ml inhalation Q6H PRN (Reason: wheezing) Qty: 180 1RF (DME) nebulizers [Altera Nebulizer System] [facility] – [place], [place] See Rx Instructions .ROUTE .MEDSUPPLY Qty: 1 0RF Rx Instructions: As directed. Please provide accessories for nebulizer machine [place] [facility] [place] [facility] [place] Group] Discharge Date/Time: 11/28/24 17:49 Print Language: [place]
== END 2024-11-28 17:49 | disposition home or self-care (01) ==
LOC: HO.ED 17:42
PROVIDERS: Emergency Provider Emergency Medicine; PCP Internal Medicine
DX: S93.402A Sprain of unspecified ligament of left ankle, initial encounter (principal); M25.572 Pain in left ankle and joints of left foot; X58.XXXA Exposure to other specified factors, initial encounter; Y93.9 Activity, unspecified; Y92.9 Unspecified place or not applicable; Y99.8 Other external cause status
CPT/HCPCS: 73610; 73630; 99282; 99283

== ENCOUNTER → 2024-11-28 16:56 | Outpatient (BNV) | payer OTHER, SELFPAY | PROVIDERS: Emergency Provider Emergency Medicine; PCP Internal Medicine; Visit Provider Radiology Diagnostic Radiology | DX: M25.572 Pain in left ankle and joints of left foot (principal); W19.XXXA Unspecified fall, initial encounter | CPT/HCPCS: 73610; 73630 ==

== ENCOUNTER 2025-02-12 10:01 | Outpatient (AMB) | payer OTHER, SELFPAY ==
[2025-02-12 10:33] VITALS: BP 136/70; PULSE 57; O2SAT 95; BMI 28.6
--- NOTE | 2025-02-12 10:33 | A.OFFVIS_ITS ---
Vital Signs 02/12/25 10:33 Height 5 ft 2 in Weight 156 lb 8.451 oz BMI 28.6 BP 136/70 Blood Pressure Location Lt brachial Position Sitting Pulse 57 Pulse Source Pulse Oximeter Pulse Oximetry (%) 95 Oxygen Delivery Method Room Air Intake Visit Reasons: recurrent pneumonia Accompanied by: Self / Same As Patient Allergies Iodinated Contrast Media (IV DYE, IODINE CONTAINING CONTRAST ) Allergy (Unknown, Verified 02/12/25 10:36) SHAKING lisinopril Adverse Reaction (Intermediate, Unverified 02/12/25 11:30) cough HPI Comments Details: The patient is here for pulmonary evaluation. The patient is a 69 year woman with underlying asthma presenting with multiple episodes of lower respiratory infection. She has gone to the ER multiple times again with worsening respiratory complaints. Sometimes she starts getting a pleuritic pain primarily in her left lung in the back close to the scapula followed by nausea cough and discomfort. She went to the ER last time back in August 2024. There she had a chest x-ray which I personally reviewed demonstrating no acute disease. She usually response to prednisone antibiotics. She has also had use issues with frequent UTIs. Therefore a question of a immunocompromised state has come up. The patient does continue to use Symbicort with good effect and she also takes allergy medication. The patient does have snoring. And she also has a underlying reflux disease. We did talk about treating the reflux disease to minimize micro aspirations and risks of infection. Also to note with her snoring she has had a sleep study in the past and I do not have the results but the patient would like to hold off on any kind it sleep studies. She is concer willis with all her medications. Did review them. It seems like she is on PRATEEK inhibitor. She does have this dry cough that is likely being precipitated by. I did request see if she can be taken off the Prateek and placed on an ARB for now. The patient will undergo blood work including allergy testing and immunological evaluation. She will also undergo a pulmonary function study and will request a CT scan of the chest to further address her pleuritic chest discomfort. Will follow-up after those studies available. Otherwise she can always call for further recommendations. [facility] Medical History (Updated 02/12/25 @ 20:37 by Krish Quinones MD) Cough Pleuritic chest pain Allergies Incisional hernia Pre-op examination Colon cancer screening Hyperplastic colon polyp History of recent pneumonia Upper respiratory infection COPD (chronic obstructive pulmonary disease) Tobacco abuse Abnormal weight loss Obesity (BMI 30-39.9) Elevated fasting glucose Peptic ulcer disease Dysphagia Nausea and vomiting Diarrhea Lower abdominal pain UTI (urinary tract infection) Dysuria Epigastric pain Annual physical exam Osteopenia COVID-19 vaccine series completed Generalized anxiety disorder Psoriasis Hypercholesterolemia Coronary artery disease Diverticulitis GERD (gastroesophageal reflux disease) Migraine Leukopenia Hypertension Impaired glucose tolerance Surgical History History of colonoscopy (09/04/24) History of incisional hernia repair (~03/20/24) History of hysterectomy Hx of bladder repair surgery Hx of umbilical hernia repair History of esophagogastroduodenoscopy (EGD) H/O colonoscopy History of pubovaginal sling History of section Family History Father Medical history unknown Mother Myocardial infarction Hypertension CVD (cardiovascular disease) Breast cancer Social History Household Members: Spouse Housing: Apartment Are you a primary nonfarm animal caretaker to a significant other at home: No Do you presently have visiting nurse or other home services: No Alcohol intake: current Alcohol intake frequency: holidays/special occasions only Comment: holiday 1 drink Patient Tobacco Use Status: Never used Tobacco Tobacco use type: Cigarette e-Cigarette/Vaping Use: Never Used Second Hand Smoke Exposure: No Substance Use Type: Marijuana service: No Current occupational status: unemployed Cognitive needs: No Hearing needs: No Vision needs: Yes Female Reproductive History Menstrual Age of Menarche: 14 Review of Systems Const Denies fever(s) Eyes Reports no additional complaints ENT Reports dysphagia and Reports nasal congestion Card Denies palpitations and Reports dyspnea on exertion Resp Reports cough, Reports pain on inspiration, Reports dyspnea on exertion and Reports wheezing GI Reports dysphagia and Reports heartburn Musc Reports myalgias Skin/Breast Denies rash Neuro Reports no additional complaints Endo Denies palpitations Lew/Lymph Reports no additional complaints Aller/Immun Reports wheezing Physical Exam Vital Signs: Last Vital Signs Pulse 57 02/12/25 10:33 BP 136/70 02/12/25 10:33 Pulse Ox 95 02/12/25 10:33 Oxygen Delivery Method Room Air 09/23/25 10:33 BMI result Body Mass Index 28.6 Const General: comfortable HEENT Head: Yes normocephalic Neck Neck: Yes supple Chest Chest palpation & inspection: tenderness costochondral junction and costal cartilage Resp Effort & Inspection: normal respiratory effort Auscultation: diminished lung sounds Cardio Heart sounds: S1 normal heart sound present and S2 normal heart sound present GI Palpation (GI): Soft to palpation Skin General skin exam: no rashes or lesions noted Extrem General: Yes no clubbing, cyanosis or edema Assessment & Plan Assessment & Plan (1) Asthma: Code(s): J45.909 - Unspecified asthma, uncomplicated Category: Medical Qualifiers: Asthma severity: moderate Asthma persistence: persistent Asthma complication type: uncomplicated Qualified Code(s): J45.40 - Moderate persistent asthma, uncomplicated (2) Pleuritic chest pain: Code(s): R07.81 - Pleurodynia Category: Medical (3) Cough: Code(s): R05.9 - Cough, unspecified Category: Medical Qualifiers: Cough type: chronic Qualified Code(s): R05.3 - Chronic cough (4) Allergies: Code(s): T78.40XA - Allergy, unspecified, initial encounter Category: Medical Qualifiers: Encounter type: initial encounter Qualified Code(s): T78.40XA - Allergy , unspecified, initial encounter Plan continue Symbicort LEONARDA as needed PFTs CT chest Bloodwork and allergy testing continue PPI Sleep elevated Positional sleep therapy Consider changing PRATEEK to ARB due to chronic cough F/U 2-3 months Orders: Orders Complete Blood Count Auto Diff Today J44.9 - Chronic obstructive pulmonary disease, unspecified, J45.909 - Unspecified asthma, uncomplicated, T78.40XA - Allergy, unspecified, initial encounter Immunoglobulins,IgG IgA IgM Today J44.9 - Chronic obstructive pulmonary disease, unspecified, J45.909 - Unspecified asthma, uncomplicated, T78.40XA - Allergy, unspecified, initial encounter Resp Allergy Profile Region I Today J44.9 - Chronic obstructive pulmonary disease, unspecified, J45.909 - Unspecified asthma, uncomplicated, R91.1 - Solitary pulmonary nodule, T78.40XA - Allergy, unspecified, initial encounter Hypersensitive Pneumonitis Prf Today J44.9 - Chronic obstructive pulmonary disease, unspecified, J45.909 - Unspecified asthma, uncomplicated, R91.8 - Other nonspecific abnormal finding of lung field, T78.40XA - Allergy, unspecified, initial encounter Erythrocyte Sedimentation Rate Today J44.9 - Chronic obstructive pulmonary disease, unspecified, J45.909 - Unspecified asthma, uncomplicated, T78.40XA - Allergy, unspecified, initial encounter ELIZABETH Reflex Titer and Pattern Today J44.9 - Chronic obstructive pulmonary disease, unspecified, J45.909 - Unspecified asthma, uncomplicated, T78.40XA - Allergy, unspecified, initial encounter Cyclic Citrullinated Peptide Today J44.9 - Chronic obstructive pulmonary disease, unspecified, J45.909 - Unspecified asthma, uncomplicated, T78.40XA - Allergy, unspecified, initial encounter CT chest wo IV con Today F17.200 - Nicotine dependence, unspecified, uncomplicated, R05.9 - Cough, unspecified, R07.81 - Pleurodynia Immunoglobulin E Today J44.9 - Chronic obstructive pulmonary disease, unspecified, J45.909 - Unspecified asthma, uncomplicated, T78.40XA - Allergy, unspecified, initial encounter PFT pulmonary function test Today R07.81 - Pleurodynia Medications: Discontinued lisinopril-hydrochlorothiazide 20-12.5 mg Discontinued Reason: Doctor's Order 1 tab PO BID 60 tabs 2RF I10 - Essential (primary) hypertension Coding Level of Care Code New Pt Level 4 (01432) Diagnoses Moderate persistent asthma without complication J45.40 Asthma severity: moderate Asthma persistence: persistent Asthma complication type: uncomplicated Pleuritic chest pain R07.81 Chronic cough R05.3 Cough type: chronic Allergy, initial encounter T78.40XA Encounter type: initial encounter Time Spent (min) 40
--- OUTSIDE RECORDS SUMMARY | 2025-02-12 12:08 | XMS_ITS | Patient Health Record ---
Author Organization [facility] Address [address] [place] [address] Care Team Providers Care Cold Type Artist Name Role Phone Erin Moses Primary Care Provider UnavailChico Nelson Jr Unavailable Reason For Referral No Information Plan Of Treatment No Information Insurance Providers Payer Name Payer Address Payer Phone Subscriber Number Group Number Insured Name Patient Relationship to Insured Coverage Start Date Coverage End Date MEDICARE OF [place] [address] [place] [address] [id number] WILNER SHERMAN Self - patient is the insured MEDICAID OF [facility] [address] [place] [address] [id number] WILNER SHERMAN Self - patient is the insured
== END 2025-02-12 11:06 | disposition home or self-care (01) ==
LOC: HO.HPS 10:02
PROVIDERS: PCP Internal Medicine; Visit Provider Hospitalist
DX: J45.40 Moderate persistent asthma, uncomplicated (principal); R07.81 Pleurodynia; R05.3 Chronic cough; T78.40XA Allergy, unspecified, initial encounter
CPT/HCPCS: 99204

== ENCOUNTER → 2025-02-12 10:01 | Outpatient (BNVA) | payer OTHER, SELFPAY | PROVIDERS: PCP Internal Medicine; Visit Provider Hospitalist | DX: J45.40 Moderate persistent asthma, uncomplicated (principal); T78.40XA Allergy, unspecified, initial encounter; R07.81 Pleurodynia; R05.3 Chronic cough | CPT/HCPCS: 99202 ==

== ENCOUNTER 2025-02-13 11:05 | Outpatient (REF) | payer OTHER, SELFPAY ==
[2025-02-13 11:48] LABS: Hematocrit 37.3 % (37.0-47.0); Hemoglobin 12.4 g/dl (12.0-16.0); Imm Gran Abs Auto 0.01 X10*3/uL (0.00-0.03); Imm Gran Pct Auto 0.2 % (0.0-0.4); Lymphocytes Absolute Auto 1.5 X10*3/uL (1.2-4.9); MANUAL DIFF FLAG NO; Mean Corpuscular HGB Conc 33.2 g/dl (31.0-35.0); Mean Corpuscular Hemoglobin 29.5 pg (27.0-33.0); Mean Corpuscular Volume 88.6 fL (80.0-98.0); NRBC Abs Auto 0.000 X10*3/uL (0.0-0.012); NRBC Pct Auto 0.0 /100WBC (0.0-0.2); Platelet Count 234 X10*3/uL (160-400); Red Blood Count 4.21 X10*6/uL (4.20-5.50); White Blood Count 4.2 X10*3/uL (4.8-10.8)
--- OUTSIDE RECORDS SUMMARY | 2025-02-13 14:15 | XMS_ITS | Patient Health Record ---
Author Organization [facility] Address [address] [place] [address] Care Team Providers Care Flight Dynamicist Name Role Phone Erin Moses Primary Care Provider UnavailChico Nelson Jr Unavailable Reason For Referral No Information Plan Of Treatment No Information Insurance Providers Payer Name Payer Address Payer Phone Subscriber Number Group Number Insured Name Patient Relationship to Insured Coverage Start Date Coverage End Date MED[place]ARE OF [place] [address] [place] [address] [id number] WILNER SHERMAN Self - patient is the insured MEDICAID OF [facility] [address] [place] [address] [id number] WILNER SHERMAN Self - patient is the insured
[2025-02-15 11:18] LABS: Anti Nuclear Antibody Screen NEGATIVE (NEGATIVE)
[2025-02-22 00:33] LABS: Class Alternaria alternata 0; Class Aspergillus fumigatus 0; Class Bermuda Grass 0; Class Birch 0; Class Cat Dander 0; Class Cladosporium herbarum 0; Class Cockroach 0; Class Common Ragweed 0; Class Cottonwood 0; Class Derm. pterony 0; Class Dermatophagoides farinae 0; Class Dog Dander 0; Class Elm 0; Class Maple Box Elder 0; Class Mountain Cedar 0; Class Mouse Urine Protein 0; Class Mugwort 0; Class Oak 0; Class Penicillium crysogenum 0; Class Rough Pigweed 0; Class Sheep Sorrel 0; Class Sycamore 0; Class Timothy Grass 0; Class Walnut Tree 0; Class White Ash 0; Class White Mulberry 0; D002 - IgE D farinae <0.10 kU/L; E001 - IgE Cat Dander <0.10 kU/L; E005 - IgE Dog Dander <0.10 kU/L; G006 - IgE Timothy Grass <0.10 kU/L; I006-IgE Cockroach, German <0.10 kU/L; M002 - IgE Cladosporium herbar <0.10 kU/L; M003 - IgE Aspergillus fumigat <0.10 kU/L; M006 - IgE Alternaria alternat <0.10 kU/L; T001 IgE Maple/Box Elder <0.10 kU/L; T006 - IgE Cedar, Mountain <0.10 kU/L; T007 - IgE Oak, White <0.10 kU/L; T008 IgE Elm, American <0.10 kU/L; T010 - IgE Walnut <0.10 kU/L; T011 - IgE Maple Leaf Sycamore <0.10 kU/L; T014 - IgE Cottonwood <0.10 kU/L; T015 - IgE Ash, White <0.10 kU/L; T070 - IgE White Mulberry <0.10 kU/L; W001 - IgE Ragweed, Short <0.10 kU/L; W006 - IgE Mugwort <0.10 kU/L; W014 IgE Pigweed, Common <0.10 kU/L; W018 IgE Sheep Sorrel <0.10 kU/L
[2025-02-22 12:13] LABS: Asperg fumigatus Precip Abs NEGATIVE (NEGATIVE); Micropoly faeni Abs NEGATIVE (NEGATIVE); Saccharo pora viridis Abs NEGATIVE (NEGATIVE); Thermo candidus Abs NEGATIVE (NEGATIVE)
== END 2025-02-13 11:06 | disposition home or self-care (01) ==
LOC: HO.LAB 11:05
PROVIDERS: PCP Internal Medicine; Visit Provider Hospitalist
DX: Z01.84 Encounter for antibody response examination (principal); J44.89 Other specified chronic obstructive pulmonary disease; T78.40XA Allergy, unspecified, initial encounter; R91.8 Other nonspecific abnormal finding of lung field; R91.1 Solitary pulmonary nodule
CPT/HCPCS: 36415; 82784; 82785; 85025; 85652; 86003; 86038; 86200; 86331; 86606; 86609

== ENCOUNTER 2025-02-15 10:44 | Outpatient (AMB) | payer OTHER, SELFPAY ==
--- NOTE | 2025-02-15 10:49 | A.OFFVIS_ITS ---
Vital Signs 02/15/25 11:26 Height 5 ft 2 in Weight 156 lb BMI 28.5 BP 134/63 Blood Pressure Location Lt brachial Position Sitting Pulse 51 Intake Visit Reasons: Review NM Study Results. Review Meds Intake Note: Patient presents in follow up of abdominal US. CC: Patient reports doing well and denies having any new GI symptoms today. Supervisor Propellant Charge Loading Required: No Accompanied by: Self / Same As Patient Allergies Iodinated Contrast Media (IV DYE, IODINE CONTAINING CONTRAST ) Allergy (Unknown, Verified 02/15/25 11:38) SHAKING lisinopril Adverse Reaction (Intermediate, Verified 02/15/25 11:38) cough HPI HPI Review NM Study Results. Review Meds: Details: Assessment & Plan (1) RUQ abdominal pain: Code(s): R10.11 - Right upper quadrant pain Category: Medical (2) GERD (gastroesophageal reflux disease): Code(s): K21.9 - Gastro-esophageal reflux disease without esophagitis Category: Medical Qualifiers: Esophagitis presence: without esophagitis Qualified Code(s): K21.9 - Gastro-esophageal reflux disease without esophagitis (3) Upper abdominal pain: Code(s): R10.10 - Upper abdominal pain, unspecified Category: Medical Plan She is having some relief in terms of HB with the higher dose of omepazole 40mg bid. She still has intermittent pain in the RUQ to right abd she describes as grabbing that is worse with fatty foods and certain red meats like pork or steak. She is ok with chicken. No US, will get HIDA scan and EGD to help tease out the DDX. Also she has point tenderness over the right mid-upper abd and I will get limited US to r/o hernia. ROV after US or hida which ever comes first. Her mother and maternal grandmother had bad PUD. She has asthma and has an upcoming referral to pulm, it shows CCAD on her hx but the pt denies knowlege of any cardiac problems. NO anes or sed problems. No ID problems. She will call us to book after studies. Orders: Orders US abdomen limited 10/31/24 R10.10 - Upper abdominal pain, unspecified EGD - GI Use Only 10/31/24 R10.10 - Upper abdominal pain, unspecified, R10.11 - Right upper quadrant pain NM hepatobiliary w pharm 10/31/24 R10.10 - Upper abdominal pain, unspecified, R10.11 - Right upper quadrant pain ULTRASOUND OF THE ABDOMEN FINDINGS: No solid mass. No fluid collections. No protrusion of the intra-abdominal contents demonstrated Valsalva maneuvers. US/US abdomen limited IMPRESSION: Negative exam. HIDA SCAN Pt ? no show ? EGD BIOPSY TODAY'S VISIT [facility] Medical History (Updated 02/12/25 @ 20:37 by Krish Quinones MD) Cough Pleuritic chest pain Allergies Incisional hernia Pre-op examination Colon cancer screening Hyperplastic colon polyp History of recent pneumonia Upper respiratory infection COPD (chronic obstructive pulmonary disease) Tobacco abuse Abnormal weight loss Obesity (BMI 30-39.9) Elevated fasting glucose Peptic ulcer disease Dysphagia Nausea and vomiting Diarrhea Lower abdominal pain UTI (urinary tract infection) Dysuria Epigastric pain Annual physical exam Osteopenia COVID-19 vaccine series completed Generalized anxiety disorder Psoriasis Hypercholesterolemia Coronary artery disease Diverticulitis GERD (gastroesophageal reflux disease) Migraine Leukopenia Hypertension Impaired glucose tolerance Surgical History History of colonoscopy (09/04/24) History of incisional hernia repair (~03/20/24) History of hysterectomy Hx of bladder repair surgery Hx of umbilical hernia repair History of esophagogastroduodenoscopy (EGD) H/O colonoscopy History of pubovaginal sling History of section Family History Father Medical history unknown Mother Myocardial infarction Hypertension CVD (cardiovascular disease) Breast cancer Social History Household Members: Spouse Housing: Apartment Are you a primary career development director to a significant other at home: No Do you presently have visiting nurse or other home services: No Alcohol intake: current Alcohol intake frequency: holidays/special occasions only Comment: holiday 1 drink Patient Tobacco Use Status: Never used Tobacco Tobacco use type: Cigarette e-Cigarette/Vaping Use: Never Used Second Hand Smoke Exposure: No Substance Use Type: Marijuana service: No Current occupational status: unemployed Cognitive needs: No Hearing needs: No Vision needs: Yes Female Reproductive History Menstrual Age of Menarche: 14 Review of Systems Const Denies fatigue, Denies fever(s), Denies night sweats, Denies poor appetite and Denies weight loss ENT Reports Normal hearing present, Denies dental pain, Denies dysphagia, Denies hearing loss, Denies mouth pain, Denies odynophagia, Denies throat swelling, Denies tongue swelling and Reports other (Dentition adequate) Card Reports no additional complaints Resp Reports no additional complaints GI Details: Reports abdominal pain, Denies melena, Denies bloating, Denies hematochezia, Denies constipation, Denies GI cramping, Denies dysphagia, Denies excessive flatus, Denies early satiety, Reports heartburn, Denies diarrhea, Denies nausea, Denies odynophagia, Denies vomiting and Denies hematemesis Skin/Breast Denies pruritus, Denies lesions, Denies rash and Denies jaundice Neuro Reports Normal hearing present and Denies Abnormal speech present Endo Denies fatigue Aller/Immun Denies throat swelling and Denies tongue swelling Physical Exam Vital Signs: Last Vital Signs Pulse 51 02/15/25 11:26 BP 134/63 02/15/25 11:26 BMI result Body Mass Index 28.5 Const General: cooperative, no acute distress, well developed and well groomed Nutritional Appearance: average body habitus and well nourished Orientation/consciousness: oriented to person, oriented to place and oriented to time Limitations: No language barrier HEENT Head: Yes normocephalic and Yes atraumatic Eyes General: appearance normal, both eyes and all related structures Pupils: Equal, round and reactive pupils present Neck Neck: Yes normal visual inspection and Yes no lymphadenopathy Thyroid: Thyroid normal Resp Effort & Inspection: normal respiratory effort and able to speak in complete sentences Auscultation: clear to auscultation bilaterally Cardio Rate: regular rate Rhythm: regular rhythm Heart sounds: Normal, physiologic split S2 sound present Peripheral pulses: radial pulses present and posterior tibial pulses present GI Inspection: No distended and No Abdominal panniculus present Palpation (GI): Soft to palpation, nontender, no guarding, not rigid and No hepatosplenomegaly present Percussion: Yes normal to percussion Auscultation: normal bowel sounds Rectal Exam - Female: deferred Skin General skin exam: no rashes or lesions noted, turgor normal, skin not dry, no jaundice, No spider nevi and no striae Rashes: no rashes Nails: normal Neuro General: oriented to person, oriented to place and oriented to time Cranial nerves: Yes Equal, round and reactive pupils present and Yes Normal hearing present Speech: No Abnormal speech present Extrem General: Yes normal to inspection, No clubbing, No cyanosis and No edema Psych Appearance: grossly normal and well kempt Mental Status: mental status grossly normal Speech and movement: Normal speech and movement present Affect: normal affect Attitude: cooperative Thought process: Normal thought process present and not confabulating Thought content: Normal thought content present Insight: Fair insight present (Psych) Judgement: Fair judgement present (Psych) Assessment & Plan Assessment & Plan (1) Upper abdominal pain: Code(s): R10.10 - Upper abdominal pain, unspecified Category: Medical Plan Her Gi regimen consists of omeprazole 40mg bid - The patient is a 69-year-old female presenting with the management of gastroesophageal reflux disease and epigastric pain and to review her ultrasound . - She reports improvement with a higher dose of omeprazole 40 mg twice a day for her gastroesophageal reflux disease (GERD), indicating effective management. - Previously experienced epigastric discomfort after eating fatty foods, which has been alleviated by dietary adjustments and omeprazole. She has eliminated red meat from her diet. - Missed a scheduled HIDA scan in November, unaware of the appointment and needing rescheduling. - A recent ultrasound showed no remarkable findings. - I encouraged her to reschedule the HIDA scan to make sure there is no biliary dyskinesia and of course she is awaiting an esophagogastroduodenoscopy that I have previously ordered. Return office visit in 4 months HIDA SCAN Pt ? no show ? EGD BIOPSY Orders: Referrals GI Procedure Notification R10.10 - Upper abdominal pain, unspecified Coding Level of Care Code Est Pt Level 3 (49468) Diagnoses Upper abdominal pain R10.10
[2025-02-15 11:26] VITALS: BP 134/63; PULSE 51; BMI 28.5
--- OUTSIDE RECORDS SUMMARY | 2025-02-15 12:19 | XMS_ITS | Patient Health Record ---
Author Organization [facility] Address [address] [place] [address] Care Team Providers Care Furnishings Conservator Name Role Phone Erin Moses Primary Care Provider UnavailChico Nelson Jr Unavailable Reason For Referral No Information Plan Of Treatment No Information Insurance Providers Payer Name Payer Address Payer Phone Subscriber Number Group Number Insured Name Patient Relationship to Insured Coverage Start Date Coverage End Date MEDICARE OF [place] [address] [place] [id number] WILNER SHERMAN Self - patient is the insured MEDICAID OF [facility] [address] [place] [address] [id number] WILNER SHERMAN Self - patient is the insured
== END 2025-02-15 12:12 | disposition home or self-care (01) ==
LOC: HO.HGI 10:44
PROVIDERS: PCP Internal Medicine; Visit Provider Nurse Practitioner
DX: R10.10 Upper abdominal pain, unspecified (principal)
CPT/HCPCS: 99213

== ENCOUNTER → 2025-02-15 10:44 | Outpatient (BNVA) | payer OTHER, SELFPAY | PROVIDERS: PCP Internal Medicine; Visit Provider Nurse Practitioner | DX: R10.11 Right upper quadrant pain (principal); K21.9 Gastro-esophageal reflux disease without esophagitis | CPT/HCPCS: 99212 ==

== ENCOUNTER → 2025-03-08 07:12 | Outpatient (REF) | payer OTHER, SELFPAY ==
--- NOTE | ~2025-03-08 | NM_ITS ---
EXAMINATION: NM HEPATOBILIARY WITH PHARM HISTORY: R10.10 - Upper abdominal pain, unspecified. TECHNIQUE: An hepatobiliary scan was performed following the intravenous administration of 5 mCi technetium 99m-mebrofenin. Sequential images were obtained over 1 hour. Subsequently, the patient received 1.4 microgram of IV CCK over 30 minutes and additional imaging was performed. COMPARISON: Correlation is made with an abdominal ultrasound dated 10/11/2024. FINDINGS: There is normal uptake and excretion of the radiopharmaceutical by the liver. Gallbladder activity is noted at 14 minutes. Common bile duct activity is seen at 10 minutes. Small bowel activity is noted at 12 minutes. After the administration of intravenous CCK, the estimated gallbladder ejection fraction is 92%, which is high. NM/NM hepatobiliary w pharm IMPRESSION: Elevated gallbladder ejection fraction which can be seen in the setting of biliary hyperkinesia. Clinical correlation is recommended. Electronically signed by: Michael Badillo MD 03/08/2025 12:03 PM EDT
--- OUTSIDE RECORDS SUMMARY | 2025-03-08 07:14 | XMS_ITS | Patient Health Record ---
Author Organization [facility] Address [address] [place] [address] Care Team Providers Care Tufter Name Role Phone Erin Moses Primary Care Provider UnavailChico Nelson Jr Unavailable Reason For Referral No Information Plan Of Treatment No Information Insurance Providers Payer Name Payer Address Payer Phone Subscriber Number Group Number Insured Name Patient Relationship to Insured Coverage Start Date Coverage End Date MEDICARE OF [place] [address] [place] [address] [phone] [id number] WILNER SHERMAN Self - patient is the insured MEDICAID OF [facility] [address] [place] [phone] [id number] WILNER SHERMAN Self - patient is the insured
== END ==
LOC: HO.NUCMED 07:12
PROVIDERS: PCP Internal Medicine; Visit Provider Nurse Practitioner
DX: R10.10 Upper abdominal pain, unspecified (principal); R10.11 Right upper quadrant pain
CPT/HCPCS: 78227; A9537; J2805

== ENCOUNTER → 2025-03-08 07:14 | Outpatient (BNV) | payer OTHER, SELFPAY | PROVIDERS: PCP Internal Medicine; Visit Provider Radiology Diagnostic Radiology | DX: R10.10 Upper abdominal pain, unspecified (principal) | CPT/HCPCS: 78227 ==

== ENCOUNTER 2025-03-30 07:07 | Outpatient (REF) | payer OTHER, SELFPAY ==
--- NOTE | ~2025-03-30 | CT_ITS ---
CLINICAL HISTORY: R07.81 - Pleurodynia CT chest without contrast Comparison: Chest x-ray from 09/13/2024 Findings: 1.8 cm long axis airspace disease and/or cluster of the opacities extends to pleural surface laterally in the right upper lobe. Differential considerations include small airway disease and/or pneumonitis. Lung neoplasm not excluded given centrilobular distribution in the predominantly nodular morphology. No pneumothorax or pleural effusion. Vascular calcifications involve the tortuous aorta. Nonenlarged mediastinal lymphadenopathy by noncontrast imaging. Mild mediastinal fluid and borderline cardiomegaly noted. Small hiatal hernia. Mild volume loss of the imaged pancreas in the imaged abdomen. Imaged spleen is nonenlarged. Degenerative changes include sternum manubrium articulation, imaged spine, imaged shoulders. Mild/minimal vertebral height losses appear old/chronic. Disc height loss appears most pronounced at T8-T9 by CT. IMPRESSION: 1. 1.8 cm airspace disease is nonspecific laterally in the right upper lobe. Please correlate for any potential pneumonitis, pneumonia, or small airway disease. Also recommend PET-CT or additional diagnostics given nodular morphology greater than 1 cm; if not already achieved. 2. Small hiatal hernia. This document has been electronically signed by: Bharat Cruz MD on 04/02/2025 03:06:28
--- OUTSIDE RECORDS SUMMARY | 2025-03-30 07:09 | XMS_ITS | Patient Health Record ---
Author Organization [facility] Address [address] [place] [address] Care Team Providers Care Cat And Dog Bather Name Role Phone Erin Moses Primary Care Provider UnavailChico Nelson Jr Unavailable Reason For Referral No Information Plan Of Treatment No Information Insurance Providers Payer Name Payer Address Payer Phone Subscriber Number Group Number Insured Name Patient Relationship to Insured Coverage Start Date Coverage End Date MEDICARE OF [place] [address] [place] [address] [id number] WILNER SHERMAN Self - patient is the insured MEDICAID OF [facility] [address] [place] [address] [id number] WILNER SHERMAN Self - patient is the insured
== END 2025-03-30 07:08 | disposition home or self-care (01) ==
LOC: HO.CT 07:07
PROVIDERS: PCP Internal Medicine; Visit Provider Hospitalist
DX: R07.81 Pleurodynia (principal); R05.9 Cough, unspecified; F17.200 Nicotine dependence, unspecified, uncomplicated
CPT/HCPCS: 71250

== ENCOUNTER → 2025-03-30 07:09 | Outpatient (BNV) | payer OTHER, SELFPAY | PROVIDERS: PCP Internal Medicine; Visit Provider Radiology Neuroradiology | DX: R07.81 Pleurodynia (principal) | CPT/HCPCS: 71250 ==

== ENCOUNTER 2025-04-17 08:59 | Outpatient (REF) | payer OTHER, SELFPAY ==
--- OUTSIDE RECORDS SUMMARY | 2025-04-17 09:36 | XMS_ITS | Patient Health Record ---
Author Organization [facility] Address [address] [place] [address] Care Team Providers Care Lumber Tallier Name Role Phone Erin Moses Primary Care Provider UnavailChico Nelson Jr Unavailable Reason For Referral No Information Plan Of Treatment No Information Insurance Providers Payer Name Payer Address Payer Phone Subscriber Number Group Number Insured Name Patient Relationship to Insured Coverage Start Date Coverage End Date MEDICARE OF [place] [address] [place] [phone] [id number] WILNER SHERMAN Self - patient is the insured MEDICAID OF [facility] [address] [place] [address] [id number] WILNER SHERMAN Self - patient is the insured
--- NOTE | 2025-04-17 10:10 | PFT_ITS ---
Flows: FEV1: 92 % of predicted at 1.94 L FVC: 94 % of predicted at 2.54 L FEV1/FVC: 77 % Bronchodilator response: Absent Volumes: Total lung capacity: 85 % of predicted at 3.96 L Residual volume: 77 % of predicted at 1.37 L Slow vital capacity: 90 % of predicted at 2.59 L Expiratory reserve volume: 95 % of predicted at 0.64 L Diffusion capacity: Mildly decreased, corrects to normal after adjustment for alveolar ventilation. Impression: No obstructive or restrictive ventilatory defect. No bronchodilator response. Decreased diffusion capacity suggests emphysema. MTDD
[2025-04-17 10:29] VITALS: PULSE 49
== END 2025-04-17 09:00 | disposition home or self-care (01) ==
LOC: HO.RESP 08:59
PROVIDERS: PCP Internal Medicine; Visit Provider Hospitalist
DX: R07.81 Pleurodynia (principal)
CPT/HCPCS: 94060; 94640; 94727; 94729

== ENCOUNTER → 2025-04-17 10:10 | Outpatient (BNV) | payer OTHER, SELFPAY | PROVIDERS: PCP Internal Medicine; Visit Provider Internal Medicine Pulmonary Disease | DX: R07.81 Pleurodynia (principal) | CPT/HCPCS: 94060; 94727; 94729 ==

== ENCOUNTER 2025-05-13 09:57 | Outpatient (AMB) | payer OTHER, SELFPAY ==
[2025-05-13 10:01] VITALS: BP 120/74; PULSE 66; O2SAT 99; BMI 28.0
--- NOTE | 2025-05-13 10:01 | A.OFFVIS_ITS ---
Vital Signs 3 05/13/25 10:01 Height 5 ft 2 in Weight 153 lb 3.54 oz BMI 28.0 BP 120/74 Blood Pressure Location Lt brachial Position Sitting Pulse 66 Pulse Source Pulse Oximeter Pulse Oximetry (%) 99 Oxygen Delivery Method Room Air Intake Visit Reasons: Pneumonia Diesel Automotive Technician Required: No Enterprise Sales Person: Enterprise Sales Person offered & declined Accompanied by: Self / Same As Patient Allergies Iodinated Contrast Media (IV DYE, IODINE CONTAINING CONTRAST ) Allergy (Unknown, Verified 05/13/25 10:04) SHAKING lisinopril Adverse Reaction (Intermediate, Verified 05/13/25 10:04) cough HPI Comments Details: The patient is a 69 year woman with underlying asthma presenting with multiple episodes of lower respiratory infection. She has gone to the ER multiple times again with worsening respiratory complaints. Sometimes she starts getting a pleuritic pain primarily in her left lung in the back close to the scapula followed by nausea cough and discomfort. She went to the ER last time back in August 2024. There she had a chest x-ray which I personally reviewed demonstrating no acute disease. She usually response to prednisone antibiotics. She has also had use issues with frequent UTIs. Therefore a question of a immunocompromised state has come up. The patient does continue to use Symbicort with good effect and she also takes allergy medication. The patient does have snoring. And she also has a underlying reflux disease. We did talk about treating the reflux disease to minimize micro aspirations and risks of infection. Also to note with her snoring she has had a sleep study in the past and I do not have the results but the patient would like to hold off on any kind it sleep studies. She is concerned with all her medications. Did review them. It seems like she is on PRATEEK inhibitor. She does have this dry cough that is likely being precipitated by. I did request see if she can be taken off the Prateek and placed on an ARB for now. The patient will undergo blood work including allergy testing and immunological evaluation. She will also undergo a pulmonary function study and will request a CT scan of the chest to further address her pleuritic chest discomfort. Will follow-up after those studies available. Otherwise she can always call for further recommendations. 05/13/2025 the patient is here for pulmonary follow-up visit. The patient overall has been doing okay. She still complains of the right-sided pleuritic chest discomfort. We did review her CT scan. Appears to have a nodular density in the right hemithorax. It is greater than a cm in size. Can not rule out malignant process. Will going to go ahead and treated with Levaquin for the possibility of an infectious process. But it is likely that she will need to have additional diagnostic interventions including potential biopsies. Will go ahead and request a PET scan to see how active did have abnormality is in to see if there is any disease elsewhere. The PET scan will help us provide the best yield poor biopsy. Otherwise the patient will continue her other respiratory therapy. She will have the Levaquin she knows the signs and symptoms to watch for including tendonitis. Will follow-up after her PET scan if she has any issues prior to this she can always call for further recommendations. [facility] Medical History (Updated 04/02/25 @ 15:07 by Krish Quinones MD) Pulmonary nodule Cough Pleuritic chest pain Allergies Incisional hernia Pre-op examination Colon cancer screening Hyperplastic colon polyp History of recent pneumonia Upper respiratory infection COPD (chronic obstructive pulmonary disease) Tobacco abuse Abnormal weight loss Obesity (BMI 30-39.9) Elevated fasting glucose Peptic ulcer disease Dysphagia Nausea and vomiting Diarrhea Lower abdominal pain UTI (urinary tract infection) Dysuria Epigastric pain Annual physical exam Osteopenia COVID-19 vaccine series completed Generalized anxiety disorder Psoriasis Hypercholesterolemia Coronary artery disease Diverticulitis GERD (gastroesophageal reflux disease) Migraine Leukopenia Hypertension Impaired glucose tolerance Surgical History History of colonoscopy (09/04/24) History of incisional hernia repair (~03/20/24) History of hysterectomy Hx of bladder repair surgery Hx of umbilical hernia repair History of esophagogastroduodenoscopy (EGD) H/O colonoscopy History of pubovaginal sling History of section Family History Father Medical history unknown Mother Myocardial infarction Hypertension CVD (cardiovascular disease) Breast cancer Social History Household Members: Spouse Housing: Apartment Are you a primary progressive care unit registered nurse to a significant other at home: No Do you presently have visiting nurse or other home services: No Alcohol intake: current Alcohol intake frequency: holidays/special occasions only Comment: holiday 1 drink Patient Tobacco Use Status: Never used Tobacco Tobacco use type: Cigarette e-Cigarette/Vaping Use: Never Used Second Hand Smoke Exposure: No Substance Use Type: Marijuana service: No Current occupational status: unemployed Cognitive needs: No Hearing needs: No Vision needs: Yes Female Reproductive History Menstrual Age of Menarche: 14 Review of Systems Const Denies fever(s) Eyes Reports no additional complaints ENT Reports dysphagia and Reports nasal congestion Card Denies palpitations and Reports dyspnea on exertion Resp Reports cough, Reports pain on inspiration, Reports dyspnea on exertion and Reports wheezing GI Reports dysphagia and Reports heartburn Musc Reports myalgias Skin/Breast Denies rash Neuro Reports no additional complaints Endo Denies palpitations Lew/Lymph Reports no additional complaints Aller/Immun Reports wheezing Physical Exam Vital Signs: Last Vital Signs Pulse 66 05/13/25 10:01 BP 120/74 05/13/25 10:01 Pulse Ox 99 05/13/25 10:01 Oxygen Delivery Method Room Air 05/13/25 10:01 BMI result Body Mass Index 28.0 Const General: comfortable HEENT Head: Yes normocephalic Neck Neck: Yes supple Chest Chest palpation & inspection: tenderness costochondral junction and costal cartilage Resp Effort & Inspection: normal respiratory effort Auscultation: diminished lung sounds Cardio Heart sounds: S1 normal heart sound present and S2 normal heart sound present GI Palpation (GI): Soft to palpation Skin General skin exam: no rashes or lesions noted Extrem General: Yes no clubbing, cyanosis or edema Results Reviewed Results Reviewed: Assessment & Plan Assessment & Plan (1) Asthma: Code(s): J45.909 - Unspecified asthma, uncomplicated Category: Medical Qualifiers: Asthma complication type: uncomplicated Asthma persistence: persistent Asthma severity: moderate Qualified Code(s): J45.40 - Moderate persistent asthma, uncomplicated (2) Pleuritic chest pain: Code(s): R07.81 - Pleurodynia Category: Medical (3) Cough: Code(s): R05.9 - Cough, unspecified Category: Medical Qualifiers: Cough type: chronic Qualified Code(s): R05.3 - Chronic cough (4) Allergies: Code(s): T78.40XA - Allergy, unspecified, initial encounter Category: Medical Qualifiers: Encounter type: initial encounter Qualified Code(s): T78.40XA - Allergy, unspecified, initial encounter (5) Pulmonary nodule: Code(s): R91.1 - Solitary pulmonary nodule Category: Medical Plan continue Symbicort LEONARDA as needed start Levaquin x 10 days PET scan in 4-6 weeks continue PPI Sleep elevated Positional sleep therapy Consider changing PRATEEK to ARB due to chronic cough F/U 2-3 months Orders: Orders [address] fusion skull to thigh 6 Weeks R91.1 - Solitary pulmonary nodule Medications: New 2 levofloxacin 500 mg PO DAILY 10 tabs 0RF 10 days Coding Level of Care Code Est Pt Level 5 (37925) Diagnoses Moderate persistent asthma without complication J45.40 Asthma complication type: uncomplicated Asthma persistence: persistent Asthma severity: moderate Pleuritic chest pain R07.81 Chronic cough R05.3 Cough type: chronic Allergy, initial encounter T78.40XA Encounter type: initial encounter Pulmonary nodule R91.1 Time Spent (min) 45
--- OUTSIDE RECORDS SUMMARY | 2025-05-13 11:52 | XMS_ITS | Patient Health Record ---
Author Organization [facility] Address [address] [place] [address] Care Team Providers Care Profile Saw Setup Operator Name Role Phone Erin Moses Primary Care Provider UnavailChico Nelson Jr Unavailable Reason For Referral No Information Plan Of Treatment No Information Insurance Providers Payer Name Payer Address Payer Phone Subscriber Number Group Number Insured Name Patient Relationship to Insured Coverage Start Date Coverage End Date MEDICARE OF [place] [address] [place] [id number] [phone] [id number] WILNER SHERMAN Self - patient is the insured MEDICAID OF [facility] [address] [place] [phone] [id number] WILNER SHERMAN Self - patient is the insured
== END 2025-05-13 10:39 | disposition home or self-care (01) ==
LOC: HO.HPS 09:58
PROVIDERS: PCP Internal Medicine; Visit Provider Hospitalist
DX: J45.40 Moderate persistent asthma, uncomplicated (principal); R07.81 Pleurodynia; R05.3 Chronic cough; T78.40XA Allergy, unspecified, initial encounter; R91.1 Solitary pulmonary nodule
CPT/HCPCS: 99215

== ENCOUNTER → 2025-05-13 09:57 | Outpatient (BNVA) | payer OTHER, SELFPAY | PROVIDERS: PCP Internal Medicine; Visit Provider Hospitalist | DX: J45.40 Moderate persistent asthma, uncomplicated (principal); T78.40XA Allergy, unspecified, initial encounter; J44.9 Chronic obstructive pulmonary disease, unspecified; R07.81 Pleurodynia; R05.3 Chronic cough; R91.1 Solitary pulmonary nodule | CPT/HCPCS: 99212 ==

== ENCOUNTER 2025-05-17 08:58 | Outpatient (REF) | payer OTHER, SELFPAY ==
--- NOTE | ~2025-05-17 | CT_ITS ---
EXAMINATION: CT CHEST WITHOUT IV CONTRAST INDICATION: R91.1 - Solitary pulmonary nodule COMPARISON: Comparison is made with the prior examination dated 03/30/2025. TECHNIQUE: Helical CT scan of the chest was performed without intravenous contrast. Coronal and sagittal reformatted images were generated and reviewed. This CT exam was performed with one or more of the following dose reduction techniques: automated exposure control, adjustment of the mA and/or kV according to patient size, use of iterative reconstruction technique. DLP: 148 mGy-cm CHEST: THYROID: The thyroid is unremarkable. LUNGS: Again seen is an irregular opacity in the right upper lobe measuring approximately 1.9 x 0.8 x 1.0 cm (series 5, images 62-67) which extends to the pleural surface. The appearance is not significantly changed from the prior study. There is a punctate nodule of the left lung apex (series 5, image 21). MEDIASTINUM: There is no mediastinal lymphadenopathy. IVONE: Evaluation of the hilar regions is limited by lack of intravenous contrast material. CARDIOVASCULATURE: The heart is normal in size. There is no pericardial effusion. The thoracic aorta is normal in caliber. DEGREE OF CORONARY CALCIFICATION: none PLEURA: There is no pleural effusion. No pneumothorax. MAIN AIRWAYS: The mainstem bronchi and proximal branches are patent. AXILLA: There is no axillary lymphadenopathy. BONES AND SOFT TISSUES: There is a small hiatal hernia. UPPER ABDOMEN: The visualized portions of the liver, spleen, and adrenals have an unremarkable unenhanced appearance. CT/CT chest wo IV con IMPRESSION: Irregular 1.9 x 0.8 x 1.1 cm right upper lobe opacity without significant change from the prior study. Further evaluation with PET/CT scan is recommended to exclude neoplasm. Electronically signed by: Michael Badlilo MD 05/17/2025 09:43 AM EST
--- OUTSIDE RECORDS SUMMARY | 2025-05-17 09:01 | XMS_ITS | Patient Health Record ---
Author Organization [facility] Address [address] [place] [address] Care Team Providers Care Remote Encoding Center Manager Name Role Phone Erin Moses Primary Care Provider UnavailChico Nelson Jr Unavailable [phone] Reason For Referral No Information Plan Of Treatment No Information Insurance Providers Payer Name Payer Address Payer Phone Subscriber Number Group Number Insured Name Patient Relationship to Insured Coverage Start Date Coverage End Date MEDICARE OF [place] [address] [place] [id number] [phone] [id number] WILNER SHERMAN Self - patient is the insured MEDICAID OF [facility] [address] [place] [address] [id number] WILNER SHERMAN Self - patient is the insured
== END 2025-05-17 08:59 | disposition home or self-care (01) ==
LOC: HO.CT 08:58
PROVIDERS: PCP Internal Medicine; Visit Provider Hospitalist
DX: R91.1 Solitary pulmonary nodule (principal)
CPT/HCPCS: 71250

== ENCOUNTER → 2025-05-17 09:00 | Outpatient (BNV) | payer OTHER, SELFPAY | PROVIDERS: PCP Internal Medicine; Visit Provider Radiology Diagnostic Radiology | DX: R91.8 Other nonspecific abnormal finding of lung field (principal) | CPT/HCPCS: 71250 ==